=== PATIENT | male | born 1950 | race Caucasian/White ===

== ENCOUNTER 2022-08-11 08:12 | Outpatient (CLI) | payer BC, SELFPAY ==
--- NOTE | 2022-08-11 08:30 | CRLHL7_ITS ---
For Patients: As a result of the Century Cures Act, medical imaging exams and procedure reports are released immediately into your electronic medical record. You may view this report before your referring provider. If you have questions, please contact your health care provider. [facility] ??? [facility] MYOCARDIAL PERFUSION SCAN CLINICAL HISTORY: 71-year-old male. Chest pain. Former smoker. Hypertension. Family history of heart disease. 5 feet 11 inches, 221 pounds. TECHNIQUE: (Resting SPECT and Stress Gated SPECT with wall motion and ejection fraction) Stress: Pharmacologic ??? Lexiscan (0.4 mg) (IV) Dose (Stress/Rest): 30.9 mCi/8.70 mCi Tc-99m Sestamibi (IV) Comparison: None FINDINGS: There is good uptake of activity by the left ventricle. No left ventricular enlargement is noted. There is mild soft tissue attenuation. There is a medium sized area of mild to moderately decreased activity involving the base and mid inferior septum and the apical inferior wall. This is predominantly fixed on the resting images, suspicious for nontransmural infarction. There is mild peripheral reversibility surrounding this area consistent with mild kathi-infarction ischemia. No other significant fixed or reversible defects are identified. The gated images demonstrate a normal left ventricular ejection fraction of 62 percent. There is mild hypokinesis in the apical inferior wall. IMPRESSION: 1. 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 2. Normal left ventricular ejection fraction of 62 percent. This study was jointly reviewed by radiology and cardiology. JOSE LUIS COOPER M.D. [employer] [facility] [email or web address] Transcribed: 3:06 pm CAL HOLMAN M.D. [employer] [facility] DW/Dictated by: Jose Luis Cooper MD @ 08/11/2022 2:07:00 PM (Electronically Signed)
[2022-08-11] MEDS: REGADENOSON 0.4 MG/5 ML SYRINGE IVP (10:22)
[2022-08-11] MEDS: SODIUM CHLORIDE 0.9 % (FLUSH) 10 ML SYRINGE IVF (10:22)
[2022-08-11 10:40] VITALS: BP 180/84; PULSE 93
--- NOTE | 2022-08-11 17:13 | W.PM.STED ---
Stress Test Note Date Date of test: 08/11/22 Providers Primary care provider: Osvaldo Hall Stress test physician: Jett Tong Stress Test Note Stress test ordered: Lexiscan Indication for test: Chest pain Stress test medicine: Lexiscan Results discussion: This pleasant gentleman presents for the above test after review of the cardiac stress and test medical history, he would like to proceed pretest EKG shows normal sinus rhythm, with a ventricular rate 84 and a blood pressure 164 and 78, no ST wave changes suggestive of ischemia. Standard Lexiscan protocol nonwalking is done over the course of 5 minutes, maximum heart rate was 103, maximum blood pressure was 199/90. Patient had really no symptoms, he recovered normally, no chest pain or any anginal cold symptoms. There is no ST wave changes suggestive of ischemia, no dysrhythmias are noted. Impression: Negative electrographic portion of Lexiscan Follow up suggested: Follow-up with primary care suggested, review of the their portion will be done by both Cardiology and nuclear Medicine, clinical correlation with this will be needed. Patient left this is testing facility in excellent condition.
== END 2022-08-11 08:13 | disposition home or self-care (01) ==
LOC: STRESS 08:13
PROVIDERS: PCP Family Medicine; Visit Provider Family Medicine
DX: R07.9 Chest pain, unspecified (principal); I21.4 Non-ST elevation (NSTEMI) myocardial infarction; I10 Essential (primary) hypertension
CPT/HCPCS: 78452; 93016; 93017; A9500; J2785

== ENCOUNTER 2022-10-23 10:20 | Outpatient (CLI) | payer BC, SELFPAY | END 2022-10-23 10:21 | disposition home or self-care (01) | LOC: NFLDREF 10-24 03:48 | PROVIDERS: PCP Family Medicine; Referring Provider Family Medicine; Visit Provider Family Medicine | DX: E78.5 Hyperlipidemia, unspecified (principal); I10 Essential (primary) hypertension | CPT/HCPCS: 80048; 80061 ==

== ENCOUNTER 2023-02-18 15:19 | Outpatient (REF) | payer BC, SELFPAY ==
[2023-02-18 16:27] LABS: PSA Diagnostic* 0.34 ng/mL (0.10-4.00)
== END 2023-02-18 15:20 | disposition home or self-care (01) ==
LOC: NPINS 15:19
PROVIDERS: PCP Family Medicine; Visit Provider Physician Assistant
DX: R97.21 Rising PSA following treatment for malignant neoplasm of prostate (principal)
CPT/HCPCS: 84153

== ENCOUNTER 2023-03-29 09:30 | Outpatient (RCR) | payer BC, SELFPAY ==
--- NOTE | 2023-02-22 14:28 | PC.NURSE ---
Diagnosis: Prostate Cancer
--- NOTE | 2023-02-24 11:33 | URNOTE ---
REceived request for prior auth for Estevan ([id number]). Per Mitchell. clinical reveiw is not required for this medication. Order ID: [id number]
[2023-03-01] MEDS: LEUPROLIDE ACETATE 7.5 MG (SQ) SYRINGE SUBCUT (10:26)
[2023-03-29 09:40] VITALS: BP 161/93; PULSE 68; RESP 16; TEMP 35.8; O2SAT 95
[2023-03-29] MEDS: LEUPROLIDE ACETATE 22.5 MG (SQ) SYRINGE SUBCUT (10:01)
== END 2023-08-28 23:59 | disposition home or self-care (01) ==
LOC: CCIC 09:30
PROVIDERS: PCP Family Medicine; Referring Provider Family Medicine; Visit Provider Internal Medicine Hematology & Oncology
DX: C61 Malignant neoplasm of prostate (principal)
CPT/HCPCS: 96401; J9217

== ENCOUNTER 2023-10-11 11:00 | Outpatient (CLI) | payer BC, SELFPAY | END 2023-10-11 11:01 | disposition home or self-care (01) | LOC: NFLDREF 10-13 08:05 | PROVIDERS: PCP Family Medicine; Visit Provider Family Medicine | DX: C61 Malignant neoplasm of prostate (principal); R97.21 Rising PSA following treatment for malignant neoplasm of prostate | CPT/HCPCS: 99000 ==

== ENCOUNTER 2023-11-26 08:40 | Outpatient (CLI) | payer BC, SELFPAY ==
--- OUTSIDE RECORDS SUMMARY | 2023-12-16 05:48 | XMS_ITS | Encounter Summary ---
Author Organization [facility] Address [address] [place] [id number] Care Team Providers Care Flour Worker Name Role Phone Unavailable Primary Care Provider Unavailabl e Reason for Referral * Outpatient (Routine) - Authorized Specialty Diagnoses / Procedures Referred By Contac t Referred To Contact Radiation Oncology Dayana Arrieta APRN, C.N.PSahil, D.N.PSahil [address] [place] [phone] Pop Oliver M.D. [address] [place] [phone] Referral ID Status Reason Start Date Expiration Date V isits Requested Visits Authorized [id number] Authorized 10/19/2023 04/19/2025 1 1 Scheduling Instructions After PSA and testosterone completed via mail-in kit * Outpatient (Routine) - Closed Specialty Diagnoses / Procedures Referred By Contac t Referred To Contact Radiation Oncology Pop Oliver M.D. [address] [place] [phone] [facility] Referral ID Status Reason Start Date Expiration Date Visits Re quested Visits Authorized [id number] Closed 04/14/2023 04/13/2026 1 1 Scheduling Instructions Early 2023; Mail-in PSA and testosterone prior to visit. Reason for Visit * Outpatient (Routine) - Closed Specialty Diagnoses / Procedures Referred By Rocky reed Referred To Contact Radiation Oncology Pop Oliver M.D. [address] [place] [address] [facility] Region Referral ID Status Reason Start Date Expiration Date Visits Re quested Visits Authorized [id number] Closed 04/14/2023 04/13/2026 1 1 Encounter Details Date Type Department Care Team (Latest Contact Info) Description 10/19/2023 2:10 PM CDT - 10/19/2023 4:56 PM CDT Hospital Encounter Department of Radiation Oncology in [place], [place] [address] [place] [phone] Pop Oliver M.D. [address] [place] [phone] Primary Malignant Neoplasm Of Prostate (HCC) (Primary Dx); Rising Prostate Specific Antigen Following Treatment For Malignant Cancer Of Prostate Social History Tobacco Use Types Packs/Day Years Used Date Smoking Tobacco: Former Cigarettes 1 45 1 965 - 2009 Smokeless Tobacco: Never Alcohol Use Standard Drinks/Week Comments Yes 3 (1 standard drink = 0.6 oz pur e alcohol) [facility] Utilities Answer Date Recorded In the past 12 months has [employer], gas, oil, or water [employer] threatened to shut off services in your home? No 10/19/2023 Exercise Vital Sign Answer Date Recorde d On average, how many days pe r week do you engage in moderate to strenuous exercise (like a brisk walk)? 2 days Minutes of Exercise per Session Not on file 10/19/2023 Hunger Vital Sign Answer Date Recorded Within the past 12 months, y ou worried that your food would run out before you got the money to buy more. Never true 10/19/19 24 Within the past 12 months, t he food you bought just didn't last and you didn't have money to get more. Never true 10/19/2023 PRAPARE - Transportation Answer Date Re corded In the past 12 months, has l ack of transportation kept you from medical appointments or from getting medications? No 03/2024 In the past 12 months, has l ack of transportation kept you from meetings, work, or from getting things needed for daily living? No 10/19/2023 Nutrition Answer Date Recorded Nutrition: EVOO Fat Source Unknown 10/18 On average, how many serving s of fruits and vegetables do you eat per day (serving size is equal to 1 cup or approximately the size of a tennis ball)? 0-2 10/19/2023 Dental Answer Date Recorded Dental: Regular Dentist Yes 10/19/19 Employment Answer Date Recorded Employment status Retired 10/19/2023 Housing Stability Answer Date Recorded What is your living situation today? I have a [facility] place to live 10/19/2023 Sex and Gender Information Value Date Recorded Sex Assigned at Male 10/19/2023 2:16 PM CDT Gender Identity Male 10/19/2023 2:16 PM CDT Sexual Orientation Straight 10/19/2023 2: 16 PM CDT documented as of this encounter Last Filed Vital Signs Vital Sign Reading Time Taken Comments Blood Pressure 142/74 10/19/2023 2:28 PM CDT Pulse 86 10/19/2023 2:28 PM CDT Temperature 36.4 ??C (97.5 ??F) 10/19/2023 2:28 PM CD T Respiratory Rate - - Oxygen Saturation - - Inhaled Oxygen Concentration - - Weight 109 kg (239 lb 3.2 oz) 10/19/2023 2:28 PM CDT Height - - Body Mass Index - - documented in this encounter Medications at Time of Discharge Medication Sig Dispensed Refills Start Date End Date acetaminophen (TYLENOL) 325 mg tablet Take 325-650 mg by mouth as needed. 07/19/2020 ALPRAZolam (XANAX) 0.5 mg tablet Take 0.5 mg by mouth daily. 03/30/2020 amLODIPine (NORVASC) 2.5 mg tablet Take 1 tablet by mouth daily. amLODIPine (NORVASC) 5 mg tablet Take 5 mg by mouth every morning. aspirin [address] tablet Take 81 mg by mouth daily. 09/01/2022 atorvastatin (LIPITOR) 40 mg tablet Take 40 mg by mouth daily. 10/13/2022 budesonide (PULMICORT) 180 mcg/actuation inhaler Inhale 1 puff as needed. calcium carbonate-vitamin D3 1,500 mg (600 mg calcium)-5 mcg (200 Unit) per tablet Take 2 tablets by mouth daily with breakfast. carvediloL (COREG) 6.25 mg tablet TAKE 1 TABLET (6.25 MG) BY MOUTH TWO TIMES DAILY WITH MEALS. THIS MEDICATION REPLACES METOPROLOL. clopidogreL (PLAVIX) 75 mg tablet TAKE 75 MG ORALLY EVERY DAY ezetimibe (ZETIA) 10 mg tablet Take 10 mg by mouth daily. ipratropium-albuteroL (DUONEB) 0.5-2.5 mg/3 mL nebulizer solution 3 mL 3 (three) times a day. ipratropium/albuterol sulfate (IPRATROPIUM-ALBUTEROL INHL) 06/29/2022 isosorbide mononitrate (IMDUR) 60 mg 24 hr tablet Take 60 mg by mouth daily. 10/28/2022 lisinopril-hydroCHLOROth iazide (PRINZIDE,ZESTORETIC) 20-12.5 mg per tablet Take 2 tablets by mouth daily. 09/01/2022 nitroglycerin (NITROSTAT) 0.[address] 0.4 mg under the tongue every 5 (five) minutes as needed for chest pain. 10/14/2022 omeprazole (PriLOSEC) [address] capsule Take 20 mg by mouth daily. 09/01/2022 predniSONE (DELTASONE) 10 mg tablet Take 10 mg by mouth daily. 10/23/2022 sennosides-docusate sodium (SENOKOT-S) 8.6-50 mg per tablet Take 1 tablet by mouth 2 (two) times a day as needed. 07/19/2020 tiotropium-olodateroL (STIOLTO RESPIMAT) 2.5-2.5 mcg/actuation inhaler Inhale 2 puffs daily. 10/13/2022 Trelegy Ellipta 200-62.5-25 mcg inhaler Inhale 1 puff daily. daily 07/19/2023 documented as of this encounter Progress Notes * Dayana Arrieta APRN, C.N.P., D.N.P. - 10/19/2023 2:30 PM CDT SUBJECTIVE DIAGNOSIS 1. Primary Malignant Neoplasm Of Prostate (HCC) 2. Rising Prostate Specific Antigen Following Treatment For Malignant Cancer Of Prostate SUPERVISED BY: Pop Oliver MD HISTORY OF PRESENT ILLNESS Zia Mason is a 72 y.o. male with a rising PSA following prostatectomy. He completed salvage radiation therapy to the prostate bed on April 14, 2023, together with 4 months of ADT. He returns for routine follow up. His oncologic history is as follows: Oncology History Primary Malignant Neoplasm Of Prostate (HCC) 12/12/2019 Other PSA 12.7 04/30/2020 Biopsy/Pathology Final diagnosis: A. Left prostate biopsy -adenocarcinoma of the prostate -[place] score 3+4=7 -involving 10-15% of the length of the 4 cores -suspicious for perineural invasion B. Right prostate biopsy -benign prostatic tissue with focal chronic inflammation 4 of 12 cores positive 05/22/2020 Other Follow-up with Dr. Tinoco, Urology, following biopsy. KEYSHA demonstrated normal sphincter tone, approximately 35 g prostate, no nodules or induration. Discussed treatment options including prostatectomy, radiation, and cryoablation. He declined radiation oncology referral. Patient wished to proceed with surgery. 06/04/2020 Critical Imaging MRI pelvis Findings: The prostate midline length equals 4.8 cm, width the base equals 3.8 cm, mid equals 4.0 cm, apex equals 3.6 cm. Estimated volume equals 37 cc. Mild diffuse decreased T2 and ADC signal in the peripheral zone. 2.0 x 1.2 x 0 point 6 cm focal area decreased ADC and increased DWI signal in the anterior aspect of the left peripheral zone at the level of the base of the prostate extending from the 12 to 2 o'clock position. PI-RADS 5 No extracapsular extension or seminal vesicle invasion. No periprostatic or pelvic sidewall lymph nodes. No other bony or soft tissue metastases. 07/18/2020 Surgery and Procedures Radical prostatectomy with pelvic lymph node dissection performed by Dr. Otf Tinoco FINAL DIAGNOSIS: A: Periprostatic fat, excision - Benign adipose soft tissue stroma, no evidence of malignancy B: Lymph nodes, left pelvic, excision - Benign lymph nodes (2) C: Lymph node, right pelvic, excision - Benign lymph node (1) D: Prostate, radical prostatectomy - Adenocarcinoma, Vega Baja's grade 3/4 with extension to resection margin in left apex, left base and left posterior prostatic lobe (see description) Synoptic Report: SPECIMEN Procedure: - Radical prostatectomy TUMOR Histologic Type: - Acinar adenocarcinoma Histologic Grade Grade Group and Aki Score: - Grade group 2 (V[place] Score 3 + 4 = 7) Percentage of Pattern 4: 10% Extraprostatic Extension (EPE): - Not identified Urinary Bladder Neck Invasion: - Present Seminal Vesicle Invasion: - Not identified Treatment Effect: - No known presurgical therapy MARGINS Margins: - Involved by invasive carcinoma - Non-limited (>= 3 mm) Location of Positive Margin(s): - Left apical - Left bladder neck - Left posterior LYMPH NODES Number of Lymph Nodes Involved: - 0 Number of Lymph Nodes Examined: - 3 PATHOLOGIC STAGE CLASSIFICATION (PTNM, AJCC 8TH EDITION) Primary Tumor (pT): - pT3a Regional Lymph Nodes (pN): - pN0 09/11/2020 Other 09/11/2020: PSA <0.04 ng/mL 01/03/2021: PSA <0.04 ng/mL 06/18/2021: PSA 0.07 ng/mL 06/18/2021 - Follow up with Dr. Tinoco, recommended follow-up PSA and MRI in 3 months. 06/18/2021 Other Decipher score low, 0.40 09/30/2021 Critical Imaging MRI pelvis demonstrated prostatectomy with no evidence of local recurrence of disease. 10/08/2021 Other 10/08/2021: PSA 0.08 ng/mL 01/19/2022: PSA 0.21 ng/mL 04/22/2022: PSA 0.09 ng/mL 10/15/2022: PSA 0.24 ng/mL Patient continued to follow up with Dr. Tinoco every 3 months and wished to continue active surveillance. 10/21/2022 Other Follow up with Dr. Tinoco. Discussed continued surveillance versus salvage RT. Referral to Radiation Oncology. 12/23/2022 Other PSA 0.30 ng/mL Testosterone total 334 ng/dL 12/23/2022 Critical Imaging PSMA PET-MR demonstrated no convincing evidence of radiotracer avid disease. Patchy low-level radiotracer uptake inferior to the bladder near the prostatectomy bed without focal nodular uptake. Smallnodular area in the right middle lobe with low radiotracer uptake may represent a small nodule versus atelectasis. Chest CT would be helpful for further characterization. 02/18/2023 Other PSA 0.34 ng/mL 03/01/2023 - 04/14/2023 Radiation Therapy Total dose of 6880 cGy in 32 fractions Radiation Therapy Treatment Details (03/01/2023 - 04/14/2023) Site: Prostate bed Technique: IMRT Goal: Curative Planned Treatment Start Date: 03/01/2023 03/01/2023 - 06/2023 Biological/Targeted/Hormone Therapy 03/01/2023: Bicalutamide 50 mg daily for 21 days and leuprolide 7.5 mg at [facility]. 03/29/2023: Leuprolide 22.5 mg injection at [facility] with no further ADT planned. 10/11/2023 Other 10/11/2023: PSA <0.10 ng/mL. Testosterone total <7 ng/dL INTERVAL HISTORY The patient was seen and examined today with Dr. Oliver. The patient reports doing well overall. He reports mild fatigue. He has noticed his hot flashes areoccurring less frequently and less severely. He has noticed easy weight gain since radiation treatment. He reports stable urination overall. He has experienced occasional dysuria since the year. It does not happen every urination or every day. He feels this is improving overall. He re ports occasional urinary urgency and leakage. Leakage happens maybe twice a week when he exerts himself. He does wear pads on a daily basis. He otherwise denies urinary frequency or hematuria. He reports nocturia x0-1. He reports daily soft bowel movements without blood or pain. He denies any concerns with constipation or diarrhea. He denies new or persistent bone pain. His ECOG performance status is 0. PATIENT COMPLETED QUESTIONNAIRES: I-PSS I-PSS Urinary Symptoms Score: 4 I-PSS Quality of Life Score: 2 IIEF-15 Erectile Function:230 Orgasmic Function:0/10 Sexual Desire:2/10 [place] Satisfaction: 0/15 Overall satisfaction:410 Total Score:8/75 REVIEW OF SYSTEMS Review of systems was negative except as documented above. PATIENT REPORTED SYMPTOM SCREEN FATIGUE (Scale: 0 = no fatigue; 10 = worst fatigue you can imagine): 3 PAIN (Scale: 0 = no pain; 10 = worst pain you can imagine): 0 OVERALL QUALITY OF LIFE (Scale: 0 = as bad as can be; 10 = as good as can be): 7 OBJECTIVE BP 142/74 (BP Location: Right arm, Patient Position: Sitting, Cuff Size: Regular) Pulse 86 Temp36.4 ??C (Temporal) Wt 109 kg PHYSICAL EXAM General: Alert and oriented in no apparent distress. ASSESSMENT / PLAN #1 Stage IIIB (pT3a, pN0, cM0, R1, PSA 12.7, Grade Group 2) adenocarcinoma of the prostate s/p robotic prostatectomy with pelvic lymph node dissection with positive margins on July 18, 2020 with subsequent undetectable PSA #2 PSA became detectable on June 18, 2021 at 0.07 ng/mL; most recent 0.30 ng/mL on December 23, 2022 #3 Scant urinary incontinence following prostatectomy #4 Mild erectile dysfunction following prostatectomy #5 Coronary artery disease requiring cardiac stent placement on November 16, 2022 and December 15, 2022 #6 ADT 4 total months, final leuprolide 22.5 mg injection on March 29, 2023 #7 Salvage radiation therapy to the prostate bed initiated March 01, 2023; completed on April #8 Scant hematuria noted on March 22, 2023 It was a pleasure to meet with Zia today. He has recovered well overall following radiation treatment. He is experiencing occasional dysuria following radiation treatment which is overall improving. We will continue to monitor. He is otherwise not experiencing any new or persistent urinary symptoms. We reviewed his most recent PSA results of <0.10 ng/mL and testosterone total result of <7 ng/dL and discussed what this means in relation to his prostate cancer. I discussed that hot flashes will continue to improve as his testosterone recovers, along with his weight. We will have him complete a PSA in 3 months via mail in kit. He will be contacted with these results. We will schedule a return visit here in April 2024 with a PSA and testosterone level drawn a few days prior via mail in kit, on the 1 year anniversary of his radiation treatment. [facility] with Dr. Oliver, please review his attestation for additional information. I discussed the importance of contacting our team if blood persists over multiple days with urination and/or bowel movements or if he is noticing any clots with urination and/or bowel movements. I also discussed the importance of informing us if persistent bone pain is present over 1-2 months without relief.He will contact us with questions or concerns. He verbally expressed his understanding of the plan. EDUCATION Ready to learn, no apparent learning barriers were identified; learning preferences include listening. Explained diagnosis and treatment plan; patient expressed understanding of the content. I personally spent 15 minutes in care of the patient today. Time includes both non face to face andface to face patient care. Signed by: Dayana Arrieta APRN, C.N.P., MaribellNSahilP. 10/19/2023 2:46 [place] [address] Associated attestation - Pop Oliver M.D. - 10/19/2023 4:55 PM CDT I saw and evaluated the patient and participated in the wilde portions of the service. I reviewed thedocumentation of Dayana Arrieta C.N.P. and agree with the findings and plan. Zia Mason is a 72 y.o. male with a rising PSA following prostatectomy. He completed salvage radiation therapy to the prostate bed on April 14, 2023, together with 4 months of ADT. He returns in six-month follow-up The patient appears well on exam. The patient is doing well. His bowel and bladder function are good. His PSA is <0.10 ng/mL and testosterone total is <7 ng/dL. We will repeat a PSA in 3 months and contact him with the results. I will see him back in 6 months at the 1 year olga from his treatment completion with a pre-visit PSA. The patient verbalized satisfaction with this plan. I have spent 7 minutes caring for this patient including [id number] and ysq-[id number]-it-face time. Signed by: Pop Oliver M.D. 10/19/23 4:55 PM CDT [facility] documented in this encounter Miscellaneous Notes * Addendum Note - Teresa Montgomery C.N.A. - 10/19/2023 2:30 PM CDTEncounter addended by: Teresa Montgomery C.N.A. on: 10/20/2023 10:35 AM Actions taken: Letter saved documented in this encounter Plan of Treatment Scheduled Orders Name Type Priority Associated Diagnoses Orde r Schedule PSA (Prostate-Specific Antigen), Diagnostic Lab Routine Primary Malignant Neoplasm Of Prostate (HCC) Rising Prostate Specific Antigen Following Treatment For Malignant Cancer Of Prostate Expected: 01/18/2024, Expires: 01/17/2025 PSA (Prostate-Specific Antigen), Diagnostic Lab Routine Primary Malignant Neoplasm Of Prostate (HCC) Rising Prostate Specific Antigen Following Treatment For Malignant Cancer Of Prostate Expected: 04/12/2024, Expires: 01/17/2025 Testosterone, Total by Mass Spectrometry, Serum Lab Routine Primary Malignant Neoplasm Of Prostate (HCC) Rising Prostate Specific Antigen Following Treatment For Malignant Cancer Of Prostate Expected: 04/12/2024, Expires: 01/17/2025 Scheduled Referrals Name Type Priority Associated Diagnoses Order Schedule Radiation Oncology office visit (clinic) Outpatient Referral Routine Once for 1 Occurrences starting 10/19/2023 until 10/19/2023 Radiation Oncology office visit (clinic) Outpatient Referral Routine Expected: 04/19/2024, Expires: 01/17/2025 documented as of this encounter Visit Diagnoses Diagnosis Primary Malignant Neoplasm Of Prostate (HCC)- Primary Rising Prostate Specific Antigen Following Treatment For Malignant Cancer Of Prostate documented in this encounter
--- OUTSIDE RECORDS SUMMARY | 2023-12-16 05:48 | XMS_ITS | Referral Summary ---
Author Organization [facility] Address [address] [place] [address]. [place] [address] Care Team Providers Care Porcelain Mixer Name Role Phone Osvaldo Hall MD Primary Care Provider Allergies Active Allergy Reactions Criticality Noted Date Comments No Known Drug Allergy 11/16/2000 Medications Medication Sig Dispensed Refills Start Date End Date Status ALPRAZolam (XANAX) 0.5 MG tablet Take 0.5 mg by mouth At Bedtime Active budesonide (PULMICORT FLEXHALER) 180 MCG/ACT inhaler Inhale into the lungs 2 times daily as needed Active atorvastatin (LIPITOR) 20 MG tablet Take 20 mg by mouth every evening Active amLODIPine (NORVASC) 5 MG tablet Take 5 mg by mouth every morning Active lisinopril-hydroch lorothiazide (ZESTORETIC) 20-25 MG tablet Take 1 tablet by mouth every morning Active acetaminophen (TYLENOL) 325 MG tabletIndications: Prostate cancer (H) Take 1-2 tablets (325-650 mg) by mouth every 6 hours 0 07/19/2020 Active oxyCODONE (ROXICODONE) 5 MG tabletIndications: Prostate cancer (H) Take 1-2 tablets (5-10 mg) by mouth every 4 hours as needed for moderate to severe pain 12 tablet 07/19/2020 Active senna-docusate (SENOKOT-S/PERICOL YONIS) 8.6-50 MG tabletIndications: Prostate cancer (H) Take 1 tablet by mouth 2 times daily as needed for constipation 30 tablet 1 07/19/2020 Active Active Problems Problem Noted Date Diagnosed Date Prostate cancer 07/18/2020 Tobacco use disorder 11/16/2000 Essential hypertension, benign Social History Tobacco Use Types Packs/Day Years Used Date Smoking Tobacco: Every Day Cigarettes 1.5 48 Alcohol Use Standard Drinks/Week Comments Yes 0 (1 standard drink = 0.6 oz pur e alcohol) 5-10 drinks Whiskey Adolescent Education Answer Date Record ed Getting School Help Needed Not on file 04/12 Sex and Gender Information Value Date Recorded Sex Assigned at Not on file Gender Identity Not on file Sexual Orientation Not on file Last Filed Vital Signs Vital Sign Reading Time Taken Comments Blood Pressure 126/75 07/19/2020 3:10 PM MEDICAL SOCIAL WORKER Pulse 79 07/19/2020 3:10 PM MEDICAL SOCIAL WORKER Temperature 36.2 ??C (97.2 ??F) 07/19/2020 3:10 PM CS T Respiratory Rate 16 07/19/2020 4:50 PM MEDICAL SOCIAL WORKER Oxygen Saturation 93% 07/19/2020 3:10 PM MEDICAL SOCIAL WORKER Inhaled Oxygen Concentration - - Weight 92.1 kg (203 lb) 07/18/2020 10:31 AM MEDICAL SOCIAL WORKER Height 180.3 cm (5' 11) 07/18/2020 10:31 AM MEDICAL SOCIAL WORKER Body Mass Index 28.31 07/18/2020 10:31 AM MEDICAL SOCIAL WORKER Plan of Treatment Not on file Advance Directives For more information, please contact: [phone] * Full Code (Latest Code Status on File) Date Activated Date Inactivated Comments 07/18/2020 5:59 PM 07/19/2020 7:37 PM All basic and advanced life-sustaining interventions are performed as appropriate Question Answer Comments Code status determined by: Unable to dis cuss and no AD/POLST on file; continue PREVIOUSLY ORDERED code status Care Teams Porcelain Mixer Relationship Specialty Start Date End Date Osvaldo Hall MD PCP - General Family Medicine 07/12/20
--- OUTSIDE RECORDS SUMMARY | 2023-12-16 05:48 | XMS_ITS | Clinical Summary ---
Author Organization [facility] Address [place], [place] [address] Care Team Providers Care Engineering Technician Name Role Phone Osvaldo Hall MD Primary Care Provider + Allergies No known active allergies Medications Medication Sig Dispensed Refills Start Date End Date Status omeprazole (PRILOSEC) 20 mg Delayed-Release capsule Take 1 Capsule (20 mg) by mouth once daily before a meal. 0 09/01/2022 Active albuterol HFA (PRO-AIR; VENTOLIN; PROVENTIL) 90 mcg/actuation inhaler Inhale 2 Puffs by mouth 4 times daily if needed. 0 09/01/2022 Active tiotropium-olodateroL (Stiolto Respimat) 2.5-2.5 mcg/actuation inhaler Inhale 2 Puffs by mouth once daily. 4 g 10/13/2022 Active atorvastatin (LIPITOR) 40 mg tabletIndications:Hyp erlipidemia, unspecified hyperlipidemia type Take 1 Tablet (40 mg) by mouth at bedtime. 90 Tablet 3 10/13/2022 Active nitroglycerin (NITROSTAT) 0.4 mg sublingual tabletIndications:ASC VD (arteriosclerotic cardiovascular disease) Place 1 Tablet (0.4 mg) under the tongue every 5 minutes if needed for Chest Pain. 25 Tablet 1 10/14/2022 Active ALPRAZolam (XANAX) 1 mg tablet Take 1 mg by mouth at bedtime. 10/19/2022 Active albuterol-ipratropium (DUONEB) (2.5-0.5 mg) in 3 mL NEBULIZATION solution Inhale 3 mL via a nebulizer every 6 hours if needed. 11/03/2022 Active isosorbide mononitrate (IMDUR) 60 mg extended release tablet 24 hour Take 60 mg by mouth once daily. Active predniSONE (DELTASONE) 10 mg tablet Take 1 Tablet (10 mg) by mouth once daily with a meal. 0 12/01/2022 Active ezetimibe (Zetia) 10 mg tabletIndications:ASC VD (arteriosclerotic cardiovascular disease) Take 1 Tablet (10 mg) by mouth once daily. 90 Tablet 3 12/02/2022 Active clopidogreL (PLAVIX) 75 mg tabletIndications:ASC VD (arteriosclerotic cardiovascular disease) Take 1 Tablet (75 mg) by mouth once daily. 90 Tablet 4 12/16/2022 Active lisinopril-hydrochlor othiazide 20-12.5 mg tablet (PRINZIDE) Take 2 Tablets by mouth once daily. 0 05/18/2023 Active carvediloL (Coreg) 6.25 mg tabletIndications:ASC VD (arteriosclerotic cardiovascular disease) Take 1 Tablet (6.25 mg) by mouth two times daily with meals. This medication replaces Metoprolol. 180 Tablet 3 05/18/2023 Active aspirin (ECOTRIN) 81 mg enteric coated tabletIndications:Dys pnea on exertion TAKE 1 TABLET (81 MG) BY MOUTH ONCE DAILY WITH A MEAL. 90 Tablet 3 08/25/2023 Active Active Problems Problem Noted Date Diagnosed Date Coronary artery disease of n ative artery of [place] heart with stable angina pectoris 11/16/2022 Primary hypertension 11/16/2022 Mixed hyperlipidemia 11/16/2022 COPD (chronic obstructive pulmonary disease) 11/2022 ASCVD (arteriosclerotic cardiovascular disease) 10/14/2022 Overview: CT coronary angiogram 09/15/22 - diffuse MVD with severe OM2 disease and a mRCA SANIPRACTIC PHYSICIAN noted with left to right collaterals Social History Tobacco Use Types Packs/Day Years Used Date Smoking Tobacco: Former Cigarettes 1 45 1 965 - 2009 Smokeless Tobacco: Never Tobacco Cessation:Counseling Given: Not Answered Alcohol Use Standard Drinks/Week Comments Yes 3 (1 standard drink = 0.6 oz pur e alcohol) PHQ-2 Answer Date Recorded PHQ-2 TOTAL SCORE 0 03/29/2023 Social Connections Answer Date Recorded Frequency of Communication with Friends and Fami ly Not on file 09/01/2022 Sex and Gender Information Value Date Recorded Sex Assigned at Not on file Gender Identity Not on file Sexual Orientation Not on file Obstetrics History Last Filed Vital Signs Vital Sign Reading Time Taken Comments Blood Pressure 144/90 05/18/2023 9:04 AM EXPLORATION MANAGER Pulse 85 05/18/2023 9:04 AM EXPLORATION MANAGER Temperature 36.5 ??C (97.7 ??F) 12/16/2022 1 2:13 AM CDT Respiratory Rate 18 12/31/2022 1:00 PM CDT Oxygen Saturation 94% 05/18/2023 9:04 AM EXPLORATION MANAGER Inhaled Oxygen Concentration - - Weight 105.4 kg (232 lb 6.4 oz) 05/18/2023 9:04 AM EXPLORATION MANAGER Height 180.3 cm (5' 10.98) 05/18/2023 9:[address] Body Mass Index 32.43 05/18/2023 9:04 AM EXPLORATION MANAGER Plan of Treatment Health Maintenance Due Date Last Done Comments Pneumococcal series for age 65+ (1 of 2 - PCV) 1958 Tdap 11/10/1963 Hepatitis C screening for ag e 18-79 1970 Tetanus booster 1972 Colonoscopy through age 75 1997 Zoster (shingles) series for age 50+ (1 of 2) 2002 Influenza for age 65+ 03/12/2024 Depression screening for age 12+ 03/29/2024 03/29/2023, 03/26/2023, 12/31/2022, Additional history exists BMI (ht and wt on same day) for age 18+ 05/18/2024 05/18/2023, 12/01/2022, 10/28/2022, Additional history exists Lipids for age 45-75 05/25/2028 05/25/2023, 12/01/2022, 10/13/2022, Additional history exists AAA screening age 65-74 Completed 11/02/2022 COVID-19 vaccine series Completed 04/09/20, 05/08/2022, 11/14/2021, Additional history exists Procedures Procedure Name Priority Date/Time Associated Diagnosis Comments LIPID PANEL Routine 05/25/2023 9:34 AM EXPLORATION MANAGER ASCVD (arteriosclerotic cardiovascular disease) US ABD AORTA SCREENING Routine 11/02/2022 8:10 AM CDT Screening for cardiovascular condition from Last 3 Months or Most Recently Relevant to Health Maintenance Results * (ABNORMAL) LIPID PANEL (05/25/2023 9:34 AM EXPLORATION MANAGER) CHOLESTEROL,TOTAL 135 100 - 199 mg/dL 05/25/2023 4:48 PM EXPLORATION MANAGER [facility] Comment: Cholesterol, Total Reference Ranges Desirable <200 mg/dL Borderline 200-239 mg/dL High >=240 mg/dL TRIGLYCERIDES 236(H) <150 mg/dL 05/25/2023 4:48 PM EXPLORATION MANAGER [facility] HDL CHOLESTEROL 41 >40 mg/dL 4:48 PM EXPLORATION MANAGER [facility] NON-HDL CHOLESTEROL 94 <145 mg/dl 05/25/2023 4:48 PM EXPLORATION MANAGER [facility] CHOL/HDL RATIO 3.29 <4.50 05/25/2023 4:48 PM EXPLORATION MANAGER [facility] LDL CHOLESTEROL 47 <=130 mg/dL 05/25/2023 4:48 PM EXPLORATION MANAGER [facility] VLDL CHOLESTEROL 47(H) <=30 mg/dL 05/25/2023 4:48 PM EXPLORATION MANAGER [facility] PROVIDER ORDERED STATUS RANDOM 05/25/2023 4:48 PM EXPLORATION MANAGER [facility] Blood BLOOD SPECIMEN / Unknown Venipuncture / Unknown 05/25/2023 9:34 AM EXPLORATION MANAGER 05/25/2023 9:34 AM EXPLORATION MANAGER Blayne Iglesias MD CHEMISTRY [facility] [address] [place] [address], * US ABD AORTA SCREENING (11/02/2022 8:10 AM CDT) Anatomical Region Laterality Modality Abdomen, AORTA Ultrasound 11/02/2022 7:48 AM CDT Narrative 11/02/2022 10:34 AM CDT VASCULAR ULTRASOUND REPORT ZIA MASON Accession#: ?? [id number] : ?1950 ?? Study Date: ?? 11/02/2022 7:48:28 AM Age: ?71 years ?? Tech: ? BVB Gender: M ?Referring MD: CITLALI AUSTIN [facility] performed: ?Aorta Indication for study: Family history AAA and AAA screening. TECHNIQUE: The abdominal aorta and iliac arteries were examined with duplex ultrasound, color-flow and spectral Doppler. Bypass grafts and/or stents if present are evaluated per exam protocol. Vessel size, peak systolic velocity (PSV) and velocity ratios if applicable, were obtained and documented at sites per exam protocol. IMPRESSION: Highly limited and suboptimal exam due to obscuring bowel gas, suprarenal aorta was not visualized. 1. Within these limitations, no sonographic evidence of abdominal aortic aneurysm. 2. No common iliac artery stenosis or aneurysm bilaterally. COMPARISON: No prior study available for comparison. FINDINGS: There is no evidence of abdominal aortic aneurysm. No common iliac artery stenosis or aneurysm bilaterally. Highly limited and suboptimal exam due to obscuring bowel gas, suprarenal aorta was not visualized. MEASUREMENTS: + +--------+-------+ +---------+ ? TRV (cm) AP (cm) PSV (cm/s) Phasicity + +--------+-------+ +---------+ Juxtarenal aorta ?2.12 ?? 2.02 ?50 ? biphasic + +--------+-------+ +---------+ Infrarenal aorta ?2.24 ?? 2.05 ?37 ? biphasic + +--------+-------+ +---------+ Right common iliac ??1.34 ?? 1.33 ?53 ? biphasic + +--------+-------+ +---------+ Left common iliac ??1.08 ?? 1.15 ?95 ? biphasic + +--------+-------+ +---------+ Edwin Whitlock MD. [employer] Electronically signed on 11/02/2022 10:34:34 AM This study was performed and interpreted by a service accredited by the Intersocietal Accreditation Commission (IAC/Vascular), www.intersocietal.org/vascular Report generated by [employer]. ??Final ?? Procedure Note Edwin Whitlock MD - 11/02/2022 VASCULAR ULTRASOUND REPORT ZIA MASON : 1950 Study Date: 11/02/2022 7:48:28 AM Age: 71 years Tech: BVB Gender: M Referring MD: CITLALI AUSTIN Site: [facility] Study performed: Aorta Indication for study: Family history AAA and AAA screening. TECHNIQUE: The abdominal aorta and iliac arteries were examined with duplexultrasound, color-flow and spectral Doppler. Bypass grafts and/or stentsif present are evaluated per exam protocol. Vessel size, peak systolicvelocity (PSV) and velocity ratios if applicable, were obtained anddocumented at sites per exam protocol. IMPRESSION: Highly limited and suboptimal exam due to obscuring bowel gas, suprarenalaorta was not visualized. 1. Within these limitations, no sonographic evidence of abdominal aorticaneurysm. 2. No common iliac artery stenosis or aneurysm bilaterally. COMPARISON: No prior study available for comparison. FINDINGS: There is no evidence of abdominal aortic aneurysm. No common iliac arterystenosis or aneurysm bilaterally. Highly limited and suboptimal exam dueto obscuring bowel gas, suprarenal aorta was not visualized. MEASUREMENTS: + +--------+-------+ +---------+ TRV (cm) AP (cm) PSV (cm/s) Phasicity + +--------+-------+ +---------+ Juxtarenal aorta 2.12 2.02 50 biphasic + +--------+-------+ +---------+ Infrarenal aorta 2.24 2.05 37 biphasic + +--------+-------+ +---------+ Right common iliac 1.34 1.33 53 biphasic + +--------+-------+ +---------+ Left common iliac 1.08 1.15 95 biphasic + +--------+-------+ +---------+ Edwin Whitlock MD. [employer] Electronically signed on 11/02/2022 10:34:34 AM This study was performed and interpreted by a service accredited by theIntersocietal Accreditation Commission (IAC/Vascular),www.intersocietal.org/vascular Report generated by [employer]. Final Citlali Austin ELECTRONIC TECHNOLOGIST from Last 3 Months or Most Recently Relevant to Health Maintenance Advance Directives * Full Code (Latest Code Status on File) Date Activated Date Inactivated Comments 12/15/2022 3:35 PM 12/16/2022 1:34 PM Question Answer Comments Code Status Discussion: Reviewed Preferences * Full Code Date Activated Date Inactivated Comments 11/16/2022 10:13 AM 11/17/2022 3:55 PM Question Answer Comments Code Status Discussion: Reviewed Preferences * Full Code Date Activated Date Inactivated Comments 10/14/2022 7:48 AM 10/15/2022 2:13 AM Question Answer Comments Code Status Discussion: Reviewed Preferences Care Teams Engineering Technician Relationship Specialty Start Date End Date Osvaldo Hall MD [address] [place] [address] PCP - General Family Practice 04/03/20
--- OUTSIDE RECORDS SUMMARY | 2023-12-16 05:48 | XMS_ITS | Clinical Summary ---
Author Organization [facility] Address [address] [place] [id number] Care Team Providers Care Fruit Dryer Name Role Phone Unavailable Primary Care Provider Unavailabl e Source Comments Patient records contain information from all sites at [facility]. For routine questions regarding patient records, call [phone] during business hours, M-F 8:00 AM - 5:00 PM Central Time. Record requests for emergency care only can be directed to [phone] at any time.[facility] Allergies No known active allergies Medications Medication Sig Dispensed Refills Start Date End Date Status ALPRAZolam (XANAX) 0.5 mg tablet Take 0.5 mg by mouth daily. 03/30/[address] Active aspirin [address] tablet Take 81 mg by mouth daily. 09/01/2022 Active atorvastatin (LIPITOR) 40 mg tablet Take 40 mg by mouth daily. 10/13/2022 Active isosorbide mononitrate (IMDUR) 60 mg 24 hr tablet Take 60 mg by mouth daily. 10/28/2022 Active lisinopril-hydroCHLOR Othiazide (PRINZIDE,ZESTORETIC) 20-12.5 mg per tablet Take 2 tablets by mouth daily. 09/01/2022 Active nitroglycerin (NITROSTAT) 0.[address] 0.4 mg under the tongue every 5 (five) minutes as needed for chest pain. 10/14/2022 Active omeprazole (PriLOSEC) [address] capsule Take 20 mg by mouth daily. 09/01/2022 Active predniSONE (DELTASONE) 10 mg tablet Take 10 mg by mouth daily. 10/23/2022 Active tiotropium-olodateroL (STIOLTO RESPIMAT) 2.5-2.5 mcg/actuation inhaler Inhale 2 puffs daily. 10/13/2022 Active ezetimibe (ZETIA) 10 mg tablet Take 10 mg by mouth daily. Active calcium carbonate-vitamin D3 1,500 mg (600 mg calcium)-5 mcg (200 Unit) per tablet Take 2 tablets by mouth daily with breakfast. Active acetaminophen (TYLENOL) 325 mg tablet Take 325-650 mg by mouth as needed. 07/19/2020 Active amLODIPine (NORVASC) 2.5 mg tablet Take 1 tablet by mouth daily. Active amLODIPine (NORVASC) 5 mg tablet Take 5 mg by mouth every morning. Active budesonide (PULMICORT) 180 mcg/actuation inhaler Inhale 1 puff as needed. Active carvediloL (COREG) 6.25 mg tablet TAKE 1 TABLET (6.25 MG) BY MOUTH TWO TIMES DAILY WITH MEALS. THIS MEDICATION REPLACES METOPROLOL. Active clopidogreL (PLAVIX) 75 mg tablet TAKE 75 MG ORALLY EVERY DAY Active Trelegy Ellipta 200-62.5-25 mcg inhaler Inhale 1 puff daily. daily 07/19/2023 Active ipratropium-albuteroL (DUONEB) 0.5-2.5 mg/3 mL nebulizer solution 3 mL 3 (three) times a day. Active ipratropium/albuterol sulfate (IPRATROPIUM-ALBUTERO L INHL) 06/29/2022 Active sennosides-docusate sodium (SENOKOT-S) 8.6-50 mg per tablet Take 1 tablet by mouth 2 (two) times a day as needed. 07/19/2020 Active Active Problems Problem Noted Date Diagnosed Date Rising Prostate Specific Ant igen Following Treatment For Malignant Cancer Of Prostate 10/23/2022 Primary Malignant Neoplasm Of Prostate 0 Cancer Staging:Pathologic stage from 07/18/2020:Stage IIIB(pT3a, pN0, cM0, PSA: 12.7, Grade Group: 2) - Unsigned Encounters Date Type Department Care Team Description 10/19/2023 2:10 PM CDT - 10/19/2023 4:56 PM CDT Hospital Encounter Department of Radiation Oncology in [address] [phone] Pop Oliver M.D. Primary Malignant Neoplasm Of Prostate (HCC) (Primary Dx); Rising Prostate Specific Antigen Following Treatment For Malignant Cancer Of Prostate 10/15/2023 10:00 AM CDT Clinical Communication Virtual Review in [place], [place] [address] [place] [address] Pre-visit Intake from Last 3 Months Family History Medical History Relation Name Comments Prostate cancer Brother 1 Prostate cancer Brother 2 Breast cancer Sister Relation Name Status Comments Brother 1 Brother 2 Sister Social History Tobacco Use Types Packs/Day Years Used Date Smoking Tobacco: Former Cigarettes 1 45 1 965 - 2009 Smokeless Tobacco: Never Tobacco Cessation:Counseling Given: Not Answered Alcohol Use Standard Drinks/Week Comments Yes 3 (1 standard drink = 0.6 oz pur e alcohol) [facility] [employer] Answer Date Recorded In the past 12 months has e [employer], gas, oil, or water [employer] threatened to shut off services in your [...] your living situation today? I have a [facility] place to live 10/19/2023 Sex and Gender Information Value Date Recorded Sex Assigned at Male 10/19/2023 2:16 PM CDT Gender Identity Male 10/19/2023 2:16 PM CDT Sexual Orientation Straight 10/19/2023 2: 16 PM CDT Last Filed Vital Signs Vital Sign Reading [...] - - Body Mass Index - - Plan of Treatment Health Maintenance Due Date Last Done Comments Abdominal Aortic Aneurysm (AAA) Screen 1950 CT Colonography 1950 Cologuard 1950 FIT 1950 Hepatitis C Screening 1950 DTaP,Tdap,and Td Vaccines (2 - Td or Tdap) 08/09/2022 08/09/2012, 07/07/2006 COVID-19 Vaccine ( season) 2023 04/09/2023, 05/08/2022, 11/14/2021, Additional history exists Depression Screening (Annual PHQ-2) 07/12/2023 Fall Risk Screen (Annual) 07/12/2023 Lung Cancer Screening 10/01/2023 09/30/2022, 023 Creatinine Level (Kidney Function Test) 12/17/2023 12/16/2022, 12/15/2022, 12/01/2022, Additional history exists Potassium Level 12/17/2023 12/16/2022, 06/0 12/2022, 12/01/2022, Additional history exists Sodium Level 12/17/2023 12/16/2022, 06/0 12/2022, 12/01/2022, Additional history exists Fasting Glucose for Diabetes Screening 12/16/2025 12/16/2022, 12/15/2022, 12/01/2022, Additional history exists Colonoscopy 06/10/2031 06/10/2021 Colorectal Cancer Screening 06/10/2031 Zoster Vaccines Completed 11/27/2020, 08/2020, 02/04/2015 Pneumococcal vaccine (65+ years) Completed 03/24/2023, 06/12/2019, 12/27/2018 Influenza Vaccine Completed 04/09/2023, , 07/22/2021, Additional history exists HPV Vaccines Aged Out No longer eligi ble based on patient's age to complete this topic Procedures Procedure Name Priority Date/Time Associated Diagnosis Comments TESTOSTERONE, TOTAL BY MASS SPECROMETRY, S Routine 10/11/2023 11:00 AM CDT Rising Prostate Specific Antigen Following Treatment For Malignant Cancer Of Prostate PROSTATE-SPECIFIC AG (PSA) DIAGNOSTIC, S Routine 10/11/2023 11:00 AM CDT Rising Prostate Specific Antigen Following Treatment For Malignant Cancer Of Prostate EXTI BASIC METABOLIC PANEL, S/P Routine 12/16/2022 7:[address] CHEST WITHOUT IV CONTRAST RAD - Routine (most inpatients and all outpatients) 09/30/2022 7:46 AM CDT from Last 3 Months or Most Recently Relevant to Health Maintenance Results * (ABNORMAL) Testosterone, Total by Mass Spectrometry, Serum (10/11/2023 11:00 AM CDT) Testosterone, Total by Mass Spectrometry, Serum <7.0(L) 240 - 950 ng/dL 10/13/2023 7:42 AM CDT [facility] Comment: ----ADDITIONAL INFORMATION---- Testing performed by Liquid Chromatography-Tandem Mass Spectrometry (LC-MS/MS). This test was developed and its performance characteristics determined by [facility] in a manner consistent with CLIA requirements. This test has not been cleared or approved by the U.S. Food and Drug Administration. Blood (Blood, Venous) 10/11/2023 11:00 AM CDT 10/12/2023 9:37 AM CDT Pop Oliver M.D. LAB BLOOD NON ADD- ON [facility] [address] [place] [address] [facility] [address] [place] [address] [place] [address] * PSA (Prostate-Specific Antigen), Diagnostic (10/11/2023 11:00 AM CDT) Prostate-Specific Ag <0.10 <=6.5 ng/mL 10/12/2023 8:48 AM CDT [facility] Comment: ----ADDITIONAL INFORMATION---- The testing method is an electrochemiluminescence assay manufactured by [employer] and performed on the Modular [employer] Dang system. Values obtained with different assay methods or kits may be different and cannot be used interchangeably. Test results cannot be interpreted as absolute evidence for the presence or absence of malignant disease. Blood (Blood, Venous) 10/11/2023 11:00 AM CDT 10/12/2023 7:18 AM CDT Pop Oliver M.D. LAB BLOOD ADD-ON Performing Organization Address [facility] Co de Phone Number [facility] [address] [place] [address], [place] DTL [facility] [address] [place] [address] from Last 3 Months or Most Recently Relevant to Health Maintenance HERNANDEZ Baird [id number]
--- OUTSIDE RECORDS SUMMARY | 2023-12-16 05:48 | XMS_ITS | Encounter Summary ---
Author Organization [facility] Address [address] [place] [address] Care Team Providers Care Talcer Name Role Phone Unavailable Primary Care Provider Unavailabl e Encounter Details Date Type Department Care Team (Latest Contact Info) Description 09/13/2023 7:08 AM WORK FROM HOME - 09/13/2023 11:59 PM WORK FROM HOME Hospital Encounter Department of Laboratory Medicine and Pathology, [facility] in [place], [place] [address] [place] [address] Pop Oliver M.D. [address] [place] [phone] Rising Prostate Specific Antigen Following Treatment For Malignant Cancer Of Prostate Discharge Disposition: Home or Self Care Social History Tobacco Use Types Packs/Day Years Used Date Smoking Tobacco: Former Cigarettes 1 45 1 965 - 2010 Smokeless Tobacco: Never Alcohol Use Standard Drinks/Week Comments Yes 3 (1 standard drink = 0.6 oz pur e alcohol) Nutrition Answer Date Recorded Nutrition: EVOO Fat Source Unknown 10/21 Nutrition: Servings of Fruits/Vegetables per Day Not on file 10/21/2022 Dental Answer Date Recorded Dental: Regular Dentist Unknown 10/22/19 23 Sex and Gender Information Value Date Recorded Sex Assigned at Male 10/19/2023 2:16 PM CDT Gender Identity Male 10/19/2023 2:16 PM CDT Sexual Orientation Straight 10/19/2023 2: 16 PM CDT documented as of this encounter Medications at Time of Discharge Medication Sig Dispensed Refills Start Date End Date acetaminophen (TYLENOL) 325 mg tablet Take 325-650 mg by mouth as needed. 07/19/2020 ALPRAZolam (XANAX) 0.5 mg tablet Take 0.5 mg by mouth daily. 03/30/[address] tablet Take 81 mg by mouth daily. 09/01/2022 atorvastatin (LIPITOR) 40 mg tablet Take 40 mg by mouth daily. 10/13/2022 calcium carbonate-vitamin D3 1,500 mg (600 mg calcium)-5 mcg (200 Unit) per tablet Take 2 tablets by mouth daily with breakfast. ezetimibe (ZETIA) 10 mg tablet Take 10 mg by mouth daily. ipratropium/albuterol sulfate (IPRATROPIUM-ALBUTEROL INHL) 06/29/2022 isosorbide mononitrate (IMDUR) 60 mg 24 hr tablet Take 60 mg by mouth daily. 10/28/2022 lisinopril-hydroCHLORO thiazide (PRINZIDE,ZESTORETIC) 20-12.5 mg per tablet Take 2 [...] inhaler Inhale 1 puff daily. daily 07/19/2023 albuterol 90 mcg/actuation inhaler Inhale 2 puffs 4 (four) times a day as needed. 09/01/2022 10/15/2023 bicalutamide (CASODEX) 50 mg tablet Take 1 tablet (50 mg total) by mouth daily for 21 days. Take at the same time everyday. Take with or without food. 21 tablet 02/22/2023 10/19/2023 fluconazole (DIFLUCAN) 100 mg tablet Take 100 mg by mouth daily. 03/04/2023 10/15/2023 fluticasone propion-salmeteroL 500-50 mcg/dose diskus inhaler Inhale 1 puff 2 (two) times a day. Rinse mouth with water after use to reduce aftertaste and incidence of candidiasis. Do not swallow. 10/15/2023 metoprolol succinate (TOPROL-XL) 25 mg 24 hr tablet Take 50 mg by mouth daily. 10/14/2022 10/15/2023 documented as of this encounter Plan of Treatment Not on file documented as of this encounter Procedures Procedure Name Priority Date/Time Associated Diagnosis Comments TESTOSTERONE, TOTAL BY MASS SPECROMETRY, S Routine 10/11/2023 11:00 AM CDT Rising Prostate Specific Antigen Following Treatment For Malignant Cancer Of Prostate PROSTATE-SPECIFIC AG (PSA) DIAGNOSTIC, S Routine 10/11/2023 11:00 AM CDT Rising Prostate Specific Antigen Following Treatment For Malignant Cancer Of Prostate documented in this encounter Results * (ABNORMAL) Testosterone, Total by Mass Spectrometry, Serum (10/11/2023 11:00 AM CDT) Testosterone, Total by Mass Spectrometry, Serum <7.0(L) 240 - 950 ng/dL 10/13/2023 7:42 AM CDT [facility] Comment: ----ADDITIONAL INFORMATION---- Testing performed by Liquid Chromatography-Tandem Mass Spectrometry (LC-MS/MS). This test was developed and its performance characteristics determined by [facility] in a manner consistent with CLIA requirements. This test has not been cleared or approved by the U.S. Food and Drug Administration. Blood (Blood, Venous) 10/11/2023 11:00 AM CDT 10/12/2023 9:37 AM CDT Pop Oliver M.D. LAB BLOOD NON ADD- ON [facility] [address] [place] [address] [facility] [address] [place] [address] [place] [address] * PSA (Prostate-Specific Antigen), Diagnostic (10/11/2023 11:00 AM CDT) Prostate-Specific Ag <0.10 <=6.5 ng/mL 10/12/2023 8:48 AM CDT [facility] Comment: ----ADDITIONAL INFORMATION---- The testing method is an electrochemiluminescence assay manufactured by [employer] and performed on the Modular or Syntricity system. Values obtained with different assay methods or kits may be different and cannot be used interchangeably. Test results cannot be interpreted as absolute evidence for the presence or absence of malignant disease. Blood (Blood, Venous) 10/11/2023 11:00 AM CDT 10/12/2023 7:18 AM CDT Pop Oliver M.D. LAB BLOOD ADD-ON [facility] [address] [place] [address], [facility] DTL [facility] [address] [place] [address] documented in this encounter Visit Diagnoses Diagnosis Rising Prostate Specific Antigen Following Treatment For Malignant Cancer Of Prostate documented in this encounter
--- OUTSIDE RECORDS SUMMARY | 2023-12-16 05:48 | XMS_ITS | Encounter Summary ---
Author Organization [facility] Address [address] [place] [address] Care Team Providers Care Mains And Service Supervisor Name Role Phone Unavailable Primary Care Provider Unavailabl e Reason for Visit * Reason Onset Date Comments Pre-visit Intake 10/15/2023 Encounter Details Date Type Department Care Team (Latest Contact Info) Description 10/15/2023 10:00 AM CDT Clinical Communication Virtual Review in [place], [place] [address] [place] [address] Pre-visit Intake Social History Tobacco Use Types Packs/Day Years Used Date Smoking Tobacco: Former Cigarettes 1 45 1 965 - 2010 Smokeless Tobacco: Never Tobacco Cessation:Counseling Given: Not [...] PM CDT documented as of this encounter Plan of Treatment Not on file documented as of this encounter Visit Diagnoses Not on filedocumented in this encounter
--- OUTSIDE RECORDS SUMMARY | 2023-12-16 05:48 | XMS_ITS ---
Author Organization [facility] Address [address] [place] [address] Care Team Providers Care Manager Rfid Name Role Phone Unavailable Primary Care Provider Unavailabl e Active Problems Problem Noted Date Diagnosed Date Rising Prostate Specific Ant igen Following Treatment For Malignant Cancer Of Prostate 10/23/2022 Primary Malignant Neoplasm Of Prostate 0 Cancer Staging:Pathologic stage from 07/18/2020:Stage IIIB(pT3a, pN0, cM0, PSA: 12.7, Grade Group: 2) - Unsigned Current Oncology Plans Leuprolide Acetate Every 12 Weeks* Plan Start Date:03/22/2023 Plan Provider:Dayana Arrieta APRN, C.N.P., D.N.P. Linked Problems Primary Malignant Neoplasm O f Prostate (HCC) Treatment Medications No medications scheduled. Past Plans Hem/Onc Therapy Plan 1 Plan Name Start Date Discontinue Date Treatment Medications Discontinue Reason Plan Provider Leuprolide Acetate Every 4 Weeks 02/22/2023 03/03/2023 No medications scheduled. Therapy Complete Dayana Arrieta APRN, C.N.P., D.N.P. Radiation Treatments * Plan Last Treated On Elapsed Days Fractions Treated Prescribed Fraction Dose Prescribed Total Dose [id number] 04/14/2023 44 32 of 32 215 cGy 6,880 cGy Reference Point Last Treated On Elapsed Days Session Dose Total Dose [id number] 04/14/2023 44 215 cGy 6,880 cGy
--- OUTSIDE RECORDS SUMMARY | 2023-12-16 05:48 | XMS_ITS | Clinical Summary ---
Author Organization [facility] Address [address] [place] [address]. [place] [address] Care Team Providers Care Wood Cutter Name Role Phone Osvaldo Hall MD Primary Care Provider [phone] Allergies Active Allergy Reactions Criticality Noted Date [...] Tobacco use disorder 11/16/2000 Essential hypertension, benign Family History Medical History Relation Comments Heart Disease Father [place] age 60's Hypertension Father Heart Disease Mother [place] age 60's Hypertension Mother Cancer No family hx of Diabetes No family hx of Relation Status Comments Father Mother Social History Tobacco Use Types Packs/Day Years [...] Comments Blood Pressure 126/75 07/19/2020 3:10 PM BRAKE LINING DRILLER Pulse 79 07/19/2020 3:10 PM BRAKE LINING DRILLER Temperature 36.2 ??C (97.2 ??F) 07/19/2020 3:10 PM CS T Respiratory Rate 16 07/19/2020 4:50 PM BRAKE LINING DRILLER Oxygen Saturation 93% 07/19/2020 3:10 PM BRAKE LINING DRILLER Inhaled Oxygen Concentration - - Weight 92.1 kg (203 lb) 07/18/2020 10:31 AM BRAKE LINING DRILLER Height 180.3 cm (5' 11) 07/18/2020 10:31 AM BRAKE LINING DRILLER Body Mass Index 28.31 07/18/2020 10:31 AM BRAKE LINING DRILLER Plan of Treatment Not on file Advance Directives For more information, please contact: [phone] * Full Code (Latest Code Status on File) Date Activated Date Inactivated Comments 07/18/2020 5:59 PM 07/19/2020 7:37 PM All basic and advanced life-sustaining interventions are performed as appropriate Question Answer Comments Code status determined by: Unable to dis cuss and no AD/POLST on file; continue PREVIOUSLY ORDERED code status Care Teams Wood Cutter Relationship Specialty Start Date End Date Osvaldo Hall MD PCP - General Family Medicine 07/12/20
--- OUTSIDE RECORDS SUMMARY | 2023-12-16 05:48 | XMS_ITS ---
Author Organization [facility] Address [address] [place] [address] Care Team Providers Care Human Factors Ergonomist Name Role Phone Unavailable Unavailable Unavailable Surgery Details Not on file Complications Check Surgery Details section. Procedure Estimated Blood Loss Check Surgery Details section. Procedure Findings Check Surgery Details section. Procedure Specimens Taken Check Surgery Details section.
--- OUTSIDE RECORDS SUMMARY | 2023-12-16 05:48 | XMS_ITS | Referral Summary ---
Author Organization [facility] Address [address] [place] [address] Care Team Providers Care Machine Precision Engraver Name Role Phone Unavailable Primary Care Provider Unavailabl e Source Comments Patient records contain information from all sites at [facility]. For routine questions regarding patient records, call [phone] during business hours, M-F 8:00 AM - 5:00 PM Central Time. Record requests for emergency care only can be directed to [phone] at any time.[facility] Encounters Date Type Department Care Team Description 10/19/2023 2:10 PM CDT - 10/19/2023 4:56 PM CDT Hospital Encounter Department of Radiation Oncology in [address] [phone] Pop Oliver M.D. Primary Malignant Neoplasm Of Prostate (HCC) (Primary Dx); Rising Prostate Specific Antigen Following Treatment For Malignant Cancer Of Prostate 10/15/2023 10:00 AM CDT Clinical Communication Virtual Review in [place], [place] [address] [place] [address] Pre-visit Intake from Last 3 Months Allergies No known active allergies Medications Medication [...] PSA: 12.7, Grade Group: 2) - Unsigned Social History Tobacco Use Types Packs/Day Years Used Date Smoking Tobacco: Former Cigarettes 1 45 1 965 - 2010 Smokeless Tobacco: Never Tobacco Cessation:Counseling Given: Not Answered Alcohol Use Standard Drinks/Week Comments Yes 3 (1 standard drink = 0.6 oz pur e alcohol) [facility] Utilities Answer Date Recorded In the past 12 months has e [employer], gas, oil, or water [employer] threatened to shut off services in your [...] money to buy more. Never true 10/19/19 Within the past 12 months, t he [...] your living situation today? I have a [facility] [address] to live 10/19/2023 Sex and Gender [...] Mass Index - - Plan of Treatment Not on file Procedures Procedure Name Priority Date/Time Associated Diagnosis [...] - 950 ng/dL 10/13/2023 7:42 AM CDT [facility] Comment: ----ADDITIONAL INFORMATION---- Testing performed by Liquid Chromatography-Tandem Mass Spectrometry (LC-MS/MS). This test was developed and its performance characteristics determined by [facility] in a manner consistent with CLIA requirements. This test has not been cleared or approved by the U.S. Food and Drug Administration. Blood (Blood, Venous) 10/11/2023 11:00 AM CDT 10/12/2023 9:37 AM CDT Pop Oliver M.D. LAB BLOOD NON ADD- ON Performing Organization Address City/[facility] Co de Phone Number [facility] [address] [place] [address] [facility] [address] [place] [address] [place] [address] * PSA (Prostate-Specific Antigen), Diagnostic (10/11/2023 11:00 AM CDT) Prostate-Specific Ag <0.10 <=6.5 ng/mL 10/12/2023 8:48 AM CDT [facility] Comment: ----ADDITIONAL INFORMATION---- The testing method is an electrochemiluminescence assay manufactured by [email or web address] and performed on the Modular or Dang system. Values obtained with different assay methods or kits may be different and cannot be used interchangeably. Test results cannot be interpreted as absolute evidence for the presence or absence of malignant disease. Blood (Blood, Venous) 10/11/2023 11:00 AM CDT 10/12/2023 7:18 AM CDT Pop Oliver M.D. LAB BLOOD ADD-ON Performing Organization Address [facility] de Phone Number [facility] [address] [place] [address], [facility] DTL [facility] [address] [place] [address] from Last 3 Months or Most Recently Relevant to Health Maintenance [place]NANDEZ [place] [phone]
--- OUTSIDE RECORDS SUMMARY | 2023-12-16 05:48 | XMS_ITS | Data Portability ---
Author Organization [facility] Address [address] [place] [address] Care Team Providers Care Publications Editor Name Role Phone SHAWN ZAMORANO Primary Care Provider Assessment Encounter Date Assessment Date Assessment LastModified by Organization Details LastModified Time 04/29/2020 04/29/2020 69-year-old male with history of elevated PSA [email or web address] Not available 04/29/2020 17:27:32 05/22/2020 05/22/2020 69M with newly-diagnosed intermediate risk prostate cancer. I had a long discussion with the patient and his about the natural history of intermediate-risk prostate cancer and my recommendation for definitive local treatment. We talked about treatment options for localized prostate cancer including surgery, radiation, and cryoablation. I explained that surgery and radiation have similar oncologic outcomes but differences in side effects. We talked at length about radical prostatectomy and pelvic lymphadenectomy, both robotic and open approaches including expected post-operative course and the risk of urinary and sexual side effects. We discussed that some prostate cancers will recur after surgery and may require additional treatment beyond surgery. I do think that he is a good candidate for robotic prostatectomy. He was offered a radiation oncology consult and declined this as he would like to move forward with surgery. I have recommended prostate MRI for local staging prior to surgery, particularly assessment of neurovascular bundle involvement and extraprostatic extension. - prostate MRI for local staging - schedule RALP + PLND - he will call if he wants referral for radiation oncology 25 min face to face >50% counseling. keila Not available 05/22/2020 11:19:01 07/31/2020 07/31/2020 69M s/p RALP on 07/18/20 for pT3a? N0R1 (Aki 3+4=7, 0/3 LN, +SMS, +BNI) Reviewed surgical path, discussed risk of recurrence, need for ongoing PSA follow-up. - f/u 6 weeks with PSA - Kegels - V20/100 - finish Abx as rx'ed [email or web address] Not available 07/31/2020 14:46:53 09/11/2020 09/11/2020 69M s/p RALP on 07/18/20 for pT3a? N0R1 (Aki 3+4=7, 0/3 LN, +SMS, +BNI) Reviewed PSA, discussed risk of recurrence and need for ongoing PSA follow-up. 1. Prostate Cancer - f/u 4 months with PSA 2) Stress urinary incontinence, minimal - Kegels 2. ED - sildenafil PRN [email or web address] Not available 09/11/2020 12:22:53 01/03/2021 01/03/2021 70M s/p RALP on 07/18/20 for pT3a? N0R1 (Aki 3+4=7, 0/3 LN, +SMS, +BNI) Reviewed PSA, discussed risk of recurrence and need for ongoing PSA follow-up. 1. Prostate Cancer. EMANUEL. - f/u 6 months with PSA 2) Stress urinary incontinence, minimal - Kegels 3) ED - sildenafil PRN [email or web address] Not available 01/03/2021 10:59:41 06/18/2021 06/18/2021 70M s/p RALP on 07/18/20 for pT3a? N0R1 (Aki 3+4=7, 0/3 LN, +SMS, +BNI) PSA now detectable, given + surgical margin and pT3a disease, most likely this is early evidence of local recurrence. Recommend repeat PSA in 3 months, check Decipher, check pelvic MRI. 1) Prostate Cancer. - f/u in 3 months with repeat PSA, Decipher RP, pelvic MRI - if PSA still rising, consider early salvage RT at that time 2) Stress urinary incontinence, minimal - Kegels 3) ED - sildenafil PRN, refill [email or web address] Not available 06/18/2021 11:02:17 10/08/2021 10/08/2021 70M s/p RALP on 07/18/20 for pT3a? N0R1 (Aki 3+4=7, 0/3 LN, +SMS, +BNI) PSA now detectable, given + surgical margin and pT3a disease, most likely this is early evidence of local recurrence. PSA essentially stable x 3 months. Discussed early salvage RT vs continued observation. Zaida shows low risk genomics and MRI with no visible local recurrence. He would like to observe for now. 1) Prostate Cancer. - f/u in 3 months with repeat PSA - if PSA still rising, consider early salvage RT at that time - if opts for RT, would forgo ADT given Decipher - if RT, would refer to Dr Oliver in [place] 2) Stress urinary incontinence, minimal - Kegels 3) ED - sildenafil PRN, refill [email or web address] Not available 10/08/2021 11:20:19 04/22/2022 04/22/2022 71M s/p RALP on 07/18/20 for pT3a? N0R1 (Bethel 3+4=7, 0/3 LN, +SMS, +BNI) PSA now detectable, given + surgical margin and pT3a disease, most likely this is early evidence of local recurrence. PSA essentially stable x 10 months. Discussed early salvage RT vs continued observation. Zaida shows low risk genomics and MRI with no visible local recurrence. He would like to observe for now. 1) Prostate Cancer. - f/u in 6 months with repeat PSA - if PSA still rising, consider early salvage RT at that time - if opts for RT, would forgo ADT given Decipher - if RT, would refer to Dr Oliver in [place] 2) Stress urinary incontinence, minimal - Kegels 3) ED - sildenafil PRN, refill [email or web address] Not available 04/22/2022 16:19:03 10/21/2022 10/21/2022 71M s/p RALP on 07/18/20 for pT3a? N0R1 (Bethel 3+4=7, 0/3 LN, +SMS, +BNI) PSA now detectable, given + surgical margin and pT3a disease, most likely this is early evidence of local recurrence. Discussed early salvage RT vs continued observation. Zaida shows low risk genomics and MRI with no visible local recurrence. 1) Prostate Cancer. - biochemical recurrence - discussed salvage RT - if RT, would refer to Dr Oliver in [place] - if opts for RT, would forgo ADT given Decipher - may need to defer RT until after cardiac eval complete - f/u with me in 3-4 months with repeat PSA 2) Stress urinary incontinence, minimal - Kegels 3) ED - sildenafil PRN, refill keila Not available 10/21/2022 10:50:31 Plan of Treatment Reminders Order Date Submit Date Provider Last Modified By Organization Details Last Modified Time Details Appointments None record ed. Lab PSA, serum or plasma 2022 023 [email or web address] [facility], [address], [place], [address], 3 10:43:51 PSA, serum or plasma 2021 022 [email or web address] [facility], [address], [place], [address], 2 16:11:40 PSA, serum or plasma 2021 022 [email or web address] Not available 2 10:43:00 PSA, serum or plasma 2020 021 [email or web address] Not available 1 10:48:13 unlist ed lab - deciph er - rp prost [I] 2020 021 [email or web address] [facility], [address], [address], [place], [address], 1 12:56:05 PSA, serum or plasma 2020 021 [email or web address] Not available 10:31:30 PSA, serum or plasma 2020 021 [email or web address] Not available 12:01:53 Referral radiat ion oncolo gist referr al - salvag e RT, prosta te cancer 2022 023 carmen Oliver MD, [address] [place], [address], 3 08:02:25 Procedures None record ed. Surgeries None record ed. Imaging MRI, pelvis , w/wo contra st 2020 021 [email or web address] [facility], [address] [place], [address], 1 12:34:43 MRI, prosta te, w/wo contra st 2019 020 [email or web address] Not available 0 13:27:45 Medication Orders silden afil (pulmo nary hypert ension ) 20 mg tablet 2020 021 [email or web address] Not available 3 10:14:37 silden afil (pulmo nary hypert ension ) 20 mg tablet 2020 021 [email or web address] [facility] [employer], [address], [address], 3 10:14:37 Patient TargetsNo targets recorded. Patient InstructionsNo instructions recorded. Reason for Referral salvage RT, prostate cancer Referring Physician: Otf Taylor, Urology, Encounter Date: 10/21/2022 Results Created Date Observation Date Name Description Value Unit Range Abnormal Flag LastModifiedBy Organization Detail LastModifiedTime 01/03/2021 PSA, serum or plasm a PSA, Total <0.04 ng/mL Not Available [facility] [address], [place], [address], 01/03/2021 09:58:48 09/12/1909/11/2020 PSA, serum or plasm a PSA, Total <0.04 Not Available [facility] [address], [place], [address], 09/11/2020 12:01:01 06/18/20 21 06/18/2021 PSA, serum or plasm a PSA, Total 0.07 ng/ml Not Available [facility] [address], [place], [address], 06/18/2021 10:33:11 10/09/19 22 10/08/2021 PSA, serum or plasm a PSA, Total 0.08 ng/mL Not Available [facility] [address], [place], [address], 10/08/2021 10:33:51 04/22/20 22 04/22/2022 PSA, serum or plasm a PSA 0.09ng /ml 0-4.0 Not Available [facility] [address], [place], [address], 04/22/2022 15:56:47 10/22/19 23 10/21/2022 PSA, serum or plasm a PSA 0.24 ng/ml 0-4.0 Not Available [facility] [address], [place], [address], 10/13/2022 16:04:49 06/10/20 20 06/04/2020 MRI, prost ate, w/wo contr ast No observ ation record ed. [email or web address] Not Available 07/26/2020 17:37:35 07/04/20 20 06/04/2020 MRI, prost ate, w/wo contr ast No observ ation record ed. [email or web address] Not Available 07/08/2020 12:20:22 10/08/19 22 09/30/2021 MRI, pelvi s, w/wo contr ast No observ ation record ed. [email or web address] [facility] [address] [facility] [place], [address], 10/07/2021 09:39:52 Result Notes None recorded. Problems Name Status Onset Date Resolution Date Notes Provider Name and Address Organization Details Recorded Time Malignant tumor of prostate Active 05/22/20 Otf veliz MD, PHD [address] [facility], [address], [facility] 05/22/2020 11:16:35 Erectile dysfunction Active 07/31/19 21 Otf veliz MD, PHD [address] [place] [address], [phone], [facility] 07/31/2020 14:40:33 Problem Notes None recorded. Procedures Surgical History Date Name Laterality Status Provider Name and Address Organization Details Recorded Time 10/22/19 23 VISUAL MERCHANDISING SPECIALIST/blood draw completed Danita kim, [facility] 10/21/2022 10:15:38 04/22/20 22 Blood Draw/VISUAL MERCHANDISING SPECIALIST/PSA RESULTS completed Otf garcia MD, PHD [address] [place] [address], [facility] 04/22/2022 15:56:42 10/09/19 22 Blood Draw/VISUAL MERCHANDISING SPECIALIST/PSA RESULTS completed Danita kim, [facility] 10/08/2021 10:42:51 06/18/20 21 Blood Draw/VISUAL MERCHANDISING SPECIALIST/PSA RESULTS completed Otf garcia MD, PHD [address] [place] [address], [phone], [facility] 06/18/2021 10:33:05 06/11/20 21 colonoscopy completed Otf garcia MD, PHD [address] [place] [address], [address], [facility] 06/18/2021 10:32:20 01/04/20 21 Blood Draw/VISUAL MERCHANDISING SPECIALIST/PSA RESULTS completed Amarilis Lopez null, [facility] 01/03/2021 10:31:19 09/12/19 21 Blood Draw/VISUAL MERCHANDISING SPECIALIST/PSA RESULTS completed Kingston Nobles null, [facility] 09/18/2020 10:47:18 07/18/19 21 Prostatectomy completed Elmo kim, [facility] 07/31/2020 14:05:56 04/29/20 20 Prostate Biopsy Procedure completed Emmett Samuel MD [address] [place] [address], [facility] 04/29/2020 17:27:15 Imaging Results Imaging Date Name Status LastModified by Organiz ation Details LastModified Time 06/04/2020 MRI, prostate, w/wo contrast completed [email or web address] Information not available 07/26/2020 17:37:35 06/04/2020 MRI, prostate, w/wo contrast completed Information not available 07/08/2020 12:20:22 09/30/2021 MRI, pelvis, w/wo contrast completed [email or web address] [facility] [address] [facility] [place], [address], 10/07/2021 09:39:52 Procedure Notes None recorded. Medical Equipment None Reported. Allergies No known drug allergies Medications Name Sig Start Date Stop Date Status Note LastModified by Organization Details LastModified Time atorvastati n 40 mg tablet TAKE 1 TABLET BY MOUTH AT BEDTIME active Not Available Not Available No t Available atorvastati n 20 mg tablet TAKE 1 TABLET BY MOUTH EVERY DAY 10/21 completed Not Available Not Available Not Available ipratropium 0.5 mg-albutero l 3 mg (2.5 mg base)/3 mL nebulizatio n soln 3 ML INHALED EVERY 6 HOURS 10/21 completed Not Available Not Available Not Available lisinopril 20 mg-hydrochl orothiazide 12.5 mg tablet TAKE 2 TABLETS BY MOUTH EVERY DAY active Not Available Not Available No t Available azithromyci n 250 mg tablet TAKE 2 TABLETS BY MOUTH TODAY, THEN TAKE 1 TABLET DAILY FOR 4 DAYS 10/21 completed Not Available Not Available Not Available alprazolam 1 mg tablet TAKE 1 TABLET BY MOUTH AT BEDTIME active Not Available Not Available No t Available hydrocodone 5 mg-acetamin ophen 325 mg tablet Take 1-2 tabs every 6 hours as needed for pain. 09/11 completed Not Available Not Available Not Available prednisone 20 mg tablet TAKE 2 TABLETS BY MOUTH EVERY DAY FOR 5 DAYS 10/21 completed Not Available Not Available Not Available isosorbide mononitrate ER 30 mg tablet,exte nded release 24 hr TAKE 1 TABLET BY MOUTH ONCE DAILY. active Not Available Not Available No t Available amlodipine 2.5 mg tablet TAKE 1 TABLET BY MOUTH ONCE DAILY. active Not Available Not Available No t Available amlodipine 5 mg tablet TAKE 1 TABLET BY MOUTH EVERY DAY 10/21 completed Not Available Not Available Not Available ciprofloxac in 500 mg tablet 09/11 completed Not Available Not Available Not Available aspirin 81 mg tablet,tegan yed release TAKE 1 TABLET (81 MG) BY MOUTH ONCE DAILY WITH A MEAL. active Not Available Not Available No t Available alprazolam 0.5 mg tablet TAKE 1 TABLET BY MOUTH AT BEDTIME NEEDED FOR ANXIETY. active Not Available Not Available No t Available nitroglycer in 0.[address] 1 TABLET (0.4 MG) UNDER THE TONGUE EVERY 5 MINUTES NEEDED FOR CHEST PAIN active Not Available Not Available No t Available omeprazole 20 mg capsule,del ayed release TAKE 1 CAPSULE BY MOUTH EVERY DAY active Not Available Not Available No t Available lisinopril 20 mg-hydrochl orothiazide 25 mg tablet TAKE 1 TABLET BY MOUTH EVERY DAY 10/21 completed Not Available Not Available Not Available metoprolol succinate ER 25 mg tablet,exte nded release 24 hr TAKE 1 TABLET BY MOUTH EVERY DAY active Not Available Not Available No t Available albuterol sulfate HFA 90 mcg/actuati on aerosol inhaler INHALE 2 PUFFS BY MOUTH EVERY 4 TO 6 HOURS NEEDED FOR SHORTNESS OF BREATH OR WHEEZING active Not Available Not Available No t Available cefdinir 300 mg capsule TAKE 1 CAPSULE BY MOUTH TWICE A DAY FOR 10 DAYS 10/21 completed Not Available Not Available Not Available oxycodone 5 mg tablet 09/11 completed Not Available Not Available Not Available sildenafil (pulmonary hypertensio n) 20 mg tablet Take 1-5 tabs needed up to once daily. 10/21 completed Not Available Not Available Not Available Pulmicort Flexhaler 180 mcg/actuati on breath activated USE 2 INHALATIO NS EVERY DAY IN THE MORNING 10/21 completed Not Available Not Available Not Available Vios Aerosol Delivery System USE DIRECTED 10/21 completed Not Available Not Available Not Available Spiriva Respimat 2.5 mcg/actuati on solution for inhalation INHALE 2 INH INHALED EVERY DAY 10/21 completed Not Available Not Available Not Available Stiolto Respimat 2.5 mcg-2.5 mcg/actuati on solution for inhalation INHALE 2 PUFF BY INHALATIO N ROUTE EVERY DAY AT THE SAME TIME EACH DAY active Not Available Not Available No t Available Shingrix (PF) 50 mcg/0.5 mL intramuscul ar suspension, kit 10/21 completed Not Available Not Available Not Available Fluzone High-Dose Quad (PF) 240 mcg/0.7 mL IM syringe active Not Available Not Available N ot Available Vitals Date Recorded Body height Body mass index (BMI) Body weight Provider Name and Address Organization Details Last Updated DateTime 04/22/2022 180.34 cm 27.9 kg/m2 72132.47 g Otf garcia MD, PHD [address] [place] [address], [phone] 04/22/2022 15:56:13 Date Recorded Body height Body mass index (BMI) Body weight Provider Name and Address Organization Details Last Updated DateTime 10/21/2022 180.34 cm 27.9 kg/m2 06369.47 g Danita Rain [facility] 10/21/2022 10:12:46 Date Recorded Body height Body mass index (BMI) Body weight Provider Name and Address Organization Details Last Updated DateTime 05/22/2020 180.34 cm 29.3 kg/m2 84154.4 g Amarilis Lopez [facility] 05/22/2020 10:22:43 Date Recorded Body height Body mass index (BMI) Body weight Provider Name and Address Organization Details Last Updated DateTime 07/31/2020 180.34 cm 27.9 kg/m2 38799.47 g Elmo Alexander [facility] 07/31/2020 14:05:02 Date Recorded Body height Body mass index (BMI) Body weight Provider Name and Address Organization Details Last Updated DateTime 09/11/2020 180.34 cm 27.9 kg/m2 39923.47 g Kingston Nobles [facility] 09/11/2020 11:55:05 Date Recorded Body height Body mass index (BMI) Body weight Provider Name and Address Organization Details Last Updated DateTime 01/03/2021 180.34 cm 28.3 kg/m2 22592.25 g Otf garcia MD, PHD [address] [place] [address],[address], [address], [facility] 01/03/2021 10:13:09 Date Recorded Body height Body mass index (BMI) Body weight Provider Name and Address Organization Details Last Updated DateTime 06/18/2021 180.34 cm 28.3 kg/m2 97981.25 g Otf garcia MD, PHD [address] [place] [address], [facility] 06/18/2021 10:31:49 Date Recorded Body height Body mass index (BMI) Body weight Provider Name and Address Organization Details Last Updated DateTime 10/08/2021 180.34 cm 28.3 kg/m2 98052.25 g Otf garcia MD, PHD [address] [place] [phone] [place] [address] 10/08/2021 10:33:07 Social History Question Answer Notes LastModified by Organizat ion Details LastModified Time Tobacco Smoking Status [facility]2020 10:23:16 What Is Your Level Of Alcohol Consumption? Occasional [email or web address] Information not available 07/31/2020 What Is Your Level Of Caffeine Consumption? Moderate Information not available 05/22/2020 How Much Tobacco Do You Chew? None Information not available 09/11/2020 Do You Or Have You Ever Used E-cigarettes Or Vape? Never Used Electronic Cigarettes Information not available 09/11/2020 Recreational Drug Use No Information not available 05/22/2020 Marital Status Informatio n not available 05/22/2020 What Was The Date Of Your Most Recent Tobacco Screening? 10/21/2022 [email or web address] Information not available 10/21/2022 Are You Sexually Active? Yes Information not available 05/22/2020 How Much Tobacco Do You Smoke? 1.5 PPD Information not available 09/11/2020 How Many Years Have You Smoked Tobacco? 25 Information not available 09/11/2020 Do You Or Have You Ever Used Any Other Forms Of Tobacco Or Nicotine? No [email or web address] Information not available 10/08/2021 Sex: Male Functional Status None recorded. Mental Status None recorded. Family History Relationship Description Onset Age of this Age Resolved Age Notes Father No current problems or disability Mother No current problems or disability Medical History Condition Response Other N High Blood Pressure Y Kidney Stones N Lung Disease Y Depression N GERD/Acid Reflux N Sexually Transmitted Infection N Cancer Y High Cholesterol Y Diabetes N Bleeding Disorder N Heart Disease Y Immunizations Vaccine Type Date Status Provider Name and Address Organization Details Recorded Time Pneumococcal conjugate PCV 13 06/12/2019 completed HERNANDEZ [facility] 07/09/2020 11:08:40 Past Encounters Encounter ID Performer Location Encounter Start Date Encounter Closed Date Diagnosis/Indication Diagnosis SNOMED-CT Code [id number] MD EDUARDO [facility] [address] [place] [address] 04/29/2020 16:28:59 05/06/2020 16:27:15 Prostate specific antigen above reference range [id number] MD EDUARDO [facility] [address] [place] [id number] 04/29/2020 16:28:59 05/07/2020 03:52:51 [id number] Otf veliz MD, PHD [facility] [address] [place] [address] 05/22/2020 09:59:04 05/22/2020 13:27:44 Malignant tumor of prostate [id number] Otf veliz MD, PHD [facility] [address] [place] [id number] 07/31/2020 13:46:11 07/31/2020 16:30:36 Malignant tumor of prostate 968800889 Erectile dysfunction 860 978232 [id number] Amarilis Gneiting [facility] [address] [place] [address] 09/11/2020 11:16:07 09/12/2020 14:13:35 Carcinoma of prostate 600611196 Malignant tumor of prostate 238550658 Erectile dysfunction 860 688267 [id number] Otf veliz MD, PHD [facility] [address] [place] [id number] 01/03/2021 10:02:21 01/06/2021 13:20:32 Carcinoma of prostate 165452543 Malignant tumor of prostate 549285538 Erectile dysfunction 860 793487 [id number] Otf veliz MD, PHD [facility] [address] [place] [id number] 06/18/2021 10:18:21 06/25/2021 12:23:30 Malignant tumor of prostate 275190320 Carcinoma of prostate 25 0785388 Erectile dysfunction 860 772384 [id number] [facility] [address] [place] [id number] 10/08/2021 10:20:08 10/09/2021 14:51:00 Malignant tumor of prostate 453223222 Carcinoma of prostate 25 3282341 Erectile dysfunction 860 326699 [id number] Otf veliz MD, PHD [facility] [address] [place]EM[place] Christine [place] [id number] 04/22/2022 15:49:52 04/24/2022 11:35:04 Malignant tumor of prostate 933558464 Carcinoma of prostate 25 0154849 Erectile dysfunction 860 967621 [id number] Otf veliz MD, PHD [facility] [address] [place] [id number] 10/21/2022 09:51:15 10/24/2022 11:49:21 Malignant tumor of prostate 392361451 Carcinoma of prostate 25 3518793 Erectile dysfunction 860 612113 Health Concerns Section Related Observation LastModified by Organization Detai ls LastModified Time None Recorded Concern Status LastModified by Organization Details LastModified Time None Recorded Advance Directives Directive None Recorded Payers Encounter Date Sequence Insurance Name Policy Number Policy Agrawal Covered Member ID Agrawal Member ID Guarantor Name 10/21/2022 1 [facility] [id number] Debbie Mcgee [id number] Zia Mason 04/22/2022 1 [facility] [id number] Debbie Everardo [id number] Zia Mason 06/18/2021 1 [facility] [id number] Zia Mason [id number] Zia Mason 01/03/2021 1 [facility] [id number] Zia Mason [id number] Zia Mason 09/11/2020 1 [facility] [id number] Zia Mason [id number] Zia Mason 07/31/2020 1 [facility] [id number] Zia Mason [id number] Zia Mason 05/22/2020 1 [facility] [id number] Zia Mason [id number] Zia Mason 04/29/2020 1 [facility] [id number] Zia Mason [id number] Zia Mason 04/29/2020 1 [facility] [id number] Zia Mason [id number] iZa Mason Notes Date Note Type Note Provider Name and Address Organization Details Recorded Time 04/29/2020 text/html HPI Notes: Mr. Zia Mason is a pleasant 69 yo gentleman who is referred to me by his primary care physician, Shawn Rojas MD, regarding elevated PSA. Patient has undergone PSA screening as part of his annual well visit and has been noted to be elevated to 8.86 ng/dL. This represents the only PSA available for my review. Voiding symptoms denies any bothersome symptoms. Family history of prostate cancer: Reports that two of his brothers have been treated for prostate cancer, both were diagnosed in their 60's [facility] prostate cancer risk assessment tool: 60% chance of negative biopsy, 23% risk of low-grade prostate cancer, 17% risk of high-grade prostate cancer. PSA kinetics: unavailable 04/29/2020: Here for TRUS Bx of the Prostate. PSA recheck revealed 12.79. Emmett Samuel MD [address] [place] [address],[address], [place], [address], [facility] 05/03/2020 17:42:59 05/22/2020 text/html HPI Notes: Mr. Mason is a 69 year-old man with newly diagnosed prostate cancer. His PSA was found to be elevated to 12.70 on 12/12/2019 leading to prostate biopsy. A Prostate MRI has not been done. Biopsy done on 04/29/[address] Samuel was positive in 4/12 template cores (all on left) with up to Bethel 3+4=7 in 10-15 % of the core. 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 No issues with Elaine. Normal BMs. Denies abdominal pain, N/V, f/c. PSA 12/12/19 12.7 UF: Pre-op EF: 2/5 Otf Tinoco MD, PHD [address] [place] [address],[address] [place] [address], [phone], [facility] 07/31/2020 14:48:15 09/11/2020 text/html HPI Notes: 69M s /p RALP on 07/18/20 for [id number] (Bethel 3+4=7, 0/3 LN, +SMS) Doing well. Normal BMs. Denies abdominal pain, N/V, f/c. No problems with incisions. Using 1 safety pad/day. Dry more often than not. Good FOS. No hematuria. Getting erections adequate for penetration with 20 mg sildenafil. PSA 12/12/19 12.7 09/11/20 <0.04 UF: 2/5 Pre-op EF: 2/5 EF: 2/5 Amarilis kim, [facility] 01/02/2021 15:36:45 01/03/2021 text/html HPI Notes: 70M s /p RALP on 07/18/20 for [id number] (Aki 3+4=7, 0/3 LN, +SMS) Doing well. Normal BMs. Denies abdominal pain, N/V, f/c. No problems with incisions. Using 1 safety pad/day. Dry more often than not. Some leakage with cough. Good FOS. No hematuria. Getting erections adequate for penetration with 20 mg sildenafil. Sometimes without. PSA 12/12/19 12.7 09/11/20 <0.04 01/03/21 <0.04 UF: 2/5 Pre-op EF: 2/5 EF: 2/5 Otf Tinoco MD, PHD [address] [place] [address],[address], [phone], [facility] 01/03/2021 10:59:49 06/18/2021 text/html HPI Notes: 70M s /p RALP on 07/18/20 for [id number] (Bethel 3+4=7, 0/3 LN, +SMS) Doing well. Normal BMs. Denies abdominal pain, N/V, f/c. No problems with incisions. Using 1 safety pad/day. Dry more often than not. Some leakage with cough. Good FOS. No hematuria. Getting erections adequate for penetration with 20-40 mg sildenafil. Sometimes without. PSA 12/12/19 12.7 09/11/20 <0.04 01/03/21 <0.04 06/18/21 0.07 UF: 2/5 Pre-op EF: 2/5 EF: 2/5 Otf Tinoco MD, PHD [address] [place] [address],[address], [phone], [facility] 06/18/2021 11:09:53 10/08/2021 text/html HPI Notes: 70M s /p RALP on 07/18/20 for [id number] (Bethel 3+4=7, 0/3 LN, +SMS) PSA detectable last visit. Here to review MRI and Decipher RP. Decipher RP= 0.40-->Low risk MRI pelvis (09/30/21): small left sidewall seroma, no evidence local recurrence Using 1 safety pad/day. Dry more often than not. Some leakage with cough. Good FOS. No hematuria. Getting erections adequate for penetration with 20-40 mg sildenafil. Sometimes without. PSA 12/12/19 12.7 3/3/21 <0.04 01/03/21 <0.04 06/18/21 0.07 10/08/21 0.08 UF: 2/ Pre-op EF: 2/ EF: 2/ Otf Tinoco MD, PHD [address] [place] [address],[address], [phone], [facility] 10/08/2021 11:20:33 04/22/2022 text/html HPI Notes: 71M s /p RALP on 07/18/20 for [id number] (Bethel 3+4=7, 0/3 LN, +SMS) PSA detectable. Decipher RP= 0.40-->Low risk MRI pelvis (09/30/21): small left sidewall seroma, no evidence local recurrence Using 1 safety pad/day. Dry more often than not. Some leakage with cough. Good FOS. No hematuria. Getting erections adequate for penetration with 20-40 mg sildenafil. Sometimes without. PSA 12/12/19 12.7 09/11/20 <0.04 01/03/21 <0.04 06/18/21 0.07 10/08/21 0.08 01/19/2022 0.21 ([place]) 04/22/22 0.09 UF: 2/ Pre-op EF: 2/ EF: 2 Otf Tinoco MD, PHD [address] [place] [address],[address], [phone], [facility] 04/22/2022 16:19:41 10/21/2022 text/html HPI Notes: 71M s /p RALP on 07/18/20 for [id number] (Aki 3+4=7, 0/3 LN, +SMS) Having heart/lung issues. May need stent/cabg. PSA detectable. Decipher RP= 0.40-->Low risk MRI pelvis (09/30/21): small left sidewall seroma, no evidence local recurrence Using 1 safety pad/day. Dry more often than not. Some leakage with cough. Good FOS. No hematuria. Getting erections adequate for penetration with 20-40 mg sildenafil. Sometimes without. PSA 12/12/19 12.7 09/11/20 <0.04 01/03/21 <0.04 06/18/21 0.07 10/08/21 0.08 01/19/2022 0.21 ([place]) 04/22/22 0.09 10/15/22 0.24 UF: 08/16 Pre-op EF: 08/16 EF: 08/16 Otf Tinoco MD, PHD [address] [place] [address],[address], [place], [address], [facility] 10/21/2022 10:52:03
== END 2023-11-26 08:41 | disposition home or self-care (01) ==
LOC: NFLDREF 12-16 05:46
PROVIDERS: PCP Family Medicine; Referring Provider Family Medicine; Visit Provider Family Medicine
DX: Z00.00 Encounter for general adult medical examination without abnormal findings (principal); I10 Essential (primary) hypertension; C61 Malignant neoplasm of prostate; E78.2 Mixed hyperlipidemia
CPT/HCPCS: 80048; 80061; 84153; 84460

== ENCOUNTER 2024-01-29 07:13 | Emergency (ER) | payer BC, SELFPAY ==
[2024-01-29] VITALS (13 sets, daily range): BP systolic 97–139; BP diastolic 60–85; PULSE 66–78; RESP 14–24; TEMP 36.5; O2SAT 83–100; BMI 31.4
--- NOTE | 2024-01-29 07:30 | ED_ITS ---
HPI - General Adult General Chief complaint: Shortness of Breath/Dyspnea Stated complaint: difficulty breathing Time Seen by Provider: 01/29/24 07:51 History of Present Illness HPI narrative: had a coughing yesterday and up coughing all night. chest is hurting and it is bad. coughs up phlegm every 30 min. all colors la and know is red. sx of sob, cough, wears O2 at 3 liters hx of COPD, weakness. poor appetite. 73-year-old man presenting to the emergency depart with concern of shortness of breath. Underlying history of COPD oxygen dependent normally using 3 L of oxygen. It sounds as though historically is particularly exertionally hypoxic. Started coughing yesterday and has been up coughing all night. Hurts across the anterior chest and somewhat pleuritic. Cough is productive. Has been doing nebulizations of albuterol he says. Last dosed around 2 hours prior to arrival. No particular ill exposures. Started Breo Ellipta in July of this year. No new leg pain or swelling. No longer smokes as of 16 or 17 years ago. Related Data Home Medications ?Medication ?Instructions ?Recorded ?Confirmed nitroglycerin 0.4 mg sublingual 0.4 mg sublingual Q5M PRN 10/22/22 01/29/24 tablet aspirin 81 mg tablet,delayed 81 mg PO DAILY 03/02/23 01/29/24 release calcium & D3 See Rx Instructions PO .COMPLEX 08/30/23 01/29/24 Previous Rx's ?Medication ?Instructions ?Recorded nebulizer and compressor #1 ea 12/08/22 atorvastatin 40 mg tablet 40 mg PO DAILY #90 tabs 08/30/23 carvedilol 6.25 mg tablet 6.25 mg PO BID #180 tabs 08/30/23 clopidogrel 75 mg tablet 75 mg PO QDAY #90 tabs 08/30/23 ezetimibe 10 mg tablet 10 mg PO DAILY #90 tabs 08/30/23 fluticasone fur. 200 mcg-umeclid 1 inh inhalation QDAY #60 ea 08/30/23 62.5 mcg-vilant 25 mcg inhalat.powder (Trelegy Ellipta) isosorbide mononitrate 60 mg 60 mg PO QAM #90 tabs 08/30/23 tablet,extended release 24 hr lisinopril 20 2 tab PO QDAY #180 tabs 08/30/23 mg-hydrochlorothiazide 12.5 mg tablet omeprazole 20 mg capsule,delayed 20 mg PO QDAY #90 caps 08/30/23 release tiotropium 2.5 mcg-olodaterol 2.5 2 puff inhalation QDAY #4 grams 11/16/23 mcg/actuation mist for inhalation (Stiolto Respimat) clotrimazole-betamethasone 1 1 applic topical BID #45 grams 12/16/23 %-0.05 % topical cream ipratropium 0.5 mg-albuterol 3 mg 3 ml inhalation BID #180 mL 12/16/23 (2.5 mg base)/3 mL nebulization soln nystatin 100,000 unit/gram topical 1 applic topical BID #60 grams 12/16/23 powder alprazolam 1 mg tablet 1 mg PO QHS #90 tabs 01/11/24 Allergies Allergy/AdvReac Type Severity Reaction Status Date / Time No Known Drug Allergies Allergy Verified 01/29/24 07:24 Review of Systems Status of ROS: Reports: 6 or more systems reviewed and unremarkable except as noted in History and below [facility] Medical History Health care directive on file ?Z78.9 - Other specified health status (ICD-10) Primary hypertension ?I10 - Essential (primary) hypertension (ICD-10) Mixed hyperlipidemia ?E78.2 - Mixed hyperlipidemia (ICD-10) ASCVD (arteriosclerotic cardiovascular disease) ?I25.10 - Atherosclerotic heart disease of [place] coronary artery without angina pectoris (ICD-10) Malignant neoplasm of prostate ?C61 - Malignant neoplasm of prostate (ICD-10) Health care directive on file (04/24/21) ?Z78.9 - Other specified health status (ICD-10) Gastroesophageal reflux disease ?K21.9 - Gastro-esophageal reflux disease without esophagitis (ICD-10) Erectile dysfunction ?N52.9 - Male erectile dysfunction, unspecified (ICD-10) Chronic obstructive pulmonary disease ?J44.9 - Chronic obstructive pulmonary disease, unspecified (ICD-10) Anxiety ?F41.9 - Anxiety disorder, unspecified (ICD-10) Surgical History History of coronary artery stent placement ?Z95.5 - Presence of coronary angioplasty implant and graft (ICD-10) Status post laparoscopic cholecystectomy (2011) ?Z90.49 - Acquired absence of other specified parts of digestive tract (ICD- 10) History of robot-assisted laparoscopic radical prostatectomy (2019) ?Z90.79 - Acquired absence of other genital organ(s) (ICD-10) History of mandibular surgery (1994) ?Z98.890 - Other specified postprocedural states (ICD-10) History of inguinal hernia repair ?Z98.890 - Other specified postprocedural states (ICD-10) ?Z87.19 - Personal history of other diseases of the digestive system (ICD-10) History of excision of testicular mass ?Z98.890 - Other specified postprocedural states (ICD-10) ?Z87.438 - Personal history of other diseases of male genital organs (ICD-10) Family History Father Heart disease Mother Heart disease Brother Prostate cancer Social History Narrative: , 2 kids, retired, non-smoker, social EtOH Smoking Status: Former smoker Do you use any of these nicotine containing products: None How often do you have a drink containing alcohol: 2-3 times a week How many standard drinks containing alcohol do you have on a typical day: 3 or 4 AUDIT-C Alcohol total score: 4 Non-prescribed substance use: denies use Little interest or pleasure in doing things: not at all Feeling down, depressed, or hopeless: not at all Exam Narrative: Exam Narrative: Pleasant. Mildly anxious. Cranial nerves 2-12 intact. Pursed lip breathing. Converses with minimal difficulty. Oropharynx is sticky. Lungs with markedly diminished breath sounds throughout. Labored and mildly tachypneic in his breathing. Mildly reproducible chest discomfort to palpation across the anterior chest. Abdomen is overweight soft little tender along the rib margins. Lower extremities with mild equal dependent pretibial and ankle edema. Const: Vital Signs, click to edit/add: Vital Signs - 24 hr 01/29/24 07:16 01/29/24 07:42 Temperature 97.7 F Pulse Rate [Pulse Oximeter] 76 Respiratory Rate 20 Blood Pressure [Le ft Upper Arm] 112/73 Pulse Oximetry 93 93 Oxygen Delivery Me thod Room Air Documenting provider has reviewed patient's vital signs: yes Course Vital Signs Vital signs: Initial Vital Signs Temperature 97.7 F 01/29/24 07:16 Temperature Source Temporal Artery Scan 01/29/24 07:16 Pulse Rate 76 01/29/24 07:16 Respiratory Rate 20 01/29/24 07:16 Blood Pressure 112/73 01/29/24 07:16 Blood Pressure Mean 86 01/29/24 07:16 Blood Pressure Position Sitting 01/29/24 07:16 Pulse Oximetry 93 01/29/24 07:16 Oxygen Delivery Method Room Air 01/29/24 07:16 Vital Signs Temperature 97.7 F 01/29/24 07:16 Pulse Rate 76 01/29/24 07:16 Respiratory Rate 20 01/29/24 07:16 Blood Pressure 112/73 01/29/24 07:16 Pulse Oximetry 93 01/29/24 07:16 Oxygen Delivery Method Room Air 01/29/24 07:16 Temperature 97.7 F 01/29/24 07:16 Pulse Rate 76 01/29/24 07:16 Respiratory Rate 20 01/29/24 07:16 Blood Pressure 112/73 01/29/24 07:16 Pulse Oximetry 93 01/29/24 07:42 Oxygen Delivery Method Room Air 01/29/24 07:16 Medications Administered Medications: Discontinued Medications Generic Name Dose Route Start Last Admin Trade Name Freq PRN Reason Stop Dose Admin Albuterol/Ipratropium 1 neb 01/29/24 07:42 01/29/24 08:07 Iprat-Albut 0.5-2.5 Mg/3 Ml Neb 01/29/24 07:43 1 neb ONCE ONE Administration Medical Decision Making MDM Narrative Medical decision making narrative: I suppose would benefit from another nebulization. He notes albuterol nebs although record would suggest DuoNebs are available. Will need to clarify. Differential includes pneumonia, viral URI/bronchitis exacerbating COPD, pulmonary embolus, pneumothorax or pneumomediastinum, mucous plugging, cardiovascular event -- does have history of cardiac stents. Nursing notes that with transfer is oxygenating 82-83%. Place IV. DuoNeb. Chest x-ray. Labs pending. Anticipate course of prednisone. Chest x-ray reviewed by me looks similar to prior with changes of atelectasis or fibrotic changes. Pending Radiology over-read. Will be signing off at change of shift Medical Records Medical records reviewed: Yes I reviewed the patient's medical records Lab Data Lab results reviewed: Yes I reviewed the patient's lab results Labs: Lab Results 01/29/24 Range/Units 07:58 WBC 14.78 H (4.50-11.00) K/uL RBC 4.54 (4.30-5.90) m/uL Hgb 13.9 (13.5-17.5) gm/dL Hct 41.1 (37.0-53.0) % MCV 91 (80-100) fL MCH 31 (26-34) pg MCHC 34 (32-36) gm/dL RDW Coeff of Balta 14.4 (11.5-15.5) % Plt Count 213 (140-440) K/uL Neut % (Auto) 86.3 H (42.0-72.0) % Lymph % (Auto) 8.3 L (20-44) % [place] % (Auto) 4.6 (0.0-11.0) % Eos % (Auto) 0.4 (0.0-7.0) % Baso % (Auto) 0.1 (0.0-3.0) % Neut # (Auto) 12.80 H (1.7-7.0) K/uL Lymph # (Auto) 1.20 (0.90-2.90) K/uL [place] # (Auto) 0.70 (0.00-0.90) K/UL Eos # (Auto) 0.10 (0.00-0.50) K/uL Baso # (Auto) 0.00 (0.00-0.30) K/uL Abs Immat Gran (auto) 0.00 (0.00-0.30) K/uL Imm/Tot Granulo (auto) 0.3 % Sodium 133 L (135-149) mmol/L Potassium 3.8 (3.6-5.1) mmol/L Chloride 94 L (96-114) mmol/L Carbon Dioxide 33 H (20-32) mmol/L Anion Gap 6 L (7-15) mEq/L BUN 14 (7-30) mg/dL Creatinine 0.9 (0.5-1.5) mg/dL Estimated Creat Clear 72.16 Estimated GFR 91 ml/min Glucose 122 H (60-115) mg/dL Calcium 9.3 (8.4-10.6) mg/dL Troponin I Cancelled C-Reactive Protein 6.8 H (0.5-1.0) mg/dL NT-Pro-B Natriuret Pep Cancelled ECG Data Attestation: I personally reviewed and interpreted this ECG as follows: (Normal sinus rhythm. Rate of 77. Baseline irritability) Discharge Plan Discharge Clinical Impression: COPD exacerbation Patient Disposition: Home w/ Parent or Adult Condition: Improved Additional Instructions: I would use your DuoNebs schedule 4 times daily over the next 3 days. Can use albuterol for breakthrough shortness of breath or wheeze. Be seen for persistent increasing shortness of breath, associated fever, increasing chest pain Prednisone from [facility] Prescriptions: No Action calcium & D3 See Rx Instructions PO .COMPLEX Rx Instructions: orally; atorvastatin 40 mg tablet 40 mg PO DAILY Qty: 90 3RF carvedilol 6.25 mg tablet 6.25 mg PO BID Qty: 180 3RF clopidogrel 75 mg tablet 75 mg PO QDAY Qty: 90 3RF ezetimibe 10 mg tablet 10 mg PO DAILY Qty: 90 3RF isosorbide mononitrate 60 mg tablet extended release 24 hr 60 mg PO QAM Qty: 90 3RF lisinopril-hydrochlorothiazide 20-12.5 mg tablet 2 tab PO QDAY Qty: 180 3RF omeprazole 20 mg capsule,delayed release(DR/EC) 20 mg PO QDAY Qty: 90 3RF Trelegy Ellipta 200-62.5-25 mcg blister with device 1 inh inhalation QDAY Qty: 60 5RF nitroglycerin 0.4 mg tablet, sublingual 0.4 mg sublingual Q5M PRN aspirin 81 mg tablet,delayed release (DR/EC) 81 mg PO DAILY nystatin 100,000 unit/gram powder 1 applic topical BID Qty: 60 12RF clotrimazole-betamethasone 1-0.05 % cream 1 applic topical BID Qty: 45 1RF (DME) nebulizer and compressor Device See Rx Instructions .Route Qty: 1 0RF Rx Instructions: As directed Stiolto Respimat 2.5-2.5 mcg/actuation mist 2 puff inhalation QDAY Qty: 4 5RF ipratropium-albuterol 0.5 mg-3 mg(2.5 mg base)/3 mL solution for nebulization 3 ml inhalation BID Qty: 180 5RF alprazolam 1 mg tablet 1 mg PO QHS Qty: 90 1RF Follow Up/Referrals: Osvaldo Hall MD [Primary Care Provider] - Stand Alone Forms: [employer] Info Instructions
--- NOTE | 2024-01-29 07:42 | CRLHL7_ITS ---
For Patients: As a result of the Cures Act, medical imaging exams and procedure reports are released immediately into your electronic medical record. You may view this report before your referring provider. If you have questions, please contact your health care provider. INDICATION: Cough and hypoxia. TECHNIQUE: Chest 1 views. COMPARISON: 06/29/2022. FINDINGS: Cardiovasculature and mediastinum: Heart size is normal. Unremarkable mediastinum. Lungs and pleural spaces: Lungs are clear. No sign of infiltrate or mass. No sign of pleural effusion. No pneumothorax. Bones and soft tissues: No significant findings. IMPRESSION: No acute findings and no significant changes from the prior exam. No sign of pneumonia or other explanation for hypoxia. Dictated by Demetris Flores MD @ 01/29/2024 8:49:05 AM (Electronically Signed)
--- OUTSIDE RECORDS SUMMARY | 2024-01-29 08:01 | XMS_ITS | Referral Summary ---
Author Organization [facility] Address [address] [place] [address] Care Team Providers Care Cane Cutter Name Role Phone Unavailable Primary Care Provider Unavailabl e Source Comments Patient records contain information from all sites at [facility]. For routine questions regarding patient records, call [phone] during business hours, M-F 8:00 AM - 5:00 PM Central Time. Record requests for emergency care only can be directed to [phone] at any time.[facility] Encounters Date Type Department Care Team Description 12/20/2023 7:04 AM CDT - 12/20/2023 11:59 PM CDT Hospital Encounter Department of Laboratory Medicine and Pathology, [facility], in [place], [place] [address] [place] [phone] Dayana Arrieta, NIR, C.N.P., D.N.P. Primary Malignant Neoplasm Of Prostate (HCC); Rising Prostate Specific Antigen Following Treatment For Malignant Cancer Of Prostate Discharge Disposition: Home or Self Care from Last 3 Months Allergies No known [...] drink = 0.6 oz pur e alcohol) [facility] Utilities Answer Date Recorded In the past 12 months has e electric, gas, oil, or water company threatened to shut off services in your [...] your living situation today? I [facility] 10/19/2023 Sex and Gender [...] Procedure Name Priority Date/Time Associated Diagnosis Comments PROSTATE-SPECIFIC AG (PSA) DIAGNOSTIC, S Routine 01/17/2024 9:03 AM CDT Primary Malignant Neoplasm Of Prostate (HCC) Rising Prostate Specific Antigen Following Treatment For Malignant Cancer Of Prostate from Last 3 Months Results * PSA (Prostate-Specific Antigen), Diagnostic (01/17/2024 9:03 AM CDT) Prostate-Specific Ag <0.10 <=6.5 ng/mL 01/17/2024 8:17 PM CDT DTL Comment: ----ADDITIONAL INFORMATION---- The testing method is an electrochemiluminescence assay manufactured by [employer] and performed on the Modular or Dang system. Values obtained with different assay methods or kits may be different and cannot be used interchangeably. Test results cannot be interpreted as absolute evidence for the presence or absence of malignant disease. Blood (Blood, Venous) 01/17/2024 9:03 AM CDT 01/17/2024 7:25 PM CDT Dayana Arrieta APRN, C.N.P., D.N.P. LAB BLOOD ADD-ON [facility] [address] [place] [address], [facility] DTL [facility] [address] [place] [address] from Last 3 Months
--- OUTSIDE RECORDS SUMMARY | 2024-01-29 08:01 | XMS_ITS ---
Author Organization [facility] Address [address] [place] [address] Care Team Providers Care Resin Painter Name Role Phone Unavailable Primary Care Provider [...] Treated Prescribed Fraction Dose Prescribed Total Dose [id number] 04/14/2023 44 32 of 32 215 cGy 6,880 cGy Reference Point Last Treated On Elapsed Days Session Dose Total Dose [id number] 04/14/2023 44 215 cGy 6,880 cGy
--- OUTSIDE RECORDS SUMMARY | 2024-01-29 08:01 | XMS_ITS | Clinical Summary ---
Author Organization [facility] Address [address] [place] [address]. [place] [address] Care Team Providers Care Stock Replenisher Name Role Phone Osvaldo Hall MD Primary Care Provider [phone] Allergies Active Allergy Reactions Criticality Noted Date [...] Medical History Relation Comments Heart Disease Father [place] age 60's Hypertension Father Heart Disease Mother [place] age 60's Hypertension Mother Cancer No family [...] Comments Blood Pressure 126/75 07/19/2020 3:10 PM AUTO INSPECTOR Pulse 79 07/19/2020 3:10 PM AUTO INSPECTOR Temperature 36.2 ??C (97.2 ??F) 07/19/2020 3:10 PM CS T Respiratory Rate 16 07/19/2020 4:50 PM AUTO INSPECTOR Oxygen Saturation 93% 07/19/2020 3:10 PM AUTO INSPECTOR Inhaled Oxygen Concentration - - Weight 92.1 kg (203 lb) 07/18/2020 10:31 AM AUTO INSPECTOR Height 180.3 cm (5' 11) 07/18/2020 10:31 AM AUTO INSPECTOR Body Mass Index 28.31 07/18/2020 10:31 AM AUTO INSPECTOR Plan of Treatment Not on file Advance Directives For more information, please contact: [phone] * Full Code (Latest Code Status on File) Date Activated Date Inactivated Comments 07/18/2020 5:59 PM 07/19/2020 7:37 PM All basic and advanced life-sustaining interventions are performed as appropriate Question Answer Comments Code status determined by: Unable to dis cuss and no AD/POLST on file; continue PREVIOUSLY ORDERED code status Care Teams Stock Replenisher Relationship Specialty Start Date End Date Osvaldo Hall MD PCP - General Family Medicine 07/12/20
--- OUTSIDE RECORDS SUMMARY | 2024-01-29 08:01 | XMS_ITS | Clinical Summary ---
Author Organization [facility] Address [address] [place] [address] Care Team Providers Care Manuscript Editor Name Role Phone Unavailable Primary Care Provider Unavailabl e Source Comments Patient records contain information from all sites at [facility]. For routine questions regarding patient records, call [phone] during business hours, M-F 8:00 AM - 5:00 PM Central Time. Record requests for emergency care only can be directed to [phone] at any time.[facility] Allergies No known active allergies Medications Medication [...] Encounter Department of Laboratory Medicine and Pathology, [facility], in [place], [place] [address] [place] [address] Dayana Arrieta APRN, C.N.P., D.N.P. Primary Malignant Neoplasm Of Prostate (HCC); Rising Prostate Specific Antigen Following Treatment For Malignant Cancer Of Prostate Discharge Disposition: Home or Self Care from Last 3 Months Family History Medical [...] drink = 0.6 oz pur e alcohol) [facility] Utilities Answer Date Recorded In the past 12 months has th e electric, gas, oil, or water company [...] 12/16/2022, 06/0 12/2022, 12/01/2022, Additional history exists Influenza Vaccine (#1) 2024 3, 04/20/2022, 07/22/2021, Additional history exists Fasting Glucose for Diabetes Screening 12/16/2025 12/16/2022, 12/15/2022, 12/01/2022, Additional history exists Colonoscopy 06/10/2031 06/10/2021 Colorectal Cancer Screening 06/10/2031 Zoster Vaccines Completed 11/27/2020, 05/0 11/2020, 08/13/2020, Additional history exists Pneumococcal vaccine (65+ years) Completed 03/24/2023, 06/12/2019, 12/27/2018 HPV Vaccines Aged Out No longer eligi [...] CDT 01/17/2024 7:25 PM CDT Dayana Arrieta APRN C.N.P., D.N.P. LAB BLOOD ADD-ON [facility] [address] [place] [address], [place] DTL [facility] [address] [place] [address] from Last [address] [place] [address]
--- OUTSIDE RECORDS SUMMARY | 2024-01-29 08:01 | XMS_ITS ---
Author Organization [facility] Address [address] [place] [address] Care Team Providers Care Macaroni Press Operator Name Role Phone Unavailable Unavailable Unavailable Surgery Details Not on file Complications Check Surgery Details section. Procedure Estimated Blood Loss Check Surgery Details section. Procedure Findings Check Surgery Details section. Procedure Specimens Taken Check Surgery Details section.
--- OUTSIDE RECORDS SUMMARY | 2024-01-29 08:01 | XMS_ITS | Clinical Summary ---
Author Organization [email or web address] [facility] [facility] Address [place], [place] [address] Care Team Providers Care Shipmaster Name Role Phone Osvaldo Hall MD Primary [...] artery disease of n ative artery of [place] heart with stable angina pectoris 11/16/2022 Primary hypertension 11/16/2022 Mixed hyperlipidemia 11/16/2022 COPD (chronic obstructive pulmonary disease) 11/2022 ASCVD (arteriosclerotic cardiovascular disease) 10/14/2022 Overview: CT coronary angiogram 09/15/22 - diffuse MVD with severe OM2 disease and a mRCA SQUEEGEER AND FORMER noted with left to right collaterals Social [...] Comments Blood Pressure 144/90 05/18/2023 9:04 AM RDA Pulse 85 05/18/2023 9:04 AM RDA Temperature 36.5 ??C (97.7 ??F) 12/16/2022 1 2:13 AM CDT Respiratory Rate 18 12/31/2022 1:00 PM CDT Oxygen Saturation 94% 05/18/2023 9:04 AM RDA Inhaled Oxygen Concentration - - Weight 105.4 kg (232 lb 6.4 oz) 05/18/2023 9:04 AM RDA Height 180.3 cm (5' 10.98) 05/18/2023 9:[address] Body Mass Index 32.43 05/18/2023 9:04 AM RDA Plan of Treatment Health Maintenance Due Date Last Done Comments Pneumococcal series for age 65+ (1 of 2 - PCV) 1958 Tdap 11/10/1963 Hepatitis C screening for ag e 18-79 1970 Tetanus booster 1972 Colonoscopy through age 75 1997 Zoster (shingles) series for age 50+ (1 of 2) 2002 COVID-19 vaccine series ( season) 2023 04/09/2023, 05/08/2022, 11/14/2021, Additional history exists Influenza for age 65+ 03/12/2024 Depression screening for age 12+ 03/29/2024 03/29/2023, 03/26/2023, 12/31/2022, Additional history exists BMI (ht and wt on same day) for age 18+ 05/18/2024 05/18/2023, 12/01/2022, 10/28/2022, Additional history exists Lipids for age 45-75 05/25/2028 05/25/2023, 12/01/2022, 10/13/2022, Additional history exists AAA screening age 65-74 Completed 11/02/2022 Procedures Procedure Name Priority Date/Time Associated Diagnosis Comments LIPID PANEL Routine 05/25/2023 9:34 AM RDA ASCVD (arteriosclerotic cardiovascular disease) US ABD AORTA SCREENING Routine 11/02/2022 8:10 AM CDT Screening for cardiovascular condition from Last 3 Months or Most Recently Relevant to Health Maintenance Results * (ABNORMAL) LIPID PANEL (05/25/2023 9:34 AM RDA) CHOLESTEROL,TOTAL 135 100 - 199 mg/dL 05/25/2023 4:48 PM RDA [facility] [employer] [facility] Comment: Cholesterol, Total Reference Ranges Desirable <200 mg/dL Borderline 200-239 mg/dL High >=240 mg/dL TRIGLYCERIDES 236(H) <150 mg/dL 05/25/2023 4:48 PM RDA [facility] HDL CHOLESTEROL 41 >40 mg/dL 4:48 PM RDA [facility] NON-HDL CHOLESTEROL 94 <145 mg/dl 05/25/2023 4:48 PM RDA [facility] CHOL/HDL RATIO 3.29 <4.50 05/25/2023 4:48 PM RDA [facility] LDL CHOLESTEROL 47 <=130 mg/dL 05/25/2023 4:48 PM RDA [facility] VLDL CHOLESTEROL 47(H) <=30 mg/dL 05/25/2023 4:48 PM RDA [facility] PROVIDER ORDERED STATUS RANDOM 05/25/2023 4:48 PM RDA [facility] Blood BLOOD SPECIMEN / Unknown Venipuncture / Unknown 05/25/2023 9:34 AM RDA 05/25/2023 9:34 AM RDA Blayne Iglesias MD [facility] [address] [place] [address], * US ABD AORTA SCREENING (11/02/2022 8:10 AM CDT) Anatomical Region Laterality Modality Abdomen, AORTA Ultrasound 11/02/2022 7:48 AM CDT Narrative 11/02/2022 10:34 AM CDT VASCULAR ULTRASOUND REPORT ZIA MASON Accession#: ?? [id number] : ?1950 ?? Study Date: ?? 11/02/2022 7:48:28 AM Age: ?71 years ?? Tech: ? BVB Gender: M ?Referring MD: CITLALI AUSTIN [facility] Study performed: ?Aorta Indication for study: Family [...] biphasic + +--------+-------+ +---------+ Edwin Whitlock MD. [employer] Electronically signed on 11/02/2022 10:34:34 AM This study was performed and interpreted by a service accredited by the Intersocietal Accreditation Commission (IAC/Vascular), www.intersocietal.org/vascular Report generated by [employer]. ??Final ?? Procedure Note Edwin Whitlock MD - 11/02/2022 VASCULAR ULTRASOUND REPORT ZIA MASON : 1950 Study Date: 11/02/2022 7:48:28 AM Age: 71 years Tech: BVB Gender: M Referring MD: CITLALI AUSTIN Site: [facility] Study performed: Aorta Indication for study: [...] biphasic + +--------+-------+ +---------+ Edwin Whitlock MD. [employer] Electronically signed on 11/02/2022 10:34:34 AM This study was performed and interpreted by a service accredited by theIntersocietal Accreditation Commission (IAC/Vascular),www.intersocietal.org/vascular Report generated by varinode. Final Citlali Austin NP from Last 3 Months or Most Recently [...] Code Status Discussion: Reviewed Preferences Care Teams Shipmaster Relationship Specialty Start Date End Date Osvaldo Hall MD [address] [place] [address] PCP - General Family Practice 04/03/20
--- OUTSIDE RECORDS SUMMARY | 2024-01-29 08:01 | XMS_ITS | Encounter Summary ---
Author Organization [facility] Address [address] [place] [address] Care Team Providers Care Lapidarist Name Role Phone Unavailable Primary Care Provider Unavailabl e Encounter Details Date Type Department Care Team (Late st Contact Info) Description 12/20/2023 7:04 AM CDT - 12/20/2023 11:59 PM CDT Hospital Encounter Department of Laboratory Medicine and Pathology, [facility] in [place], [place] [address] [place] [phone] Dayana Arrieta APRN, C.N.P., D.N.P. [address] [place] [phone] Primary Malignant Neoplasm Of Prostate (HCC); Rising Prostate Specific Antigen Following Treatment For Malignant Cancer Of Prostate Discharge Disposition: Home or Self Care Social History Tobacco Use Types Packs/Day Years Used Date Smoking Tobacco: Former Cigarettes 1 45 1 965 - 2010 Smokeless Tobacco: Never Alcohol Use Standard Drinks/Week Comments Yes 3 (1 standard drink = 0.6 oz pur e alcohol) [facility] Utilities Answer Date Recorded In the [...] your living situation today? I have a [facility] place to live 10/19/2023 Sex and Gender [...] daily 07/19/2023 documented as of this encounter Plan of Treatment Not on file documented as of this encounter Procedures Procedure Name Priority Date/Time Associated Diagnosis Comments PROSTATE-SPECIFIC AG (PSA) DIAGNOSTIC, S Routine 01/17/2024 9:03 AM CDT Primary Malignant Neoplasm Of Prostate (HCC) Rising Prostate Specific Antigen Following Treatment For Malignant Cancer Of Prostate documented in this encounter Results * PSA (Prostate-Specific Antigen), Diagnostic (01/17/2024 [...] Arrieta APRN, C.N.P., D.N.P. LAB BLOOD ADD-ON [facility] [address] [place] [address], [facility] [address] [place] [address] documented in this encounter Visit Diagnoses Diagnosis Primary Malignant Neoplasm Of Prostate (HCC) Rising Prostate Specific Antigen Following Treatment For Malignant Cancer Of Prostate documented in this encounter
--- OUTSIDE RECORDS SUMMARY | 2024-01-29 08:01 | XMS_ITS | Data Portability ---
Author Organization [place] [facility] Address [address] [place] [address] Care Team Providers Care Ground Products Director Name Role Phone SHAWN ZAMORANO Primary Care Provider Assessment Encounter Date Assessment Date Assessment LastModified by Organization Details LastModified Time 01/03/2021 01/03/2021 70M s/p RALP on 07/18/20 [...] s/p RALP on 07/18/20 for pT3a? N0R1 ([place] 3+4=7, 0/3 LN, +SMS, +BNI) PSA now [...] s/p RALP on 07/18/20 for pT3a? N0R1 ([place] 3+4=7, 0/3 LN, +SMS, +BNI) PSA now [...] RT, would refer to Dr Oliver in [place] 2) Stress urinary incontinence, minimal - Kegels [...] Discussed early salvage RT vs continued observation. Decipher shows low risk genomics and MRI with no visible local recurrence. He would like to observe for now. 1) Prostate Cancer. - f/u in 6 months with repeat PSA - if PSA still rising, consider early salvage RT at that time - if opts for RT, would forgo ADT given Decipher - if RT, would refer to Dr Oliver in [place] 2) Stress urinary incontinence, minimal - Kegels 3) ED - sildenafil PRN, refill [email or web address] Not available 04/22/2022 16:19:03 10/21/2022 10/21/2022 71M s/p RALP on 07/18/20 for pT3a? N0R1 ([place] 3+4=7, 0/3 LN, +SMS, +BNI) PSA now detectable, given + surgical margin and pT3a disease, most likely this is early evidence of local recurrence. Discussed early salvage RT vs continued observation. Decipher shows low risk genomics and MRI with no visible local recurrence. 1) Prostate Cancer. - biochemical recurrence - discussed salvage RT - if RT, would refer to Dr Oliver in [place] - if opts for RT, would forgo [...] record ed. Lab PSA, serum or plasma 2020 021 [email or web address] Not available 10:31:30 PSA, serum or plasma 2020 021 [email or web address] Not available 10:48:13 unlist ed lab - deciph er - rp prost [I] 2020 021 [email or web address] [facility], [address], [address], [place], [address], 1 12:56:05 PSA, serum or plasma 2021 022 [email or web address] Not available 10:43:00 PSA, serum or plasma 2021 022 [email or web address] [facility], [address], [place], [address], 2 16:11:40 PSA, serum or plasma 2022 023 [email or web address] [facility], [address], [place], [address], 10:43:51 Referral radiat ion oncolo gist referr misael boggs e RT, prosta te cancer 2022 023 carmen Oliver MD, [address] [place], [address], 08:02:25 Procedures None record ed. Surgeries None record ed. Imaging MRI, pelvis , w/wo contra st 2020 021 [email or web address] [facility], [address] [place], [place], [address], 1 12:34:43 Medication Orders silden afil (pulmo nary hypert ension ) 20 mg tablet 2020 021 [email or web address] Not available 3 10:14:37 Patient TargetsNo targets recorded. Patient InstructionsNo instructions recorded. Reason for Referral salvage RT, prostate cancer Referring Physician: Otf Taylor, Urology, Encounter Date: 10/21/2022 Results Created Date Observation Date Name Description Value Unit Range Abnormal Flag LastModifiedBy Organization Detail LastModifiedTime 01/03/2021 PSA, serum or plasm a PSA, Total <0.04 ng/mL Not Available [facility] [address], [place], [address], 01/03/2021 09:58:48 06/18/20 21 06/18/2021 PSA, serum or plasm a PSA, Total 0.07 ng/ml Not Available [facility] [address], [place], [address], 06/18/2021 10:33:11 10/09/19 22 10/08/2021 PSA, serum or plasm a PSA, Total 0.08 ng/mL Not Available [facility] [address], [place], [address], 10/08/2021 10:33:51 04/22/20 22 04/22/2022 PSA, serum or plasm a PSA 0.09ng /ml 0-4.0 Not Available [facility] [address], [place], [address], 04/22/2022 15:56:47 10/22/19 23 10/21/2022 PSA, serum or plasm a PSA 0.24 ng/ml 0-4.0 Not Available [facility] [address], [place], [address], 10/13/2022 16:04:49 10/08/19 22 09/30/2021 MRI, pelvi s, w/wo contr ast No observ ation record ed. [email or web address] [facility] [address] [place] [address], [place], [address], 10/07/2021 09:39:52 Result Notes None recorded. Problems Name Status Onset Date Resolution Date Notes Provider Name and Address Organization Details Recorded Time Malignant tumor of prostate Active 05/22/20 Otf veliz MD, PHD [address] [place] [address], [phone], [facility] 05/22/2020 11:16:35 Erectile dysfunction Active 07/31/19 Otf veliz MD, PHD [address] [place] [address], [phone], [facility] 07/31/2020 14:40:33 Problem Notes None recorded. Procedures Surgical History Date Name Laterality Status Provider Name and Address Organization Details Recorded Time 10/22/19 23 ELECTROPLATER AUTOMATIC/blood draw completed Danita kim [facility] 10/21/2022 10:15:38 04/22/20 22 Blood Draw/ELECTROPLATER AUTOMATIC/PSA RESULTS completed Otf garcia MD, PHD [address] [place] [address], [phone], [facility] 04/22/2022 15:56:42 10/09/19 22 Blood Draw/ELECTROPLATER AUTOMATIC/PSA RESULTS completed Danita kim [facility] 10/08/2021 10:42:51 06/18/20 21 Blood Draw/ELECTROPLATER AUTOMATIC/PSA RESULTS completed Otf garcia MD, PHD [address] [place] [address], [phone], [facility] 06/18/2021 10:33:05 06/11/20 21 colonoscopy completed Otf garcia MD, PHD [address] [facility] [address], [place], [address], [facility] 06/18/2021 10:32:20 01/04/20 21 Blood Draw/ELECTROPLATER AUTOMATIC/PSA RESULTS completed Amarilis John null, [facility] 01/03/2021 10:31:19 09/12/19 21 Blood Draw/ELECTROPLATER AUTOMATIC/PSA RESULTS completed Kingston Nobles null, [facility] 09/18/2020 10:47:18 07/18/19 21 Prostatectomy completed Elmo Alexander null, [facility] 07/31/2020 14:05:56 04/29/20 20 Prostate Biopsy Procedure completed Emmett Samuel MD [address] [facility] [address], [address], [facility] 04/29/2020 17:27:15 Imaging Results Imaging Date Name Status LastModified by Organiz ation Details LastModified Time 09/30/2021 MRI, pelvis, w/wo contrast completed [email or web address] [facility] [place] [address] [place], [address], 10/07/2021 09:39:52 Procedure Notes None recorded. Medical [...] Not Available Not Available Fluzone High-Dose Quad 2020-21 (PF) 240 mcg/0.7 mL IM syringe active Not Available Not Available N ot Available Vitals Date Recorded Body height Body mass index (BMI) Body weight Provider Name and Address Organization Details Last Updated DateTime 04/22/2022 180.34 cm 27.9 kg/m2 21026.47 g Otf garcia MD, PHD [address] [place] [address], [phone] [place] [address] 04/22/2022 15:56:13 Date Recorded Body height Body mass index (BMI) Body weight Provider Name and Address Organization Details Last Updated DateTime 10/21/2022 180.34 cm 27.9 kg/m2 59491.47 g Danita Rain [facility] 10/21/2022 10:12:46 Date Recorded Body height Body mass index (BMI) Body weight Provider Name and Address Organization Details Last Updated DateTime 01/03/2021 180.34 cm 28.3 kg/m2 91880.25 g Otf garcia MD, PHD [address] [place] [address], [phone] [place] [address] Urolog 01/03/2021 10:13:09 Date Recorded Body height Body mass index (BMI) Body weight Provider Name and Address Organization Details Last Updated DateTime 06/18/2021 180.34 cm 28.3 kg/m2 06102.25 g Otf garcia MD, PHD [address] [place] [address],[address], [address] 06/18/2021 10:31:49 Date Recorded Body height Body mass index (BMI) Body weight Provider Name and Address Organization Details Last Updated DateTime 10/08/2021 180.34 cm 28.3 kg/m2 16632.25 g Otf garcia MD, PHD [address] [place] [address], [phone] 10/08/2021 10:33:07 Social History Question Answer Notes LastModified by Organizat ion Details LastModified Time Tobacco Smoking Status Former Smoker Amarilis kim [facility] 05/22/2020 10:23:16 What Is Your Level Of Alcohol Consumption? Occasional [email or web address] Information not available 07/31/2020 What Is Your [...] No [email or web address] Information not available 10/08/2021 Sex: Unknown Functional Status None recorded. Mental Status None recorded. Family History Relationship Description Onset Age of this Age Resolved Age Notes Father No current problems or disability Mother No current problems or disability Medical History Condition Response Diabetes N Sexually Transmitted Infection N Bleeding Disorder N Other N High Blood Pressure Y Kidney Stones N Cancer Y Depression N Lung Disease Y High Cholesterol Y GERD/Acid Reflux N Heart Disease Y Immunizations Vaccine Type Date Status Provider Name and Address Organization Details Recorded Time Pneumococcal conjugate PCV 13 06/12/2019 completed [facility]NA[facility] 07/09/2020 11:08:40 Past Encounters Encounter ID Performer Location Encounter Start Date Encounter Closed Date Diagnosis/Indication Diagnosis SNOMED-CT Code [id number] MD EDUARDO [facility] [address] [place] [id number] 04/29/2020 16:28:59 05/06/2020 16:27:15 Prostate specific antigen above reference range [id number] MD EDUARDO [facility] [address] [place] [id number] 04/29/2020 16:28:59 05/07/2020 03:52:51 [id number] Otf veliz MD, PHD [facility] [address] [place] [id number] 05/22/2020 09:59:04 05/22/2020 13:27:44 Malignant tumor of prostate [id number] Otf veliz MD, PHD [facility] [address] [place] [id number] 07/31/2020 13:46:11 07/31/2020 16:30:36 Malignant tumor of prostate 687913533 Erectile dysfunction 860 151714 [id number] Amarilis [facility] [address] [place] [id number] 09/11/2020 11:16:07 09/12/2020 14:13:35 Carcinoma of prostate 968154482 Malignant tumor of prostate 295327808 Erectile dysfunction 860 537379 [id number] Otf veliz MD, PHD [facility] [address] [place] [id number] 01/03/2021 10:02:21 01/06/2021 13:20:32 Carcinoma of prostate 829810428 Malignant tumor of prostate 087644945 Erectile dysfunction 860 508471 [id number] Otf veliz MD, PHD [facility] [address] [place] [id number] 06/18/2021 10:18:21 06/25/2021 12:23:30 Malignant tumor of prostate 399178872 Carcinoma of prostate 25 4426277 Erectile dysfunction 860 106913 [id number] Otf veliz MD, PHD [facility] [address] [place] [id number] 10/08/2021 10:20:08 10/09/2021 14:51:00 Malignant tumor of prostate 902892064 Carcinoma of prostate 25 3228652 Erectile dysfunction 860 196295 [id number] Otf veliz MD, PHD [facility] [address] [place] [id number] 04/22/2022 15:49:52 04/24/2022 11:35:04 Malignant tumor of prostate 650849654 Carcinoma of prostate 25 7348822 Erectile dysfunction 860 750893 [id number] Otf veliz MD, PHD [facility] [address] [place] [id number] 10/21/2022 09:51:15 10/24/2022 11:49:21 Malignant tumor of prostate 940493830 Carcinoma of prostate 25 7261256 Erectile dysfunction 860 046808 Health Concerns Section Related Observation LastModified by Organization Detai ls LastModified Time None Recorded Concern Status LastModified by Organization Details LastModified Time None Recorded Advance Directives Directive None Recorded Payers Encounter Date Sequence Insurance Name Policy Number Policy Agrawal Covered Member ID Agrawal Member ID Guarantor Name 01/03/2021 1 [facility] [id number] Zia Mason [id number] Zia Mason 06/18/2021 1 [facility] [id number] Zia Mason [id number] Zia Mason 04/22/2022 1 [facility] [id number] Debbie Mcgee [id number] Zia Mason 10/21/2022 1 [facility] [id number] Debbie Maledeb [id number] Zia Kori Mason Notes Date Note Type Note Provider Name and Address Organization Details Recorded Time 01/03/2021 text/html HPI Notes: 70M s /p RALP on 07/18/20 for [id number] ([place] 3+4=7, 0/3 LN, +SMS) Doing well. Normal BMs. Denies abdominal pain, N/V, f/c. No problems with incisions. Using 1 safety pad/day. Dry more often than not. Some leakage with cough. Good FOS. No hematuria. Getting erections adequate for penetration with 20 mg sildenafil. Sometimes without. PSA 12/12/19 12.7 09/11/20 <0.04 01/03/21 <0.04 UF: 2/5 Pre-op EF: 2/ EF: 2/ Otf Tinoco MD, PHD [address] [place] [address],[address], [phone], [facility] 01/03/2021 10:59:49 06/18/2021 text/html HPI Notes: 70M s /p RALP on 07/18/20 for [id number] ([place] 3+4=7, 0/3 LN, +SMS) Doing well. Normal BMs. Denies abdominal pain, N/V, f/c. No problems with incisions. Using 1 safety pad/day. Dry more often than not. Some leakage with cough. Good FOS. No hematuria. Getting erections adequate for penetration with 20-40 mg sildenafil. Sometimes without. PSA 12/12/19 12.7 09/11/20 <0.04 01/03/21 <0.04 06/18/21 0.07 UF: 2/5 Pre-op EF: 2/ EF: 2 Otf Tinoco MD, PHD [address] [place] [address],[address] [place] [address], [phone], [facility] 06/18/2021 11:09:53 10/08/2021 text/html HPI Notes: 70M s /p RALP on 07/18/20 for [id number] ([place] 3+4=7, 0/3 LN, +SMS) PSA detectable last [...] 01/03/21 <0.04 06/18/21 0.07 10/08/21 0.08 UF: 2/5 Pre-op EF: 2/5 EF: 2/5 Otf Tinoco MD, PHD [address] [place] [address],[address], [address], [facility] 10/08/2021 11:20:33 04/22/2022 text/html HPI Notes: 71M s /p RALP on 07/18/20 for [id number] ([place] 3+4=7, 0/3 LN, +SMS) PSA detectable. Decipher RP= 0.40-->Low risk MRI pelvis (09/30/21): small left sidewall seroma, no evidence local recurrence Using 1 safety pad/day. Dry more often than not. Some leakage with cough. Good FOS. No hematuria. Getting erections adequate for penetration with 20-40 mg sildenafil. Sometimes without. PSA 12/12/19 12.7 09/11/20 <0.04 01/03/21 <0.04 06/18/21 0.07 10/08/21 0.08 01/19/2022 0.21 ([place]) 04/22/22 0.09 UF: 2/5 Pre-op EF: 2/5 EF: 2/5 Otf Tinoco MD, PHD [address] [place] [address],[place] [address], [place], [address], [facility] 04/22/2022 16:19:41 10/21/2022 text/html HPI Notes: 71M s /p RALP on 07/18/20 for [id number] ([place] 3+4=7, 0/3 LN, +SMS) Having heart/lung [...] <0.04 06/18/21 0.07 10/08/21 0.08 01/19/2022 0.21 ([place]) 04/22/22 0.09 10/15/22 0.24 UF: 2/5 Pre-op EF: 2/ EF: 2/ Oft Tinoco MD, PHD [address] [facility],[address], [address], [place] [facility] 10/21/2022 10:52:03
--- OUTSIDE RECORDS SUMMARY | 2024-01-29 08:02 | XMS_ITS | Referral Summary ---
Author Organization [facility] Address [address] [place] [address]. [place] [address] Care Team Providers Care Head Automatic Sawyer Name Role Phone Osvaldo Hall MD Primary Care Provider [phone] Allergies Active Allergy Reactions Criticality Noted Date [...] Comments Blood Pressure 126/75 07/19/2020 3:10 PM MUSIC ASSISTANT Pulse 79 07/19/2020 3:10 PM MUSIC ASSISTANT Temperature 36.2 ??C (97.2 ??F) 07/19/2020 3:10 PM CS T Respiratory Rate 16 07/19/2020 4:50 PM MUSIC ASSISTANT Oxygen Saturation 93% 07/19/2020 3:10 PM MUSIC ASSISTANT Inhaled Oxygen Concentration - - Weight 92.1 kg (203 lb) 07/18/2020 10:31 AM MUSIC ASSISTANT Height 180.3 cm (5' 11) 07/18/2020 10:31 AM MUSIC ASSISTANT Body Mass Index 28.31 07/18/2020 10:31 AM MUSIC ASSISTANT Plan of Treatment Not on file Advance Directives For more information, please contact: [phone] * Full Code (Latest Code Status on File) Date Activated Date Inactivated Comments 07/18/2020 5:59 PM 07/19/2020 7:37 PM All basic and advanced life-sustaining interventions are performed as appropriate Question Answer Comments Code status determined by: Unable to dis cuss and no AD/POLST on file; continue PREVIOUSLY ORDERED code status Care Teams Head Automatic Sawyer Relationship Specialty Start Date End Date Osvaldo Hall MD PCP - General Family Medicine 07/12/20
[2024-01-29 08:07] LABS: HCO3 VBG 33 mmol/L (21-28); PCO2 VBG 48 mmHG (40-50); PO2 VBG < 30.1 mmHG (25-47); pH VBG 7.444 (7.32-7.43)
[2024-01-29] MEDS: IPRAT-ALBUT 0.5-2.5 MG/3 ML NEB 1 NEB IH (08:07)
[2024-01-29 08:09] LABS: Basophils Percent Auto 0.1 % (0.0-3.0); Eosinophils Percent Auto 0.4 % (0.0-7.0); Hematocrit 41.1 % (37.0-53.0); Hemoglobin* 13.9 gm/dL (13.5-17.5); Immature Granulocytes Pct Auto 0.3 %; Lymphocytes Percent Auto 8.3 % (20-44); Mean Corpuscular HGB Conc 34 gm/dL (32-36); Mean Corpuscular Hemoglobin 31 pg (26-34); Mean Corpuscular Volume 91 fL (80-100); Monocytes Percent Auto 4.6 % (0.0-11.0); Neutrophils Percent Auto 86.3 % (42.0-72.0); Platelet Count* 213 K/uL (140-440); RDW Coefficient of Variation % 14.4 % (11.5-15.5); Red Blood Count 4.54 m/uL (4.30-5.90); White Blood Count* 14.78 K/uL (4.50-11.00)
[2024-01-29 08:13] LABS: Slide Review Reflex No
[2024-01-29 08:22] LABS: Chloride* 94 mmol/L (96-114); Potassium* 3.8 mmol/L (3.6-5.1); Sodium* 133 mmol/L (135-149)
[2024-01-29 08:25] LABS: Creatinine* 0.9 mg/dL (0.5-1.5); Est. Creatinine Clearance* 72.16; Estimated Glomerular Filt Rate 91 ml/min
[2024-01-29 08:26] LABS: Anion Gap 6 mEq/L (7-15); Blood Urea Nitrogen* 14 mg/dL (7-30); Calcium* 9.3 mg/dL (8.4-10.6); Carbon Dioxide* 33 mmol/L (20-32); Glucose* 122 mg/dL (60-115)
[2024-01-29 08:29] LABS: C Reactive Protein* 6.8 mg/dL (0.5-1.0)
[2024-01-29 08:38] LABS: NT Pro B Type NatriureticPept* 512 pg/mL; Troponin I* < 0.01 ng/mL (0.01-0.04)
[2024-01-29 09:43] LABS: PCR FLU A Negative PCR FLU A (Negative); PCR FLU B Negative PCR FLU B (Negative); PCR RSV Negative PCR RSV (Negative); SARS PCR* Negative SARS-CoV-2 (Negative)
== END 2024-01-29 09:44 | disposition home or self-care (01) ==
PROVIDERS: Family Medicine; Emergency Provider Emergency Medicine; PCP Family Medicine
DX: J44.1 Chronic obstructive pulmonary disease with (acute) exacerbation (principal)
CPT/HCPCS: 36415; 71045; 80048; 82803; 83880; 84484; 85025; 86140; 87631; 93005; 94640; 94761; 99284; 99285

== ENCOUNTER 2024-03-02 15:21 | Outpatient (RCR) | payer BC, SELFPAY | END 2024-06-30 23:59 | disposition home or self-care (01) | PROVIDERS: PCP Family Medicine; Visit Provider Family Medicine | DX: R29.898 Other symptoms and signs involving the musculoskeletal system (principal); M25.512 Pain in left shoulder; M25.612 Stiffness of left shoulder, not elsewhere classified; Z51.89 Encounter for other specified aftercare | CPT/HCPCS: 97110; 97161 ==

== ENCOUNTER 2024-03-21 12:35 | Outpatient (CLI) | payer BC, SELFPAY ==
--- OUTSIDE RECORDS SUMMARY | 2024-03-21 12:40 | XMS_ITS | Referral Summary ---
Author Organization [facility] Address [address] [place] [address] Care Team Providers Care Spanish Speaking Babysitter Name Role Phone Unavailable Primary Care Provider Unavailabl e Source Comments Patient records contain information from all sites at [facility]. For routine questions regarding patient records, call [phone] during business hours, M-F 8:00 AM - 5:00 PM Central Time. Record requests for emergency care only can be directed to [phone] at any time.[facility] Encounters Date Type Department Care Team Description 03/06/2024 7:05 AM CDT - 03/06/2024 11:59 PM CDT Hospital Encounter Department of Laboratory Medicine and Pathology, [place], [place] [address] [place] [phone] Dayana Arrieta APRN, C.N.P., D.N.P. Primary Malignant Neoplasm Of Prostate (HCC); Rising Prostate Specific Antigen Following Treatment For Malignant Cancer Of Prostate Discharge Disposition: Home or Self Care 02/16/2024 Orders Only Department of Radiation Oncology in [place], [place] [address] [place] [address] Francoise Fallon PNayely.-Ria., M.S. 12/20/2023 7:04 AM CDT - 12/20/2023 11:59 PM CDT Hospital Encounter Department of Laboratory Medicine and Pathology, [place], [place] [address] [place] [phone] Dayana Arrieta APRN, C.N.P., D.N.P. Primary Malignant [...] drink = 0.6 oz pur e alcohol) [facility] Utilities Answer Date Recorded In the past 12 months has th e [employer], gas, oil, or water [employer] threatened to shut off services in [...] medical appointments or from getting medications? No 040 03/2024 In the past 12 months, has [...] your living situation today? [facility] a [facility] 10/19/2023 Sex and [...] Mass Index - - Plan of Treatment Upcoming Encounters Date Type Department Care Team (Latest Contact Info) Description 04/17/2024 11:30 AM CDT Clinical Communication Virtual Review in [place], [place] 200 [place] [address] 04/19/2024 2:30 PM CDT Appointment Department of Radiation Oncology in [place] [address] [place] [address] Pop Oliver M.D. [address] [place] [address] Procedures Procedure Name Priority Date/Time Associated Diagnosis [...] Arrieta APRN C.N.P., D.N.P. LAB BLOOD ADD-ON [facility] [address] [place] [address], [facility] [address] [place] [address] from Last 3 Months
--- OUTSIDE RECORDS SUMMARY | 2024-03-21 12:40 | XMS_ITS ---
Author Organization [facility] Address [address] [place] [address] Care Team Providers Care Groundskeeping Maintenance Name Role Phone Unavailable Unavailable Unavailable Surgery Details Not on file Complications Check Surgery Details section. Procedure Estimated Blood Loss Check Surgery Details section. Procedure Findings Check Surgery Details section. Procedure Specimens Taken Check Surgery Details section.
--- OUTSIDE RECORDS SUMMARY | 2024-03-21 12:40 | XMS_ITS | Clinical Summary ---
Author Organization [facility] Address [address] [place] [address] Care Team Providers Care Lye Machine Operator Name Role Phone Unavailable Primary Care Provider Unavailabl e Source Comments Patient records contain information from all sites at [facility]. For routine questions regarding patient records, call [phone] during business hours, M-F 8:00 AM - 5:00 PM Central Time. Record requests for emergency care only can be directed to [phone] at any time.[facility] Allergies No known active allergies Medications Medication [...] Encounter Department of Laboratory Medicine and Pathology, [facility], in [place], [place] [address] [place] [address] Dayana Arrieta APRN, C.N.P., D.N.P. Primary Malignant Neoplasm Of Prostate (HCC); Rising Prostate Specific Antigen Following Treatment For Malignant Cancer Of Prostate Discharge Disposition: Home or Self Care 02/16/2024 Orders Only Department of Radiation Oncology in [place], [place] [address] [place] [address] Francoise Fallon P.A.-C., M.S. 12/20/2023 7:04 AM CDT - 12/20/2023 11:59 PM CDT Hospital Encounter Department of Laboratory Medicine and Pathology, [facility] in [place], [place] [address] [place] [address] Dayana Arrieta APRN, C.N.P., D.N.P. Primary Malignant [...] drink = 0.6 oz pur e alcohol) [facility] Utilities Answer Date Recorded In the past 12 months has [facility] [employer], oil, or water [employer] threatened to shut off services in your [...] your living situation today? I have a [facility] place to live 10/19/2023 Sex and [...] AM CDT Clinical Communication Virtual Review in [place], [place] [address] [place] [address] 04/19/2024 2:30 PM CDT Appointment Department of Radiation Oncology in [place], [place] [address] [place] [phone] Pop Oliver M.D. [address] [place] [address] Health Maintenance Due Date Last Done Comments Abdominal Aortic Aneurysm (AAA) Screen 1952 CT Colonography 1952 Cologuard 1952 FIT 1950 Hepatitis C Screening 1950 DTaP,Tdap,and Td Vaccines (2 - Td or Tdap) 08/09/2022 08/09/2012, 07/07/2006 Depression Screening (Annual PHQ-2) 07/12/2023 Fall Risk Screen (Annual) 07/12/2023 Lung Cancer Screening 10/01/2023 09/30/2022, 023 Creatinine Level (Kidney Function Test) 12/17/2023 12/16/2022, 12/15/2022, 12/01/2022, Additional history exists Potassium Level 12/17/2023 12/16/2022, 06/0 12/2022, 12/01/2022, Additional history exists Sodium Level 12/17/2023 12/16/2022, 06/0 12/2022, 12/01/2022, Additional history exists Influenza Vaccine (#1) 2024 , 04/20/2022, 07/22/2021, Additional history exists Fasting Glucose for Diabetes Screening 12/16/2025 12/16/2022, 12/15/2022, 12/01/2022, Additional history exists Colonoscopy 06/10/2031 06/10/2021 Colorectal Cancer Screening 06/10/2031 Zoster Vaccines Completed 11/27/2020, 05/0 11/2020, 08/13/2020, Additional history exists Pneumococcal vaccine (65+ years) Completed 03/24/2023, 06/12/2019, 12/27/2018 COVID-19 Vaccine Completed 09/22/2023, , 04/09/2023, Additional history exists HPV Vaccines Aged Out [...] Arrieta APRN, C.N.P., D.N.P. LAB BLOOD ADD-ON [facility] [address] [place] [address], [facility] [address] [place] [address] from Last 3 Months
--- OUTSIDE RECORDS SUMMARY | 2024-03-21 12:40 | XMS_ITS | Data Portability ---
Author Organization [place] [facility] Address [address] [place] [address] Care Team Providers Care Assistant Professor Nurse Education Name Role Phone SHAWN ZAMORANO Primary Care Provider Assessment Encounter Date Assessment Date Assessment LastModified by Organization Details LastModified Time 01/03/2021 01/03/2021 70M s/p RALP on 07/18/20 for pT3a? N0R1 ([place] 3+4=7, 0/3 LN, +SMS, +BNI) Reviewed PSA, [...] s/p RALP on 07/18/20 for pT3a? N0R1 ([place] 3+4=7, 0/3 LN, +SMS, +BNI) PSA now [...] RT, would refer to Dr Oliver in [place] 2) Stress urinary incontinence, minimal - Kegels [...] RT, would refer to Dr Oliver in [place] 2) Stress urinary incontinence, minimal - Kegels [...] RT, would refer to Dr Oliver in [place] - if opts for RT, would forgo [...] - rp prost [I] 2020 021 [email or web address] [facility], [address], [address], [place], [address], 1 12:56:05 PSA, serum or plasma 2021 022 [email or web address] Not available 10:43:00 PSA, serum or plasma 2021 022 [email or web address] [facility], [address], [place], [address], 2 16:11:40 PSA, serum or plasma 2022 023 [email or web address] [facility], [address], [place], [address], 10:43:51 Referral radiat ion oncolo gist referr misael boggs e RT, prosta te cancer 2022 023 carmen Oliver MD, [address] [place], [address], 08:02:25 Procedures None record ed. Surgeries None record ed. Imaging MRI, pelvis , w/wo contra st 2020 021 [email or web address] [facility], [address], [place], [address], 1 12:34:43 Medication Orders silden afil (pulmo nary hypert ension ) 20 mg tablet 2020 021 [email or web address] Not available 3 10:14:37 Patient TargetsNo targets recorded. Patient InstructionsNo instructions recorded. Reason for Referral salvage RT, prostate cancer Referring Physician: Otf Taylor, Urology, Encounter Date: 10/21/2022 Results Created Date Observation Date Name Description Value Unit Range Abnormal Flag Note LastModifiedBy Organization Detail LastModifiedTime 01/03/2021 PSA, serum or plasm a PSA, Total <0.04 ng/mL Not Available [facility], [place], [address], 01/03/2021 09:58:48 06/18/20 21 06/18/2021 PSA, serum or plasm a PSA, Total 0.07 ng/ml Not Available [facility], [place], [address], 06/18/2021 10:33:11 10/09/19 22 10/08/2021 PSA, serum or plasm a PSA, Total 0.08 ng/mL Not Available [facility] [address], [place], [address], 10/08/2021 10:33:51 04/22/20 22 04/22/2022 PSA, serum or plasm a PSA 0.09ng /ml 0-4.0 Not Available [facility] [address], [place], [address], 04/22/2022 15:56:47 10/22/19 23 10/21/2022 PSA, serum or plasm a PSA 0.24 ng/ml 0-4.0 Not Available [facility] [address], [place], [address], 10/13/2022 16:04:49 10/08/19 22 09/30/2021 MRI, pelvi s, w/wo contr ast No observ ation record ed. [email or web address] [facility] [address], [place], [address], 10/07/2021 09:39:52 Result Notes None recorded. Problems Name Problem SNOMED Code Status Onset Date Resolution Date Notes Provider Name and Address Organization Details Recorded Time Malignant tumor of prostate 597241009 Active 2019 Otf mccoy MD, PHD [address] [place] [address], [phone], [facility] 0 11:16:35 Erectile dysfunction 204840810 Active 2020 Otf mccoy MD, PHD [address] [place] [address] [place] [address], [phone], [facility] 14:40:33 Problem Notes None recorded. Procedures Surgical History Date Name Laterality Status Provider Name and Address Organization Details Recorded Time 10/22/19 23 FLY TIER/blood draw completed Danita kim [facility] 10/21/2022 10:15:38 04/22/20 22 Blood Draw/FLY TIER/PSA RESULTS completed Otf garcia MD, PHD [address] [place] [address],[address], [address], [facility] 04/22/2022 15:56:42 10/09/19 22 Blood Draw/FLY TIER/PSA RESULTS completed Danita kim [facility] 10/08/2021 10:42:51 06/18/20 21 Blood Draw/FLY TIER/PSA RESULTS completed Otf garcia MD, PHD [address] [place] [address],[address], [address], [facility] 06/18/2021 10:33:05 12/01/20 21 colonoscopy completed Otf garcia MD, PHD [address] [facility],[address], [place], [address], [facility] 06/18/2021 10:32:20 01/04/20 21 Blood Draw/FLY TIER/PSA RESULTS completed Amarilis Lopez null, [facility] 01/03/2021 10:31:19 09/12/19 21 Blood Draw/FLY TIER/PSA RESULTS completed Kingston Nobles null, [facility] 09/18/2020 10:47:18 07/18/19 21 Prostatectomy completed Elmo Alexander null, [facility] 07/31/2020 14:05:56 04/29/20 20 Prostate Biopsy Procedure completed Emmett Samuel MD [address] [facility] [address] [facility],[address], [place], [address], [facility] 04/29/2020 17:27:15 Imaging Results Imaging Date Name Status LastModified by Organiz ation Details LastModified Time 09/30/2021 MRI, pelvis, w/wo contrast completed [email or web address] [facility] [address] [place], [address], 10/07/2021 09:39:52 Procedure Notes None recorded. Medical [...] Updated DateTime 04/22/2022 180.34 cm 27.9 kg/m2 01365.47 g tOf garcia MD, PHD [address] [place] [address], [phone] [place] [address] 04/22/2022 15:56:13 Date Recorded Body height Body mass index (BMI) Body weight Provider Name and Address Organization Details Last Updated DateTime 10/21/2022 180.34 cm 27.9 kg/m2 82057.47 g Danita Rain [facility] 10/21/2022 10:12:46 Date Recorded Body height Body mass index (BMI) Body weight Provider Name and Address Organization Details Last Updated DateTime 01/03/2021 180.34 cm 28.3 kg/m2 13880.25 g Otf garcia MD, PHD [address] [place] [address], [address], [facility] 01/03/2021 10:13:09 Date Recorded Body height Body mass index (BMI) Body weight Provider Name and Address Organization Details Last Updated DateTime 06/18/2021 180.34 cm 28.3 kg/m2 02522.25 g Otf garcia MD, PHD [address] [place] [address], [phone] 06/18/2021 10:31:49 Date Recorded Body height Body mass index (BMI) Body weight Provider Name and Address Organization Details Last Updated DateTime 10/08/2021 180.34 cm 28.3 kg/m2 23514.25 g Otf garcia MD, PHD [address] [place] [phone] 10/08/2021 10:33:07 Social History Question Answer Notes LastModified by Organizat ion Details LastModified Time Tobacco Smoking Status Former Smoker [facility] 05/22/2020 10:23:16 What Is Your Level Of Alcohol Consumption? Occasional [email or web address] Information not available 07/31/2020 What Is Your [...] High Blood Pressure Y Kidney Stones N Depression N Lung Disease Y GERD/Acid Reflux N Sexually Transmitted Infection N Cancer Y High Cholesterol Y Diabetes N Bleeding Disorder N Heart Disease Y Immunizations Vaccine Type Date Status Provider Name and Address Organization Details Recorded Time Pneumococcal conjugate PCV 13 06/12/2019 completed Adriana kim [facility] 07/09/2020 11:08:40 Past Encounters Encounter ID Performer Location Encounter Start Date Encounter Closed Date Diagnosis/Indication Diagnosis SNOMED-CT Code Diagnosis ICD10 Code [id number] Emmett [facility] [address] [place] [id number] 04/29/2020 16:28:59 05/06/2020 16:27:15 Prostate specific antigen above reference range [id number] R97.20 [id number] Emmett Samuel [facility] [address] [place] [id number] 04/29/2020 16:28:59 05/07/2020 03:52:51 [id number] Otf zabala MD, PHD [facility] [address] [place] [id number] 05/22/2020 09:59:04 05/22/2020 13:27:44 Malignant tumor of prostate 280245094 C61 [id number] Otf zabala MD, PHD [facility] [address] [place] [id number] 07/31/2020 13:46:11 07/31/2020 16:30:36 Malignant tumor of prostate 364259470 C61 Erectile dysfunction 860 011980 F52.21 [id number] Amarilis Gne[facility] [address] [place] [id number] 09/11/2020 11:16:07 09/12/2020 14:13:35 Carcinoma of prostate 869120166 C61 Malignant tumor of prostate 329067263 C61 Erectile dysfunction 860 458738 F52.21 [id number] Otf zabala MD, PHD [facility] [address] [place] [id number] 01/03/2021 10:02:21 01/06/2021 13:20:32 Carcinoma of prostate 937583804 C61 Malignant tumor of prostate 380146096 C61 Erectile dysfunction 860 043487 F52.21 [id number] Otf zabala MD, PHD [address] [place] [id number] 06/18/2021 10:18:21 06/25/2021 12:23:30 Malignant tumor of prostate 111883195 C61 Carcinoma of prostate 25 9666986 C61 Erectile dysfunction 860 137630 F52.21 [id number] Otf zabala MD, PHD [address] [place] [id number] 10/08/2021 10:20:08 10/09/2021 14:51:00 Malignant tumor of prostate 005488199 C61 Carcinoma of prostate 25 5230193 C61 Erectile dysfunction 860 786593 F52.21 [id number] Otf zabala MD, PHD [address] [place] [id number] 04/22/2022 15:49:52 04/24/2022 11:35:04 Malignant tumor of prostate 270814232 C61 Carcinoma of prostate 25 3262850 C61 Erectile dysfunction 860 409663 F52.21 [id number] Otf zabala MD, PHD [address] [place] [id number] 10/21/2022 09:51:15 10/24/2022 11:49:21 Malignant tumor of prostate 937545638 C61 Carcinoma of prostate 25 4951154 C61 Erectile dysfunction 860 748434 F52.21 Health Concerns Section Related Observation LastModified by Organization Detai ls LastModified Time None Recorded Concern Status LastModified by Organization Details LastModified Time None Recorded Advance Directives Directive None Recorded Payers Encounter Date Sequence Insurance Name Policy Number Policy Agrawal Covered Member ID Agrawal Member ID Guarantor Name 01/03/2021 1 [facility] [id number] Zia Mason [id number] Zia Korimonica Mason 06/18/2021 1 [facility] [id number] Zia Mason [id number] Zia Sheikh Iamelida 04/22/2022 1 [facility] [id number] Debbie Mcgee [id number] Zia Mason 10/21/2022 1 [facility] [id number] Debbie Mcgee [id number] Zia Mason Notes Date Note Type Note Provider Name and Address Organization Details Recorded Time 01/03/2021 text/html HPI Notes: 70M s /p RALP on 07/18/20 for [id number] ([place] 3+4=7, 0/3 LN, +SMS) Doing well. Normal BMs. Denies abdominal pain, N/V, f/c. No problems with incisions. Using 1 safety pad/day. Dry more often than not. Some leakage with cough. Good FOS. No hematuria. Getting erections adequate for penetration with 20 mg sildenafil. Sometimes without. PSA 12/12/19 12.7 09/11/20 <0.04 01/03/21 <0.04 UF: 2/5 Pre-op EF: 2/5 EF: 2 Otf Tinoco MD, PHD [address] [place] [address],[address], [address], [facility] 01/03/2021 10:59:49 06/18/2021 text/html HPI Notes: 70M s /p RALP on 07/18/20 for [id number] ([place] 3+4=7, 0/3 LN, +SMS) Doing well. Normal BMs. Denies abdominal pain, N/V, f/c. No problems with incisions. Using 1 safety pad/day. Dry more often than not. Some leakage with cough. Good FOS. No hematuria. Getting erections adequate for penetration with 20-40 mg sildenafil. Sometimes without. PSA 12/12/19 12.7 09/11/20 <0.04 01/03/21 <0.04 06/18/21 0.07 UF: 2/5 Pre-op EF: 2/5 EF: 2/ Otf Tinoco MD, PHD [address] [place] [address],[address], [address], [facility] 06/18/2021 11:09:53 10/08/2021 text/html HPI Notes: 70M s /p RALP on 07/18/20 for [id number] ([place] 3+4=7, 0/3 LN, +SMS) PSA detectable last [...] 0.08 UF: 2/ Pre-op EF: 2/ EF: 2 Otf Tinoco MD, PHD [address] [place] [address], [phone], [facility] 10/08/2021 11:20:33 04/22/2022 text/html HPI Notes: 71M s /p RALP on 07/18/20 for [id number] ([place] 3+4=7, 0/3 LN, +SMS) PSA detectable. Decipher RP= 0.40-->Low risk MRI pelvis (09/30/21): small left sidewall seroma, no evidence local recurrence Using 1 safety pad/day. Dry more often than not. Some leakage with cough. Good FOS. No hematuria. Getting erections adequate for penetration with 20-40 mg sildenafil. Sometimes without. PSA 12/12/19 12.7 09/11/20 <0.04 01/03/21 <0.04 06/18/21 0.07 10/08/21 0.08 01/19/2022 0.21 ([place]) 04/22/22 0.09 UF: 2/ Pre-op EF: 2/ EF: 2 Otf Tinoco MD, PHD [address] [place] [address],[address], [address], [facility] 04/22/2022 16:19:41 10/21/2022 text/html HPI Notes: 71M s /p RALP on 07/18/20 for [id number] ([place] 3+4=7, 0/3 LN, +SMS) Having heart/lung [...] <0.04 06/18/21 0.07 10/08/21 0.08 01/19/2022 0.21 ([place]) 04/22/22 0.09 10/15/22 0.24 UF: 2/5 Pre-op EF: 2/5 EF: 2/5 Otf Tinoco MD, PHD [address] [facility],[address], [place], [address], [facility] 10/21/2022 10:52:03
--- OUTSIDE RECORDS SUMMARY | 2024-03-21 12:40 | XMS_ITS ---
Author Organization [facility] Address [address] [place] [address] Care Team Providers Care Wooden Barrel Mechanic Name Role Phone Unavailable Primary Care Provider Unavailabl e Active Problems Problem Noted Date Diagnosed Date Rising Prostate Specific Ant igen Following Treatment For Malignant Cancer Of Prostate 10/23/2022 Primary Malignant Neoplasm Of Prostate 0 Cancer Staging:Pathologic stage from 07/18/2020:Stage IIIB(pT3a, pN0, cM0, PSA: 12.7, Grade Group: 2) - Unsigned Current Oncology Plans No current plan information found. Past Plans Hem/Onc Therapy Plan 1 Plan Name Start Date Discontinue Date Treatment Medications Discontinue Reason Plan Provider Leuprolide Acetate Every 4 Weeks 02/22/2023 03/03/2023 No medications scheduled. Therapy Complete Dayana Arrieta APRN, C.N.P., D.N.P. Hem/Onc Therapy Plan 2 Plan Name Start Date Discontinue Date Treatment Medications Discontinue Reason Plan Provider Leuprolide Acetate Every 12 Weeks 02/22/2023 02/16/2024 No medications scheduled. Therapy Complete Dayana Arrieta APRN, C.N.P., D.N.P. Radiation Treatments * Plan Last Treated On Elapsed Days Fractions Treated Prescribed Fraction Dose Prescribed Total Dose [id number] 04/14/2023 44 32 of 32 215 cGy 6,880 cGy Reference Point Last Treated On Elapsed Days Session Dose Total Dose [id number] 04/14/2023 44 215 cGy 6,880 cGy
--- OUTSIDE RECORDS SUMMARY | 2024-03-21 12:41 | XMS_ITS | Referral Summary ---
Author Organization [facility] Address [address] [place] [address]. [place] [address] Care Team Providers Care Saddle Stitcher Name Role Phone Osvaldo Hall MD Primary [...] Comments Blood Pressure 126/75 07/19/2020 3:10 PM RISK DEVELOPER Pulse 79 07/19/2020 3:10 PM RISK DEVELOPER Temperature 36.2 ??C (97.2 ??F) 07/19/2020 3:10 PM CS T Respiratory Rate 16 07/19/2020 4:50 PM RISK DEVELOPER Oxygen Saturation 93% 07/19/2020 3:10 PM RISK DEVELOPER Inhaled Oxygen Concentration - - Weight 92.1 kg (203 lb) 07/18/2020 10:31 AM RISK DEVELOPER Height 180.3 cm (5' 11) 07/18/2020 10:31 AM RISK DEVELOPER Body Mass Index 28.31 07/18/2020 10:31 AM RISK DEVELOPER Plan of Treatment Not on file Advance Directives For more information, please contact: [phone] * Full Code (Latest Code Status on File) Date Activated Date Inactivated Comments 07/18/2020 5:59 PM 07/19/2020 7:37 PM All basic and advanced life-sustaining interventions are performed as appropriate Question Answer Comments Code status determined by: Unable to dis cuss and no AD/POLST on file; continue PREVIOUSLY ORDERED code status Care Teams Saddle Stitcher Relationship Specialty Start Date End Date Osvaldo Hall MD PCP - General Family Medicine 07/12/20
--- OUTSIDE RECORDS SUMMARY | 2024-03-21 12:41 | XMS_ITS | Encounter Summary ---
Author Organization [facility] Address [address] [place] [address] Care Team Providers Care Special Forces Medical Sergeant Name Role Phone Unavailable Primary Care Provider Unavailabl e Encounter Details Date Type Department Care Team (Late st Contact Info) Description 12/20/2023 7:04 AM CDT - 12/20/2023 11:59 PM CDT Hospital Encounter Department of Laboratory Medicine and Pathology, [facility] in [place], [place] [address] [place] [phone] Dayana Arrieta APRN, C.N.P., D.N.P. [address] [place] [phone] Primary Malignant Neoplasm Of Prostate (HCC); Rising Prostate Specific Antigen Following Treatment For Malignant Cancer Of Prostate Discharge Disposition: Home or Self Care Social History Tobacco Use Types Packs/Day Years Used Date Smoking Tobacco: Former Cigarettes 1 45 1 965 - 2010 Smokeless Tobacco: Never Alcohol Use Standard Drinks/Week Comments Yes 3 (1 standard drink = 0.6 oz pur e alcohol) [facility] Utilities Answer Date Recorded In the past [...] your living situation today? [facility] 10/19/2023 Sex and Gender [...] as of this encounter Plan of Treatment Upcoming Encounters Date Type Department Care Team (Latest Contact Info) Description 04/17/2024 11:30 AM CDT Clinical Communication Virtual Review in [place], [place] 200 [place] [address] 04/19/2024 2:30 PM CDT Appointment Department of Radiation Oncology in [address] [place] [phone] Pop Oliver M.D. [address] [place] [phone] documented as of this encounter Procedures Procedure [...] method is an electrochemiluminescence assay manufactured by [employer] and performed on the Modular or Dang system. Values obtained with different assay methods or kits may be different and cannot be used interchangeably. Test results cannot be interpreted as absolute evidence for the presence or absence of malignant disease. Blood (Blood, Venous) 01/17/2024 9:03 AM CDT 01/17/2024 7:25 PM CDT Dayana Arrieta APRN, C.N.P., D.N.P. LAB BLOOD ADD-ON [facility] [address] [place] [address], [facility] DTL [facility] [address] [place] [address] documented in this encounter Visit Diagnoses Diagnosis Primary Malignant Neoplasm Of Prostate (HCC) Rising Prostate Specific Antigen Following Treatment For Malignant Cancer Of Prostate documented in this encounter
--- OUTSIDE RECORDS SUMMARY | 2024-03-21 12:41 | XMS_ITS | Clinical Summary ---
Author Organization [employer] Address [place], [place] [address] Care Team Providers Care Wet Process Miller Name Role Phone Osvaldo Hall MD Primary [...] artery disease of n ative artery of [place] heart with stable angina pectoris 11/16/2022 Primary hypertension 11/16/2022 Mixed hyperlipidemia 11/16/2022 COPD (chronic obstructive pulmonary disease) 11/2022 ASCVD (arteriosclerotic cardiovascular disease) 10/14/2022 Overview (10/14/2022): CT coronary angiogram 09/15/22 - diffuse MVD with severe OM2 disease and a mRCA WELLNESS NURSE noted with left to right collaterals Encounters Date Type Department Care Team Description 02/21/2024 Refill [facility] [address] [place] [address] Blayne Iglesias MD Refill Request (Amlodipine) from Last 3 Months Social History Tobacco Use Types Packs/Day Years [...] Comments Blood Pressure 144/90 05/18/2023 9:04 AM REACH TRUCK OPERATOR Pulse 85 05/18/2023 9:04 AM REACH TRUCK OPERATOR Temperature 36.5 ??C (97.7 ??F) 12/16/2022 1 2:13 AM CDT Respiratory Rate 18 12/31/2022 1:00 PM CDT Oxygen Saturation 94% 05/18/2023 9:04 AM REACH TRUCK OPERATOR Inhaled Oxygen Concentration - - Weight 105.4 kg (232 lb 6.4 oz) 05/18/2023 9:04 AM REACH TRUCK OPERATOR Height 180.3 cm (5' 10.98) 05/18/2023 9:[address] Body Mass Index 32.43 05/18/2023 9:04 AM REACH TRUCK OPERATOR Plan of Treatment Health Maintenance Due Date Last Done Comments Pneumococcal series for age 65+ (1 of 2 - PCV) 1958 Tdap 11/10/1963 Hepatitis C screening for ag e 18-79 1970 Tetanus booster 1972 Colonoscopy through age 75 1997 Zoster (shingles) series for age 50+ (1 of 2) 2002 COVID-19 vaccine series (2022- season) 2024 04/09/2023, 05/08/2022, 11/14/2021, Additional history exists Influenza [...] Comments LIPID PANEL Routine 05/25/2023 9:34 AM REACH TRUCK OPERATOR ASCVD (arteriosclerotic cardiovascular disease) US ABD AORTA SCREENING Routine 11/02/2022 8:10 AM CDT Screening for cardiovascular condition from Last 3 Months or Most Recently Relevant to Health Maintenance Results * (ABNORMAL) LIPID PANEL (05/25/2023 9:34 AM REACH TRUCK OPERATOR) CHOLESTEROL,TOTAL 135 100 - 199 mg/dL 05/25/2023 4:48 PM REACH TRUCK OPERATOR [facility] [employer] [facility] Comment: Cholesterol, Total Reference Ranges Desirable <200 mg/dL Borderline 200-239 mg/dL High >=240 mg/dL TRIGLYCERIDES 236(H) <150 mg/dL 05/25/2023 4:48 PM REACH TRUCK OPERATOR [facility] [employer] [facility]AL [facility]OR[facility] HDL CHOLESTEROL 41 >40 mg/dL 4:48 PM REACH TRUCK OPERATOR [facility] NON-HDL CHOLESTEROL 94 <145 mg/dl 05/25/2023 4:48 PM REACH TRUCK OPERATOR [facility] CHOL/HDL RATIO 3.29 <4.50 05/25/2023 4:48 PM REACH TRUCK OPERATOR [facility] [employer] [facility] LDL CHOLESTEROL 47 <=130 mg/dL 05/25/2023 4:48 PM REACH TRUCK OPERATOR [facility] VLDL CHOLESTEROL 47(H) <=30 mg/dL 05/25/2023 4:48 PM REACH TRUCK OPERATOR [facility] [employer] [facility] PROVIDER ORDERED STATUS RANDOM 05/25/2023 4:48 PM REACH TRUCK OPERATOR [facility] [employer] Blood BLOOD SPECIMEN / Unknown Venipuncture / Unknown 05/25/2023 9:34 AM REACH TRUCK OPERATOR 05/25/2023 9:34 AM REACH TRUCK OPERATOR Blayne Iglesias MD CHEMISTRY [facility] [address] [place] [address], [place] * US ABD AORTA SCREENING (11/02/2022 8:10 AM CDT) Anatomical Region Laterality Modality Abdomen, AORTA Ultrasound 11/02/2022 7:48 AM CDT Narrative 11/02/2022 10:34 AM CDT VASCULAR ULTRASOUND REPORT ZIA MASON Accession#: ?? [id number] : ?1950 ?? Study Date: ?? 11/02/2022 7:48:28 AM Age: ?71 years ?? Tech: ? BVB Gender: M ?Referring MD: CITLALI AUSTIN Site: [facility] Study performed: ?Aorta Indication for study: Family [...] biphasic + +--------+-------+ +---------+ Edwin Whitlock MD. [employer] Electronically signed on 11/02/2022 10:34:34 AM This study was performed and interpreted by a service accredited by the Intersocietal Accreditation Commission (IAC/Vascular), www.intersocietal.org/vascular Report generated by [employer]. ??Final ?? Procedure Note Edwin Whitlock MD - 11/02/2022 VASCULAR ULTRASOUND REPORT ZIA MASON : 1950 Study Date: 11/02/2022 7:48:28 AM Age: 71 years Tech: MARLENE Gender: M Referring MD: CITLALI AUSTIN Site: [facility] Study performed: Aorta Indication for study: Family [...] biphasic + +--------+-------+ +---------+ Edwin Whitlock MD. [employer] Electronically signed on 11/02/2022 10:34:34 AM This study was performed and interpreted by a service accredited by theIntersocietal Accreditation Commission (IAC/Vascular),www.intersocietal.org/vascular Report generated by [employer]. Final Citlali Austin NP from Last 3 [...] Code Status Discussion: Reviewed Preferences Care Teams Wet Process Miller Relationship Specialty Start Date End Date Osvaldo Hall MD [address] [place] [address] PCP - General Family Practice 04/03/20
--- OUTSIDE RECORDS SUMMARY | 2024-03-21 12:41 | XMS_ITS | Clinical Summary ---
Author Organization [facility] Address [address] [place] [address]. [place] [address] Care Team Providers Care Circular Sawyer Helper Name Role Phone Osvaldo Hall MD Primary Care Provider [phone] Allergies Active Allergy Reactions Criticality Noted Date [...] Medical History Relation Comments Heart Disease Father [place] age 60's Hypertension Father Heart Disease Mother [place] age 60's Hypertension Mother Cancer No family [...] Comments Blood Pressure 126/75 07/19/2020 3:10 PM HOSPITAL UNIT COORDINATOR Pulse 79 07/19/2020 3:10 PM HOSPITAL UNIT COORDINATOR Temperature 36.2 ??C (97.2 ??F) 07/19/2020 3:10 PM CS T Respiratory Rate 16 07/19/2020 4:50 PM HOSPITAL UNIT COORDINATOR Oxygen Saturation 93% 07/19/2020 3:10 PM HOSPITAL UNIT COORDINATOR Inhaled Oxygen Concentration - - Weight 92.1 kg (203 lb) 07/18/2020 10:31 AM HOSPITAL UNIT COORDINATOR Height 180.3 cm (5' 11) 07/18/2020 10:31 AM HOSPITAL UNIT COORDINATOR Body Mass Index 28.31 07/18/2020 10:31 AM HOSPITAL UNIT COORDINATOR Plan of Treatment Not on file Advance Directives For more information, please contact: [phone] * Full Code (Latest Code Status on File) Date Activated Date Inactivated Comments 07/18/2020 5:59 PM 07/19/2020 7:37 PM All basic and advanced life-sustaining interventions are performed as appropriate Question Answer Comments Code status determined by: Unable to dis cuss and no AD/POLST on file; continue PREVIOUSLY ORDERED code status Care Teams Circular Sawyer Helper Relationship Specialty Start Date End Date Osvaldo Hall MD PCP - General Family Medicine 07/12/20
--- OUTSIDE RECORDS SUMMARY | 2024-03-21 12:41 | XMS_ITS | Encounter Summary ---
Author Organization [facility] Address [address] [place] [address] Care Team Providers Care Sedimentationist Name Role Phone Unavailable Primary Care Provider Unavailabl e Encounter Details Date Type Department Care Team (Late st Contact Info) Description 03/06/2024 7:05 AM CDT - 03/06/2024 11:59 PM CDT Hospital Encounter Department of Laboratory Medicine and Pathology, [facility] in [place], [place] [address] [place] [phone] Dayana Arrieta APRN, C.N.P., D.N.P. [address] [place] [phone] Primary Malignant Neoplasm Of Prostate (HCC); Rising Prostate Specific Antigen Following Treatment For Malignant Cancer Of Prostate Discharge Disposition: Home or Self Care Social History Tobacco Use Types Packs/Day Years Used Date Smoking Tobacco: Former Cigarettes 1 45 1 965 - 2010 Smokeless Tobacco: Never Alcohol Use Standard Drinks/Week Comments Yes 3 (1 standard drink = 0.6 oz pur e alcohol) [facility] Utilities Answer Date Recorded In [...] your living situation today? I have a [facility] place to live 10/19/2023 Sex and [...] AM CDT Clinical Communication Virtual Review in [place], [place] 200 [place] [address] 04/19/2024 2:30 PM CDT Appointment Department of Radiation Oncology in [address] [place] [address] Pop Oliver M.D. [address] [place] [address] Scheduled Orders Name Type Priority Associated Diagnoses Orde r Schedule PSA (Prostate-Specific Antigen), Diagnostic Lab Routine Primary Malignant Neoplasm Of Prostate (HCC) Rising Prostate Specific Antigen Following Treatment For Malignant Cancer Of Prostate Once for 1 Occurrences starting 03/06/2024 until 03/06/2024 Testosterone, Total by Mass Spectrometry, Serum Lab Routine Primary Malignant Neoplasm Of Prostate (HCC) Rising Prostate Specific Antigen Following Treatment For Malignant Cancer Of Prostate Once for 1 Occurrences starting 03/06/2024 until 03/06/2024 documented as of this encounter Visit Diagnoses Diagnosis Primary Malignant Neoplasm Of Prostate (HCC) Rising Prostate Specific Antigen Following Treatment For Malignant Cancer Of Prostate documented in this encounter
--- OUTSIDE RECORDS SUMMARY | 2024-03-21 12:41 | XMS_ITS | Encounter Summary ---
Author Organization [facility] Address [address] [place] [address] Care Team Providers Care Scallop Raker Name Role Phone Unavailable Primary Care Provider Unavailabl e Encounter Details Date Type Department Care Team (Late st Contact Info) Description 02/16/2024 Orders Only Department of Radiation Oncology in [place], [place] [address] [place] [phone] Francoise Fallon P.A.-C., M.S. [address] [place] [phone] Social History Tobacco Use Types Packs/Day Years Used Date Smoking Tobacco: Former Cigarettes 1 45 1 965 - 2009 Smokeless Tobacco: Never Alcohol Use Standard Drinks/Week Comments Yes 3 (1 standard drink = 0.6 oz pur e alcohol) [facility] Utilities Answer Date Recorded In the past 12 months has [facility] [employer], gas, oil, or water [employer] threatened to shut off services in your [...] your living situation today? I have a [facility] place to live 10/19/2023 Sex and Gender Information Value Date Recorded Sex Assigned at Male 10/19/2023 2:16 PM CDT Gender Identity Male 10/19/2023 2:16 PM CDT Sexual Orientation Straight 10/19/2023 2: 16 PM CDT documented as of this encounter Plan of Treatment Upcoming Encounters Date Type Department Care Team (Latest Contact Info) Description 04/17/2024 11:30 AM CDT Clinical Communication Virtual Review in [place], [place] 200 [place] [address] 04/19/2024 2:30 PM CDT Appointment Department of Radiation Oncology in [place] [address] [place] [address] Pop Oliver M.D. [address] [place] [address] documented as of this encounter Visit Diagnoses Not on filedocumented in this encounter
--- NOTE | 2024-03-21 13:00 | MR_ITS ---
[address] [address] Phone:?[phone] Fax:?[phone] Referring Physician Information: Kareem Chadwick M.D. [address] [facility] [address] Phone:?[phone] Fax:?[phone] Patient:Alex Mason D.O.B:?1950 Sex:?Male Phone:?[phone] [facility] MRN:?[id number] Exam Date:?03/21/2024 EXAM: MRI of the LEFT SHOULDER, without contrast CLINICAL INFORMATION: Male, 73 years old, with left shoulder pain. INDICATION: Evaluate for rotator cuff tear. PRIOR SURGERY: None reported. PLAIN FILMS: Shoulder radiographs 03/01/2024 COMPARISONS: No prior MRIs available. TECHNICAL INFORMATION: Using a 1.5T MR scanner and a localizing surface coil: Coronals: PD, T2FS Sagittals: PDFS, T2 Axials: PD, PDFS SEDATION: None CONTRAST: None FINDINGS: Bones: Proximal humerus: Cortical irregularity is noted at the greater tuberosity in the region of rotator cuff tearing. No fracture. Humeral head is anteriorly positioned in relation to the glenoid. Glenoid: No fracture or marrow edema/pathology. No osseous Bankart lesion. Rotator cuff and muscles/tendons: Supraspinatus: Full-thickness, full width tearing of the supraspinatus distal tendon with retraction to the level of the glenohumeral joint line. Advanced muscle belly atrophy. Infraspinatus: Poorly defined high-grade and full-thickness tearing of the infraspinatus tendon with retraction to the level of the lateral humeral head. Moderate for advanced muscle belly atrophy. Teres minor: No tendinopathy, tear or atrophy. Subscapularis: Full-thickness tearing of the lesser tuberosity attachment of the subscapularis distal tendon with retraction to the level of the joint line. Inferior capsular fibers appear irregular with interstitial splitting, without full-thickness tearing. Moderate to advanced atrophy of the superior muscle belly. Deltoid: No strain or atrophy. Coracoacromial arch: Acromion morphology: The acromion has type II morphology. No discrete subacromial osseous spur or os acromiale. Acromiohumeral space: The acromiohumeral space measures 3 mm. Coracohumeral space: The coracohumeral space is within normal limits. Acromioclavicular joint: Joint: Mild AC joint arthrosis without impinging inferior osteophytosis. Ligaments: Coracoclavicular ligaments are intact. Bursae: Subacromial-subdeltoid and subcoracoid: Fluid extends into the subacromial/subdeltoid, and subcoracoid bursae, in keeping with full-thickness rotator cuff tearing. Biceps tendon: The intra-articular long head biceps tendon is not convincingly identified. Highly attenuated tendon fibers are seen within the proximal bicipital groove. Glenohumeral joint: Effusion/cyst: Moderate sized sized glenohumeral joint effusion with synovitis. Articular cartilage: Humeral head: Diffuse grade III/IV chondromalacia involving the humeral head articular cartilage. Glenoid: Grade III chondromalacia along the superior and anterior aspect of the glenoid articular cartilage. Loose bodies: No discrete intra-articular body within the joint. Labrum:?Circumferential degeneration and fraying/tearing of the glenoid labrum. No paralabral ganglion cyst is identified. Inferior glenohumeral ligament/axillary pouch:?Intact. The axillary pouch is normal in thickness and signal. No evidence of adhesive capsulitis or capsular injury. IMPRESSION: 1. Massive rotator cuff tear involving the supraspinatus, infraspinatus, and subscapularis distal tendons, please see description above. Moderate to advanced muscle belly atrophy. 2. 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 Grade 3 chondral thinning of the superior and anterior glenoid. Moderate-sized joint effusion with synovitis. 3. Findings suggestive for high-grade tearing versus proximal rupture and retraction of the long head biceps tendon. 4. Mild AC joint arthrosis without impinging inferior osteophytosis. 5. Circumferential degeneration and fraying/tearing of the glenoid labrum. [facility] Electronically signed on 03/22/2024 8:12:00 PM by Delia Clayton M.D.
== END 2024-03-21 12:36 | disposition home or self-care (01) ==
LOC: MRI 12:38
PROVIDERS: PCP Family Medicine; Visit Provider Orthopaedic Surgery Sports Medicine
DX: M25.512 Pain in left shoulder (principal); M75.102 Unspecified rotator cuff tear or rupture of left shoulder, not specified as traumatic; M19.012 Primary osteoarthritis, left shoulder; M94.212 Chondromalacia, left shoulder; S43.432A Superior glenoid labrum lesion of left shoulder, initial encounter
CPT/HCPCS: 73221

== ENCOUNTER 2024-03-31 09:40 | Outpatient (CLI) | payer BC, SELFPAY ==
--- OUTSIDE RECORDS SUMMARY | 2024-03-31 09:42 | XMS_ITS | Encounter Summary ---
Author Organization [facility] Address [address] [place] [address] Care Team Providers Care Sales Manager Name Role Phone Unavailable Primary Care Provider Unavailabl e Encounter Details Date Type Department Care Team (Late st Contact Info) Description 02/16/2024 Orders Only Department of Radiation Oncology in [place], [place] [address] [place] [phone] Francoise Fallon P.A.-C., M.S. [address] [place] [phone] Social History Tobacco Use Types Packs/Day Years Used Date Smoking Tobacco: Former Cigarettes 1 45 1 965 - 2009 Smokeless Tobacco: Never Alcohol Use Standard Drinks/Week Comments Yes 3 (1 standard drink = 0.6 oz pur e alcohol) [facility] Utilities Answer Date Recorded In the past 12 months has [facility] [employer], gas, oil, or water [employer] threatened to shut off services in your [...] your living situation today? I have a [facility] place to live 10/19/2023 Sex and Gender Information Value Date Recorded Sex Assigned at Male 10/19/2023 2:16 PM CDT Gender Identity Male 10/19/2023 2:16 PM CDT Sexual Orientation Straight 10/19/2023 2: 16 PM CDT documented as of this encounter Plan of Treatment Upcoming Encounters Date Type Department Care Team (Latest Contact Info) Description 04/17/2024 11:30 AM CDT Clinical Communication Virtual Review in [place], [place] 200 [place] [address] 04/19/2024 2:30 PM CDT Appointment Department of Radiation Oncology in [place] [address] [place] [phone] Pop Oliver M.D. [address] [place] [address] documented as of this encounter Visit Diagnoses Not on filedocumented in this encounter
--- OUTSIDE RECORDS SUMMARY | 2024-03-31 09:42 | XMS_ITS | Encounter Summary ---
Author Organization [facility] Address [address] [place] [address] Care Team Providers Care Pediatric Surgeon Name Role Phone Unavailable Primary Care Provider Unavailabl e Encounter Details Date Type Department Care Team (Late st Contact Info) Description 03/06/2024 7:05 AM CDT - 03/06/2024 11:59 PM CDT Hospital Encounter Department of Laboratory Medicine and Pathology, [facility] in [place], [place] [address] [place] [phone] Dayana Arrieta APRN, C.N.P., D.N.P. [address] [place] [phone] Primary Malignant Neoplasm Of Prostate (HCC); Rising Prostate Specific Antigen Following Treatment For Malignant Cancer Of Prostate Discharge Disposition: Home or Self Care Social History Tobacco Use Types Packs/Day Years Used Date Smoking Tobacco: Former Cigarettes 1 45 1 965 - 2010 Smokeless Tobacco: Never Alcohol Use Standard Drinks/Week Comments Yes 3 (1 standard drink = 0.6 oz pur e alcohol) [facility] Utilities Answer Date Recorded In the [...] your living situation today? I have a [facility] place to live 10/19/2023 Sex and [...] AM CDT Clinical Communication Virtual Review in [place], [place] 200 [place] [address] 04/19/2024 2:30 PM CDT Appointment Department of Radiation Oncology in [address] [place] [address] Pop Oliver M.D. [address] [place] [address] Scheduled Orders Name Type Priority Associated Diagnoses [...]
--- OUTSIDE RECORDS SUMMARY | 2024-03-31 09:42 | XMS_ITS | Clinical Summary ---
Author Organization [facility] Address [address] [place] [address]. [place] [address] Care Team Providers Care Beam Builder Helper Name Role Phone Osvaldo Hall MD Primary Care Provider [phone] Allergies Active Allergy Reactions Criticality Noted Date [...] acetaminophen (TYLENOL) 325 MG tabletIndications: Prostate cancer Take 1-2 tablets (325-650 mg) by mouth every 6 hours 0 07/19/2020 Active oxyCODONE (ROXICODONE) 5 MG tabletIndications: Prostate cancer Take 1-2 tablets (5-10 mg) by mouth every 4 hours as needed for moderate to severe pain 12 tablet 07/19/2020 Active senna-docusate (SENOKOT-S/PERICOL YONIS) 8.6-50 MG tabletIndications: Prostate cancer Take 1 tablet by mouth 2 times daily as needed for constipation 30 tablet 1 07/19/2020 Active Active Problems Problem Noted Date Diagnosed Date Prostate cancer 07/18/2020 Tobacco use disorder 11/16/2000 Essential hypertension, benign Family History Medical History Relation Comments Heart Disease Father [place] age 60's Hypertension Father Heart Disease Mother [place] age 60's Hypertension Mother Cancer No family [...] Comments Blood Pressure 126/75 07/19/2020 3:10 PM BOX PRINTER Pulse 79 07/19/2020 3:10 PM BOX PRINTER Temperature 36.2 ??C (97.2 ??F) 07/19/2020 3:10 PM CS T Respiratory Rate 16 07/19/2020 4:50 PM BOX PRINTER Oxygen Saturation 93% 07/19/2020 3:10 PM BOX PRINTER Inhaled Oxygen Concentration - - Weight 92.1 kg (203 lb) 07/18/2020 10:31 AM BOX PRINTER Height 180.3 cm (5' 11) 07/18/2020 10:31 AM BOX PRINTER Body Mass Index 28.31 07/18/2020 10:31 AM BOX PRINTER Plan of Treatment Not on file Advance Directives For more information, please contact: [phone] * Full Code (Latest Code Status on File) Date Activated Date Inactivated Comments 07/18/2020 5:59 PM 07/19/2020 7:37 PM All basic and advanced life-sustaining interventions are performed as appropriate Question Answer Comments Code status determined by: Unable to dis cuss and no AD/POLST on file; continue PREVIOUSLY ORDERED code status Care Teams Beam Builder Helper Relationship Specialty Start Date End Date Osvaldo Hall MD PCP - General Family Medicine 07/12/20
--- OUTSIDE RECORDS SUMMARY | 2024-03-31 09:42 | XMS_ITS | Referral Summary ---
Author Organization [facility] Address [address] [place] [address]. [place] [address] Care Team Providers Care Statistical Reporting Analyst Name Role Phone Osvaldo Hall MD Primary Care Provider [phone] Allergies Active Allergy Reactions Criticality Noted Date [...] 0.6 oz pur e alcohol) 5-10 drinks Jennifer Adolescent Education Answer Date Record ed Getting School Help Needed Not on file 04/12 Sex and Gender Information Value Date Recorded Sex Assigned at Not on file Gender Identity Not on file Sexual Orientation Not on file Last Filed Vital Signs Vital Sign Reading Time Taken Comments Blood Pressure 126/75 07/19/2020 3:10 PM RETAIL SERVICE SPECIALIST Pulse 79 07/19/2020 3:10 PM RETAIL SERVICE SPECIALIST Temperature 36.2 ??C (97.2 ??F) 07/19/2020 3:10 PM CS T Respiratory Rate 16 07/19/2020 4:50 PM RETAIL SERVICE SPECIALIST Oxygen Saturation 93% 07/19/2020 3:10 PM RETAIL SERVICE SPECIALIST Inhaled Oxygen Concentration - - Weight 92.1 kg (203 lb) 07/18/2020 10:31 AM RETAIL SERVICE SPECIALIST Height 180.3 cm (5' 11) 07/18/2020 10:31 AM RETAIL SERVICE SPECIALIST Body Mass Index 28.31 07/18/2020 10:31 AM RETAIL SERVICE SPECIALIST Plan of Treatment Not on file Advance Directives For more information, please contact: [phone] * Full Code (Latest Code Status on File) Date Activated Date Inactivated Comments 07/18/2020 5:59 PM 07/19/2020 7:37 PM All basic and advanced life-sustaining interventions are performed as appropriate Question Answer Comments Code status determined by: Unable to dis cuss and no AD/POLST on file; continue PREVIOUSLY ORDERED code status Care Teams Statistical Reporting Analyst Relationship Specialty Start Date End Date Osvaldo Hall MD PCP - General Family Medicine 07/12/20
--- OUTSIDE RECORDS SUMMARY | 2024-03-31 09:42 | XMS_ITS | Clinical Summary ---
Author Organization [employer] Address [place], [place] [address] Care Team Providers Care Bear Keeper Name Role Phone Osvaldo Hall MD Primary [...] artery disease of n ative artery of [place] heart with stable angina pectoris 11/16/2022 Primary hypertension 11/16/2022 Mixed hyperlipidemia 11/16/2022 COPD (chronic obstructive pulmonary disease) 11/2022 ASCVD (arteriosclerotic cardiovascular disease) 10/14/2022 Overview (10/14/2022): CT coronary angiogram 09/15/22 - diffuse MVD with severe OM2 disease and a mRCA TOOLING MECHANIC noted with left to right collaterals Encounters Date Type Department Care Team Description 02/21/2024 Refill [facility] [address] [place] [address] Blayne Iglesias MD Refill Request [...] Comments Blood Pressure 144/90 05/18/2023 9:04 AM DIGITAL MARKETING LEAD Pulse 85 05/18/2023 9:04 AM DIGITAL MARKETING LEAD Temperature 36.5 ??C (97.7 ??F) 12/16/2022 1 2:13 AM CDT Respiratory Rate 18 12/31/2022 1:00 PM CDT Oxygen Saturation 94% 05/18/2023 9:04 AM DIGITAL MARKETING LEAD Inhaled Oxygen Concentration - - Weight 105.4 kg (232 lb 6.4 oz) 05/18/2023 9:04 AM DIGITAL MARKETING LEAD Height 180.3 cm (5' 10.98) 05/18/2023 9:[address] Body Mass Index 32.43 05/18/2023 9:04 AM DIGITAL MARKETING LEAD Plan of Treatment Health Maintenance Due Date [...] Comments LIPID PANEL Routine 05/25/2023 9:34 AM DIGITAL MARKETING LEAD ASCVD (arteriosclerotic cardiovascular disease) US ABD AORTA SCREENING Routine 11/02/2022 8:10 AM CDT Screening for cardiovascular condition from Last 3 Months or Most Recently Relevant to Health Maintenance Results * (ABNORMAL) LIPID PANEL (05/25/2023 9:34 AM DIGITAL MARKETING LEAD) CHOLESTEROL,TOTAL 135 100 - 199 mg/dL 05/25/2023 4:48 PM DIGITAL MARKETING LEAD [facility] Comment: Cholesterol, Total Reference Ranges Desirable <200 mg/dL Borderline 200-239 mg/dL High >=240 mg/dL TRIGLYCERIDES 236(H) <150 mg/dL 05/25/2023 4:48 PM DIGITAL MARKETING LEAD [facility] TRAL LABORAT[facility] HDL CHOLESTEROL 41 >40 mg/dL 4:48 PM DIGITAL MARKETING LEAD [facility] NON-HDL CHOLESTEROL 94 <145 mg/dl 05/25/2023 4:48 PM DIGITAL MARKETING LEAD [facility] CHOL/HDL RATIO 3.29 <4.50 05/25/2023 4:48 PM DIGITAL MARKETING LEAD [facility] LDL CHOLESTEROL 47 <=130 mg/dL 05/25/2023 4:48 PM DIGITAL MARKETING LEAD [facility] VLDL CHOLESTEROL 47(H) <=30 mg/dL 05/25/2023 4:48 PM DIGITAL MARKETING LEAD [facility] TR[facility] LABORATORY PROVIDER ORDERED STATUS RANDOM 05/25/2023 4:48 PM DIGITAL MARKETING LEAD [facility] [employer] TRAL [facility]ORATORY Blood BLOOD SPECIMEN / Unknown Venipuncture / Unknown 05/25/2023 9:34 AM DIGITAL MARKETING LEAD 05/25/2023 9:34 AM DIGITAL MARKETING LEAD Blayne Iglesias MD CHEMISTRY [facility] [address] [place] [address], [place] * US ABD AORTA SCREENING (11/02/2022 8:10 AM CDT) Anatomical Region Laterality Modality Abdomen, AORTA Ultrasound 11/02/2022 7:48 AM CDT Narrative 11/02/2022 10:34 AM CDT VASCULAR ULTRASOUND REPORT ZIA MASON Accession#: ?? [id number] : ?1950 ?? Study Date: ?? 11/02/2022 7:48:28 AM Age: ?71 years ?? Tech: ? BVB Gender: M ?Referring MD: CITLALI AUSTIN Site: [facility] Study performed: ?Aorta Indication for study: Family [...] + +--------+-------+ +---------+ Edwin Whitlock MD. [employer] Electronically signed on 11/02/2022 10:34:34 AM This study was performed and interpreted by a service accredited by the Intersocietal Accreditation Commission (IAC/Vascular), www.intersocietal.org/vascular Report generated by [employer]. ??Final ?? Procedure Note Edwin Whitlock MD - 11/02/2022 VASCULAR ULTRASOUND REPORT ZIA MASON : 1950 Study Date: 11/02/2022 7:48:28 AM Age: 71 years Tech: MARLEEN Gender: M Referring MD: CITLALI AUSTIN Site: [facility] Study performed: Aorta Indication for study: [...] + +--------+-------+ +---------+ Edwin Whitlock MD. [employer] Electronically signed on 11/02/2022 10:34:34 AM This study was performed and interpreted by a service accredited by theIntersocietal Accreditation Commission (IAC/Vascular),www.intersocietal.org/vascular Report generated by [employer]. Final Citlali Austin NP from Last 3 [...] Code Status Discussion: Reviewed Preferences Care Teams Bear Keeper Relationship Specialty Start Date End Date Osvaldo Hall MD [address] [place] [address] PCP - General Family Practice 04/03/20
--- OUTSIDE RECORDS SUMMARY | 2024-03-31 09:42 | XMS_ITS | Clinical Summary ---
Author Organization [facility] Address [address] [place] [address] Care Team Providers Care Surveillance Director Name Role Phone Unavailable Primary Care Provider Unavailabl e Source Comments Patient records contain information from all sites at [facility]. For routine questions regarding patient records, call [phone] during business hours, M-F 8:00 AM - 5:00 PM Central Time. Record requests for emergency care only can be directed to [phone] at any time.[facility] Allergies No known active allergies Medications [...] Encounter Department of Laboratory Medicine and Pathology, [facility], in [place], [place] [address] [place] [address] Dayana Arrieta APRN, C.N.P., D.N.P. Primary Malignant Neoplasm Of Prostate (HCC); Rising Prostate Specific Antigen Following Treatment For Malignant Cancer Of Prostate Discharge Disposition: Home or Self Care 02/16/2024 Orders Only Department of Radiation Oncology in [place], [place] [address] [place] [phone] Francoise Fallon P.A.-C., M.S. from Last 3 Months Family History Medical History Relation Name Comments Prostate cancer Brother 1 Prostate cancer Brother 2 Breast cancer Sister Relation Name Status Comments Brother 1 Brother 2 Sister Social History Tobacco Use Types Packs/Day Years Used Date Smoking Tobacco: Former Cigarettes 1 45 1 965 2009 Smokeless Tobacco: Never Tobacco Cessation:Counseling Given: Not Answered Alcohol Use Standard Drinks/Week Comments Yes 3 (1 standard drink = 0.6 oz pur e alcohol) [facility] [employer] Answer Date Recorded In the past 12 months has [employer], oil, or water [employer] threatened to shut off services in your [...] your living situation today? I have a [facility] place to live 10/19/2023 Sex and [...] AM CDT Clinical Communication Virtual Review in [place], [place] [address] [place] [address] 04/19/2024 2:30 PM CDT Appointment Department of Radiation Oncology in [place] [address] [place] [phone] Pop Oliver M.D. [address] [place] [phone] Health Maintenance Due Date Last Done Comments [...] Arrieta APRN, C.N.P., D.N.P. LAB BLOOD ADD-ON [facility] [address] [place] [address], [facility] [address] [place] [address] from Last 3 Months
--- OUTSIDE RECORDS SUMMARY | 2024-03-31 09:42 | XMS_ITS ---
Author Organization [facility] Address [address] [place] [address] Care Team Providers Care Cutter Banana Room Name Role Phone Unavailable Unavailable Unavailable Surgery Details Not on file Complications Check Surgery Details section. Procedure Estimated Blood Loss Check Surgery Details section. Procedure Findings Check Surgery Details section. Procedure Specimens Taken Check Surgery Details section.
--- OUTSIDE RECORDS SUMMARY | 2024-03-31 09:42 | XMS_ITS ---
Author Organization [facility] Address [address] [place] [address] Care Team Providers Care Impregnator Name Role Phone Unavailable Primary Care Provider [...] Treated Prescribed Fraction Dose Prescribed Total Dose [id number] 04/14/2023 44 32 of 32 215 cGy 6,880 cGy Reference Point Last Treated On Elapsed Days Session Dose Total Dose [id number] 04/14/2023 44 215 cGy 6,880 cGy
--- OUTSIDE RECORDS SUMMARY | 2024-03-31 09:42 | XMS_ITS | Referral Summary ---
Author Organization [facility] Address [address] [place] [address] Care Team Providers Care Kitchen Porter Name Role Phone Unavailable Primary Care Provider Unavailabl e Source Comments Patient records contain information from all sites at [facility]. For routine questions regarding patient records, call [phone] during business hours, M-F 8:00 AM - 5:00 PM Central Time. Record requests for emergency care only can be directed to [phone] at any time.[facility] Encounters Date Type Department Care Team Description 03/06/2024 7:05 AM CDT - 03/06/2024 11:59 PM CDT Hospital Encounter Department of Laboratory Medicine and Pathology, [facility], in [place], [place] [address] [place] [phone] Dayana Arrieta APRN, C.N.P., D.N.P. Primary Malignant Neoplasm Of Prostate (HCC); Rising Prostate Specific Antigen Following Treatment For Malignant Cancer Of Prostate Discharge Disposition: Home or Self Care 02/16/2024 Orders Only Department of Radiation Oncology in [place], [place] [address] [place] [phone] Francoise Fallon P.A.-C., M.S. from Last 3 Months Allergies No known [...] drink = 0.6 oz pur e alcohol) [facility] [employer] Answer Date Recorded In the past 12 months has e [employer], gas, oil, or water [employer] threatened to shut off services in your [...] your living situation today? I have a [facility] place to live 10/19/2023 Sex and Gender [...] AM CDT Clinical Communication Virtual Review in [place], [place] [address] [place] [address] 04/19/2024 2:30 PM CDT Appointment Department of Radiation Oncology in [place], [place] [address] [place] [phone] Pop Oliver M.D. [address] [place] [address] Procedures Procedure Name Priority Date/Time Associated Diagnosis [...] Arrieta APRN, C.N.P., D.N.P. LAB BLOOD ADD-ON [facility] [address] [place] [address], [facility] [address] [place] [address] from Last 3 Months
== END 2024-03-31 09:41 | disposition home or self-care (01) ==
LOC: CT 09:40
PROVIDERS: PCP Family Medicine; Visit Provider Orthopaedic Surgery Sports Medicine
DX: M19.012 Primary osteoarthritis, left shoulder (principal); Z01.818 Encounter for other preprocedural examination
CPT/HCPCS: 73200

== ENCOUNTER 2024-04-13 10:58 | Outpatient (CLI) | payer BC, SELFPAY ==
--- OUTSIDE RECORDS SUMMARY | 2024-04-13 11:02 | XMS_ITS | Referral Summary ---
Author Organization [facility] Address [address] [place] [address]. [place] [address] Care Team Providers Care Manufacturing Chief Engineer Name Role Phone Osvaldo Hall MD Primary [...] Comments Blood Pressure 126/75 07/19/2020 3:10 PM LENS FINISHER Pulse 79 07/19/2020 3:10 PM LENS FINISHER Temperature 36.2 ??C (97.2 ??F) 07/19/2020 3:10 PM CS T Respiratory Rate 16 07/19/2020 4:50 PM LENS FINISHER Oxygen Saturation 93% 07/19/2020 3:10 PM LENS FINISHER Inhaled Oxygen Concentration - - Weight 92.1 kg (203 lb) 07/18/2020 10:31 AM LENS FINISHER Height 180.3 cm (5' 11) 07/18/2020 10:31 AM LENS FINISHER Body Mass Index 28.31 07/18/2020 10:31 AM LENS FINISHER Plan of Treatment Not on file Advance Directives For more information, please contact: [phone] * Full Code (Latest Code Status on File) Date Activated Date Inactivated Comments 07/18/2020 5:59 PM 07/19/2020 7:37 PM All basic and advanced life-sustaining interventions are performed as appropriate Question Answer Comments Code status determined by: Unable to dis cuss and no AD/POLST on file; continue PREVIOUSLY ORDERED code status Care Teams Manufacturing Chief Engineer Relationship Specialty Start Date End Date Osvaldo Hall MD PCP - General Family Medicine 07/12/20
--- OUTSIDE RECORDS SUMMARY | 2024-04-13 11:02 | XMS_ITS | Encounter Summary ---
Author Organization [facility] Address [address] [place] [address] Care Team Providers Care Garage Manager Name Role Phone Unavailable Primary Care Provider Unavailabl e Encounter Details Date Type Department Care Team (Late st Contact Info) Description 03/06/2024 7:05 AM CDT - 03/06/2024 11:59 PM CDT Hospital Encounter Department of Laboratory Medicine and Pathology, [facility] in [place], [place] [address] [place] [phone] Dayana Arrieta APRN, C.N.P., D.N.P. [address] [place] [phone] Primary Malignant Neoplasm Of Prostate (HCC); Rising Prostate Specific Antigen Following Treatment For Malignant Cancer Of Prostate Discharge Disposition: Home or Self Care Social History Tobacco Use Types Packs/Day Years Used Date Smoking Tobacco: Former Cigarettes 1 45 1 965 - 2010 Smokeless Tobacco: Never Alcohol Use Standard Drinks/Week Comments Yes 3 (1 standard drink = 0.6 oz pur e alcohol) [facility] Utilities Answer Date Recorded In the [...] your living situation today? I have a [facility] place to live 10/19/2023 Sex and [...] AM CDT Clinical Communication Virtual Review in [address] [phone] 04/19/2024 2:30 PM CDT Appointment Department of Radiation Oncology in [place], [place] [address] [place] [phone] Pop Oilver M.D. [address] [place] [address] Scheduled Orders Name Type Priority Associated Diagnoses [...]
--- OUTSIDE RECORDS SUMMARY | 2024-04-13 11:02 | XMS_ITS | Clinical Summary ---
Author Organization [facility] Address [address] [place] [address] Care Team Providers Care Windows And Doors Installer Name Role Phone Unavailable Primary Care Provider Unavailabl e Source Comments Patient records contain information from all sites at [facility]. For routine questions regarding patient records, call [phone] during business hours, M-F 8:00 AM - 5:00 PM Central Time. Record requests for emergency care only can be directed to [phone] at any time.[facility] Allergies No known active allergies [...] Encounter Department of Laboratory Medicine and Pathology, [facility], in [place], [place] [address] [place] [address] Dayana Arrieta APRN, C.N.P., D.N.P. Primary Malignant Neoplasm Of Prostate (HCC); Rising Prostate Specific Antigen Following Treatment For Malignant Cancer Of Prostate Discharge Disposition: Home or Self Care 02/16/2024 Orders Only Department of Radiation Oncology in [place], [place] [address] [place] [address] Francoise Fallon P.A.-C., M.S. from Last 3 [...] drink = 0.6 oz pur e alcohol) [facility] [employer] Answer Date Recorded In the past 12 months has [employer], gas, oil, or water [employer] threatened to shut off services in [...] your living situation today? I have a [facility] place to live 10/19/2023 Sex and [...] AM CDT Clinical Communication Virtual Review in [place], [place] [address] [place] [address] 04/19/2024 2:30 PM CDT Appointment Department of Radiation Oncology in [place] [address] [place] [phone] Pop Oliver M.D. [address] [place] [address] Health Maintenance Due Date Last Done Comments [...] 12/16/2022, 06/0 12/2022, 12/01/2022, Additional history exists COVID-19 Vaccine ( season) 2024 04/09/2023, 05/08/2022, 11/14/2021, Additional history exists Influenza Vaccine (#1) 2024 [...] [facility] [address] [place] [address], [facility] [address] [place] [address] from Last 3 Months
--- OUTSIDE RECORDS SUMMARY | 2024-04-13 11:02 | XMS_ITS ---
Author Organization [facility] Address [address] [place] [address] Care Team Providers Care Statue Maker Name Role Phone Unavailable Primary Care Provider [...] Treated Prescribed Fraction Dose Prescribed Total Dose [id number] 04/14/2023 44 32 of 32 215 cGy 6,880 cGy Reference Point Last Treated On Elapsed Days Session Dose Total Dose [id number] 04/14/2023 44 215 cGy 6,880 cGy
--- OUTSIDE RECORDS SUMMARY | 2024-04-13 11:02 | XMS_ITS | Clinical Summary ---
Author Organization [facility] Address [address] [place] [address]. [place] [address] Care Team Providers Care Lead Informatica Developer Name Role Phone Osvaldo Hall MD Primary [...] Comments Blood Pressure 126/75 07/19/2020 3:10 PM COOK HELPER VEGETABLE Pulse 79 07/19/2020 3:10 PM COOK HELPER VEGETABLE Temperature 36.2 ??C (97.2 ??F) 07/19/2020 3:10 PM CS T Respiratory Rate 16 07/19/2020 4:50 PM COOK HELPER VEGETABLE Oxygen Saturation 93% 07/19/2020 3:10 PM COOK HELPER VEGETABLE Inhaled Oxygen Concentration - - Weight 92.1 kg (203 lb) 07/18/2020 10:31 AM COOK HELPER VEGETABLE Height 180.3 cm (5' 11) 07/18/2020 10:31 AM COOK HELPER VEGETABLE Body Mass Index 28.31 07/18/2020 10:31 AM COOK HELPER VEGETABLE Plan of Treatment Not on file Advance Directives For more information, please contact: [phone] * Full Code (Latest Code Status on File) Date Activated Date Inactivated Comments 07/18/2020 5:59 PM 07/19/2020 7:37 PM All basic and advanced life-sustaining interventions are performed as appropriate Question Answer Comments Code status determined by: Unable to dis cuss and no AD/POLST on file; continue PREVIOUSLY ORDERED code status Care Teams Lead Informatica Developer Relationship Specialty Start Date End Date Osvaldo Hall MD PCP - General Family Medicine 07/12/20
--- OUTSIDE RECORDS SUMMARY | 2024-04-13 11:02 | XMS_ITS | Clinical Summary ---
Author Organization [facility] Address [place], [place] [address] Care Team Providers Care Punch Machine Operator Name Role Phone Osvaldo Hall MD Primary [...] artery disease of n ative artery of [place] heart with stable angina pectoris 11/16/2022 Primary hypertension 11/16/2022 Mixed hyperlipidemia 11/16/2022 COPD (chronic obstructive pulmonary disease) 11/2022 ASCVD (arteriosclerotic cardiovascular disease) 10/14/2022 Overview (10/14/2022): CT coronary angiogram 09/15/22 - diffuse MVD with severe OM2 disease and a mRCA RESOURCE FORESTER noted with left to right collaterals Encounters Date Type Department Care Team Description 02/21/2024 Refill [facility] [address] [place] [address] Blayne Iglesias MD Refill Request [...] Comments Blood Pressure 144/90 05/18/2023 9:04 AM ELECTRIC POWERLINE EXAMINER Pulse 85 05/18/2023 9:04 AM ELECTRIC POWERLINE EXAMINER Temperature 36.5 ??C (97.7 ??F) 12/16/2022 1 2:13 AM CDT Respiratory Rate 18 12/31/2022 1:00 PM CDT Oxygen Saturation 94% 05/18/2023 9:04 AM ELECTRIC POWERLINE EXAMINER Inhaled Oxygen Concentration - - Weight 105.4 kg (232 lb 6.4 oz) 05/18/2023 9:04 AM ELECTRIC POWERLINE EXAMINER Height 180.3 cm (5' 10.98) 05/18/2023 9:[address] Body Mass Index 32.43 05/18/2023 9:04 AM ELECTRIC POWERLINE EXAMINER Plan of Treatment Health Maintenance Due Date Last Done Comments Pneumococcal series for age 65+ (1 of 2 - PCV) 1958 Tdap 11/10/1963 Hepatitis C screening for ag e 18-79 1970 Tetanus booster 1972 Colonoscopy through age 75 1997 Zoster (shingles) series for age 50+ (1 of 2) 2002 COVID-19 vaccine series (2023- season) 2024 04/09/2023, 05/08/2022, 11/14/2021, Additional history exists Influenza for age 65+ 03/12/2024 Depression screening for age 12+ 03/26/2024 03/26/2023, 12/31/2022, 11/16/2022 BMI (ht and wt on same day) for age 18+ 05/18/2024 05/18/2023, 12/01/2022, 10/28/2022, Additional history exists Lipids for age 45-75 05/25/2028 05/25/2023, 12/01/2022, 10/13/2022, Additional history exists AAA screening age 65-74 Completed 11/02/2022 Procedures Procedure Name Priority Date/Time Associated Diagnosis Comments LIPID PANEL Routine 05/25/2023 9:34 AM ELECTRIC POWERLINE EXAMINER ASCVD (arteriosclerotic cardiovascular disease) US ABD AORTA SCREENING Routine 11/02/2022 8:10 AM CDT Screening for cardiovascular condition from Last 3 Months or Most Recently Relevant to Health Maintenance Results * (ABNORMAL) LIPID PANEL (05/25/2023 9:34 AM ELECTRIC POWERLINE EXAMINER) CHOLESTEROL,TOTAL 135 100 - 199 mg/dL 05/25/2023 4:48 PM ELECTRIC POWERLINE EXAMINER [facility] Comment: Cholesterol, Total Reference Ranges Desirable <200 mg/dL Borderline 200-239 mg/dL High >=240 mg/dL TRIGLYCERIDES 236(H) <150 mg/dL 05/25/2023 4:48 PM ELECTRIC POWERLINE EXAMINER [facility] HDL CHOLESTEROL 41 >40 mg/dL 4:48 PM ELECTRIC POWERLINE EXAMINER [facility] NON-HDL CHOLESTEROL 94 <145 mg/dl 05/25/2023 4:48 PM ELECTRIC POWERLINE EXAMINER [facility] CHOL/HDL RATIO 3.29 <4.50 05/25/2023 4:48 PM ELECTRIC POWERLINE EXAMINER [facility] LDL CHOLESTEROL 47 <=130 mg/dL 05/25/2023 4:48 PM ELECTRIC POWERLINE EXAMINER [facility] VLDL CHOLESTEROL 47(H) <=30 mg/dL 05/25/2023 4:48 PM ELECTRIC POWERLINE EXAMINER [facility] PROVIDER ORDERED STATUS RANDOM 05/25/2023 4:48 PM ELECTRIC POWERLINE EXAMINER [facility] Blood BLOOD SPECIMEN / Unknown Venipuncture / Unknown 05/25/2023 9:34 AM ELECTRIC POWERLINE EXAMINER 05/25/2023 9:34 AM ELECTRIC POWERLINE EXAMINER Blayne Iglesias MD CHEMISTRY [facility] [address] [place] [address], [place] * US ABD AORTA SCREENING (11/02/2022 8:10 AM CDT) Anatomical Region Laterality Modality Abdomen, AORTA Ultrasound 11/02/2022 7:48 AM CDT Narrative 11/02/2022 10:34 AM CDT VASCULAR ULTRASOUND REPORT ZIA MASON Accession#: ?? [id number] : ?1950 ?? Study Date: ?? 11/02/2022 7:48:28 AM Age: ?71 years ?? Tech: ? BVB Gender: M ?Referring MD: CITLALI AUSTIN Site: [facility] Study performed: ?Aorta Indication for study: Family [...] + +--------+-------+ +---------+ Edwin Whitlock MD. [employer] Electronically signed on 11/02/2022 10:34:34 AM This study was performed and interpreted by a service accredited by the Intersocietal Accreditation Commission (IAC/Vascular), www.intersocietal.org/vascular Report generated by [employer]. ??Final ?? Procedure Note Edwin Whitlock MD - 11/02/2022 VASCULAR ULTRASOUND REPORT ZIA MASON : 1950 Study Date: 11/02/2022 7:48:28 AM Age: 71 years Tech: MARLENE Gender: M Referring MD: CITLALI AUSTIN Site: [facility] Study performed: Aorta Indication for study: Family [...] + +--------+-------+ +---------+ Edwin Whitlock MD. [employer] Electronically signed on 11/02/2022 10:34:34 AM This study was performed and interpreted by a service accredited by theIntersocietal Accreditation Commission (IAC/Vascular),www.intersocietal.org/vascular Report generated by [employer]. Final Citlali Austin NP from Last 3 [...] Code Status Discussion: Reviewed Preferences Care Teams Punch Machine Operator Relationship Specialty Start Date End Date Osvaldo Hall MD [address] [place] [id number] PCP - General Family Practice 04/03/20
--- OUTSIDE RECORDS SUMMARY | 2024-04-13 11:02 | XMS_ITS | Encounter Summary ---
Author Organization [facility] Address [address] [place] [address] Care Team Providers Care Coconut Candy Maker Name Role Phone Unavailable Primary Care Provider Unavailabl e Encounter Details Date Type Department Care Team (Late st Contact Info) Description 02/16/2024 Orders Only Department of Radiation Oncology in [place], [place] [address] [place] [phone] Francoise Fallon P.A.-C., M.S. [address] [place] [phone] Social History Tobacco Use Types Packs/Day Years Used Date Smoking Tobacco: Former Cigarettes 1 45 1 965 - 2009 Smokeless Tobacco: Never Alcohol Use Standard Drinks/Week Comments Yes 3 (1 standard drink = 0.6 oz pur e alcohol) [facility] Utilities Answer Date Recorded In the past 12 months has [employer], gas, oil, or water [employer] threatened to shut off services in your [...] your living situation today? I have a [facility] place to live 10/19/2023 Sex and Gender Information Value Date Recorded Sex Assigned at Male 10/19/2023 2:16 PM CDT Gender Identity Male 10/19/2023 2:16 PM CDT Sexual Orientation Straight 10/19/2023 2: 16 PM CDT documented as of this encounter Plan of Treatment Upcoming Encounters Date Type Department Care Team (Latest Contact Info) Description 04/17/2024 11:30 AM CDT Clinical Communication Virtual Review in [place], [place] [address] [place] [address] 04/19/2024 2:30 PM CDT Appointment Department of Radiation Oncology in [place] [address] [place] [phone] Pop Oliver M.D. [address] [place] [address] documented as of this encounter Visit Diagnoses Not on filedocumented in this encounter
--- OUTSIDE RECORDS SUMMARY | 2024-04-13 11:02 | XMS_ITS ---
Author Organization [facility] Address [address] [place] [address] Care Team Providers Care Stock Saw Operator Name Role Phone Unavailable Unavailable Unavailable Surgery Details Not on file Complications Check Surgery Details section. Procedure Estimated Blood Loss Check Surgery Details section. Procedure Findings Check Surgery Details section. Procedure Specimens Taken Check Surgery Details section.
--- OUTSIDE RECORDS SUMMARY | 2024-04-13 11:02 | XMS_ITS | Referral Summary ---
Author Organization [facility] Address [address] [place] [address] Care Team Providers Care Lacquer Maker Name Role Phone Unavailable Primary Care Provider Unavailabl e Source Comments Patient records contain information from all sites at [facility]. For routine questions regarding patient records, call [phone] during business hours, M-F 8:00 AM - 5:00 PM Central Time. Record requests for emergency care only can be directed to [phone] at any time.[facility] Encounters Date Type Department Care Team Description 03/06/2024 7:05 AM CDT - 03/06/2024 11:59 PM CDT Hospital Encounter Department of Laboratory Medicine and Pathology, [facility], in [place], [place] [address] [place] [address] Dayana Arrieta APRN, C.N.P., D.N.P. Primary Malignant Neoplasm Of Prostate (HCC); Rising Prostate Specific Antigen Following Treatment For Malignant Cancer Of Prostate Discharge Disposition: Home or Self Care 02/16/2024 Orders Only Department of Radiation Oncology in [place], [place] [address] [place] [phone] Francoise Fallon P.A.-C., M.S. from Last 3 [...] = 0.6 oz pur e alcohol) [facility] [employer] Answer Date Recorded In the past 12 months has [employer], oil, or water [employer] threatened to shut off services in your [...] your living situation today? [facility] 10/19/2023 Sex and [...] AM CDT Clinical Communication Virtual Review in [place], [place] 200 [place] [address] 04/19/2024 2:30 PM CDT Appointment Department of Radiation Oncology in [address] [phone] Pop Oliver M.D. [address] [place] [phone] Procedures Procedure Name Priority Date/Time Associated Diagnosis [...] Arrieta APRN C.N.P., D.N.P. LAB BLOOD ADD-ON [facility] [address] [place] [address], [facility] [address] [place] [address] from Last 3 Months
== END 2024-04-13 10:59 | disposition home or self-care (01) ==
PROVIDERS: PCP Family Medicine; Visit Provider Family Medicine
DX: Z01.818 Encounter for other preprocedural examination (principal); C61 Malignant neoplasm of prostate
CPT/HCPCS: 80048; 84153; 85025

== ENCOUNTER 2024-04-26 08:45 | Day surgery (SDC) | payer BC, SELFPAY ==
[2024-04-26] VITALS (22 sets, daily range): BP systolic 90–165; BP diastolic 52–108; PULSE 58–96; RESP 12–20; TEMP 35.5–36.6; O2SAT 87–99; BMI 29.7
--- OUTSIDE RECORDS SUMMARY | 2024-04-26 08:48 | XMS_ITS | Clinical Summary ---
Author Organization [facility] Address [address] [place] [address] Care Team Providers Care Physician Obstetrician Name Role Phone Unavailable Primary Care Provider Unavailabl e Source Comments Patient records contain information from all sites at [facility]. For routine questions regarding patient records, call [phone] during business hours, M-F 8:00 AM - 5:00 PM Central Time. Record requests for emergency care only can be directed to [phone] at any time.[facility] Allergies No known active allergies Medications aspirin [address] tablet Take 81 mg by mouth daily. 09/01/19 23 Active atorvastatin (LIPITOR) 40 mg tablet Take 40 mg by mouth daily. 10/14/19 23 Active isosorbide mononitrate (IMDUR) 60 mg 24 hr tablet Take 60 mg by mouth daily. 10/29/19 23 Active lisinopril-hydr oCHLOROthiazide (PRINZIDE,ZESTO RETIC) 20-12.5 mg per tablet Take 2 tablets by mouth daily. 09/01/19 23 Active nitroglycerin (NITROSTAT) 0.[address] 0.4 mg under the tongue every 5 (five) minutes as needed for chest pain. 10/15/19 23 Active omeprazole (PriLOSEC) [address] capsule Take 20 mg by mouth daily. 09/01/19 23 Active predniSONE (DELTASONE) 10 mg tablet Take 10 mg by mouth daily. 10/24/19 23 Active tiotropium-olod ateroL (STIOLTO RESPIMAT) 2.5-2.5 mcg/actuation inhaler Inhale 2 puffs daily. 10/14/19 23 Active ezetimibe (ZETIA) 10 mg tablet Take 10 mg by mouth daily. Active calcium carbonate-vitam in D3 1,500 mg (600 mg calcium)-5 mcg (200 Unit) per tablet Take 2 tablets by mouth daily with breakfast. Active acetaminophen (TYLENOL) 325 mg tablet Take 325-650 mg by mouth as needed. 07/19/19 21 Active carvediloL (COREG) 6.25 mg tablet TAKE 1 TABLET (6.25 MG) BY MOUTH TWO TIMES DAILY WITH MEALS. THIS MEDICATION REPLACES METOPROLOL. Active clopidogreL (PLAVIX) 75 mg tablet TAKE 75 MG ORALLY EVERY DAY Active Trelegy Ellipta 200-62.5-25 mcg inhaler Inhale 1 puff daily. daily 07/19/19 24 Active ipratropium-alb uteroL (DUONEB) 0.5-2.5 mg/3 mL nebulizer solution 3 mL 3 (three) times a day. Active Comp-Air Nebulizer Compressor device USE DIRECTED FOR COPD 03/28/20 24 Active ALPRAZolam (Xanax) 1 mg tablet Take 1 mg by mouth at bedtime. 04/10/20 24 Active Airs Disposable Nebulizer misc USE DIRECTED FOR COPD 03/28/20 24 Active ALPRAZolam (XANAX) 0.5 mg tablet Take 0.5 mg by mouth daily. 03/30/20 20 Discontinued amLODIPine (NORVASC) 2.5 mg tablet Take 1 tablet by mouth daily. Discontinued amLODIPine (NORVASC) 5 mg tablet Take 5 mg by mouth every morning. Discontinued budesonide (PULMICORT) 180 mcg/actuation inhaler Inhale 1 puff as needed. Discontinued ipratropium/alb uterol sulfate (IPRATROPIUM-AL BUTEROL INHL) 06/29/20 22 Discontinued sennosides-docu sate sodium (SENOKOT-S) 8.6-50 mg per tablet Take 1 tablet by mouth 2 (two) times a day as needed. 07/19/19 21 024 Discontinued Active Problems Problem Noted Date Diagnosed Date Rising Prostate Specific Ant igen Following Treatment For Malignant Cancer Of Prostate 10/23/2022 Primary Malignant Neoplasm Of Prostate 0 Cancer Staging:Pathologic stage from 07/18/2020:Stage IIIB(pT3a, pN0, cM0, PSA: 12.7, Grade Group: 2) - Unsigned Encounters Date Type Department Care Team Description 04/19/2024 2:01 PM CDT - 04/23/2024 12:59 PM CDT Hospital Encounter Department of Radiation Oncology in [address] [phone] Pop Oliver M.D. Rising Prostate Specific Antigen Following Treatment For Malignant Cancer Of Prostate (Primary Dx) 04/17/2024 11:30 AM CDT Clinical Communication Virtual Review in [place], [place] [address] [place] [address] Blood Pressure 03/06/2024 7:05 AM CDT - 03/06/2024 11:59 PM CDT Hospital Encounter Department of Laboratory Medicine and Pathology, [facility], in [place], [place] [address] [place] [phone] Dayana Arrieta APRN, C.N.P., D.N.P. Primary Malignant Neoplasm Of Prostate (HCC); Rising Prostate Specific Antigen Following Treatment For Malignant Cancer Of Prostate Discharge Disposition: Home or Self Care 02/16/2024 Orders Only Department of Radiation Oncology in [address] [phone] Francoise Fallon P.A.-Ria., M.S. from Last 3 Months Family History [...] drink = 0.6 oz pur e alcohol) [facility] Utilities Answer Date Recorded In the past 12 months has th e [employer], gas, oil, or water [employer] threatened to shut off services in your [...] living? No 10/19/2023 Nutrition Answer Date Recorded On average, how many serving s of [...] living situation today? 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 Gender Identity Male 10/19/2023 2:16 PM CDT Sexual Orientation Straight 10/19/2023 2: 16 PM CDT Last Filed Vital Signs Vital Sign Reading Time Taken Comments Blood Pressure 127/90 04/19/2024 2:23 PM CDT Pulse 73 04/19/2024 2:23 PM CDT Temperature 36.3 ??C (97.3 ??F) 04/19/2024 2:23 PM CD T Respiratory Rate - - Oxygen Saturation - - Inhaled Oxygen Concentration - - Weight 96.6 kg (212 lb 15.4 oz) 04/19/2024 2:23 PM CDT Height - - Body Mass [...] vaccine (65+ years) Completed 03/24/2023, 06/12/2019, 12/27/2018 RSV vaccine - (32-36 weeks) or 60+ years Completed 05/25/2023 HPV Vaccines Aged Out No longer eligi ble based on patient's age to complete this topic Procedures Procedure Name Priority Date/Time Associated Diagnosis Comments TESTOSTERONE, TOTAL BY MASS SPECROMETRY, S Routine 04/13/2024 11:05 AM CDT Primary Malignant Neoplasm Of Prostate (HCC) Rising Prostate Specific Antigen Following Treatment For Malignant Cancer Of Prostate PROSTATE-SPECIFIC AG (PSA) DIAGNOSTIC, S Routine 04/13/2024 11:05 AM CDT Primary Malignant Neoplasm Of Prostate (HCC) Rising Prostate Specific Antigen Following Treatment For Malignant Cancer Of Prostate from Last 3 Months Results * (ABNORMAL) Testosterone, Total by Mass Spectrometry, Serum (04/13/2024 11:05 AM CDT) Testosterone, Total by Mass Spectrometry, Serum 145(L) 240 - 950 ng/dL 04/16/2024 12:37 PM CDT [facility] Comment: ----ADDITIONAL INFORMATION---- Testing performed by Liquid Chromatography-Tandem Mass Spectrometry (LC-MS/MS). This test was developed and its performance characteristics determined by [facility] in a manner consistent with CLIA requirements. This test has not been cleared or approved by the U.S. Food and Drug Administration. Blood (Blood, Venous) 04/13/2024 11:05 AM CDT 04/15/2024 8:59 AM CDT Narrative Resulting Agency Comment Mailed In Specimen Dayana Arrieta APRN C.N.P., D.N.P. LAB BLOO D NON ADD-ON Final Result [facility] [address] [place] [address] [facility] [address] [place] [address] [place] [address] * PSA (Prostate-Specific Antigen), Diagnostic (04/13/2024 11:05 AM CDT) Prostate-Specific Ag <0.10 <=6.5 ng/mL 04/15/2024 7:50 AM CDT [facility] Comment: ----ADDITIONAL INFORMATION---- The testing method is an electrochemiluminescence assay manufactured by [employer] and performed on the Modular or Dang system. Values obtained with different assay methods or kits may be different and cannot be used interchangeably. Test results cannot be interpreted as absolute evidence for the presence or absence of malignant disease. Blood (Blood, Venous) 04/13/2024 11:05 AM CDT 04/15/2024 6:51 AM CDT Narrative Resulting Agency Comment Mailed In Specimen Dayana Arrieta APRN C.N.P., D.N.P. LAB BLOO D ADD-ON Final Result [facility] [place] [address] [place] [address], [facility] [address] [place] [address] from Last [address] [facility]
--- OUTSIDE RECORDS SUMMARY | 2024-04-26 08:48 | XMS_ITS | Data Portability ---
Author Organization [place] [facility] Address [address] [place] [address] Care Team Providers Care Plaster Whittler Name Role Phone SHAWN ZAMORANO Primary Care [...] s/p RALP on 07/18/20 for pT3a? N0R1 ([place] 3+4=7, 0/3 LN, +SMS, +BNI) PSA now [...] RT, would refer to Dr Oliver in [place] 2) Stress urinary incontinence, minimal - Kegels [...] RT, would refer to Dr Oliver in [place] 2) Stress urinary incontinence, minimal - [place]eg[place] 3) ED - sildenafil PRN, refill [email or web address] Not available 04/22/2022 16:19:03 10/21/2022 10/21/2022 71M s/p RALP on 07/18/20 for pT3a? N0R1 ([place] 3+4=7, 0/3 LN, +SMS, +BNI) PSA now detectable, given + surgical margin and pT3a disease, most likely this is early evidence of local recurrence. Discussed early salvage RT vs continued observation. Decipher shows low risk genomics and MRI with no visible local recurrence. 1) Prostate Cancer. - biochemical recurrence - discussed salvage RT - if RT, would refer to Dr Oliver in [place] - if opts for RT, would forgo [...] - rp prost [I] 2020 021 [email or web address] [facility], [address], [address], [place], [address], 1 12:56:05 PSA, serum or plasma 2021 022 [email or web address] Not available 10:43:00 PSA, serum or plasma 2021 022 [email or web address] [facility], [address], [place], [address], 2 16:11:40 PSA, serum or plasma 2022 023 [email or web address] [facility], [address], [place], [address], 10:43:51 Referral radiat ion oncolo gist referr misael boggs e RT, prosta te cancer 2022 023 carmen Oliver MD, [address] [place], [address], 08:02:25 Procedures None record ed. Surgeries None record ed. Imaging MRI, pelvis , w/wo contra st 2020 021 [email or web address] [facility], [address], [place], [address], 1 12:34:43 Medication Orders silden afil (pulmo [...] a PSA, Total <0.04 ng/mL Not Available [facility] [address], [place], [address], 01/03/2021 09:58:48 06/18/20 21 06/18/2021 PSA, serum or plasm a PSA, Total 0.07 ng/ml Not Available [facility] [address], [place], [address], 06/18/2021 10:33:11 10/09/19 22 10/08/2021 PSA, serum or plasm a PSA, Total 0.08 ng/mL Not Available [facility] [address], [place], [address], 10/08/2021 10:33:51 04/22/20 22 04/22/2022 PSA, serum or plasm a PSA 0.09ng /ml 0-4.0 Not Available [facility] [address], [place], [address], 04/22/2022 15:56:47 10/22/19 23 10/21/2022 PSA, serum or plasm a PSA 0.24 ng/ml 0-4.0 Not Available [facility] [address], [place], [address], 10/13/2022 16:04:49 10/08/19 22 09/30/2021 MRI, pelvi s, w/wo contr ast No observ ation record ed. [email or web address] [facility] [address], [place], [address], 10/07/2021 09:39:52 Result Notes None recorded. Problems Name Problem SNOMED Code Status Onset Date Resolution Date Notes Provider Name and Address Organization Details Recorded Time Malignant tumor of prostate 265441449 Active 2019 Otf mccoy MD, PHD [address] [place] [address],[address], [place], [address], [facility] 0 11:16:35 Erectile dysfunction 382925142 Active 2020 Otf mccoy MD, PHD [address] [place], [place] [address], [place], [address], [facility] 1 14:40:33 Problem Notes None recorded. Procedures Surgical History Date Name Laterality Status Provider Name and Address Organization Details Recorded Time 10/22/19 23 FOOD SERVICE ASSOCIATE/blood draw completed Danita Rain [facility] 10/21/2022 10:15:38 04/22/20 22 Blood Draw/FOOD SERVICE ASSOCIATE/PSA RESULTS completed Otf garcia MD, PHD [address] [place] [address],[place] [address], [place], [address], [facility] 04/22/2022 15:56:42 10/09/19 22 Blood Draw/FOOD SERVICE ASSOCIATE/PSA RESULTS completed Danita Rain [facility] 10/08/2021 10:42:51 06/18/20 21 Blood Draw/FOOD SERVICE ASSOCIATE/PSA RESULTS completed Otf garcia MD, PHD [address] [place] [address],[facility] [address], [place], [address], [facility] 06/18/2021 10:33:05 06/11/20 21 colonoscopy completed Otf garcia MD, PHD [address], [place], [address], [facility] 06/18/2021 10:32:20 01/04/20 21 Blood Draw/FOOD SERVICE ASSOCIATE/PSA RESULTS completed Amarilis Lopez [facility] 01/03/2021 10:31:19 09/12/19 21 Blood Draw/FOOD SERVICE ASSOCIATE/PSA RESULTS completed Kingston Nobles [facility] 09/18/2020 10:47:18 07/18/19 21 Prostatectomy completed Elmo Alexander [facility] 07/31/2020 14:05:56 04/29/20 20 Prostate Biopsy Procedure completed Emmett Samuel MD [address], [address], [facility] 04/29/2020 17:27:15 Imaging Results Imaging Date Name Status LastModified by Organiz ation Details LastModified Time 09/30/2021 MRI, pelvis, w/wo contrast completed [email or web address] [facility] [address] [place], [address], 10/07/2021 09:39:52 Procedure Notes None recorded. Medical [...] Updated DateTime 04/22/2022 180.34 cm 27.9 kg/m2 11424.47 g Oft garcia MD, PHD [address] [place] [address], [phone] [place] [address] 04/22/2022 15:56:13 Date Recorded Body height Body mass index (BMI) Body weight Provider Name and Address Organization Details Last Updated DateTime 10/21/2022 180.34 cm 27.9 kg/m2 52110.47 g Danita Rain [facility] 10/21/2022 10:12:46 Date Recorded Body height Body mass index (BMI) Body weight Provider Name and Address Organization Details Last Updated DateTime 01/03/2021 180.34 cm 28.3 kg/m2 35780.25 g Otf garcia MD, PHD [address] [place] [address], [phone] [place] [address] Urolog 01/03/2021 10:13:09 Date Recorded Body height Body mass index (BMI) Body weight Provider Name and Address Organization Details Last Updated DateTime 06/18/2021 180.34 cm 28.3 kg/m2 52332.25 g Otf garcia MD, PHD [address] [place] [address], [phone] [place] [address] [facility]rolog 06/18/2021 10:31:49 Date Recorded Body height Body mass index (BMI) Body weight Provider Name and Address Organization Details Last Updated DateTime 10/08/2021 180.34 cm 28.3 kg/m2 49038.25 g Otf garcia MD, PHD [address] [place] [phone] [place] [address] [facility]rolog 10/08/2021 10:33:07 Social History Question Answer Notes LastModified by Organizat ion Details LastModified Time Tobacco Smoking Status Former Smoker Amarilis kim [facility] 05/22/2020 10:23:16 What Is Your Level Of Alcohol Consumption? Occasional [email or web address] Information not available 07/31/2020 What Is Your [...] Age of this Age Resolved Age Notes LastModified by Organization Details LastModified Time Father No current problems or disability [email or web address] Not available 05/22 10:23:08 Mother No current problems or disability mgneiting Not available 05/22 10:23:08 Medical History Condition Response Other N High Blood Pressure Y Kidney Stones N Lung Disease Y Depression N GERD/Acid Reflux N Sexually Transmitted Infection N Cancer Y High Cholesterol Y Diabetes N Bleeding Disorder N Heart Disease Y Immunizations Vaccine Type Date Status Provider Name and Address Organization Details Recorded Time Pneumococcal conjugate PCV 13 06/12/2019 completed Adriana Zayas [place] [facility] 07/09/2020 11:08:40 Past Encounters Encounter ID Performer Location Encounter Start Date Encounter Closed Date Diagnosis/Indication Diagnosis SNOMED-CT Code Diagnosis ICD10 Code [id number] Emmett Samuel MD [facility] [address] [place] [id number] 04/29/2020 16:28:59 05/06/2020 16:27:15 Prostate specific antigen above reference range 670610859 R97.20 [id number] Emmett Samuel MD [facility] [address] [place] [address] 04/29/2020 16:28:59 05/07/2020 03:52:51 [id number] Otf zabala MD, PHD [facility] [address] [place] [address] 05/22/2020 09:59:04 05/22/2020 13:27:44 Malignant tumor of prostate 080381596 C61 [id number] Otf zabala MD, PHD [facility] [address] [place] [id number] 07/31/2020 13:46:11 07/31/2020 16:30:36 Malignant tumor of prostate 752075764 C61 Erectile dysfunction 860 981746 F52.21 [id number] Amarilis Gneiting [facility] [address] [place] [address] 09/11/2020 11:16:07 09/12/2020 14:13:35 Carcinoma of prostate 978516597 C61 Malignant tumor of prostate 201526287 C61 Erectile dysfunction 860 933325 F52.21 [id number] Otf zabala MD, PHD [facility] [address] [place] [address] 01/03/2021 10:02:21 01/06/2021 13:20:32 Carcinoma of prostate 134032646 C61 Malignant tumor of prostate 175196290 C61 Erectile dysfunction 860 248705 F52.21 [id number] Otf zabala MD, PHD [facility] [address] [place], [place] [address] 06/18/2021 10:18:21 06/25/2021 12:23:30 Malignant tumor of prostate 641976817 C61 Carcinoma of prostate 25 5209753 C61 Erectile dysfunction 860 957647 F52.21 [id number] Otf zabala MD, PHD [facility] [address] [place] [address] 10/08/2021 10:20:08 10/09/2021 14:51:00 Malignant tumor of prostate 423363883 C61 Carcinoma of prostate 25 4693623 C61 Erectile dysfunction 860 019113 F52.21 [id number] Otf zabala MD, PHD [facility] [address] [facility] [address] [place] [address] 04/22/2022 15:49:52 04/24/2022 11:35:04 Malignant tumor of prostate 945861616 C61 Carcinoma of prostate 25 8082105 C61 Erectile dysfunction 860 206660 F52.21 [id number] Otf zabala MD, PHD [address] [place] [id number] 10/21/2022 09:51:15 10/24/2022 11:49:21 Malignant tumor of prostate 713269328 C61 Carcinoma of prostate 25 5851336 C61 Erectile dysfunction 860 241246 F52.21 Health Concerns Section Related Observation LastModified by Organization Detai ls LastModified Time None Recorded Concern Status LastModified by Organization Details LastModified Time None Recorded Advance Directives Directive None Recorded Payers Encounter Date Sequence Insurance Name Policy Number Policy Agrawal Covered Member ID Agrawal Member ID Guarantor Name 01/03/2021 1 [facility] [id number] Zia aMson [id number] Zia Mason 06/18/2021 1 [facility] [id number] Zia Mason [id number] Zia Mason 04/22/2022 1 [facility] [id number] Debbie Mcgee [id number] Zia Mason 10/21/2022 1 [facility] [id number] Debbie Mcgee [id number] Zia Mason Notes Date Note Type Note Provider Name and Address Organization Details Recorded Time 01/03/2021 text/html HPI Notes: 70M s /p RALP on 07/18/20 for [id number] ([place] 3+4=7, 0/3 LN, +SMS) Doing well. Normal BMs. Denies abdominal pain, N/V, f/c. No problems with incisions. Using 1 safety pad/day. Dry more often than not. Some leakage with cough. Good FOS. No hematuria. Getting erections adequate for penetration with 20 mg sildenafil. Sometimes without. PSA 12/12/19 12.7 09/11/20 <0.04 01/03/21 <0.04 UF: 2/5 Pre-op EF: 2 EF: 2 Otf Tinoco MD, PHD [address] [place] [address], [phone], [facility] 01/03/2021 10:59:49 06/18/2021 text/html HPI Notes: 70M s /p RALP on 07/18/20 for [id number] ([place] 3+4=7, 0/3 LN, +SMS) Doing well. Normal [...] 2/5 EF: 2/5 Otf Tinoco MD, PHD [address] [place] [address],[address], [address], [facility] 06/18/2021 11:09:53 10/08/2021 text/html HPI Notes: 70M s /p RALP on 07/18/20 for [id number] ([place] 3+4=7, 0/3 LN, +SMS) PSA detectable last [...] 2/5 EF: 2/5 Otf Tinoco MD, PHD [address] [place] [address], [phone], [facility] 10/08/2021 11:20:33 04/22/2022 text/html HPI Notes: 71M s /p RALP on 07/18/20 for [id number] ([place] 3+4=7, 0/3 LN, +SMS) PSA detectable. Decipher RP= 0.40-->Low risk MRI pelvis (09/30/21): small left sidewall seroma, no evidence local recurrence Using 1 safety pad/day. Dry more often than not. Some leakage with cough. Good FOS. No hematuria. Getting erections adequate for penetration with 20-40 mg sildenafil. Sometimes without. PSA 12/12/19 12.7 09/11/20 <0.04 01/03/21 <0.04 06/18/21 0.07 10/08/21 0.08 01/19/2022 0.21 ([place]) 04/22/22 0.09 UF: 2/5 Pre-op EF: 2/5 EF: 2/5 Otf Tinoco MD, PHD [address] [place] [address], [phone], [facility] 04/22/2022 16:19:41 10/21/2022 text/html HPI Notes: 71M s /p RALP on 07/18/20 for [id number] ([place] 3+4=7, 0/3 LN, +SMS) Having heart/lung [...] <0.04 06/18/21 0.07 10/08/21 0.08 01/19/2022 0.21 ([place]) 04/22/22 0.09 10/15/22 0.24 UF: 2/5 Pre-op EF: 2/5 EF: 2/5 Otf Tinoco MD, PHD [address] [facility], [place], [address], [facility] 10/21/2022 10:52:03
--- OUTSIDE RECORDS SUMMARY | 2024-04-26 08:48 | XMS_ITS | Referral Summary ---
Author Organization [facility] Address [address] [place] [address] Care Team Providers Care Cementer Hand Name Role Phone Unavailable Primary Care Provider Unavailabl e Source Comments Patient records contain information from all sites at [facility]. For routine questions regarding patient records, call [phone] during business hours, M-F 8:00 AM - 5:00 PM Central Time. Record requests for emergency care only can be directed to [phone] at any time.[facility] Encounters Date Type Department Care Team Description 04/19/2024 2:01 PM CDT - 04/23/2024 12:59 PM CDT Hospital Encounter Department of Radiation Oncology in [place] [id number] [place] [address] Pop Oliver M.D. Rising Prostate Specific Antigen Following Treatment For Malignant Cancer Of Prostate (Primary Dx) 04/17/2024 11:30 AM CDT Clinical Communication Virtual Review in [place], [place] [address] [place] [address] Blood Pressure 03/06/2024 7:05 AM CDT - 03/06/2024 11:59 PM CDT Hospital Encounter Department of Laboratory Medicine and Pathology, [facility], in [place], [place] [address] [place] [address] Dayana Arrieta APRN, C.N.P., D.N.P. Primary Malignant Neoplasm Of Prostate (HCC); Rising Prostate Specific Antigen Following Treatment For Malignant Cancer Of Prostate Discharge Disposition: Home or Self Care 02/16/2024 Orders Only Department of Radiation Oncology in [place], [place] [address] [place] [address] Francoise Fallon P.A.-C., M.S. from Last 3 Months Allergies No known active allergies Medications aspirin [address] tablet Take 81 mg by mouth daily. 09/01/19 Active atorvastatin (LIPITOR) 40 mg tablet Take 40 mg by mouth daily. 10/14/19 Active isosorbide mononitrate (IMDUR) 60 mg 24 hr tablet Take 60 mg by mouth daily. 10/29/19 Active lisinopril-hydr oCHLOROthiazide (PRINZIDE,ZESTO RETIC) 20-12.5 mg per tablet Take 2 tablets by mouth daily. 09/01/19 Active nitroglycerin (NITROSTAT) 0.[address] 0.4 mg under the tongue every 5 (five) minutes as needed for chest pain. 10/15/19 Active omeprazole (PriLOSEC) [address] capsule Take 20 mg by mouth daily. 09/01/19 Active predniSONE (DELTASONE) 10 mg tablet Take 10 mg by mouth daily. 10/24/19 Active tiotropium-olod ateroL (STIOLTO RESPIMAT) 2.5-2.5 mcg/actuation inhaler Inhale 2 puffs daily. 10/14/19 Active ezetimibe (ZETIA) 10 mg tablet Take 10 mg by mouth daily. Active calcium carbonate-vitam in D3 1,500 mg (600 mg calcium)-5 mcg (200 Unit) per tablet Take 2 tablets by mouth daily with breakfast. Active acetaminophen (TYLENOL) 325 mg tablet Take 325-650 mg by mouth as needed. 07/19/19 Active carvediloL (COREG) 6.25 mg tablet TAKE [...] tablet Take 1 tablet by mouth daily. 024 Discontinued amLODIPine (NORVASC) 5 mg tablet Take 5 mg by mouth every morning. 024 Discontinued budesonide (PULMICORT) 180 mcg/actuation inhaler Inhale 1 puff as needed. 024 Discontinued ipratropium/alb uterol sulfate (IPRATROPIUM-AL BUTEROL INHL) 06/29/20 22 024 Discontinued sennosides-docu sate sodium (SENOKOT-S) 8.6-50 mg [...] drink = 0.6 oz pur e alcohol) [facility] Utilities Answer Date Recorded In the past 12 months has [employer], [employer], oil, or water [employer] threatened to shut off services in your [...] your living situation today? 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 This test was developed and its performance characteristics determined by [facility] in a manner consistent with CLIA requirements. This test has not been cleared or approved by the U.S. Food and Drug Administration. Blood (Blood, Venous) 04/13/2024 11:05 AM CDT 04/15/2024 8:59 AM CDT Narrative Resulting Agency Comment Mailed In Specimen Dayana Arrieta APRN C.N.P., D.N.P. LAB BLOO D NON ADD-ON Final Result [facility] [place] [address] [place] [address] [facility] [address] [place] [address] [place] [address] * PSA (Prostate-Specific Antigen), Diagnostic (04/13/2024 11:05 [...] D.N.P. LAB BLOO D ADD-ON Final Result [facility] [address] [place] [address], [facility] [address] [place] [address] from Last 3 Months Insurance [facility]
--- OUTSIDE RECORDS SUMMARY | 2024-04-26 08:49 | XMS_ITS | Encounter Summary ---
Author Organization [facility] Address [address] [place] [address] Care Team Providers Care Design Release Engineer Name Role Phone Unavailable Primary Care Provider Unavailabl e Encounter Details Date Type Department Care Team (Late st Contact Info) Description 03/06/2024 7:05 AM CDT - 03/06/2024 11:59 PM CDT Hospital Encounter Department of Laboratory Medicine and Pathology, [facility] in [place], [place] [address] [place] [phone] Dayana Arrieta APRN, C.N.P., D.N.P. [address] [place] [phone] Primary Malignant Neoplasm Of Prostate (HCC); Rising Prostate Specific Antigen Following Treatment For Malignant Cancer Of Prostate Discharge Disposition: Home or Self Care Social History Tobacco Use Types Packs/Day Years Used Date Smoking Tobacco: Former Cigarettes 1 45 1 965 - 2010 Smokeless Tobacco: Never Alcohol Use Standard Drinks/Week Comments Yes 3 (1 standard drink = 0.6 oz pur e alcohol) [facility] Utilities Answer Date Recorded In the [...] your living situation today? 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 07/19/[address] tablet Take 81 [...] tablet Take 10 mg by mouth daily. ipratropium-albut Rosie (DUONEB) 0.5-2.5 mg/3 mL nebulizer solution 3 mL 3 (three) times a day. isosorbide mononitrate (IMDUR) 60 mg 24 hr tablet Take 60 mg by mouth daily. 10/28/2022 lisinopril-hydroC HLOROthiazide (PRINZIDE,ZESTORE TIC) 20-12.5 mg per tablet Take 2 tablets by mouth daily. 09/01/2022 nitroglycerin (NITROSTAT) 0.[address] 0.4 mg under the tongue every 5 (five) minutes as needed for chest pain. 10/14/2022 omeprazole (PriLOSEC) [address] capsule Take 20 mg by mouth daily. 09/01/2022 predniSONE (DELTASONE) 10 mg tablet Take 10 mg by mouth daily. 10/23/2022 tiotropium-olodat Rosie (STIOLTO RESPIMAT) 2.5-2.5 mcg/actuation inhaler Inhale 2 puffs daily. 10/13/2022 Trelegy Ellipta 200-62.5-25 mcg inhaler Inhale 1 puff daily. daily 07/19/2023 ALPRAZolam (XANAX) 0.5 mg tablet Take 0.5 mg by mouth daily. 03/30/2020 4 amLODIPine (NORVASC) 2.5 mg tablet Take 1 tablet by mouth daily. 4 amLODIPine (NORVASC) 5 mg tablet Take 5 mg by mouth every morning. 4 budesonide (PULMICORT) 180 mcg/actuation inhaler Inhale 1 puff as needed. 4 ipratropium/albut rosie sulfate (IPRATROPIUM-ALBU TEROL INHL) 06/29/2022 4 sennosides-docusa te sodium (SENOKOT-S) 8.6-50 mg per tablet Take 1 tablet by mouth 2 (two) times a day as needed. 07/19/2020 4 documented as of this encounter Plan of [...] - 950 ng/dL 04/16/2024 12:37 PM CDT [facility] Comment: ----ADDITIONAL INFORMATION---- Testing performed by Liquid Chromatography-Tandem Mass Spectrometry (LC-MS/MS). This test was developed and its performance characteristics determined by [facility] in a manner consistent with CLIA requirements. This test has not been cleared or approved by the U.S. Food and Drug Administration. Blood (Blood, Venous) 04/13/2024 11:05 AM CDT 04/15/2024 8:59 AM CDT Narrative Resulting Agency Comment Mailed In Specimen Dayana Arrieta APRN, C.N.P., D.N.P. LAB BLOO D NON ADD-ON Final Result [facility] [place] [address] [place] [address] [facility] [address] [place] [address] [place] [id number] * PSA (Prostate-Specific Antigen), Diagnostic (04/13/2024 11:05 [...] Agency Comment Mailed In Specimen Dayana Arrieta APRN, C.N.P., D.N.P. LAB BLOO D ADD-ON Final Result [facility] [address] [place] [address], [place] [facility] [address] [place] [address] documented in this encounter Visit Diagnoses Diagnosis Primary Malignant Neoplasm Of Prostate (HCC) Rising Prostate Specific Antigen Following Treatment For Malignant Cancer Of Prostate documented in this encounter
--- OUTSIDE RECORDS SUMMARY | 2024-04-26 08:49 | XMS_ITS ---
Author Organization [facility] Address [address] [place] [address] Care Team Providers Care Regional Environmental Manager Name Role Phone Unavailable Unavailable Unavailable Surgery Details Not on file Complications Check Surgery Details section. Procedure Estimated Blood Loss Check Surgery Details section. Procedure Findings Check Surgery Details section. Procedure Specimens Taken Check Surgery Details section.
--- OUTSIDE RECORDS SUMMARY | 2024-04-26 08:49 | XMS_ITS | Clinical Summary ---
Author Organization [facility] Address [place], [place] [address] Care Team Providers Care Wood Coater Name Role Phone Osvaldo Hall MD Primary [...] artery disease of n ative artery of [place] heart with stable angina pectoris 11/16/2022 Primary hypertension 11/16/2022 Mixed hyperlipidemia 11/16/2022 COPD (chronic obstructive pulmonary disease) 11/2022 ASCVD (arteriosclerotic cardiovascular disease) 10/14/2022 Overview (10/14/2022): CT coronary angiogram 09/15/22 - diffuse MVD with severe OM2 disease and a mRCA LPTA noted with left to right collaterals Encounters Date Type Department Care Team Description 02/21/2024 Refill [facility] [address] [place] [address] Blayne Iglesias MD Refill Request [...] Comments Blood Pressure 144/90 05/18/2023 9:04 AM CURTAIN CLEANER Pulse 85 05/18/2023 9:04 AM CURTAIN CLEANER Temperature 36.5 ??C (97.7 ??F) 12/16/2022 1 2:13 AM CDT Respiratory Rate 18 12/31/2022 1:00 PM CDT Oxygen Saturation 94% 05/18/2023 9:04 AM CURTAIN CLEANER Inhaled Oxygen Concentration - - Weight 105.4 kg (232 lb 6.4 oz) 05/18/2023 9:04 AM CURTAIN CLEANER Height 180.3 cm (5' 10.98) 05/18/2023 9:[address] Body Mass Index 32.43 05/18/2023 9:04 AM CURTAIN CLEANER Plan of Treatment Health Maintenance Due Date [...] Comments LIPID PANEL Routine 05/25/2023 9:34 AM CURTAIN CLEANER ASCVD (arteriosclerotic cardiovascular disease) US ABD AORTA SCREENING Routine 11/02/2022 8:10 AM CDT Screening for cardiovascular condition from Last 3 Months or Most Recently Relevant to Health Maintenance Results * (ABNORMAL) LIPID PANEL (05/25/2023 9:34 AM CURTAIN CLEANER) CHOLESTEROL,TOTAL 135 100 - 199 mg/dL 05/25/2023 4:48 PM CURTAIN CLEANER [facility] Comment: Cholesterol, Total Reference Ranges Desirable <200 mg/dL Borderline 200-239 mg/dL High >=240 mg/dL TRIGLYCERIDES 236(H) <150 mg/dL 05/25/2023 4:48 PM CURTAIN CLEANER [facility] HDL CHOLESTEROL 41 >40 mg/dL 4:48 PM CURTAIN CLEANER [facility] NON-HDL CHOLESTEROL 94 <145 mg/dl 05/25/2023 4:48 PM CURTAIN CLEANER [facility] CHOL/HDL RATIO 3.29 <4.50 05/25/2023 4:48 PM CURTAIN CLEANER [facility] LDL CHOLESTEROL 47 <=130 mg/dL 05/25/2023 4:48 PM CURTAIN CLEANER [facility] VLDL CHOLESTEROL 47(H) <=30 mg/dL 05/25/2023 4:48 PM CURTAIN CLEANER [facility] PROVIDER ORDERED STATUS RANDOM 05/25/2023 4:48 PM CURTAIN CLEANER [facility] Blood BLOOD SPECIMEN / Unknown Venipuncture / Unknown 05/25/2023 9:34 AM CURTAIN CLEANER 05/25/2023 9:34 AM CURTAIN CLEANER Blayne Iglesias MD CHEMISTRY [facility] [address] [place] [address], [place] * US ABD AORTA SCREENING (11/02/2022 8:10 AM CDT) Anatomical Region Laterality Modality Abdomen, AORTA Ultrasound 11/02/2022 7:48 AM CDT Narrative 11/02/2022 10:34 AM CDT VASCULAR ULTRASOUND REPORT ZIA MASON Accession#: ?? [id number] : ?1950 ?? Study Date: ?? 11/02/2022 7:48:28 AM Age: ?71 years ?? Tech: ? BVB Gender: M ?Referring MD: CITLALI AUSTIN Site: [facility] Study performed: ?Aorta Indication [...] Accreditation Commission (IAC/Vascular), www.intersocietal.org/vascular Report generated by Section 101. ??Final ?? Procedure Note Edwin Whitlock MD - 11/02/2022 VASCULAR ULTRASOUND REPORT ZIA MASON : 1950 Study Date: 11/02/2022 7:48:28 AM Age: 71 years Tech: MARLENE Gender: M Referring MD: CITLALI AUSTIN Site: [facility] Study performed: Aorta Indication [...] + +--------+-------+ +---------+ Edwin Whitlock MD. [employer] Electronically signed on 11/02/2022 10:34:34 AM This study was performed and interpreted by a service accredited by theIntersocietal Accreditation Commission (IAC/Vascular),www.intersocietal.org/vascular Report generated by Section 101. Final Citlali Austin NP from Last 3 [...] Code Status Discussion: Reviewed Preferences Care Teams Wood Coater Relationship Specialty Start Date End Date Osvaldo Hall MD [address] [place] [id number] PCP - General Family Practice 04/03/20
--- OUTSIDE RECORDS SUMMARY | 2024-04-26 08:49 | XMS_ITS | Encounter Summary ---
Author Organization [facility] Address [address] [place] [address] Care Team Providers Care Life Insurance Salesperson Name Role Phone Unavailable Primary Care Provider Unavailabl e Reason for Visit * Reason Onset Date Comments Blood Pressure 04/17/2024 Encounter Details Date Type Department Care Team (Latest Contact Info) Description 04/17/2024 11:30 AM CDT Clinical Communication Virtual Review in [place], [place] [address] [place] [address] Blood Pressure Social History Tobacco Use Types Packs/Day Years Used Date Smoking Tobacco: Former Cigarettes 1 45 1 965 - 2010 Smokeless Tobacco: Never Tobacco Cessation:Counseling Given: Not Answered Alcohol Use Standard Drinks/Week Comments Yes 3 (1 standard drink = 0.6 oz pur e alcohol) [facility] Utilities Answer Date Recorded In the past 12 months has [facility] [employer], gas, oil, or water [employer] threatened to shut off services in your [...] your living situation today? 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
--- OUTSIDE RECORDS SUMMARY | 2024-04-26 08:49 | XMS_ITS ---
Author Organization [facility] Address [address] [place] [address] Care Team Providers Care Heel Seater Name Role Phone Unavailable Primary Care Provider [...] Treated Prescribed Fraction Dose Prescribed Total Dose [id number] 04/14/2023 44 32 of 32 215 cGy 6,880 cGy Reference Point Last Treated On Elapsed Days Session Dose Total Dose [id number] 04/14/2023 44 215 cGy 6,880 cGy
--- OUTSIDE RECORDS SUMMARY | 2024-04-26 08:49 | XMS_ITS | Encounter Summary ---
Author Organization [facility] Address [address] [place] [address] Care Team Providers Care Claims Correspondence Clerk Name Role Phone Unavailable Primary Care Provider Unavailabl e Reason for Referral * Outpatient (Routine) - Authorized Specialty Diagnoses / Procedures Referred By Contac t Referred To Contact Radiation Oncology Francoise Fallon P.A.-C., M.S. [address] [place] [phone] Phone: tel: fax: Pop Oliver M.D. [address] [place] [phone] Phone: tel: fax: Referral ID Status Reason Start Date Expiration Date V isits Requested Visits Authorized [id number] Authorized 04/19/2024 10/19/2025 1 1 Scheduling Instructions PSA prior at [facility] * Outpatient (Routine) - Closed Specialty Diagnoses / Procedures Referred By Contac t Referred To Contact Radiation Oncology Dayana Arrieta APRN, C.N.P., D.N.P. [address] [place] [phone] Phone: tel: fax: Pop Oliver M.D. 200 [place] [address] Phone: tel: fax: Referral ID Status Reason Start Date Expiration Date Visits Re quested Visits Authorized [id number] Closed 10/19/2023 04/19/2025 1 1 Scheduling Instructions After PSA and testosterone completed via mail-in kit Reason for Visit * Outpatient (Routine) - Closed Specialty Diagnoses / Procedures Referred By Rocky t Referred To Contact Radiation Oncology Dayana Arrieta APRN C.N.PSahil, D.N.P. [address] [place] [phone] Phone: tel: fax: Pop Oliver M.D. 200 [place] [address] Phone: tel: fax: Referral ID Status Reason Start Date Expiration Date Visits Re quested Visits Authorized [id number] Closed 10/19/2023 04/19/2025 1 1 Encounter Details Date Type Department Care Team (Latest Contact Info) Description 04/19/2024 2:01 PM CDT - 04/23/2024 12:59 PM CDT Hospital Encounter Department of Radiation Oncology in [place], [place] [address] [place] [address] Pop Oliver M.D. [address] [place] [phone] Rising Prostate Specific Antigen Following Treatment For Malignant Cancer Of Prostate (Primary Dx) Social History Tobacco Use Types Packs/Day Years Used Date Smoking Tobacco: Former Cigarettes 1 45 1 965 - 2009 Smokeless Tobacco: Never Alcohol Use Standard Drinks/Week Comments Yes 3 (1 standard drink = 0.6 oz pur e alcohol) [facility] Utilities Answer Date Recorded In the past 12 months has th e [employer], gas, oil, or water [employer] threatened to shut off services in your [...] living situation today? 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 07/19/2020 Airs Disposable Nebulizer misc USE DIRECTED FOR COPD 03/28/2024 ALPRAZolam (Xanax) 1 mg tablet Take 1 mg by mouth at bedtime. 04/10/[address] tablet Take 81 [...] tablet TAKE 75 MG ORALLY EVERY DAY Comp-Air Nebulizer Compressor device USE DIRECTED FOR COPD 03/28/2024 ezetimibe (ZETIA) 10 mg tablet Take 10 mg by mouth daily. ipratropium-albut Serge (DUONEB) 0.5-2.5 mg/3 mL nebulizer solution 3 [...] 10 mg by mouth daily. 10/23/2022 tiotropium-olodat Serge (STIOLTO RESPIMAT) 2.5-2.5 mcg/actuation inhaler Inhale 2 puffs daily. 10/13/2022 Trelegy Ellipta 200-62.5-25 mcg inhaler Inhale 1 puff daily. daily 07/19/2023 documented as of this encounter Progress Notes * Francoise Fallon P.A.-C., M.S. - 04/19/2024 2:30 PM CDT SUBJECTIVE DIAGNOSIS 1. Rising Prostate Specific Antigen Following Treatment For Malignant Cancer Of Prostate SUPERVISED BY: Pop Oliver M.D. ([phone]) HISTORY OF PRESENT ILLNESS Mr. Zia Mason is a 73-year-old male with a rising PSA following prostatectomy. He completed salvage radiation therapy to the prostate bed on April 14, 2023. His oncologic history is as follows: Oncology History Primary Malignant Neoplasm Of Prostate (HCC) 12/12/2019 Other PSA 12.7 04/30/2020 Biopsy/Pathology Final diagnosis: A. Left prostate biopsy -adenocarcinoma of the prostate -Aulander score 3+4=7 -involving 10-15% of the length [...] (1) D: Prostate, radical prostatectomy - Adenocarcinoma, Aki's grade 3/4 with extension to resection margin in left apex, left base and left posterior prostatic lobe (see description) Synoptic Report: SPECIMEN Procedure: - Radical prostatectomy TUMOR Histologic Type: - Acinar adenocarcinoma Histologic Grade Grade Group and Aulander Score: - Grade group 2 (Aulander Score 3 + 4 = 7) Percentage [...] Total dose of 6880 cGy in 32 fractions. Radiation Therapy Treatment Details (03/01/2023 - 04/14/2023) Site: Prostate bed Technique: IMRT Goal: Curative Planned Treatment Start Date: 03/01/2023 03/01/2023 - 06/2023 Biological/Targeted/Hormone Therapy 03/01/2023: Bicalutamide 50 mg daily for 21 days and leuprolide 7.5 mg at [facility]. 03/29/2023: Leuprolide 22.5 mg injection at [facility] with no further ADT planned. 10/11/2023 Other 10/11/2023: PSA <0.10 ng/mL. Testosterone total <7 ng/dL 01/17/2024: PSA <0.10 ng/mL 04/13/2024: PSA <0.10 ng/mL. Testosterone total 145 ng/dL. INTERVAL HISTORY: The patient was seen and examined today with Dr. Oliver. The patient reports fatigue rated 3/10 in severity. He reports disrupted sleep due to left shoulderdiscomfort. He is scheduled for left shoulder replacement surgery next Wednesday. He also reports that his in February, which has understandably been difficult for him. Since his , he has noticed an occasional weaker urinary stream and subsequent difficulty empting his bladder. He estimates that this occurs 3/10 times he urinates. He feels that he empties his bladder completely the remainder of the times. He denies urinary incontinence, dysuria, or hematuria. He has nocturia x 1. He reports regular bowel movements. He denies rectal bleeding. Aside from his left shoulder he denies new or persistent bone pain. PATIENT COMPLETED QUESTIONNAIRES: I-PSS I-PSS Urinary Symptoms Score: 4 I-PSS Quality of Life Score: 2 IIEF-15 Erectile Function:230 Orgasmic Function:0/10 Sexual Desire:2/10 [place] Satisfaction: 0/15 Overall satisfaction:4/10 Total Score:8/75 REVIEW OF SYSTEMS Review of systems was negative except as documented above. PATIENT REPORTED SYMPTOM SCREEN: FATIGUE (Scale: 0 = no fatigue; 10 = worst fatigue you can imagine): 3 PAIN (Scale: 0 = no pain; 10 = worst pain you can imagine): 3 OVERALL QUALITY OF LIFE (Scale: 0 = as bad as can be; 10 = as good as can be): 3 OBJECTIVE BP 127/90 (BP Location: Right arm, Patient Position: Sitting, Cuff Size: Regular) Pulse 73 Temp36.3 ??C (Temporal) Wt 96.6 kg PHYSICAL EXAMINATION General: Alert and oriented, in no apparent distress. ASSESSMENT / PLAN [...] 2022 and December 15, 2022 #6 ADT initiated with a leuprolide 7.5 mg (1 month) injection on March 01, 2023; final leuprolide 22.5 mg (3 month) injection on March 29, 2023 for a total of 4 months #7 Salvage radiation therapy to the prostate bed initiated on March 01, 2023; completed on 2022 #8 Scant hematuria noted on March 22, 2023 The patient is doing well overall following radiation therapy, now one year from treatment completion. We reviewed his recent PSA result of less than 0.10 ng/mL. We also reviewed his recent testosterone result of 145 ng/dL. We discussed the anticipated time frame of testosterone recovery following ADT. The patient reports an occasional weak urinary stream and difficulty emptying his bladder as his only symptom at this time. The change in urination started after his and I offered my condolences. The patient is not currently following with a Urologist. Dr. Oliver offered referral to a Urologist; however, the patient declined at this time. The patient will contact us if he experiences worsening urinary symptoms or if would like a referral placed in the future. We discussed the recommendation for continued PSA monitoring following salvage radiation therapy. We will order for PSA lab draws to be done every 6 months until 5 years from treatment completion. The patient would like the lab draws to be done at [facility]. The patient will be contacted with the lab results when available by our care team. Since the patient's testosterone level remainslower than normal range, we will also order for a repeat testosterone level to be done in 6 months.We will then plan on ordering for a return visit to be scheduled here in April 2028, which will be 5 years from treatment completion, with PSA lab work completed prior to the visit. The patient will contact us with questions or concerns. He verbally expressed his understanding of the plan. EDUCATION: Ready to learn, no apparent learning barriers were identified; learning preferences include listening. Explained diagnosis and treatment plan; patient expressed understanding of the content. I personally spent 23 minutes in care of the patient today. Time includes both non face to face andface to face patient care. Signed by: Francoise Fallon P.A.-C., M.S. 04/19/2024 2:50 PM CDT [facility] [address] [place] [address] Cosigned by Pop Oliver M.D. at 04/23/2024 12:58 PM CDT Associated attestation - Pop Oliver M.D. - 04/23/2024 12:58 PM CDT I saw and evaluated the patient and participated in the wilde portions of the service. I reviewed thedocumentation of Francoise Fallon P.A.-C. and agree with the findings and plan. Mr. Zia Mason is a 73-year-old male with a rising PSA following prostatectomy. He completed salvage radiation therapy to the prostate bed on April 14, 2023. He also received 4 months of ADT. He returns in 1 year follow up. His PSA is <0.10 ng/mL. Testosterone total 145 ng/dL. His bowel and bladder function are good. His Debbie in February. I offered my condolences. The patient appears well on exam. The patient is doing well now 1 year out from treatment completion. We will continue to check PSA every 6 months and contact him with results. He agreed to contact us with any concerns. We will see him back in April 2028. He verbalized satisfaction with this plan. I have spent 7 minutes caring for this patient including [id number] and uvy-mkiu-ki-face time. Signed by: Pop Oliver M.D. 04/23/24 12:58 PM CDT [facility] [place] documented in this encounter Miscellaneous Notes * Addendum Note - Teresa Brady C.N.ASahil - 04/19/2024 2:30 PM CDTEncounter addended by: Teresa Brady C.NSahilASahil on: 04/24/2024 9:00 AM Actions taken: Letter saved documented in this encounter Plan of Treatment Scheduled Orders Name Type Priority Associated Diagnoses Orde r Schedule PSA (Prostate-Specific Antigen), Diagnostic Lab Routine Rising Prostate Specific Antigen Following Treatment For Malignant Cancer Of Prostate Expected: 10/18/2024 (Approximate), Expires: 04/19/2025 Testosterone, Total by Mass Spectrometry, Serum Lab Routine Rising Prostate Specific Antigen Following Treatment For Malignant Cancer Of Prostate Expected: 10/18/2024, Expires: 07/20/2025 PSA (Prostate-Specific Antigen), Diagnostic Lab Routine Rising Prostate Specific Antigen Following Treatment For Malignant Cancer Of Prostate Expected: 04/19/2025 (Approximate), Expires: 07/13/2025 PSA (Prostate-Specific Antigen), Diagnostic Lab Routine Rising Prostate Specific Antigen Following Treatment For Malignant Cancer Of Prostate Expected: 10/18/2025 (Approximate), Expires: 03/20/2026 PSA (Prostate-Specific Antigen), Diagnostic Lab Routine Rising Prostate Specific Antigen Following Treatment For Malignant Cancer Of Prostate Expected: 04/19/2026 (Approximate), Expires: 06/28/2026 PSA (Prostate-Specific Antigen), Diagnostic Lab Routine Rising Prostate Specific Antigen Following Treatment For Malignant Cancer Of Prostate Expected: 10/19/2026, Expires: 01/14/2027 PSA (Prostate-Specific Antigen), Diagnostic Lab Routine Rising Prostate Specific Antigen Following Treatment For Malignant Cancer Of Prostate Expected: 04/20/2027, Expires: 08/02/2027 PSA (Prostate-Specific Antigen), Diagnostic Lab Routine Rising Prostate Specific Antigen Following Treatment For Malignant Cancer Of Prostate Expected: 04/19/2028, Expires: 07/17/2028 PSA (Prostate-Specific Antigen), Diagnostic Lab Routine Rising Prostate Specific Antigen Following Treatment For Malignant Cancer Of Prostate Expected: 10/19/2027, Expires: 02/18/2028 Scheduled Referrals Name Type Priority Associated Diagnoses Order Schedule Radiation Oncology office visit (clinic) Outpatient Referral Routine Once for 1 Occurrences starting 04/19/2024 until 04/19/2024 Radiation Oncology office visit (clinic) Outpatient Referral Routine Expected: (Approximate), Expires: 05/28/2028 documented as of this encounter Visit Diagnoses Diagnosis Rising Prostate Specific Antigen Following Treatment For Malignant Cancer Of Prostate- Primary documented in this encounter
--- OUTSIDE RECORDS SUMMARY | 2024-04-26 08:49 | XMS_ITS | Clinical Summary ---
Author Organization [facility] Address [address] [place] [address]. [place] [address] Care Team Providers Care Smoking Pipe Coater Name Role Phone Osvaldo Hall MD [...] Medical History Relation Comments Heart Disease Father [place] age 60's Hypertension Father Heart Disease Mother [place] age 60's Hypertension Mother Cancer No family [...] Comments Blood Pressure 126/75 07/19/2020 3:10 PM CLOUD SOFTWARE ENGINEER Pulse 79 07/19/2020 3:10 PM CLOUD SOFTWARE ENGINEER Temperature 36.2 ??C (97.2 ??F) 07/19/2020 3:10 PM CS T Respiratory Rate 16 07/19/2020 4:50 PM CLOUD SOFTWARE ENGINEER Oxygen Saturation 93% 07/19/2020 3:10 PM CLOUD SOFTWARE ENGINEER Inhaled Oxygen Concentration - - Weight 92.1 kg (203 lb) 07/18/2020 10:31 AM CLOUD SOFTWARE ENGINEER Height 180.3 cm (5' 11) 07/18/2020 10:31 AM CLOUD SOFTWARE ENGINEER Body Mass Index 28.31 07/18/2020 10:31 AM CLOUD SOFTWARE ENGINEER Plan of Treatment Not on file Advance Directives For more information, please contact: [phone] * Full Code (Latest Code Status on File) Date Activated Date Inactivated Comments 07/18/2020 5:59 PM 07/19/2020 7:37 PM All basic and advanced life-sustaining interventions are performed as appropriate Question Answer Comments Code status determined by: Unable to dis cuss and no AD/POLST on file; continue PREVIOUSLY ORDERED code status Care Teams Smoking Pipe Coater Relationship Specialty Start Date End Date Osvaldo Hall MD PCP - General Family Medicine 07/12/20
--- OUTSIDE RECORDS SUMMARY | 2024-04-26 08:49 | XMS_ITS | Encounter Summary ---
Author Organization [facility] Address [address] [place] [address] Care Team Providers Care Filleter Name Role Phone Unavailable Primary Care Provider Unavailabl e Encounter Details Date Type Department Care Team (Late st Contact Info) Description 02/16/2024 Orders Only Department of Radiation Oncology in [place], [place] [address] [place] [phone] Francoise Fallon P.A.-C., M.S. [address] [place] [phone] Social History Tobacco Use Types Packs/Day Years Used Date Smoking Tobacco: Former Cigarettes 1 45 1 965 - 2009 Smokeless Tobacco: Never Alcohol Use Standard Drinks/Week Comments Yes 3 (1 standard drink = 0.6 oz pur e alcohol) [facility] Utilities Answer Date Recorded In the past 12 months has [employer], gas, oil, or water [employer] threatened to shut off services in your [...] your living situation today? 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
--- OUTSIDE RECORDS SUMMARY | 2024-04-26 08:49 | XMS_ITS | Referral Summary ---
Author Organization [facility] Address [address] [place] [address]. [place] [address] Care Team Providers Care Cotton Acreage Measurer Name Role Phone Osvaldo Hall MD Primary [...] Comments Blood Pressure 126/75 07/19/2020 3:10 PM TOLL BOOTH OPERATOR Pulse 79 07/19/2020 3:10 PM TOLL BOOTH OPERATOR Temperature 36.2 ??C (97.2 ??F) 07/19/2020 3:10 PM CS T Respiratory Rate 16 07/19/2020 4:50 PM TOLL BOOTH OPERATOR Oxygen Saturation 93% 07/19/2020 3:10 PM TOLL BOOTH OPERATOR Inhaled Oxygen Concentration - - Weight 92.1 kg (203 lb) 07/18/2020 10:31 AM TOLL BOOTH OPERATOR Height 180.3 cm (5' 11) 07/18/2020 10:31 AM TOLL BOOTH OPERATOR Body Mass Index 28.31 07/18/2020 10:31 AM TOLL BOOTH OPERATOR Plan of Treatment Not on file Advance Directives For more information, please contact: [phone] * Full Code (Latest Code Status on File) Date Activated Date Inactivated Comments 07/18/2020 5:59 PM 07/19/2020 7:37 PM All basic and advanced life-sustaining interventions are performed as appropriate Question Answer Comments Code status determined by: Unable to dis cuss and no AD/POLST on file; continue PREVIOUSLY ORDERED code status Care Teams Cotton Acreage Measurer Relationship Specialty Start Date End Date Osvaldo Hall MD PCP - General Family Medicine 07/12/20
[2024-04-26] MEDS: ACETAMINOPHEN 500 MG TABLET 1000 MG PO ×3 (08:55→22:01)
[2024-04-26] MEDS: OXYCODONE (CR) 10 MG TAB.ER.12H PO (08:55)
[2024-04-26] MEDS: SODIUM CHLORIDE 0.9 % (FLUSH) 10 ML SYRINGE IVF (09:00)
--- NOTE | 2024-04-26 09:01 | W.PM.H&PU ---
History & Physical Update History & Physical Update H&P Reviewed and patient assessed: No changes noted
--- NOTE | 2024-04-26 09:02 | CRLHL7_ITS ---
For Patients: As a result of the Cures Act, medical imaging exams and procedure reports are released immediately into your electronic medical record. You may view this report before your referring provider. If you have questions, please contact your health care provider. Indication: Postop left shoulder replacement. Technique: Two views of the left shoulder. Comparison: Left shoulder radiograph 03/01/2024. Findings/Impression: Non cemented reverse total shoulder arthroplasty has been placed since the previous exam. Alignment is nearly anatomic. No other retained radiopaque metallic surgical foreign body is identified. There are postoperative changes within the left shoulder soft tissues. Dictated by Mirza Chew MD @ 04/30/2024 7:18:27 PM (Electronically Signed)
[2024-04-26] MEDS: MIDAZOLAM HCL 1 MG/ML inj IVP (09:40)
[2024-04-26] MEDS: fentaNYL 100 MCG/2 ML inj IVP (09:40)
[2024-04-26] MEDS: 0.9 % SODIUM CHLORIDE 1000 ml 1,000 ML 100 ML IV (09:49)
--- NOTE | 2024-04-26 09:56 | W.PM.NB ---
Nerve Block Nerve Block Time Seen by Provider: 09:44 Date Seen: 04/26/24 Type of block requested by surgeon for post-operative analgesia: supraclavicular Side: left Time out performed: Yes Verification of patient name: Yes Verification of date of : Yes Site marking: site marked Name of person performing procedure: Giuseppe Continuous monitoring Was continuous monitoring of O2 sat, B/P, cardiac nurse practitioner, recorded every 15 minutes?: Yes Procedure Checklist: sterile prep, needles and gloves Ultrasound guided. Images saved: Yes Medications given in 5ml increments after negative aspiration: Ropivicaine %: 0.5 mL: 20 Needle gauge: 22 Precedex (mcg): 25 Patient tolerated procedure well: Yes Block Charges Block Charge (with Pro Fee): Brachial Plexus Use of Ultrasound Machine for Block: Yes- US Guidance/pain block
--- NOTE | 2024-04-26 09:56 | W.ANESCHARGE ---
Anesthesia Charges Start Date/Time Anesthesia Start Date: 04/26/24 Anesthesia Start Time: 10:00 Stop Date/Time Anesthesia Stop Date: 04/26/24 Anesthesia Stop Time: 12:45 Summary Extremes of Age - Over 70 or under 1: MDA
[2024-04-26] MEDS: TRANEXAMIC ACID 100 MG/ML INJ 1000 MG IV (10:09)
[2024-04-26] MEDS: CEFAZOLIN 2 GM in 0.9 % SODIUM CHLORIDE Mini-bag 100 ML IVPB ×3 (10:09→23:39)
--- NOTE | 2024-04-26 10:54 | SUR.OPER ---
PATIENT QUESTIONS ANSWERED SATISFACTORILY PREOPERATIVELY. PATIENT BROUGHT TO OR #3 PER CART FOLLOWING THE BLOCK. Patient positioned supine on OR #3 bed for the intubation.? Perioperative team wrapped the right arm in a neutral position on the pt. abdomen with the drawsheet. Left arm elevated on an IV pole in a padded strap. Final approval of positioning by surgeon.
[2024-04-26] MEDS: EPINEPHrine 1 MG in SODIUM CHLORIDE IRRIG SOLUTION 3,000 ML 3001 MG IRRIGATION (11:50)
--- NOTE | 2024-04-26 12:07 | PM.ORPRC ---
Procedure Note Date of procedure: 04/26/24 Procedure: PREOPERATIVE DIAGNOSIS: 1. Left shoulder irrepairable rotator cuff tear POSTOPERATIVE DIAGNOSIS: 1. Left shoulder irrepairable rotator cuff tear 2. Left long head of the biceps tendinopathy and tenosynovitis PROCEDURE: 1. Left reverse shoulder arthroplasty. 2. Left long head of biceps open tenodesis SURGEON: Kareem Chadwick MD. DIRECTOR BUILDING: Sudhakar BARRETT - Of note, a skilled funeral assistant was critical for this case to aid in patient positioning, tissue retraction, limb manipulation/positioning, retraction for glenoid exposure, which was challenging, awareness and protection of critical structures, and closure. ANESTHESIA: General plus supraclavicular block EBL: 150 mL IMPLANTS: DJ0 surgical Altivate humeral stem size 12 standard shell, short with P2 porous coating vitamin E neutral poly small socket insert RSP glenoid base plate P2 porous coating with 4 perimeter locking screws 32 neutral glenosphere with retaining screw COMPLICATIONS: None evident INDICATIONS: The patient is a pleasant 73-year-old male who has experienced severe left shoulder pain and difficulty with use. Workup included imaging which revealed be repairable rotator cuff tear with atrophy of the supraspinatus. Physical exam was consistent with associated pain. Given the deformity, the dysfunction, and the pain, and failure of nonoperative management, recommendation was made for surgery. DESCRIPTION OF PROCEDURE: Following a thorough discussion of risks, benefits, and alternatives, consent was obtained and the left shoulder was marked. The patient was brought to the operating room and placed supine on the operating table. Induction of anesthesia was undertaken. 2 g IV Ancef and 1 g tranexamic acid was administered within 1 hr of incision preoperatively. Appropriate time-out was performed identifying proper patient, site, and procedure. The operative extremity was prepped and draped in the appropriate sterile fashion using ChloraPrep after the patient was positioned in the lazy beach chair position with head in neutral alignment and all bony prominences well padded. A longitudinal incision was made for deltopectoral approach. Deltoid was retracted laterally. Cephalic vein was identified and retracted laterally as well. Vein was spared/protected throughout the case. The clavipectoral fascia was identified and divided longitudinally staying lateral to the conjoined tendon / coracoid. The conjoined tendon was protected with a blunt Hohmann. The long head of the biceps tendon was identified and the bicipital sheath released. The upper 1/4 of the pectoralis major was also released from its insertion. The long head of the biceps was tenodesed to the pectoralis major tendon. The remaining proximal tendon tissue was excised. The rotator cuff was inspected and found to have good integrity with the subscapularis but fair integrity with a supraspinatus], and a decision for a reverse shoulder arthroplasty was confirmed. The long head of biceps, of note, was significant flattened, attenuated, with abundant tenosynovitis. A subscapularis cuff of tissue was left via tenotomy for later repair with the remaining subscapularis released in a subperiosteal fashion with the Bovie. This was tagged for later repair. The 3 sisters were cauterized. The upper subscapularis was released from the capsule with a curved Jackson scissors towards the glenoid. The inferior subscapularis was divided from the capsular tissue on its caudal surface with particular caution for the axillary nerve. This was palpated anterior to the subscapularis both prior to and near the finish of the case. Inferior humeral head osteophytes were excised with caution taken throughout the case with regards to the axillary nerve. The humerus was dislocated, and humeral head cut completed. Then a protector plate was applied. We turned our attention to the glenoid. The humerus was retracted posteriorly. The subscap was protected anteriorly and the labrum/long head biceps origin was excised circumferentially. The capsule was released along the anterior and inferior portions of the glenoid cautiously with a Lynn elevator being careful not to penetrate deep. The glenoid had appropriate exposure, and was prepared with the cannulated system with a target of approximately 5-10? of inferior tilt and neutral anteversion (patient had 9 ? of retroversion initially). Utilizing the match Point 3D printed guide, the guide pin was placed. The 3D printed jig removed and after placing the guide pin, the tap was placed followed by the glenoid reaming. The real base plate was opened, and inserted, and excellent compression/purchase was achieved with the central screw. Peripheral screws were then drilled, measured, and placed. The glenosphere was then placed consistent with the preoperative plan utilizing the above noted glenosphere. After securing the glenosphere with the locking, torque limited screw, attention was turned back to the humerus. A canal finder was placed followed by various reamers by hand. The real humeral stem was then opened and inserted with excellent metaphyseal fit and stability. Trial poly was placed and the shoulder reduced. Excellent reduction and stability achieved with appropriate tension on the conjoined tendon. At this stage, trial implants were removed, and the real implants inserted and the shoulder reduced. A 3 minute Betadine soak was performed followed by a thorough irrigation with normal saline. Subscapularis was repaired with #1 PDS to the cuff of tissue on the lesser tuberosity. Excellent reapproximation of tissue achieved. Hemostasis was found to be appropriate. The deltopectoral interval was reapproximated with 0 Vicryl, subcutaneous and subcuticular closure was then performed with number 2-0 Vicryl and 4-0 Monocryl, respectively. A skilled funeral assistant was critical for this case to aid in patient positioning, tissue retraction, limb manipulation/positioning, retraction for glenoid exposure, which was challenging, awareness and protection of critical structures, and closure. PLAN: 1. Sling at all times for the operative upper extremity. 2. AROM of elbow, forearm, wrist, and digits as tolerated. 3. PT/OT consults for education and assistance. 4. Social consult for discharge planning. 5. 23 hr perioperative antibiotics. 6. Early ambulation, and SCDs for DVT prophylaxis. 7. Admit to the hospital for the above 8. Analgesics p.r.n.
--- NOTE | 2024-04-26 12:44 | W.ANESCHARGE ---
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
[2024-04-26] MEDS: LACTATED RINGERS 1000 ML 1,000 ML 75 ML IV (13:43)
[2024-04-26] MEDS: HYDROmorphone 0.5 mg/0.5 ml inj IVP (14:11)
--- NOTE | 2024-04-26 14:18 | PM.IMCN1 ---
Date of Consult Patient: [facility] Patient Consult date: 04/26/24 Requesting Physician: Orthopedics Primary Care Provider: Osvaldo Hall MD Consult Narrative Reason for consult: Medical management Narrative: Zia Mason is a 73 year old male past medical history significant for hypertension, hyperlipidemia, ASCVD, history of coronary artery stent placement, GERD, COPD, anxiety, history of malignant neoplasm of prostate s/p robot assisted laparoscopic radical prostatectomy is POD#0 s/p left reverse shoulder arthroplasty, left long head of biceps open tenodesis with Dr. Chadwick. Reports feeling pretty good. Pain is currently adequately managed. Denies headache or dizziness. Denies chest pain or shortness of breath. Denies nausea. At this time has only had ice chips. As for his COPD, used his home inhalers this morning prior to surgery. Takes 10 mg prednisone daily for maintenance. Uses nebulizers daily. There have been no perioperative complications or nursing concerns reported. Estimated total blood loss documented as 150 ml. Updated and reviewed the active medical problems, past medical history, past surgical history, social history, allergies and medications in our electronic EMR. Review of Systems Narrative: REVIEW OF SYSTEMS: Complete review of systems performed and negative unless otherwise stated in HPI or below. [facility] Medical History Insomnia ?G47.00 - Insomnia, unspecified (ICD-10) Health care directive on file ?Z78.9 - Other specified health status (ICD-10) Primary hypertension ?I10 - Essential (primary) hypertension (ICD-10) Mixed hyperlipidemia ?E78.2 - Mixed hyperlipidemia (ICD-10) ASCVD (arteriosclerotic cardiovascular disease) ?I25.10 - Atherosclerotic heart disease of [place] coronary artery without angina pectoris (ICD-10) Malignant neoplasm of prostate ?C61 - Malignant neoplasm of prostate (ICD-10) Health care directive on file (04/24/21) ?Z78.9 - Other specified health status (ICD-10) Gastroesophageal reflux disease ?K21.9 - Gastro-esophageal reflux disease without esophagitis (ICD-10) Erectile dysfunction ?N52.9 - Male erectile dysfunction, unspecified (ICD-10) Chronic obstructive pulmonary disease ?J44.9 - Chronic obstructive pulmonary disease, unspecified (ICD-10) Anxiety ?F41.9 - Anxiety disorder, unspecified (ICD-10) Surgical History History of coronary artery stent placement ?Z95.5 - Presence of coronary angioplasty implant and graft (ICD-10) Status post laparoscopic cholecystectomy (2011) ?Z90.49 - Acquired absence of other specified parts of digestive tract (ICD-10) History of robot-assisted laparoscopic radical prostatectomy (2019) ?Z90.79 - Acquired absence of other genital organ(s) (ICD-10) History of mandibular surgery (1994) ?Z98.890 - Other specified postprocedural states (ICD-10) History of inguinal hernia repair ?Z98.890 - Other specified postprocedural states (ICD-10) ?Z87.19 - Personal history of other diseases of the digestive system (ICD-10) History of excision of testicular mass ?Z98.890 - Other specified postprocedural states (ICD-10) ?Z87.438 - Personal history of other diseases of male genital organs (ICD-10) Family History Father Heart disease Mother Heart disease Brother Prostate cancer Social History Narrative: , 2 kids, retired, non-smoker, social EtOH What is your current living situation?: I presently have a place to live Problems where you live: no known problems In the past 12 months, utilities in danger of being shut off: no In past 12 months, lack of transportation kept you from medical appts, meetings, work, or getting things needed for daily living: no In the past 12 mos, have been you worried that your food would run out before you had money to buy more?: never true In the past 12 mos, the food you bought just didn't last and you didn't have money to buy more?: never true Smoking Status: Never smoker Do you use any of these nicotine containing products: None Second hand tobacco smoke exposure: No How often do you have a drink containing alcohol: never How many standard drinks containing alcohol do you have on a typical day: 3 or 4 AUDIT-C Alcohol total score: 1 Non-prescribed substance use: denies use How often does anyone, including family, friends and others, physically hurt you: never How often does anyone, including family, friends and others, insult or talk down to you: never How often does anyone, including family, friends and others, threaten you with harm: never How often does anyone, including family, friends and others, scream or curse at you: never Little interest or pleasure in doing things: not at all Feeling down, depressed, or hopeless: not at all Meds Home Medications and Allergies Home Medications ?Medication ?Instructions ?Recorded ?Confirmed ?Type nitroglycerin 0.4 mg sublingual 0.4 mg sublingual Q5M PRN 10/22/22 04/26/24 History tablet aspirin 81 mg tablet,delayed 81 mg PO DAILY 03/02/23 04/26/24 History release calcium & D3 See Rx Instructions PO .COMPLEX 08/30/23 04/26/24 History prednisone 10 mg tablet 10 mg PO DAILY 03/01/24 04/26/24 History alprazolam 1 mg tablet 1 mg PO HS 04/26/24 04/26/24 History clopidogrel 75 mg tablet 75 mg PO DAILY 04/26/24 04/26/24 History fluticasone fur. 200 mcg-umeclid 1 inh inhalation DAILY 04/26/24 04/26/24 History 62.5 mcg-vilant 25 mcg inhalat.powder (Trelegy Ellipta) lisinopril 20 2 tab PO DAILY 04/26/24 04/26/24 History mg-hydrochlorothiazide 12.5 mg tablet omeprazole 20 mg capsule,delayed 20 mg PO DAILY 04/26/24 04/26/24 History release tiotropium 2.5 mcg-olodaterol 2.5 2 puff inhalation DAILY 04/26/24 04/26/24 History mcg/actuation mist for inhalation (Stiolto Respimat) Allergies Allergy/AdvReac Type Severity Reaction Status Date / Time No Known Drug Allergies Allergy Verified 04/26/24 09:08 Exam Narrative: Exam Narrative: PHYSICAL EXAM General: Pleasant, conversant, NAD HEENT: Normocephalic, atraumatic, sclera white, EOMI, oral mucosa moist Cardiovascular: RRR, S1S2. No pitting edema Pulmonary: CTA bilaterally without rhonchi, rales, expiratory wheezes. No dyspnea Abdominal: Soft, nondistended, NTTP Neurological: Alert, answering questions appropriately, cranial nerves intact, no focal findings Extremities: No gross joint deformity or swelling. Postoperative dressing in place, dry. Neurovascularly intact Skin: Warm, dry. Const: Vital Signs, click to edit/add: Vital Signs - 24 hr 04/26/24 09:10 04/26/24 09:40 04/26/24 09:45 Temperature 97.9 F Pulse Rate 96 67 60 Respiratory Rate 16 16 16 Blood Pressure 147/86 H 165/108 H 156/107 H Pulse Oximetry 98 99 97 Oxygen Delivery Me thod Room Air Nasal Cannula Nasal Cannula Oxygen Flow Rate 3 3 04/26/24 12:43 04/26/24 12:50 04/26/24 12:55 Temperature 96.8 F L Pulse Rate 68 73 74 Respiratory Rate 14 12 16 Blood Pressure 109/67 104/72 90/70 Pulse Oximetry 98 92 92 Oxygen Delivery Me thod Room Air Oxygen Flow Rate 04/26/24 13:00 04/26/24 13:05 04/26/24 13:10 Temperature 96.8 F L Pulse Rate 76 68 72 Respiratory Rate 15 12 12 Blood Pressure 101/52 L 96/66 99/71 Pulse Oximetry 94 93 93 Oxygen Delivery Me thod Oxygen Flow Rate Assessment and Plan Assessment and plan (1) Rotator cuff tear, left: Problem comment: Massive rotator cuff tear involving the supraspinatus, infraspinatus, and subscapularis distal tendons, please see description above. Moderate to advanced muscle belly atrophy POD# 0 s/p left reverse shoulder arthroplasty, left long head of biceps open tenodesis with Dr. Chadwick -perioperative management including pain management and anticoagulation per Orthopedic surgery. Will resume home ASA and plavix tomorrow, 04/27/24 -encourage postoperative pulmonary hygiene given history COPD -PT OT consults -plan to discharge home with spouse tomorrow Status: Acute (2) Primary hypertension: Problem comment: Mild acceptable hypotension postoperatively, continue to monitor Resume home medications tomorrow morning Status: Acute (3) Mixed hyperlipidemia: Problem comment: Continue statin Status: Acute (4) ASCVD (arteriosclerotic cardiovascular disease): Problem comment: S/p coronary artery stent placement Resume home ASA and plavix tomorrow, 04/27/24 Status: Acute (5) Chronic obstructive pulmonary disease: Problem comment: Good pulmonary hygiene postoperatively, incentive spirometry, continue home inhalers, nebs prn Takes prednisone 10mg daily as maintenance. Resume following discharge Status: Acute (6) Gastroesophageal reflux disease: Problem comment: Continue PPI Status: Acute (7) Anxiety: Problem comment: Home meds include 1 mg alprazolam at bedtime. Would hold this for now given perioperative medications which can be sedating Status: Acute Total Time Spent Total Time Spent: Total time spent caring for the patient today was 60 minutes. This includes time spent for the visit reviewing the chart, time spent during the visit, time spent after the visit and documentation and planning in coordination of care.
[2024-04-26] MEDS: ATORVASTATIN CALCIUM 40 MG TABLET PO (18:39)
[2024-04-26] MEDS: SENNOSIDES 1 TAB TABLET 2 TAB PO (20:36)
[2024-04-26] MEDS: ALBUTEROL SULFATE 2.5 MG/3 ML VIAL.NEB NEB (20:37)
--- NOTE | 2024-04-26 23:01 | PC.NURSE ---
Shift note: The pt has been pleasant and cooperative; denied chest pain and short of breath; Spo2 has been in the 90s in RA. The left shoulder surgical dressing has been C/D/I; Denied numbness or tingling to the left arm. Sling has been applied to the left arm; the left arm has been elevated on the 2 pillows; Active ice applied to the shoulder site; the pt has been reporting minimal pain to the site. Urinating without any issues .
[2024-04-27 02:54] VITALS: BP 154/85; PULSE 70; RESP 20; TEMP 36; O2SAT 94
[2024-04-27] MEDS: OXYCODONE 5 MG TABLET PO ×4 (02:57→11:32)
[2024-04-27] MEDS: ACETAMINOPHEN 500 MG TABLET 1000 MG PO ×2 (04:20→10:24)
[2024-04-27 06:17] LABS: Hematocrit 40.2 % (37.0-53.0); Hemoglobin* 13.6 gm/dL (13.5-17.5); Mean Corpuscular HGB Conc 34 gm/dL (32-36); Mean Corpuscular Hemoglobin 31 pg (26-34); Mean Corpuscular Volume 91 fL (80-100); Platelet Count* 193 K/uL (140-440); White Blood Count* 10.45 K/uL (4.50-11.00)
[2024-04-27] MEDS: OMEPRAZOLE 20 MG CAPSULE DR PO (06:21)
--- NOTE | 2024-04-27 06:28 | PC.NURSE ---
End of shift [id number]: A&O pleasant and cooperative. VSS. Rating pain 3-4/10. see eMAR for intervention. Dressing to shoulder c/d/i. +CMS. Sling in place. tolerating diet. denies n/v and dizziness/lightheadedness. up with SBA to bathroom. tolerates well. SL. voiding adequate amounts. using call light appropriately.
[2024-04-27 06:43] LABS: Slide Review Reflex No; Sodium* 133 mmol/L (135-149)
[2024-04-27 06:44] LABS: Potassium* 3.5 mmol/L (3.6-5.1)
[2024-04-27 06:47] LABS: Blood Urea Nitrogen* 16 mg/dL (7-30); Creatinine* 0.7 mg/dL (0.5-1.5); Est. Creatinine Clearance* 72.16; Estimated Glomerular Filt Rate 99 ml/min
[2024-04-27] MEDS: CEFAZOLIN 2 GM in 0.9 % SODIUM CHLORIDE Mini-bag 100 ML IVPB (08:15)
[2024-04-27 08:16] VITALS: BP 139/81; PULSE 62; RESP 16; TEMP 36.2; O2SAT 94
[2024-04-27] MEDS: ISOSORBIDE MONONITRATE ER 30 MG TAB 60 MG PO (08:33)
[2024-04-27] MEDS: hydroCHLOROthiazide 25 MG TABLET PO (08:33)
[2024-04-27] MEDS: EZETIMIBE 10 MG TABLET PO (08:33)
[2024-04-27] MEDS: lisinopriL 20 MG TABLET 40 MG PO (08:33)
[2024-04-27] MEDS: SENNOSIDES 1 TAB TABLET 2 TAB PO (08:33)
[2024-04-27] MEDS: carvediloL 6.25 MG TABLET PO (08:33)
--- NOTE | 2024-04-27 11:00 | PM.ORPN ---
Subjective Subjective Date Seen: 04/27/24 Principal diagnosis: Status postop day 1 left reverse total shoulder arthroplasty Interval history: Patient reports doing okay. Aching pain through the left shoulder since the block wore off last night No acute events over night. Pain managed with scheduled and PRN medications, ice. DVT prophylaxis: SCDs, walking. Due to history of cardiac stents, he is also on Plavix and 81 mg aspirin daily which she restarted this morning. Denies fevers, chills, aches, N/V, CP, SOB/EDGAR, or lightheadedness. Ortho Exam Narrative Exam Narrative: -Patient appears comfortable in recliner; no apparent acute distress -Alert and oriented times 3 -Operative shoulder swollen; soft, supple tissues; no obvious erythema. Ecchymosis lateral shoulder/deltoid. Warmth appropriate -Surgical dressing clean, dry, intact; no obvious drainage, no erythematous streaking peripheral to the bandage -Bilateral calves soft and supple; no significant swelling, edema, tenderness, erythema, discoloration, warmth, or palpable cords -2+ radial pulse, intact dermatomes and myotomes distally (5/5 strength) Const Vital Signs, click to edit/add: Vital Signs - 24 hr 04/26/24 12:43 04/26/24 12:50 04/26/24 12:55 Temperature 96.8 F L Pulse Rate 68 73 74 Pulse Rate [Pulse Oximeter] Respiratory Rate 14 12 16 Blood Pressure 109/67 104/72 90/70 Blood Pressure [Right Arm] Pulse Oximetry 98 92 92 Oxygen Delivery Method Room Air Oxygen Flow Rate 04/26/24 13:00 04/26/24 13:05 04/26/24 13:10 Temperature 96.8 F L Pulse Rate 76 68 72 Pulse Rate [Pulse Oximeter] Respiratory Rate 15 12 12 Blood Pressure 101/52 L 96/66 99/71 Blood Pressure [Right Arm] Pulse Oximetry 94 93 93 Oxygen Delivery Method Oxygen Flow Rate 04/26/24 13:23 04/26/24 13:30 04/26/24 13:45 Temperature 96.8 F L 96.3 F L 96 F L Pulse Rate 64 59 L 64 Pulse Rate [Pulse Oximeter] Respiratory Rate 18 18 18 Blood Pressure 109/68 119/65 95/73 Blood Pressure [Right Arm] Pulse Oximetry 87 L 98 96 Oxygen Delivery Method Room Air Room Air Room Air Oxygen Flow Rate 2 1 04/26/24 14:00 04/26/24 14:15 04/26/24 14:30 Temperature 96.0 F L Pulse Rate 63 61 65 Pulse Rate [Pulse Oximeter] Respiratory Rate 18 18 18 Blood Pressure 102/71 121/86 130/93 H Blood Pressure [Right Arm] Pulse Oximetry 96 95 95 Oxygen Delivery Method Room Air Room Air Room Air Oxygen Flow Rate 1 2 2 04/26/24 15:00 04/26/24 16:00 04/26/24 17:36 Temperature 95.9 F L 96.9 F L Pulse Rate 60 58 L Pulse Rate [Pulse Oximeter] Respiratory Rate 18 18 18 Blood Pressure 116/80 143/75 H Blood Pressure [Right Arm] Pulse Oximetry 95 95 97 Oxygen Delivery Method Room Air Room Air Nasal Cannula Oxygen Flow Rate 1 1 1 04/26/24 18:00 04/26/24 19:00 04/26/24 23:31 Temperature 97.5 F L 97.0 F L Pulse Rate 59 L 67 Pulse Rate [Pulse Oximeter] 64 Respiratory Rate 18 18 20 Blood Pressure 140/86 H 128/91 H Blood Pressure [Right Arm] 142/74 H Pulse Oximetry 96 95 94 Oxygen Delivery Method Nasal Cannula Room Air Room Air Oxygen Flow Rate 1 04/26/24 23:38 04/27/24 02:54 04/27/24 08:16 Temperature 96.8 F L 97.1 F L Pulse Rate Pulse Rate [Pulse Oximeter] 70 62 Respiratory Rate 20 20 16 Blood Pressure Blood Pressure [Right Arm] 154/85 H 139/81 Pulse Oximetry 94 94 94 Oxygen Delivery Method Room Air Room Air Room Air Oxygen Flow Rate 04/27/24 08:16 04/27/24 08:16 Temperature Pulse Rate Pulse Rate [Pulse Oximeter] 62 Respiratory Rate 16 16 Blood Pressure Blood Pressure [Right Arm] Pulse Oximetry 94 Oxygen Delivery Method Room Air Oxygen Flow Rate Assessment and Plan Assessment and plan (1) Rotator cuff tear, left: Problem details: Massive rotator cuff tear involving the supraspinatus, infraspinatus, and subscapularis distal tendons, please see description above. Moderate to advanced muscle belly atrophy POD# 1 s/p left reverse shoulder arthroplasty, left long head of biceps open tenodesis with Dr. Chadwick -perioperative management including pain management and anticoagulation per Orthopedic surgery. Will resume home ASA and plavix 04/27/2024 -encourage postoperative pulmonary hygiene given history COPD -PT OT consults -plan to discharge home with daughter's today, 04/27/2024 Status: Acute (2) Primary hypertension: Problem details: Mild acceptable hypotension postoperatively, continue to monitor Resume home medications tomorrow morning Status: Acute (3) Mixed hyperlipidemia: Problem details: Continue statin Status: Acute (4) ASCVD (arteriosclerotic cardiovascular disease): Problem details: S/p coronary artery stent placement Resume home ASA and plavix tomorrow, 04/27/24 Status: Acute (5) Chronic obstructive pulmonary disease: Problem details: Good pulmonary hygiene postoperatively, incentive spirometry, continue home inhalers, nebs prn Takes prednisone 10mg daily as maintenance. Resume following discharge Status: Acute (6) Gastroesophageal reflux disease: Problem details: Continue PPI Status: Acute (7) Anxiety: Problem details: Home meds include 1 mg alprazolam at bedtime. Would hold this for now given perioperative medications which can be sedating Status: Acute Plan - Complete 23 hour perioperative antibiotics. - PT/OT consult for education and assistance. - Social work consult for discharge planning - Prescribed analgesics as needed - DVT prophylaxis: Home medication of Plavix and aspirin which restarted today, 04/27/2024, walking, and SCDs - Anticipation is for discharge to home with daughters, 04/27/2024 if the patient remains medically stable, pain is controlled, and they are safe with mobilization.
--- NOTE | 2024-04-27 11:07 | PC.SOCIAL ---
Discharge planning: printed circuit board reworker and social work general internist and physician leader met with pt and daughters to discuss discharge plan. He has no concern about going home and lives in a one-story house. Two daughters flew in from [id number] to stay with pt while he recovers. printed circuit board reworker informed pt that he could reach out if he has any concerns once he gets home or needs more services.
--- NOTE | 2024-04-27 12:16 | PC.NURSE ---
End of Shift: Patient pleasant and cooperative. Patient vitally stable, lungs clear, BS WNL, IV removed, catheter intact. Patient independent in room, urinating well, and tolerating regular diet. Patient rates pain at most 4/10, 5 mg of oxy given x2. Left shoulder dressing C/D/I, active ice used. Patient signed belongings sheet and discharge form, all questions answered. Patient left the floor by wheelchair to home at 1138.
== END 2024-04-27 11:38 | disposition home or self-care (01) ==
LOC: OR 08:46 → MEDSURG 08:49
PROVIDERS: PCP Family Medicine; Visit Provider Orthopaedic Surgery Sports Medicine
PROC: 0RRJ0JZ Replacement of Right Shoulder Joint with Synthetic Substitute, Open Approach (ICD-10-PCS; CPT 23472; principal; 2024-04-26 10:00)
DX: M75.122 Complete rotator cuff tear or rupture of left shoulder, not specified as traumatic (principal); M75.22 Bicipital tendinitis, left shoulder; G89.18 Other acute postprocedural pain; I10 Essential (primary) hypertension; I25.10 Atherosclerotic heart disease of native coronary artery without angina pectoris; K21.9 Gastro-esophageal reflux disease without esophagitis; J44.9 Chronic obstructive pulmonary disease, unspecified; F41.9 Anxiety disorder, unspecified; E78.2 Mixed hyperlipidemia
CPT/HCPCS: 23472; 23430; 01638; 36415; 64415; 73030; 76942; 82565; 84132; 84295; 84520; 85027; 94640; 97110; 97165; 97535; 99100; A9270; C1713; C1776; J0171; J0330; J0690; J1100; J1171; J2250; J2371; J2405; J2704; J2795; J3010; J3490; J7030; J7120; L3670

== ENCOUNTER 2024-07-20 11:15 | Outpatient (RCR) | payer MEDICARE, BC, SELFPAY ==
--- NOTE | 2024-04-18 14:49 | OT.OPGNE2 ---
OT Outpatient General/Neuro Eval OT Outpatient General/Neuro Eval* Start: 04/18/24 14:00 Freq: Status: Active Protocol: Document 04/18/24 14:05 SMW (Rec: 04/18/24 14:46 SMW [id number]) E-signed By Chary Mckee OT OT Outpatient Evaluation Details Type Type Eval Complexity Low Insurance Information Insurance Information Insurance Information Medicare B Outpatient History/Precautions Current Condition Referring Provider Dr. Chadwick Medical Diagnoses osteoarthritis of left shoulder. Medical/Functional History Medical History Reviewed Yes Prior Level of Function/Mobility Patient lives alone in own home. Recently Prior Medical History Prior Medical History arthritis of left acromioclavicular joint rotator cuff tear htn Social History Type of Dwelling Rambler Home Number of Floors (Floors) 1 Number of Stairs to Enter (Stairs) 0 Lives With: Alone Physical Barriers in Home Environment Level, No Step Employment Status Retired Patient Subjective Subjective Patient Subjective I will have help at home for about a week. Both of my daughters will be flying into help me. Pain Assessment Pain Pain No Cognitive Assessments Performed Oriented Patient oriented Person,Place,Time,Situation Balance Assessment Comments Balance Comments No recent falls. Assessment Assessment Assessment The patient is a 73 year old male referred to outpatient OT for a LTSA pre-op. Surgery is scheduled for 04/26/24. The patient lives alone in own rambler home. He is recently . Both of his daughter' s will be flying in to assist him for ~ 5 days. He also has neighbors who will assist after daughter's leave and will be able to drive him to his outpatient appointments. Today, he was educated on post op exercises as well as hospital progression prior to discharge. He was also educated on one handed ADL techniques, icing/polar care, sling management. He asked excellent questions which were answered to patient's satisfaction. Occupational Therapy Treatment Plan - OP Goals Goals Within one visit, the patient will.. 1. be educated on sling management, one handed ADL techniques. goal met. 2. be able to verbalize and demonstrate post op exercises. goal met. Treatment Plan Treatment Plan Self-Care/Home Management Certification Certification Statement I Certify That: Therapy Services Provided, Therapy Plan Established, Therapy Plan Reviewed Certification Information Clinic ID # [id number] Initial Certification Date 10/08/24 Provider Signature Required Yes Provider Signature Shows Agreement With POC & Medical Necessity Physician NPI Number Write NPI# Here Physician Comment/Change Comment or Changes Physician Signature & Date Requested Please Sign/Date Here
--- NOTE | 2024-05-08 15:25 | PT.OPEX ---
PT [place] [facility] PT [facility] Outpatient Eval Start: 05/08/24 12:58 Freq: Status: Active Protocol: Document 05/08/24 12:59 TERI (Rec: 05/08/24 15:23 TERI [id number]) E-signed By Wilfred Lira DPT Physical Therapy Outpatient Evaluation Insurance Information Recert Due Date 08/06/24 Insurance Name [employer] Medical Diagnosis s/r reverse L TSA DOS 04/26/24 Treating Diagnosis L shoulder pain muscle weakness Referring MD Kareem Chadwick Subjective Subjective Lorenzo comes into clinic ~ 2 weeks post L RTSA. Overall is feeling pretty good only having any issue with things seems to be with sleeping but is easier with icing. Also after his follow up last week they stated he has some increased swelling along the elbow but nothing to be concerned about. Before the surgery he was helping his late often which he feels could be a reason for his overuse in the arm leading to the surgery. Pain Comments 12/19 Current Work Status Retired Precautions Treatment Precautions/Contraindications Sling until 6 weeks postop visit, come out for elbow ROM, pendulums, bathing, and during sedentary activities. PT starting now for PROM ( Wednesday05/08/2024) AAROM at 4 -6 weeks postop. Objective Other/Pertinent Objective SHOULDER AROM on R , PROM on L Flexion: [id number] increased shrugging L 80 degrees Abduction: [id number] degrees L 70 degrees Internal Rotation: R T10-T11 External Rotation: R60 L 15 degrees NECK/SHOULDER MMT: deferred standard testing WNL on R JOINT MOBILITY/PALPATION increases swelling posterior elbow T Assessment Assessment/Impression POST-OP Patient presents with signs and symptoms consistent with diagnosis of L Reverse TSA , s /p ~2 week post operative. Rehab potential is good. Woods impairments include: decreased ROM and strength of the extremity, poor balance and compensatory gait patterning, pain/limitations with functional activities such as lifting reaching carrying sleeping. Skilled PT is required to address these woods impairments and to provide and progress with an appropriate home exercise program. Plan of Care Rehabilitation Potential Good Physical Therapy Goals GOALS Pt will be independent with HEP within 12 weeks to allow for independence and continued improvement past formal therapy Patient will demonstrate/ report ability to sleep with losing <1 hours of sleep being interrupted by shoulder pain. 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 within 12 weeks Coordination/Communication With Referral Source Treatment Plan/Direct Interventions Joint Mobilization,Manual Therapy,Neuromuscular Re-ed, Therapeutic Activities, Therapeutic Exercises Frequency/Duration 1-2 visits a week for 12 weeks Patient Will Be Discharged From Therapy Completion of LTG(s), Independent w/HEP, Independently Progressing Evaluation Billing Untimed Code Treatment Minutes 24 Complexity Low Certification Information Initial Certification Date 05/08/24 Ending Certification Date 08/06/24 Provider Signature Required Yes Provider Signature Shows Agreement With POC & Medical Necessity Physician NPI Number Write NPI# Here Physician Comment/Change : Physician Signature & Date Requested Please Sign/Date Here
== END 2024-09-07 11:28 | disposition home or self-care (01) ==
PROVIDERS: PCP Family Medicine; Visit Provider Orthopaedic Surgery Sports Medicine
DX: M75.102 Unspecified rotator cuff tear or rupture of left shoulder, not specified as traumatic (principal); M19.012 Primary osteoarthritis, left shoulder; Z96.612 Presence of left artificial shoulder joint; Z51.89 Encounter for other specified aftercare
CPT/HCPCS: 97110; 97112; 97140; 97161; 97165; 97535

== ENCOUNTER 2024-09-15 09:47 | Outpatient (CLI) | payer MEDICARE, BC, SELFPAY | END 2024-09-15 09:48 | disposition home or self-care (01) | PROVIDERS: PCP Family Medicine; Visit Provider Family Medicine | DX: E78.2 Mixed hyperlipidemia (principal); I10 Essential (primary) hypertension; Z85.46 Personal history of malignant neoplasm of prostate; Z12.5 Encounter for screening for malignant neoplasm of prostate | CPT/HCPCS: 80048; 80061; 84153; 84403; 84460 ==

== ENCOUNTER 2024-10-07 11:33 | Emergency (ER) | payer MEDICARE, BC, SELFPAY ==
[2024-10-07] VITALS (35 sets, daily range): BP systolic 110–170; BP diastolic 76–114; PULSE 87–102; RESP 9–40; TEMP 36.4; O2SAT 89–95; BMI 29.7
--- OUTSIDE RECORDS SUMMARY | 2024-10-07 11:35 | XMS_ITS | Clinical Summary ---
Author Organization [facility] Address [address] [place] [address] Care Team Providers Care Principal Technical Writer Name Role Phone Unavailable Primary Care Provider Unavailabl e Source Comments Patient records contain information from all sites at [facility]. For routine questions regarding patient records, call [phone] during business hours, M-F 8:00 AM - 5:00 PM Central Time. Record requests for emergency care only can be directed to [phone] at any time.[facility] Allergies No known active allergies Medications aspirin [address] tablet Take 81 mg by mouth daily. 3 Active atorvastatin (LIPITOR) 40 mg tablet Take 40 mg by mouth daily. 3 Active isosorbide mononitrate (IMDUR) 60 mg 24 hr tablet Take 60 mg by mouth daily. 3 Active lisinopril-hydro CHLOROthiazide (PRINZIDE,ZESTOR ETIC) 20-12.5 mg per tablet Take 2 tablets by mouth daily. 3 Active nitroglycerin (NITROSTAT) 0.[address] 0.4 mg under the tongue every 5 (five) minutes as needed for chest pain. 3 Active omeprazole (PriLOSEC) [address] capsule Take 20 mg by mouth daily. 3 Active predniSONE (DELTASONE) 10 mg tablet Take 10 mg by mouth daily. 3 Active tiotropium-oloda teroL (STIOLTO RESPIMAT) 2.5-2.5 mcg/actuation inhaler Inhale 2 puffs daily. 3 Active ezetimibe (ZETIA) 10 mg tablet Take 10 mg by mouth daily. Active calcium carbonate-vitami n D3 1,500 mg (600 mg calcium)-5 mcg (200 Unit) per tablet Take 2 tablets by mouth daily with breakfast. Active acetaminophen (TYLENOL) 325 mg tablet Take 325-650 mg by mouth as needed. 1 Active carvediloL (COREG) 6.25 mg tablet TAKE 1 TABLET (6.25 MG) BY MOUTH TWO TIMES DAILY WITH MEALS. THIS MEDICATION REPLACES METOPROLOL. Active clopidogreL (PLAVIX) 75 mg tablet TAKE 75 MG ORALLY EVERY DAY Active Trelegy Ellipta 200-62.5-25 mcg inhaler Inhale 1 puff daily. daily 4 Active ipratropium-albu teroL (DUONEB) 0.5-2.5 mg/3 mL nebulizer solution 3 mL 3 (three) times a day. Active Comp-Air Nebulizer Compressor device USE DIRECTED FOR COPD 4 Active ALPRAZolam (Xanax) 1 mg tablet Take 1 mg by mouth at bedtime. 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 Gender Identity Male 10/19/2023 2:16 PM CDT Sexual Orientation Straight 10/19/2023 2: 16 PM CDT Last Filed Vital Signs Vital Sign Reading Time Taken Comments Blood Pressure 127/90 04/19/2024 2:23 PM CDT Pulse 73 04/19/2024 2:23 PM CDT Temperature 36.3 C (97.3 F) 04/19/2024 2:23 PM CDT Respiratory Rate - - Oxygen Saturation - - Inhaled Oxygen Concentration - - Weight 96.6 kg (212 lb 15.4 oz) 04/19/2024 2:23 PM CDT Height - - Body Mass Index - - Plan of Treatment Health Maintenance Due Date Last Done Comments Abdominal Aortic Aneurysm (AAA) Screen 1952 CT Colonography 1950 Cologuard 1950 FIT 1950 Hepatitis C Screening 1950 RSV vaccine - (32-36 weeks) or 60+ years (1 - Risk 60-74 years 1-dose series) 2012 DTaP,Tdap,and Td Vaccines (2 - Td or Tdap) 08/09/2022 08/09/2012, 07/07/2006 Creatinine Level (Kidney Function Test) 12/17/2023 12/16/2022, 12/15/2022, 12/01/2022, Additional history exists Potassium Level 12/17/2023 12/16/2022, 06/0 12/2022, 12/01/2022, Additional history exists Sodium Level 12/17/2023 12/16/2022, 06/0 12/2022, 12/01/2022, Additional history exists COVID-19 Vaccine ( season) 2024 04/09/2023, 05/08/2022, 11/14/2021, Additional history exists Influenza Vaccine (#1) 2024 , 04/20/2022, 07/22/2021, Additional history exists Depression Screening (Annual PHQ-2) 07/12/2024 Fall Risk Screen (Annual) 07/12/2024 Fasting Glucose for Diabetes Screening 12/16/2025 12/16/2022, 12/15/2022, 12/01/2022, Additional history exists Colonoscopy 06/10/2031 06/10/2021 Colorectal Cancer Screening 06/10/2031 Zoster Vaccines Completed 11/27/2020, 08/2020, 02/04/2015 Lung Cancer Screening Discontinued 09/30/2022 Pneumococcal vaccine (50+ years) Completed 03/24/2023, 06/12/2019, 12/27/2018 HPV Vaccines Aged Out No longer eligi ble based on patient's age to complete this topic IPV Vaccines Aged Out No longer eligi ble based on patient's age to complete this topic Insurance [facility] [place] [id number] [facility] Member Subscriber Plan / Payer (Ef fective 2021-Present) Name:ZIA FIGUEROA Relation to Subscriber:Spouse Name:DONNELLSHALA Date of :1964 (Home) Address: [address] [place] [address] [place] [id number] Payer ID:Not on file Type:PPO Address: [address] [place] [id number]
--- OUTSIDE RECORDS SUMMARY | 2024-10-07 11:35 | XMS_ITS ---
Author Organization [facility] Address [address] [place] [address] Care Team Providers Care Book Publisher Name Role Phone Unavailable Primary Care Provider Unavailabl e Active Problems Problem Noted Date Diagnosed Date Rising Prostate Specific Ant igen Following Treatment For Malignant Cancer Of Prostate 10/23/2022 Primary Malignant Neoplasm Of Prostate 0 Cancer Staging:Pathologic stage from 07/18/2020:Stage IIIB(pT3a, pN0, cM0, PSA: 12.7, Grade Group: 2) - Unsigned Current Treatment and Therapy Plans No current plan information found. Past Treatment and Therapy Plans Hem/Onc Therapy Plan 1 Plan Name [...] Therapy Complete Dayana Arrieta APRN, C.N.P., D.N.P. Past Radiation Episodes * IMRT: Prostate bedOverview* First Treatment Date Last Treatment Date Treatment Site Technique Goal Episode Provider 03/01/2023 04/14/2023 Prostate bed IMRT Curative * Linked Problems Primary Malignant Neoplasm O f Prostate Treatment Courses* Course 1xProstate 03/01/2023 - 04/14/2023 Treatment Period Fraction Dose Fractions Total Dose Plans Planned [id number] 03/01/2023 - 04/14/2023 215 cGy 32 / 32 6 ,880 cGy Reference Points Delivered [id number] 03/01/2023 - 04/14/2023 6,880 cGy
--- OUTSIDE RECORDS SUMMARY | 2024-10-07 11:35 | XMS_ITS | Clinical Summary ---
Author Organization [facility] Address [address] [place] [id number] Care Team Providers Care Information Technology Assistant Name Role Phone Osvaldo Hall MD Primary Care Provider + Allergies No known active allergies Medications omeprazole (PRILOSEC) 20 mg Delayed-Release capsule Take 1 Capsule (20 mg) by mouth once daily before a meal. 0 09/01/19 23 Active albuterol HFA (PRO-AIR; VENTOLIN; PROVENTIL) 90 mcg/actuation inhaler Inhale 2 Puffs by mouth 4 times daily if needed. 0 09/01/19 23 Active tiotropium-olodat Serge (Stiolto Respimat) 2.5-2.5 mcg/actuation inhaler Inhale 2 Puffs by mouth once daily. 4 g 10/14/19 23 Active atorvastatin (LIPITOR) 40 mg tabletIndications :Hyperlipidemia, unspecified hyperlipidemia type Take 1 Tablet (40 mg) by mouth at bedtime. 90 Tablet 3 10/14/19 23 Active nitroglycerin (NITROSTAT) 0.4 mg sublingual tabletIndications :ASCVD (arteriosclerotic cardiovascular disease) Place 1 Tablet (0.4 mg) under the tongue every 5 minutes if needed for Chest Pain. 25 Tablet 1 10/15/19 23 Active ALPRAZolam (XANAX) 1 mg tablet Take 1 mg by mouth at bedtime. 10/20/19 23 Active albuterol-ipratro pium (DUONEB) (2.5-0.5 mg) in 3 mL NEBULIZATION solution Inhale 3 mL via a nebulizer every 6 hours if needed. 11/04/19 23 Active isosorbide mononitrate (IMDUR) 60 mg extended release tablet 24 hour Take 60 mg by mouth once daily. Active predniSONE (DELTASONE) 10 mg tablet Take 1 Tablet (10 mg) by mouth once daily with a meal. 0 12/02/19 Active ezetimibe (Zetia) 10 mg tabletIndications :ASCVD (arteriosclerotic cardiovascular disease) Take 1 Tablet (10 mg) by mouth once daily. 90 Tablet 3 12/03/19 Active clopidogreL (PLAVIX) 75 mg tabletIndications :ASCVD (arteriosclerotic cardiovascular disease) Take 1 Tablet (75 mg) by mouth once daily. 90 Tablet 4 3 10:40 AM CDT 12/17/19 Active lisinopril-hydroc hlorothiazide 20-12.5 mg tablet (PRINZIDE) Take 2 Tablets by mouth once daily. 0 05/18/20 Active carvediloL (Coreg) 6.25 mg tabletIndications :ASCVD (arteriosclerotic cardiovascular disease) Take 1 Tablet (6.25 mg) by mouth two times daily with meals. This medication replaces Metoprolol. 180 Tablet 3 05/18/20 Active Trelegy Ellipta 200-62.5-25 mcg inhalerIndication s:Chronic obstructive pulmonary disease, unspecified COPD type (HC) INHALE ONE PUFF BY MOUTH EVERY DAY, AT THE SAME TIME EACH DAY 60 Each 11 09/08/19 Active aspirin (ECOTRIN) 81 mg enteric coated tabletIndications :Dyspnea on exertion TAKE 1 TABLET (81 MG) BY MOUTH ONCE DAILY WITH A MEAL. 90 Tablet 09/26/19 25 Active aspirin (ECOTRIN) 81 mg enteric coated tabletIndications :Dyspnea on exertion TAKE 1 TABLET (81 MG) BY MOUTH ONCE DAILY WITH A MEAL. 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 Gender Identity Not on file Sexual Orientation Not on file Obstetrics History Last Filed Vital Signs Vital Sign Reading Time Taken Comments Blood Pressure 144/90 05/18/2023 9:04 AM ROD CUP FILLER Pulse 85 05/18/2023 9:04 AM ROD CUP FILLER Temperature 36.5 C (97.7 F) 12/16/2022 12:13 AM CDT Respiratory Rate 18 12/31/2022 1:00 PM CDT Oxygen Saturation 94% 05/18/2023 9:04 AM ROD CUP FILLER Inhaled Oxygen Concentration - - Weight 105.4 kg (232 lb 6.4 oz) 05/18/2023 9:04 AM ROD CUP FILLER Height 180.3 cm (5' 10.98) 05/18/2023 9:[address] Body Mass Index 32.43 05/18/2023 9:04 AM ROD CUP FILLER Plan of Treatment Upcoming Encounters Date Type Department Care Team (Late st Contact Info) Description 10/09/2024 3:00 PM CDT Ancillary Procedure [facility] [place] [facility] [address] [facility] [place] [address] 02/14/2025 10:00 AM CDT Office Visit [facility] [place] [address] [facility] [address] [place] [phone] Bal Bosch MD [address] [facility] [address] [place] [phone] Health Maintenance Due Date Last Done Comments Tdap 11/10/1961 Hepatitis C screening for ag e 18-79 1970 Pneumococcal series for age 50+ (1 of 2 - PCV) 11/10/1971 Tetanus booster 1972 Colonoscopy through age 75 1997 Zoster (shingles) series for age 50+ (1 of 2) 2002 RSV vaccine for adults or (1 - Risk 60-74 years 1-dose series) 2012 COVID-19 vaccine series ( season) 2024 04/09/2023, 05/08/2022, 11/14/2021, Additional history exists Influenza Vaccine (#1) 2024 Depression screening for age 12+ 03/26/2024 03/26/2023, 12/31/2022, 11/16/2022 BMI (ht and wt on same day) for age 18+ 05/18/2024 05/18/2023, 12/01/2022, 10/28/2022, Additional history exists Lipids for age 45-75 05/25/2028 05/25/2023, 12/01/2022, 10/13/2022, Additional history exists Procedures Procedure Name Priority Date/Time Associated Diagnosis Comments LIPID PANEL Routine 05/25/2023 9:34 AM ROD CUP FILLER ASCVD (arteriosclerotic cardiovascular disease) from Last 3 Months or Most Recently Relevant to Health Maintenance Results * (ABNORMAL) LIPID PANEL (05/25/2023 9:34 AM ROD CUP FILLER) CHOLESTEROL,TOTAL 135 100 - 199 mg/dL 05/25/2023 4:48 PM ROD CUP FILLER [facility] Comment: Cholesterol, Total Reference Ranges Desirable <200 mg/dL Borderline 200-239 mg/dL High >=240 mg/dL TRIGLYCERIDES 236(H) <150 mg/dL 05/25/2023 4:48 PM ROD CUP FILLER [facility] HDL CHOLESTEROL 41 >40 mg/dL 4:48 PM ROD CUP FILLER [facility] NON-HDL CHOLESTEROL 94 <145 mg/dl 05/25/2023 4:48 PM ROD CUP FILLER [facility] CHOL/HDL RATIO 3.29 <4.50 05/25/2023 4:48 PM ROD CUP FILLER [facility] LDL CHOLESTEROL 47 <=130 mg/dL 05/25/2023 4:48 PM ROD CUP FILLER [facility] VLDL CHOLESTEROL 47(H) <=30 mg/dL 05/25/2023 4:48 PM ROD CUP FILLER [facility] PROVIDER ORDERED STATUS RANDOM 05/25/2023 4:48 PM ROD CUP FILLER [facility] Blood BLOOD SPECIMEN / Unknown Venipuncture / Unknown 05/25/2023 9:34 AM ROD CUP FILLER 05/25/2023 9:34 AM ROD CUP FILLER us Blayne Iglesias MD CHEMISTRY Final R esult [facility] [address] [place] [id number], from Last 3 Months or Most Recently Relevant to Health Maintenance Insurance MEDICARE PART A [place] ONLY [place] A [place] ONLY Advance Directives * Full Code (Latest Code [...] Code Status Discussion: Reviewed Preferences Care Teams Information Technology Assistant Relationship Specialty Start Date End Date Osvaldo Hall MD [address] [place] [address] PCP - General Family Practice 04/03/20
--- OUTSIDE RECORDS SUMMARY | 2024-10-07 11:35 | XMS_ITS | Data Portability ---
Author Organization [place] [facility] Address [address] [place] [address] Care Team Providers Care Land Leases And Rentals Manager Name Role Phone SHAWN ZAMORANO Primary Care Provider [phone] Assessment Encounter Date Assessment Date Assessment LastModified by Organization Details LastModified Time 01/03/2021 01/03/2021 70M s/p RALP on 07/18/20 for pT3a N0R1 ([place] 3+4=7, 0/3 LN, +SMS, +BNI) Reviewed PSA, discussed risk of recurrence and need for ongoing PSA follow-up. 1. Prostate Cancer. EMANUEL. - f/u 6 months with PSA 2) Stress urinary incontinence, minimal - [place] 3) ED - sildenafil PRN [email or web address] Not available 01/03/2021 10:59:41 06/18/2021 06/18/2021 70M s/p RALP on 07/18/20 for pT3a N0R1 ([place] 3+4=7, 0/3 LN, +SMS, +BNI) PSA now [...] 10/08/2021 70M s/p RALP on 07/18/20 for pT3a N0R1 ([place] 3+4=7, 0/3 LN, +SMS, +BNI) PSA now [...] RT, would refer to Dr Oliver in [place] 2) Stress urinary incontinence, minimal - [place] 3) ED - sildenafil PRN, refill [email or web address] Not available 10/08/2021 11:20:19 04/22/2022 04/22/2022 71M s/p RALP on 07/18/20 for pT3a N0R1 ([place] 3+4=7, 0/3 LN, +SMS, +BNI) PSA now [...] RT, would refer to Dr Oliver in [place] 2) Stress urinary incontinence, minimal - [place] 3) ED - sildenafil PRN, refill [email or web address] Not available 04/22/2022 16:19:03 10/21/2022 10/21/2022 71M s/p RALP on 07/18/20 for pT3a N0R1 ([place] 3+4=7, 0/3 LN, +SMS, +BNI) [...] RT, would refer to Dr Oliver in [place] - if opts for RT, would forgo [...] 023 [email or web address] [facility], [address], [place], [address], 10:43:51 PSA, serum or plasma 2021 022 [email or web address] [facility], [address], [place], [address], 16:11:40 PSA, serum or plasma 2021 022 [email or web address] Not available 10:43:00 PSA, serum or plasma 2020 021 [email or web address] Not available 10:48:13 unlist ed lab - deciph er - rp prost [I] 2020 021 [email or web address] [facility], [address], [place], [address], 1 12:56:05 PSA, serum or plasma 2020 021 [email or web address] Not available 10:31:30 Referral radiat ion oncolo gist referr misael marrero RT, prosta te cancer 2022 023 carmen Oliver MD, [address] [place], [address], 3 08:02:25 Procedures None record ed. Surgeries None record ed. Imaging MRI, pelvis , w/wo contra st 2020 021 [email or web address] [facility], [address], [place], [address], 1 12:34:43 Medication Orders silden afil (pulmo nary hypert ension ) 20 mg tablet 2020 021 [email or web address] Not available 3 10:14:37 Patient TargetsNo targets recorded. Patient InstructionsNo instructions recorded. Reason for Referral salvage RT, prostate cancer Referring Physician: Otf Tyalor, Urology, Encounter Date: 10/21/2022 Results Created Date Observation Date Name Description Value Unit Range Abnormal Flag Note LastModifiedBy Organization Detail LastModifiedTime 01/04/20 21 01/03/2021 PSA, serum or plasm a PSA, Total <0.04 ng/mL Not Available [facility] [address], [place], [address], 01/03/2021 09:58:48 06/18/20 21 06/18/2021 PSA, serum or plasm a PSA, Total 0.07 ng/ml Not Available [facility] [address], [place], [address], 06/18/2021 10:33:11 10/09/19 22 10/08/2021 PSA, serum or plasm a PSA, Total 0.08 ng/mL Not Available [facility] [address], [place], [address], 10/08/2021 10:33:51 04/22/20 22 04/22/2022 PSA, serum or plasm a PSA 0.09ng /ml 0-4.0 Not Available [facility] [address], [place], [address], 04/22/2022 15:56:47 10/22/19 23 10/21/2022 PSA, serum or plasm a PSA 0.24 ng/ml 0-4.0 Not Available [facility] [address], [place], [address], 10/13/2022 16:04:49 10/08/19 22 09/30/2021 MRI, pelvi s, w/wo contr ast No observ ation record ed. [email or web address] [facility] [address], [place], [address], 10/07/2021 09:39:52 Result Notes None recorded. Problems Name Problem SNOMED Code Status Onset Date Resolution Date Notes Provider Name and Address Organization Details Recorded Time Malignant tumor of prostate 988693634 Active 2019 Otf mccoy MD, PHD [address] [place] [address],[address], [place], [address], [facility] 0 11:16:35 Erectile dysfunction 970479074 Active 2020 Otf mccoy MD, PHD [address] [place], [place] [address], [place], [address], [facility] 14:40:33 Problem Notes None recorded. Procedures Surgical History Date Name Laterality Status Provider Name and Address Organization Details Recorded Time 10/22/19 23 TAIL TRIMMER/blood draw completed Danita Rain [facility] 10/21/2022 10:15:38 04/22/20 22 Blood Draw/TAIL TRIMMER/PSA RESULTS completed Otf garcia MD, PHD [address] [place] [address],[place] [address], [place], [address], [facility] 04/22/2022 15:56:42 10/09/19 22 Blood Draw/TAIL TRIMMER/PSA RESULTS completed Danita Rain [facility] 10/08/2021 10:42:51 06/18/20 21 Blood Draw/TAIL TRIMMER/PSA RESULTS completed Otf garcia MD, PHD [address] [place] [address],[facility] [address], [place], [address], [facility] 06/18/2021 10:33:05 06/11/20 21 colonoscopy completed Otf garcia MD, PHD [address], [place], [address], [facility] 06/18/2021 10:32:20 01/04/20 21 Blood Draw/TAIL TRIMMER/PSA RESULTS completed Amarilis Lopez [facility] 01/03/2021 10:31:19 09/12/19 21 Blood Draw/TAIL TRIMMER/PSA RESULTS completed Kingston Nobles [facility] 09/18/2020 10:47:18 07/18/19 21 Prostatectomy completed Elmo Alexander [facility] 07/31/2020 14:05:56 04/29/20 20 Prostate Biopsy Procedure completed Emmett Samuel MD [address], [place], [address], [facility] 04/29/2020 17:27:15 Imaging Results Imaging Date Name Status LastModified by Organiz ation Details LastModified Time 09/30/2021 MRI, pelvis, w/wo contrast completed [email or web address] [facility] [address] [place], [address], 10/07/2021 09:39:52 Procedure Notes None recorded. Medical [...] Updated DateTime 04/22/2022 180.34 cm 27.9 kg/m2 34972.47 g Otf garcia MD, PHD [address] [place] [address], [phone] [place] [address] 04/22/2022 15:56:13 Date Recorded Body height Body mass index (BMI) Body weight Provider Name and Address Organization Details Last Updated DateTime 10/21/2022 180.34 cm 27.9 kg/m2 26316.47 g Danita Rain [facility] 10/21/2022 10:12:46 Date Recorded Body height Body mass index (BMI) Body weight Provider Name and Address Organization Details Last Updated DateTime 01/03/2021 180.34 cm 28.3 kg/m2 08809.25 g Otf garcia MD, PHD [address] [place] [address], [phone] [place] [address] [facility]rolog 01/03/2021 10:13:09 Date Recorded Body height Body mass index (BMI) Body weight Provider Name and Address Organization Details Last Updated DateTime 06/18/2021 180.34 cm 28.3 kg/m2 87733.25 g Otf garcia MD, PHD [address] [place] [address], [phone] [place] [address] [facility]rolog 06/18/2021 10:31:49 Date Recorded Body height Body mass index (BMI) Body weight Provider Name and Address Organization Details Last Updated DateTime 10/08/2021 180.34 cm 28.3 kg/m2 54679.25 g Otf garcia MD, PHD [address] [place] [address] 10/08/2021 10:33:07 Social History Question Answer Notes LastModified by Organizat ion Details LastModified Time Tobacco Smoking Status Former [facility] 05/22/2020 10:23:16 What Is Your Level Of Alcohol Consumption? Occasional [email or web address] Information not available 07/31/2020 What Is Your [...] available 05/22 10:23:08 Medical History Condition Response Diabetes N Sexually Transmitted Infection N Bleeding Disorder N Other N High Blood Pressure Y Kidney Stones N Cancer Y Depression N Lung Disease Y High Cholesterol Y GERD/Acid Reflux N Heart Disease Y Immunizations Vaccine Type Date Status Note Provider Nam e and Address Organization Details Recorded Time Pneumococcal conjugate PCV 13 9 completed [facility] [facility] 07/09/2020 11:08:40 Past Encounters Encounter ID Performer Location Encounter Start Date Encounter Closed Date Diagnosis/Indication Diagnosis SNOMED-CT Code Diagnosis ICD10 Code Diagnosis Note [id number] Emmett Samuel MD [facility] [address] [place] [id number] 04/29/2020 16:28:59 05/06/2020 16:27:15 Prostate specific antigen above reference range 335701660 R97.20 - Now s/p TRUS Bx - Will follow up to review pathology and talk next steps [id number] Emmett Samuel MD [facility] [place] [id number] 04/29/2020 16:28:59 05/07/2020 03:52:51 [id number] Otf zabala MD, PHD [facility] [address] [place] [id number] 05/22/2020 09:59:04 05/22/2020 13:27:44 Malignant tumor of prostate 944876846 C61 [id number] Otf zabala MD, PHD [facility] [address] [place] [id number] 07/31/2020 13:46:11 07/31/2020 16:30:36 Malignant tumor of prostate 662150535 C61 Erectile dysfunction 860 666144 F52.21 [id number] [facility] [address] [place] [id number] 09/11/2020 11:16:07 09/12/2020 14:13:35 Carcinoma of prostate 894862733 C61 Malignant tumor of prostate 943663377 C61 Erectile dysfunction 860 977098 F52.21 [id number] Otf zabala MD, PHD [facility] [address] [place] [id number] 01/03/2021 10:02:21 01/06/2021 13:20:32 Carcinoma of prostate 823760883 C61 Malignant tumor of prostate 351819306 C61 Erectile dysfunction 860 357401 F52.21 [id number] Otf zabala MD, PHD [facility] [address] [place] [id number] 06/18/2021 10:18:21 06/25/2021 12:23:30 Malignant tumor of prostate 174800719 C61 Carcinoma of prostate 25 5515406 C61 Erectile dysfunction 860 676037 F52.21 [id number] Otf zabala MD, PHD [facility] [address] [place] [id number] 10/08/2021 10:20:08 10/09/2021 14:51:00 Malignant tumor of prostate 821790037 C61 Carcinoma of prostate 25 3922099 C61 Erectile dysfunction 860 586954 F52.21 [id number] Otf zabala MD, PHD [facility] [address] [place] [id number] 04/22/2022 15:49:52 04/24/2022 11:35:04 Malignant tumor of prostate 641933783 C61 Carcinoma of prostate 25 6501911 C61 Erectile dysfunction 860 271352 F52.21 [id number] Otf zabala MD, PHD [address] [place] [id number] 10/21/2022 09:51:15 10/24/2022 11:49:21 Malignant tumor of prostate 253096503 C61 Carcinoma of prostate 25 9406334 C61 Erectile dysfunction 860 445995 F52.21 Health Concerns Section Related Observation LastModified by Organization Detai ls LastModified Time None Recorded Concern Status LastModified by Organization Details LastModified Time None Recorded Advance Directives Directive None Recorded Payers Encounter Date Sequence Insurance Name Policy Number Policy Agrawal Covered Member ID Agrawal Member ID Guarantor Name 01/03/2021 1 [facility] [id number] Zia Mason [id number] Zia Mason 06/18/2021 1 [facility] [id number] Zia Mason [id number] Zia Mason 04/22/2022 1 [facility] [id number] Debbie Mcgee [id number] Zia Mason 10/21/2022 1 [facility] [id number] Debbie Mcgee [id number] Zia Mason Notes Date Note Type Note Provider Name and Address Organization Details Recorded Time 01/03/2021 text/html 70M s/p RALP on 07/18/20 for [id number] ([place] 3+4=7, 0/3 LN, +SMS) Doing well. Normal BMs. Denies abdominal pain, N/V, f/c. No problems with incisions. Using 1 safety pad/day. Dry more often than not. Some leakage with cough. Good FOS. No hematuria. Getting erections adequate for penetration with 20 mg sildenafil. Sometimes without. PSA6/08/31 12.73/09/29 <0.046/ <0.04 UF: 25Pre-op EF: 25EF: 2 Otf Tinoco MD, PHD [address] [place] [address], [address], [facility] 01/03/2021 10:59:49 06/18/2021 text/html 70M s/p RALP on 07/18/20 for [id number] ([place] 3+4=7, 0/3 LN, +SMS) Doing well. Normal BMs. Denies abdominal pain, N/V, f/c. No problems with incisions. Using 1 safety pad/day. Dry more often than not. Some leakage with cough. Good FOS. No hematuria. Getting erections adequate for penetration with 20-40 mg sildenafil. Sometimes without. PSA6/08/31 12.73/09/29 <0.046/ <0.0412/03/01 0.07 UF: 2/5Pre-op EF: 25EF: 25 Otf Tinoco MD, PHD [address] [place], [place] [address], [place], [address], [facility] 06/18/2021 11:09:53 10/08/2021 text/html 70M s/p RALP on 07/18/20 for [id number] ([place] 3+4=7, 0/3 LN, +SMS) PSA detectable last visit. Here to review MRI and Decipher RP. Decipher RP= 0.40-->Low risk MRI pelvis (09/30/21): small left sidewall seroma, no evidence local recurrence Using 1 safety pad/day. Dry more often than not. Some leakage with cough. Good FOS. No hematuria. Getting erections adequate for penetration with 20-40 mg sildenafil. Sometimes without. PSA6/08/31 12.73/09/29 <0.046/ <0.0412/03/01 0.073 0.08 UF: 25Pre-op EF: 5EF: 2 Otf Tinoco MD, PHD [address] [place] [address], [phone], [facility] 10/08/2021 11:20:33 04/22/2022 text/html 71M s/p RALP on 07/18/20 for [id number] ([place] 3+4=7, 0/3 LN, +SMS) PSA detectable. Decipher RP= 0.40-->Low risk MRI pelvis (09/30/21): small left sidewall seroma, no evidence local recurrence Using 1 safety pad/day. Dry more often than not. Some leakage with cough. Good FOS. No hematuria. Getting erections adequate for penetration with 20-40 mg sildenafil. Sometimes without. PSA6/08/31 12.73/09/29 <0.046/ <0.0412 0.073 0.087/05/2022 0.21 ([place]) 0.09 UF: 2/5Pre-op EF: 25EF: 25 Otf Tinoco MD, PHD [address] [place] [address],[address], [address], [facility] 04/22/2022 16:19:41 10/21/2022 text/html 71M s/p RALP on 07/18/20 for [id number] ([place] 3+4=7, 0/3 LN, +SMS) Having heart/lung issues. May need stent/cabg. PSA detectable. Decipher RP= 0.40-->Low risk MRI pelvis (09/30/21): small left sidewall seroma, no evidence local recurrence Using 1 safety pad/day. Dry more often than not. Some leakage with cough. Good FOS. No hematuria. Getting erections adequate for penetration with 20-40 mg sildenafil. Sometimes without. PSA6/08/31 12.73/09/29 <0.046/ <0.0412/03/01 0.073/ 0.087/05/2022 0.21 ([place]) 0.094/01/01 0.24 UF: 2/5Pre-op EF: 2/5EF: 2/5 Otf Tinoco MD, PHD [address] [facility] [facility] [address], [place], [address], [facility] 10/21/2022 10:52:03
--- OUTSIDE RECORDS SUMMARY | 2024-10-07 11:35 | XMS_ITS | Clinical Summary ---
Author Organization [facility] Address [address] [place] [address]. [place] [address] Care Team Providers Care Cigar Packer And Sorter Name Role Phone Osvaldo Hall MD Primary Care Provider Allergies Active Allergy Reactions Criticality Noted Date Comments No Known Drug Allergy 11/16/2000 Medications ALPRAZolam (XANAX) 0.5 MG tablet Take 0.5 mg by mouth At Bedtime Active budesonide (PULMICORT FLEXHALER) 180 MCG/ACT inhaler Inhale into the lungs 2 times daily as needed Active atorvastatin (LIPITOR) 20 MG tablet Take 20 mg by mouth every evening Active amLODIPine (NORVASC) 5 MG tablet Take 5 mg by mouth every morning Active lisinopril-hydr ochlorothiazide (ZESTORETIC) 20-25 MG tablet Take 1 tablet by mouth every morning Active acetaminophen (TYLENOL) 325 MG tabletIndicatio ns:Prostate cancer (H) Take 1-2 tablets (325-650 mg) by mouth every 6 hours 0 1 Active oxyCODONE (ROXICODONE) 5 MG tabletIndicatio ns:Prostate cancer (H) Take 1-2 tablets (5-10 mg) by mouth every 4 hours as needed for moderate to severe pain 12 tablet 1 Active senna-docusate (SENOKOT-S/JOSE COLACE) 8.6-50 MG tabletIndicatio ns:Prostate cancer (H) Take 1 tablet by mouth 2 times daily as needed for constipation 30 tablet 1 1 Active Active Problems Problem Noted Date Diagnosed Date Prostate cancer 07/18/2020 Tobacco use disorder 11/16/2000 Essential hypertension, benign Family History Medical History Relation Comments Heart Disease Father PR age 60's Hypertension Father Heart Disease Mother PR age 60's Hypertension Mother Cancer No family [...] at Not on file Legal Sex Male 2:59 AM PATIENT SERVICE COORDINATOR Gender Identity Not on file Sexual Orientation Not on file 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 Not on file Not on file Last Filed Vital Signs Vital Sign Reading Time Taken Comments Blood Pressure 126/75 07/19/2020 3:10 PM PATIENT SERVICE COORDINATOR Pulse 79 07/19/2020 3:10 PM PATIENT SERVICE COORDINATOR Temperature 36.2 C (97.2 F) 07/19/2020 3:10 PM PATIENT SERVICE COORDINATOR Respiratory Rate 16 07/19/2020 4:50 PM PATIENT SERVICE COORDINATOR Oxygen Saturation 93% 07/19/2020 3:10 PM PATIENT SERVICE COORDINATOR Inhaled Oxygen Concentration - - Weight 92.1 kg (203 lb) 07/18/2020 10:31 AM PATIENT SERVICE COORDINATOR Height 180.3 cm (5' 11) 07/18/2020 10:31 AM PATIENT SERVICE COORDINATOR Body Mass Index 28.31 07/18/2020 10:31 AM PATIENT SERVICE COORDINATOR Plan of Treatment Not on file Insurance [facility] [employer] [facility] Advance Directives For more information, please contact: [phone] * Full Code (Latest Code Status on File) Date Activated Date Inactivated Comments 07/18/2020 5:59 PM 07/19/2020 7:37 PM All basic and advanced life-sustaining interventions are performed as appropriate Question Answer Comments Code status determined by: Unable to dis cuss and no AD/POLST on file; continue PREVIOUSLY ORDERED code status Care Teams Cigar Packer And Sorter Relationship Specialty Start Date End Date Osvaldo Hall MD PCP - General Family Medicine 07/12/20
--- NOTE | 2024-10-07 11:50 | CRLHL7_ITS ---
For Patients: As a result of the Cures Act, medical imaging exams and procedure reports are released immediately into your electronic medical record. You may view this report before your referring provider. If you have questions, please contact your health care provider. INDICATION: Shortness of breath, chronic obstructive pulmonary disease TECHNIQUE: Chest radiograph 2 views on 3 films COMPARISON: 10/02/2024 FINDINGS: Mediastinum: A coronary artery stent is noted. The heart silhouette is normal in size and morphology. Lung: Bilateral pulmonary hyperinflation and lucency is noted. No sign of pleural effusion seen. No pneumothorax is identified. Bone and Soft tissue: Left reverse shoulder arthroplasty is partially visualized. IMPRESSION: 1. Bilateral pulmonary hyperinflation and lucency is noted. This is suggestive of severe, stable pulmonary emphysema. Dictated by Adryan Arambula MD @ 10/07/2024 12:35:00 PM Dictated by: Adryan Arambula MD @ 10/07/2024 12:35:04 (Electronically Signed)
--- NOTE | 2024-10-07 12:12 | ED.GENADULT ---
HPI - General Adult General Chief complaint: Shortness of Breath/Dyspnea Stated complaint: chest cold/pains Time Seen by Provider: 10/07/24 11:36 Source: patient Mode of arrival: ambulatory Limitations: no limitations History of Present Illness HPI narrative: 73-year-old male coming in today complaining of shortness of breath going on for approximately 1 week. He was seen in the clinic on the and at that time was prescribed Levaquin 500 mg daily for 7 days and prednisone was started at 10 mg b.i.d. for 5 days, a day later patient called stating that he was feeling more short of breath and prednisone was increased to 40 mg daily. He is continuing his Trelegy, Stiolto and DuoNebs. He does use oxygen p.r.n. at home. He feels that this is not helping either. Two days ago he developed chest pressure central, substernal radiating to the left chest wall. Pain that comes and goes. He denies fevers or chills. No nausea or vomiting. Shortness of breath is significant with minimal exertion and in the last 2 days seems worse than a week ago. Past medical history significant for cardiovascular disease status post stenting, COPD, hypertension, hyperlipidemia, history of prostate cancer. Related Data Home Medications ?Medication ?Instructions ?Recorded ?Confirmed nitroglycerin 0.4 mg sublingual 0.4 mg sublingual Q5M PRN 10/22/22 10/02/24 tablet aspirin 81 mg tablet,delayed 81 mg PO DAILY 03/02/23 10/02/24 release Previous Rx's ?Medication ?Instructions ?Recorded nebulizer and compressor #1 ea 12/08/22 atorvastatin 40 mg tablet 40 mg PO DAILY #90 tabs 09/15/24 carvedilol 6.25 mg tablet 6.25 mg PO BID #180 tabs 09/15/24 clopidogrel 75 mg tablet 75 mg PO DAILY #90 tabs 09/15/24 ezetimibe 10 mg tablet 10 mg PO DAILY #90 tabs 09/15/24 fluticasone fur. 200 mcg-umeclid 1 inh inhalation DAILY #60 ea 09/15/24 62.5 mcg-vilant 25 mcg inhalat.powder (Trelegy Ellipta) ipratropium 0.5 mg-albuterol 3 mg 3 ml inhalation QID #360 mL 09/15/24 (2.5 mg base)/3 mL nebulization soln isosorbide mononitrate 60 mg 60 mg PO QAM #90 tabs 09/15/24 tablet,extended release 24 hr lisinopril 20 2 tab PO DAILY #180 tabs 09/15/24 mg-hydrochlorothiazide 12.5 mg tablet nebulizer accessories (Adult #1 ea 09/15/24 Aerosol Mask) omeprazole 20 mg capsule,delayed 20 mg PO DAILY #90 caps 09/15/24 release prednisone 10 mg tablet 10 mg PO DAILY #90 tabs 09/15/24 tiotropium 2.5 mcg-olodaterol 2.5 2 puff inhalation DAILY #4 grams 09/15/24 mcg/actuation mist for inhalation (Stiolto Respimat) levofloxacin 500 mg tablet 500 mg PO QDAY #7 tabs 10/02/24 Allergies Allergy/AdvReac Type Severity Reaction Status Date / Time No Known Drug Allergies Allergy Verified 10/07/24 11:42 Review of Systems Status of ROS: Reports: 10 or more systems reviewed and unremarkable except as noted in History and below [facility] Medical History Weakness of left shoulder ?R29.898 - Other symptoms and signs involving the musculoskeletal system (ICD-10) Insomnia ?G47.00 - Insomnia, unspecified (ICD-10) Health care directive on file ?Z78.9 - Other specified health status (ICD-10) Primary hypertension ?I10 - Essential (primary) hypertension (ICD-10) Mixed hyperlipidemia ?E78.2 - Mixed hyperlipidemia (ICD-10) ASCVD (arteriosclerotic cardiovascular disease) ?I25.10 - Atherosclerotic heart disease of [place] coronary artery without angina pectoris (ICD-10) Malignant neoplasm of prostate ?C61 - Malignant neoplasm of prostate (ICD-10) Health care directive on file (04/24/21) ?Z78.9 - Other specified health status (ICD-10) Gastroesophageal reflux disease ?K21.9 - Gastro-esophageal reflux disease without esophagitis (ICD-10) Erectile dysfunction ?N52.9 - Male erectile dysfunction, unspecified (ICD-10) Chronic obstructive pulmonary disease ?J44.9 - Chronic obstructive pulmonary disease, unspecified (ICD-10) Anxiety ?F41.9 - Anxiety disorder, unspecified (ICD-10) Surgical History 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) ?Z96.619 - Presence of unspecified artificial shoulder joint (ICD-10) History of coronary artery stent placement ?Z95.5 - Presence of coronary angioplasty implant and graft (ICD-10) Status post laparoscopic cholecystectomy (2011) ?Z90.49 - Acquired absence of other specified parts of digestive tract (ICD-10) History of robot-assisted laparoscopic radical prostatectomy (2019) ?Z90.79 - Acquired absence of other genital organ(s) (ICD-10) History of mandibular surgery (1994) ?Z98.890 - Other specified postprocedural states (ICD-10) History of inguinal hernia repair ?Z98.890 - Other specified postprocedural states (ICD-10) ?Z87.19 - Personal history of other diseases of the digestive system (ICD-10) History of excision of testicular mass ?Z98.890 - Other specified postprocedural states (ICD-10) ?Z87.438 - Personal history of other diseases of male genital organs (ICD-10) Family History Father Heart disease Mother Heart disease Brother Prostate cancer Brother Melanoma Social History Narrative: , 2 kids, retired, non-smoker (Quit 2008), social EtOH What is your current living situation?: I presently have a place to live Problems where you live: no known problems In the past 12 months, utilities in danger of being shut off: no In past 12 months, lack of transportation kept you from medical appts, meetings, work, or getting things needed for daily living: no In the past 12 mos, have been you worried that your food would run out before you had money to buy more?: never true In the past 12 mos, the food you bought just didn't last and you didn't have money to buy more?: never true Smoking Status: Former smoker What tobacco products do you use: cigarettes Smoking quit date/years: >15 years ago Do you use any of these nicotine containing products: None Second hand tobacco smoke exposure: No How often do you have a drink containing alcohol: 2-3 times a week AUDIT-C Alcohol total score: 3 Non-prescribed substance use: denies use How often does anyone, including family, friends and others, physically hurt you: never How often does anyone, including family, friends and others, insult or talk down to you: never How often does anyone, including family, friends and others, threaten you with harm: never How often does anyone, including family, friends and others, scream or curse at you: never Exam Narrative: Exam Narrative: Well-nourished well-developed patient, mildly tachypneic. Alert and oriented. Answers questions appropriately. Mood and affect are appropriate. Thoughts are goal oriented and rational. No tangential or magical thinking noted. Cannot complete a sentence without catching his breath. HEENT: Normocephalic atraumatic. Pupils are equally round reactive to light. Extraocular muscles are intact. Conjunctivae are moist without any icterus noted. Moist mucous membranes. Posterior pharynx is normal. Neck is supple. Cardiovascular: Heart is regular rate and rhythm S1 and S2 are present without any murmurs. Heart sounds are distant. Lungs: Greatly diminished bilaterally without any obvious wheezing. Abdomen: Soft and nontender nondistended with normal bowel sounds. Extremities: Bilateral lower extremities show 2+ pitting edema. Skin: Well perfused . Const: Vital Signs, click to edit/add: Vital Signs - 24 hr 10/07/24 11:36 10/07/24 12:49 10/07/24 12:55 Temperature 97.6 F Pulse Rate 97 Pulse Rate [Right Pulse Oximeter] 93 Respiratory Rate 20 22 Blood Pressure Blood Pressure [Ri ght Upper Arm] 144/89 H Pulse Oximetry 89 91 92 Oxygen Delivery Me thod Room Air 10/07/24 13:00 10/07/24 13:02 10/07/24 13:15 Temperature Pulse Rate 98 102 H 102 H Pulse Rate [Right Pulse Oximeter] Respiratory Rate 15 26 H 15 Blood Pressure 148/98 H Blood Pressure [Ri ght Upper Arm] Pulse Oximetry 94 94 92 Oxygen Delivery Me thod Room Air 10/07/24 13:17 10/07/24 13:30 10/07/24 13:31 Temperature Pulse Rate 101 H 98 98 Pulse Rate [Right Pulse Oximeter] Respiratory Rate 15 15 25 H Blood Pressure 149/109 H 146/104 H Blood Pressure [Ri ght Upper Arm] Pulse Oximetry 93 92 92 Oxygen Delivery Me thod Room Air Room Air 10/07/24 13:45 10/07/24 13:46 10/07/24 14:00 Temperature Pulse Rate 98 97 96 Pulse Rate [Right Pulse Oximeter] Respiratory Rate 23 12 14 Blood Pressure 140/112 H Blood Pressure [Ri ght Upper Arm] Pulse Oximetry 93 93 93 Oxygen Delivery Me thod Room Air 10/07/24 14:01 10/07/24 14:15 10/07/24 14:16 Temperature Pulse Rate 93 90 92 Pulse Rate [Right Pulse Oximeter] Respiratory Rate 14 12 17 Blood Pressure 127/92 H 139/99 H Blood Pressure [Ri ght Upper Arm] Pulse Oximetry 93 95 94 Oxygen Delivery Me thod Room Air Room Air 10/07/24 14:30 10/07/24 14:31 10/07/24 14:33 Temperature Pulse Rate 91 91 89 Pulse Rate [Right Pulse Oximeter] Respiratory Rate 21 18 17 Blood Pressure 170/101 H 152/91 H Blood Pressure [Ri ght Upper Arm] Pulse Oximetry 90 91 93 Oxygen Delivery Me thod Room Air Room Air 10/07/24 14:36 10/07/24 14:41 10/07/24 14:45 Temperature Pulse Rate 95 99 94 Pulse Rate [Right Pulse Oximeter] Respiratory Rate 18 21 11 L Blood Pressure 136/92 H 125/77 Blood Pressure [Ri ght Upper Arm] Pulse Oximetry 93 91 91 Oxygen Delivery Me thod Room Air Room Air Room Air 10/07/24 14:46 10/07/24 14:51 10/07/24 14:56 Temperature Pulse Rate 97 94 96 Pulse Rate [Right Pulse Oximeter] Respiratory Rate 24 19 27 H Blood Pressure 110/96 H 138/76 148/102 H Blood Pressure [Ri ght Upper Arm] Pulse Oximetry 91 92 94 Oxygen Delivery Me thod Room Air Room Air Room Air 10/07/24 15:00 10/07/24 15:01 10/07/24 15:06 Temperature Pulse Rate 93 95 87 Pulse Rate [Right Pulse Oximeter] Respiratory Rate 40 H 27 H 17 Blood Pressure 149/95 H 158/98 H Blood Pressure [Ri ght Upper Arm] Pulse Oximetry 92 92 92 Oxygen Delivery Me thod Room Air Room Air Course Course ED Course: EKG, read by me, shows T-wave inversions in leads 2 3 AVF, V3, V4, V5 and V6. It looks like potentially some T-wave depression in leads 2, 3 and AVF as well. This is significant change from a previous EKG we have on file. His point of care troponin is elevated 0.18. At this point patient is given chewable aspirin and heparin is started. I also gave him a dose of 2 mg morphine. [facility] is contacted and customs guard is paged. CBC unremarkable. D-dimer minimally elevated at 0.58. Sodium 134, potassium 4.2. Cor 94. BUN 33, creatinine 0.9. LFTs normal. Troponin 0.18. CRP 1.9. BNP 1840. Patient was pain-free after morphine and felt significantly better. Repeat EKG at the 2 hour olga was unchanged. Repeat troponin 0.19. Vital Signs Vital signs: Initial Vital Signs Temperature 97.6 F 10/07/24 11:36 Temperature Source Oral 10/07/24 11:36 Pulse Rate 93 10/07/24 11:36 Respiratory Rate 20 10/07/24 11:36 Blood Pressure 144/89 H 10/07/24 11:36 Blood Pressure Mean 107 H 10/07/24 11:36 Blood Pressure Position Sitting 10/07/24 11:36 Pulse Oximetry 89 10/07/24 11:36 Oxygen Delivery Method Room Air 10/07/24 11:36 Vital Signs Temperature 97.6 F 10/07/24 11:36 Pulse Rate 93 10/07/24 11:36 Respiratory Rate 20 10/07/24 11:36 Blood Pressure 144/89 H 10/07/24 11:36 Pulse Oximetry 89 10/07/24 11:36 Oxygen Delivery Method Room Air 10/07/24 11:36 Temperature 97.6 F 10/07/24 11:36 Pulse Rate 87 10/07/24 15:06 Respiratory Rate 17 10/07/24 15:06 Blood Pressure 158/98 H 10/07/24 15:06 Pulse Oximetry 92 10/07/24 15:06 Oxygen Delivery Method Room Air 10/07/24 15:06 Medications Administered Medications: Generic Name Dose Route Start Last Admin Trade Name Freq PRN Reason Stop Dose Admin Heparin Sodium/Dextrose 25,000 unit in 500 mls @ 20 mls/hr 10/07/24 12:45 10/07/24 12:59 Heparin IV 1,000 unit/hr .Q24H KIMO 20 mls/hr Administration Protocol Per Protocol Morphine Sulfate 2 mg 10/07/24 14:13 10/07/24 14:58 Morphine 2 Mg/Ml Inj IVP 2 mg Q2H PRN Administration Nitroglycerin 0.4 mg 10/07/24 14:14 10/07/24 14:32 Nitroglycerin 0.4 Mg Tab.Subl SUBLINGUAL 0.4 mg Q5M PRN Administration Discontinued Medications Generic Name Dose Route Start Last Admin Trade Name Freq PRN Reason Stop Dose Admin Albuterol/Ipratropium 1 neb 10/07/24 11:50 10/07/24 12:36 Iprat-Albut 0.5-2.5 Mg/3 Ml Neb IH 10/07/24 11:51 1 neb ONCE ONE Administration Aspirin 324 mg 10/07/24 12:32 10/07/24 12:42 Aspirin 81 Mg Tab.Chew PO 10/07/24 12:33 324 mg ONCE ONE Administration Heparin Sodium (Porcine) 4,000 unit 10/07/24 12:34 10/07/24 12:50 Heparin 5,000 Unit/0.5 Ml Inj IVP 10/07/24 12:35 4,000 unit ONCE ONE Administration Morphine Sulfate 2 mg 10/07/24 12:32 10/07/24 12:43 Morphine 2 Mg/Ml Inj IVP 10/07/24 12:33 2 mg ONCE ONE Administration Medical Decision Making MDM Narrative Medical decision making narrative: 73-year-old male, non ST elevation [place]. Transfer to [facility]. Lab Data Lab results reviewed: Yes I reviewed the patient's lab results Labs: Lab Results 10/07/24 10/07/24 10/07/24 Range/Units 11:50 12:00 14:08 WBC 9.75 (4.50-11.00) K/uL RBC 5.50 (4.30-5.90) m/uL Hgb 16.7 (13.5-17.5) gm/dL Hct 48.8 (37.0-53.0) % MCV 89 (80-100) fL MCH 30 (26-34) pg MCHC 34 (32-36) gm/dL RDW Coeff of Balta 14.3 (11.5-15.5) % Plt Count 267 (140-440) K/uL Neut % (Auto) 85.9 H (42.0-72.0) % Lymph % (Auto) 8.7 L (20-44) % [place] % (Auto) 4.2 (0.0-11.0) % Eos % (Auto) 0.0 (0.0-7.0) % Baso % (Auto) 0.0 (0.0-3.0) % Neut # (Auto) 8.40 H (1.7-7.0) K/uL Lymph # (Auto) 0.80 L (0.90-2.90) K/uL [place] # (Auto) 0.40 (0.00-0.90) K/UL Eos # (Auto) 0.00 (0.00-0.50) K/uL Baso # (Auto) 0.00 (0.00-0.30) K/uL Abs Immat Gran (auto) 0.12 (0.00-0.30) K/uL Imm/Tot Granulo (auto) 1.2 % INR 0.99 (0.91-1.10) APTT 23 (23-33) Seconds D-Dimer Quant (PE/DVT) 0.58 H (0.00-0.50) ug/ml VBG pH 7.430 (7.32-7.43) VBG pCO2 48 (40-50) mmHG VBG pO2 44.3 (25-47) mmHG VBG HCO3 32 H (21-28) mmol/L Sodium 134 L (135-149) mmol/L Potassium 4.2 (3.6-5.1) mmol/L Chloride 94 L (96-114) mmol/L Carbon Dioxide 30 (20-32) mmol/L Anion Gap 10 (7-15) mEq/L BUN 33 H (7-30) mg/dL Creatinine 0.9 (0.5-1.5) mg/dL Estimated Creat Clear 72.16 Estimated GFR 91 ml/min Glucose 111 (60-115) mg/dL Lactate 1.6 (0.5-1.9) mmol/L Calcium 9.3 (8.4-10.6) mg/dL Magnesium 2.3 (1.5-2.6) mg/dL Troponin I 0.18 H* 0.19 H* (0.01-0.04) ng/mL C-Reactive Protein 1.9 H (0.5-1.0) mg/dL NT-Pro-B Natriuret Pep 1840 pg/mL SARS-CoV-2 (PCR) Negative SARS-CoV-2 (Negative) Influenza Type A (PCR) Negative PCR FLU A (Negative) Influenza Type B (PCR) Negative PCR FLU B (Negative) RSV (PCR) Negative PCR RSV (Negative) POC Troponin I 0.18 H (0.01-0.04) ng/ml Imaging Data Chest x-ray: Attestation: I have reviewed the pertinent imaging results. Radiologist's impression: TECHNIQUE: Chest radiograph 2 views on 3 films COMPARISON: 10/02/2024 FINDINGS: Mediastinum: A coronary artery stent is noted. The heart silhouette is normal in size and morphology. Lung: Bilateral pulmonary hyperinflation and lucency is noted. No sign of pleural effusion seen. No pneumothorax is identified. Bone and Soft tissue: Left reverse shoulder arthroplasty is partially visualized. IMPRESSION: 1. Bilateral pulmonary hyperinflation and lucency is noted. This is suggestive of severe, stable pulmonary emphysema. ECG Data Attestation: I personally reviewed and interpreted this ECG as follows: Critical Care Time Critical Care Time Total Critical Care Time in Minutes: 60 Discharge Plan Discharge Clinical Impression: Non-ST elevation [place] (NSTEMI) Patient Disposition: Xfer Other Discharge Location: [facility] Condition: Stable Prescriptions: No Action (DME) Adult Aerosol Mask Misc See Rx Instructions .Route Qty: 1 0RF Rx Instructions: Mask for use with nebulizer atorvastatin 40 mg tablet 40 mg PO DAILY Qty: 90 3RF carvedilol 6.25 mg tablet 6.25 mg PO BID Qty: 180 3RF clopidogrel 75 mg tablet 75 mg PO DAILY Qty: 90 3RF ezetimibe 10 mg tablet 10 mg PO DAILY Qty: 90 3RF Trelegy Ellipta 200-62.5-25 mcg blister with device 1 inh inhalation DAILY Qty: 60 5RF ipratropium-albuterol 0.5 mg-3 mg(2.5 mg base)/3 mL solution for nebulization 3 ml inhalation QID Qty: 360 5RF isosorbide mononitrate 60 mg tablet extended release 24 hr 60 mg PO QAM Qty: 90 3RF lisinopril-hydrochlorothiazide 20-12.5 mg tablet 2 tab PO DAILY Qty: 180 3RF Stiolto Respimat 2.5-2.5 mcg/actuation mist 2 puff inhalation DAILY Qty: 4 12RF prednisone 10 mg tablet 10 mg PO DAILY Qty: 90 3RF omeprazole 20 mg capsule,delayed release(DR/EC) 20 mg PO DAILY Qty: 90 3RF nitroglycerin 0.4 mg tablet, sublingual 0.4 mg sublingual Q5M PRN aspirin 81 mg tablet,delayed release (DR/EC) 81 mg PO DAILY levofloxacin 500 mg tablet 500 mg PO QDAY Qty: 7 0RF (DME) nebulizer and compressor Device See Rx Instructions .Route Qty: 1 0RF Rx Instructions: As directed Stand Alone Forms: [facility] Info Instructions
[2024-10-07 12:14] LABS: HCO3 VBG 32 mmol/L (21-28); Lactate* 1.6 mmol/L (0.5-1.9); PCO2 VBG 48 mmHG (40-50); PO2 VBG 44.3 mmHG (25-47)
[2024-10-07 12:18] LABS: Hematocrit 48.8 % (37.0-53.0); Hemoglobin* 16.7 gm/dL (13.5-17.5); Immature Granulocytes Abs Auto 0.12 K/uL (0.00-0.30); Immature Granulocytes Pct Auto 1.2 %; Lymphocytes Percent Auto 8.7 % (20-44); Mean Corpuscular HGB Conc 34 gm/dL (32-36); Mean Corpuscular Hemoglobin 30 pg (26-34); Mean Corpuscular Volume 89 fL (80-100); Monocytes Percent Auto 4.2 % (0.0-11.0); Neutrophils Percent Auto 85.9 % (42.0-72.0); Platelet Count* 267 K/uL (140-440); RDW Coefficient of Variation % 14.3 % (11.5-15.5); White Blood Count* 9.75 K/uL (4.50-11.00)
[2024-10-07 12:23] LABS: Slide Review Reflex No
[2024-10-07 12:31] LABS: Troponin, Point-of-Care* 0.18 ng/ml (0.01-0.04)
--- OUTSIDE RECORDS SUMMARY | 2024-10-07 12:32 | XMS_ITS ---
Author Organization [facility] Address [address] [place] [address] Care Team Providers Care Nascar Racer Name Role Phone Unavailable Primary Care Provider [...] Fraction Dose Fractions Total Dose Plans Planned [id number] 03/01/2023 - 04/14/2023 215 cGy 32 / 32 6 ,880 cGy Reference Points Delivered [id number] 03/01/2023 - 04/14/2023 6,880 cGy
--- OUTSIDE RECORDS SUMMARY | 2024-10-07 12:32 | XMS_ITS | Clinical Summary ---
Author Organization [facility] Address [address] [place] [address] Care Team Providers Care Supervisor Metal [employer]ricating Name Role Phone Unavailable Primary Care Provider Unavailabl e Source Comments Patient records contain information from all sites at [facility]. For routine questions regarding patient records, call [phone] during business hours, M-F 8:00 AM - 5:00 PM Central Time. 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
--- OUTSIDE RECORDS SUMMARY | 2024-10-07 12:32 | XMS_ITS | Clinical Summary ---
Author Organization [facility] Address [address] [place] [address]. 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 Not on file Not on file Last Filed Vital Signs Vital Sign Reading Time Taken Comments Blood Pressure 126/75 07/19/2020 3:10 PM MACHINIST HELPER MARINE Pulse 79 07/19/2020 3:10 PM MACHINIST HELPER MARINE Temperature 36.2 C (97.2 F) 07/19/2020 3:10 PM MACHINIST HELPER MARINE Respiratory Rate 16 07/19/2020 4:50 PM MACHINIST HELPER MARINE Oxygen Saturation 93% 07/19/2020 3:10 PM MACHINIST HELPER MARINE Inhaled Oxygen Concentration - - Weight 92.1 kg (203 lb) 07/18/2020 10:31 AM MACHINIST HELPER MARINE Height 180.3 cm (5' 11) 07/18/2020 10:31 AM MACHINIST HELPER MARINE Body Mass Index 28.31 07/18/2020 10:31 AM MACHINIST HELPER MARINE Plan of Treatment Not on file [facility] Advance Directives For more information, please contact: [phone] * Full Code (Latest Code Status on File) Date Activated Date Inactivated Comments 07/18/2020 5:59 PM 07/19/2020 7:37 PM All basic and advanced life-sustaining interventions are performed as appropriate Question Answer Comments Code status determined by: Unable to dis cuss and no AD/POLST on file; continue PREVIOUSLY ORDERED code status Care Teams Quality Control Lab Technician Relationship Specialty Start Date End Date Osvaldo Hall MD PCP - General Family Medicine 07/12/20
--- OUTSIDE RECORDS SUMMARY | 2024-10-07 12:32 | XMS_ITS | Clinical Summary ---
Author Organization [facility] Address [address] [place] [id number] Care Team Providers Care Color Repairer Name Role Phone Osvaldo Hall MD Primary [...] artery disease of n ative artery of [place] heart with stable angina pectoris 11/16/2022 Primary hypertension 11/16/2022 Mixed hyperlipidemia 11/16/2022 COPD (chronic obstructive pulmonary disease) 11/2022 ASCVD (arteriosclerotic cardiovascular disease) 10/14/2022 Overview (10/14/2022): CT coronary angiogram 09/15/22 - diffuse MVD with severe OM2 disease and a mRCA FINAL ARMATURE TESTER noted with left to right collaterals Encounters Date Type Department Care Team Description 09/23/2024 Refill [facility] Ace [address] [place] [place] [address] Blayne Iglesias MD Refill Request (Aspirin) 09/04/2024 Refill [facility] [place] [address] [place] [phone] [...] on file Legal Sex Male 5:27 AM [employer] Gender Identity Not on file Sexual Orientation Not on file Obstetrics History Last Filed Vital Signs Vital Sign Reading Time Taken Comments Blood Pressure 144/90 05/18/2023 9:04 AM [employer] Pulse 85 05/18/2023 9:04 AM [employer] Temperature 36.5 C (97.7 F) 12/16/2022 12:13 AM CDT Respiratory Rate 18 12/31/2022 1:00 PM CDT Oxygen Saturation 94% 05/18/2023 9:04 AM [employer] Inhaled Oxygen Concentration - - Weight 105.4 kg (232 lb 6.4 oz) 05/18/2023 9:04 AM [employer] Height 180.3 cm (5' 10.98) 05/18/2023 9:[address] Body Mass Index 32.43 05/18/2023 9:04 AM [employer] Plan of Treatment Upcoming Encounters Date Type Department Care Team (Late st Contact Info) Description 10/09/2024 3:00 PM CDT Ancillary Procedure [facility] [place] [facility] [address] [place] [address] 02/14/2025 10:00 AM CDT Office Visit [facility] [place] [address] [facility] [address] [place] [phone] Bal Bosch MD [address] [facility] [address] [place] [place] [address] Health Maintenance Due Date Last Done Comments [...] Comments LIPID PANEL Routine 05/25/2023 9:34 AM [employer] ASCVD (arteriosclerotic cardiovascular disease) from Last 3 Months or Most Recently Relevant to Health Maintenance Results * (ABNORMAL) LIPID PANEL (05/25/2023 9:34 AM [employer]) CHOLESTEROL,TOTAL 135 100 - 199 mg/dL 05/25/2023 4:48 PM [employer] [facility] Comment: Cholesterol, Total Reference Ranges Desirable <200 mg/dL Borderline 200-239 mg/dL High >=240 mg/dL TRIGLYCERIDES 236(H) <150 mg/dL 05/25/2023 4:48 PM [employer] [facility] HDL CHOLESTEROL 41 >40 mg/dL 4:48 PM [employer] [facility] NON-HDL CHOLESTEROL 94 <145 mg/dl 05/25/2023 4:48 PM [employer] [facility] CHOL/HDL RATIO 3.29 <4.50 05/25/2023 4:48 PM [employer] [facility] LDL CHOLESTEROL 47 <=130 mg/dL 05/25/2023 4:48 PM [employer] [facility] VLDL CHOLESTEROL 47(H) <=30 mg/dL 05/25/2023 4:48 PM [employer] [facility] PROVIDER ORDERED STATUS RANDOM 05/25/2023 4:48 PM [employer] [facility] Blood BLOOD SPECIMEN / Unknown Venipuncture / Unknown 05/25/2023 9:34 AM [employer] 05/25/2023 9:34 AM [employer] us Blayne Iglesias MD CHEMISTRY Final R esult [facility] [address] [place] [id number], from Last 3 Months or Most Recently [...] Code Status Discussion: Reviewed Preferences Care Teams Color Repairer Relationship Specialty Start Date End Date Osvaldo Hall MD [address] [place] [address] PCP - General Family Practice 04/03/20
[2024-10-07 12:36] LABS: Chloride* 94 mmol/L (96-114); Potassium* 4.2 mmol/L (3.6-5.1); Sodium* 134 mmol/L (135-149)
[2024-10-07] MEDS: IPRAT-ALBUT 0.5-2.5 MG/3 ML NEB 1 NEB IH (12:36)
[2024-10-07 12:39] LABS: Blood Urea Nitrogen* 33 mg/dL (7-30); Creatinine* 0.9 mg/dL (0.5-1.5); Est. Creatinine Clearance* 72.16; Estimated Glomerular Filt Rate 91 ml/min
[2024-10-07 12:40] LABS: Anion Gap 10 mEq/L (7-15); Calcium* 9.3 mg/dL (8.4-10.6); Carbon Dioxide* 30 mmol/L (20-32); Glucose* 111 mg/dL (60-115); Magnesium* 2.3 mg/dL (1.5-2.6)
[2024-10-07 12:42] LABS: C Reactive Protein* 1.9 mg/dL (0.5-1.0); D Dimer Quantitative* 0.58 ug/ml (0.00-0.50)
[2024-10-07] MEDS: ASPIRIN 81 MG TAB.CHEW 324 MG PO (12:42)
[2024-10-07] MEDS: MORPHINE 2 MG/ML inj IVP ×2 (12:43→14:58)
[2024-10-07 12:45] LABS: INR 0.99 (0.91-1.10); Prothrombin Time 13.9 Seconds
[2024-10-07 12:46] LABS: Partial Thromboplastin Time* 23 Seconds (23-33)
[2024-10-07] MEDS: HEPARIN 5,000 UNIT/0.5 ML INJ 4000 UNIT IVP (12:50)
[2024-10-07 12:52] LABS: PCR FLU A Negative PCR FLU A (Negative); PCR FLU B Negative PCR FLU B (Negative); PCR RSV Negative PCR RSV (Negative); SARS PCR* Negative SARS-CoV-2 (Negative)
[2024-10-07 12:54] LABS: NT Pro B Type NatriureticPept* 1840 pg/mL; Troponin I* 0.18 ng/mL (0.01-0.04)
[2024-10-07] MEDS: HEPARIN 25,000 UNIT/500 ML BAG 20 UNIT IV (12:59)
[2024-10-07] MEDS: NITROGLYCERIN 0.4 MG TAB.SUBL SUBLINGUAL (14:32)
[2024-10-07 14:46] LABS: Troponin I* 0.19 ng/mL (0.01-0.04)
--- NOTE | 2024-10-07 14:55 | ED.NURSE ---
Report given to [place] LAURA.
== END 2024-10-07 16:47 | disposition other institution (70) ==
PROVIDERS: Emergency Provider Family Medicine; PCP Family Medicine
DX: I21.4 Non-ST elevation (NSTEMI) myocardial infarction (principal); J43.8 Other emphysema
CPT/HCPCS: 36415; 71046; 80048; 82803; 83605; 83735; 83880; 84484; 85025; 85379; 85610; 85730; 86140; 87631; 93005; 94761; 96374; 96376; 99285; 99291; A9270; J1644; J2270

== ENCOUNTER 2024-10-07 16:25 | Outpatient (CLI) | payer MEDICARE, BC, SELFPAY | END 2024-10-07 16:26 | disposition home or self-care (01) | LOC: AMB 10-09 10:33 | PROVIDERS: PCP Family Medicine; Visit Provider Family Medicine | DX: I21.4 Non-ST elevation (NSTEMI) myocardial infarction (principal) | CPT/HCPCS: A0425; A0434 ==

== ENCOUNTER 2024-10-27 09:53 | Emergency (ER) | payer MEDICARE, BC, SELFPAY ==
--- OUTSIDE RECORDS SUMMARY | 2024-10-27 09:56 | XMS_ITS | Clinical Summary ---
Author Organization [facility] Address [address] [place] [id number] Care Team Providers Care Studio Operations Engineer In Charge Name Role Phone Osvaldo Hall MD Primary Care Provider + Allergies No known active allergies Medications omeprazole (PRILOSEC) 20 mg Delayed-Release capsule Take 1 Capsule (20 mg) by mouth once daily before a meal. 0 023 Active albuterol HFA (PRO-AIR; VENTOLIN; PROVENTIL) 90 mcg/actuation inhaler Inhale 2 Puffs by mouth 4 times daily if needed. 0 023 Active tiotropium-olodat Serge (Stiolto Respimat) 2.5-2.5 mcg/actuation inhaler Inhale 2 Puffs by mouth once daily. 4 g 023 Active nitroglycerin (NITROSTAT) 0.4 mg sublingual tabletIndications :ASCVD (arteriosclerotic cardiovascular disease) Place 1 Tablet (0.4 mg) under the tongue every 5 minutes if needed for Chest Pain. 25 Tablet 1 023 Active albuterol-ipratro pium (DUONEB) (2.5-0.5 mg) in 3 mL NEBULIZATION solution Inhale 3 mL via a nebulizer every 6 hours if needed. 023 Active ezetimibe (Zetia) 10 mg tabletIndications :ASCVD (arteriosclerotic cardiovascular disease) Take 1 Tablet (10 mg) by mouth once daily. 90 Tablet 3 023 Active clopidogreL (PLAVIX) 75 mg tabletIndications :ASCVD (arteriosclerotic cardiovascular disease) Take 1 Tablet (75 mg) by mouth once daily. 90 Tablet 4 12/17/19 23 10:40 AM CDT 023 Active lisinopril-hydroc hlorothiazide 20-12.5 mg tablet (PRINZIDE) Take 2 Tablets by mouth once daily. 0 023 Active carvediloL (Coreg) 6.25 mg tabletIndications :ASCVD (arteriosclerotic cardiovascular disease) Take 1 Tablet (6.25 mg) by mouth two times daily with meals. This medication replaces Metoprolol. 180 Tablet 3 023 Active Trelegy Ellipta 200-62.5-25 mcg inhalerIndication s:Chronic obstructive pulmonary disease, unspecified COPD type (HC) INHALE ONE PUFF BY MOUTH EVERY DAY, AT THE SAME TIME EACH DAY 60 Each 025 Active aspirin (ECOTRIN) 81 mg enteric coated tabletIndications :Dyspnea on exertion TAKE 1 TABLET (81 MG) BY MOUTH ONCE DAILY WITH A MEAL. 90 Tablet 025 Active acetaminophen 500 mg tablet Take 1,000 mg by mouth every 6 hours if needed. Max acetaminophen dose: 4000mg in 24 hrs. Active sennosides-docusa te (Senna with Docusate Sodium) (8.6-50 mg) tablet Take 1-2 Tablets by mouth 2 times daily if needed for Constipation. Active isosorbide mononitrate 30 mg extended release tablet 24 HourIndications:N STEMI (non-ST elevated myocardial infarction) (HC) Take 3 Tablets (90 mg) by mouth once daily. 30 Tablet 10/15/19 25 1:21 PM CDT 025 Active atorvastatin 80 mg tabletIndications :NSTEMI (non-ST elevated myocardial infarction) (HC) Take 1 Tablet (80 mg) by mouth at bedtime. 30 Tablet 10/15/19 25 1:21 PM CDT 025 Active cholecalciferol (Vitamin D3) 2,000 unit tabletIndications :Vitamin D deficiency Take 1 Tablet (2,000 units) by mouth once daily. 30 Tablet 10/15/19 3:42 PM CDT 025 Active morphine CONCENTRATE 20 mg/mL (100 mg/5 mL) oral solutionIndicatio ns:Chronic obstructive pulmonary disease with acute exacerbation (HC) Take 0.25 to 0.5 mL (5-10 mg) by mouth every 4 hours if needed for Pain (Shortness of breath/anxiety) . 10 mL 10/15/19 3:42 PM CDT 025 Active guaiFENesin 100 mg/5 mL liquidIndications :Chronic obstructive pulmonary disease with acute exacerbation (HC) Take 5 mL (100 mg) by mouth every 4 hours if needed for Expectoration. 118 mL 10/15/19 3:42 PM CDT 025 Active azithromycin 500 mg tabletIndications :PROPHYLAXIS Take 1 tablet (500 mg) by mouth every Wednesday, Wednesday, and Wednesday's. 30 Tablet 10/15/19 3:42 PM CDT 025 Active atorvastatin (LIPITOR) 40 mg tabletIndications :Hyperlipidemia, unspecified hyperlipidemia type Take 1 Tablet (40 mg) by mouth at bedtime. 90 Tablet 3 023 2024 Discontinued(* IP Discontinued) ALPRAZolam (XANAX) 1 mg tablet Take 1 mg by mouth at bedtime. 023 2024 Discontinued(P harmacist change per medication history (E-cancel not sent)) isosorbide mononitrate (IMDUR) 60 mg extended release tablet 24 hour Take 60 mg by mouth once daily. 2024 Discontinued(* IP Discontinued) predniSONE (DELTASONE) 10 mg tablet Take 1 Tablet (10 mg) by mouth once daily with a meal. 0 023 2024 Discontinued(P harmacist change per medication history (E-cancel not sent)) predniSONE 10 mg tablet Take 40 mg by mouth once daily for 1 week. Then take 30 mg by mouth once daily for 1 week. Then take 20 mg by mouth once daily for 1 week. Then take 10 mg by mouth once daily. 2024 Discontinued(* IP Discontinued) predniSONE 10 mg tabletIndications :Chronic obstructive pulmonary disease with acute exacerbation (HC) Take 4 Tablets (40 mg) by mouth once daily with a meal for 2 days, THEN 3 Tablets (30 mg) once daily with a meal for 3 days, THEN 2 Tablets (20 mg) once daily with a meal for 3 days, THEN 1 Tablet (10 mg) once daily with a meal for 3 days. 26 Tablet 10/15/19 25 3:42 PM CDT 025 2024 azithromycin 250 mg tabletIndications :PROPHYLAXIS Take 500 mg (2 tabs) by mouth on day 1, then 250 mg (1 tab) daily for days 2-5. 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 Encounters Date Type Department Care Team Description 10/14/2024 Orders Only [address] [address] Manuel Rea DO <No scans attached> 10/13/[address] [address] Debbie Costello PA Follow Up 10/07/2024 5:25 PM CDT - 10/14/2024 4:30 PM CDT Hospital Encounter [address] [address] s, U Hospitalist [facility] Dannielle Martinez MBBS O'Neil, Luke Jeffrey, MD [place], Alan Jason, MD Maki, Mackenzie, MD NSTEMI (non-ST elevated myocardial infarction) (HC) (Primary Dx); Hyperlipidemia, unspecified hyperlipidemia type; Chronic obstructive pulmonary disease with acute exacerbation (HC); Vitamin D deficiency Discharge Disposition: Home Self Care 10/07/2024 Travel 09/23/2024 Refill [facility] Sharyn Ace [address] [place] [address] Blayne Iglesias MD Refill Request (Aspirin) 09/04/2024 Refill [facility] [place] [address] [place] [phone] Bal Bosch MD Refill Request (Trelegy Ellipta) from Last 3 Months Social History Tobacco Use Types Packs/Day Years Used Date Smoking Tobacco: Former Cigarettes 1 45 1 965 - 2009 Smokeless Tobacco: Never Tobacco Cessation:Counseling Given: Not Answered Alcohol Use Standard Drinks/Week Comments Yes 3 (1 standard drink = 0.6 oz pur e alcohol) PHQ-2 Answer Date Recorded PHQ-2 TOTAL SCORE 0 03/29/2023 Social Connections Answer Date Recorded Do you often feel lonely or isolated from those around you? 0 10/07/2024 Financial Resource Strain Answer Date R ecorded Difficulty of Paying Living Expenses 3 10/07/2024 Difficulty of Paying Living Expenses Not on file 10/07/2024 Food Insecurity Answer Date Recorded Do you worry your food will run out before you are able to buy more? 1 10/07/2024 Transportation Needs Answer Date Record ed Does lack of transportation keep you from medica l appointments? 1 10/07/2024 Does lack of transportation keep you from work, meetings or getting things that you need? 1 10/07/2024 Housing Stability Answer Date Recorded What is your housing situation today? 1 10/07/2024 Interpersonal Safety Answer Date Record ed Are you being hit, kicked, p ushed or yelled at (see row info)? No 10/07/2024 Interpersonal Safety Abuse 12 - 18 Not on file 10/07/2024 Interpersonal Safety Ambulatory Vulnerability No t on file 10/07/2024 Utilities Answer Date Recorded Do you have trouble paying f or utilities (for example, heat, electricity, water, phone)? 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 Gender Identity Not on file Sexual Orientation Not on file Obstetrics History Last Filed Vital Signs Vital Sign Reading Time Taken Comments Blood Pressure 124/69 10/14/2024 7:46 AM CDT Pulse 85 10/14/2024 7:46 AM CDT Temperature 36.3 C (97.3 F) 10/14/2024 7:46 AM CDT Respiratory Rate 18 10/14/2024 7:46 AM CDT Oxygen Saturation 96% 10/14/2024 1:21 PM CDT Inhaled Oxygen Concentration - - Weight 90.7 kg (200 lb) 10/14/2024 6:00 AM CDT Height 180.3 cm (5' 10.98) 10/11/2024 7:00 AM C DT Body Mass Index 27.91 10/11/2024 7:00 AM CDT Plan of Treatment Upcoming Encounters Date Type Department Care Team (Late st Contact Info) Description 11/21/2024 9:30 AM CDT Office Visit [facility] [address] [place] [address] [address] [place] [address] Blayne Iglesias MD [address] [facility] [address] [place] [address] 02/14/2025 10:00 AM CDT Office Visit [facility] [place] [address] [place] [phone] Bal Bosch MD [address] [facility] [address] [address] Health Maintenance Due Date Last Done Comments Tdap 11/10/1963 Hepatitis C screening for ag e 18-79 1970 Pneumococcal series for age 50+ (1 of 2 - PCV) 11/10/1971 Tetanus booster 1972 Colonoscopy through age 75 1997 Zoster (shingles) series for age 50+ (1 of 2) 2002 RSV vaccine for adults or (1 - Risk 60-74 years 1-dose series) 2012 Depression screening for age 12+ 03/26/2024 03/26/2023, 12/31/2022, 11/16/2022 BMI (ht and wt on same day) for age 18+ 05/18/2024 05/18/2023, 12/01/2022, 10/28/2022, Additional history exists COVID-19 vaccine series ( season) 2024 04/05/2024, 09/22/2023, 04/09/2023, Additional history exists Influenza Vaccine (Season Ended) 2025 Lipids for age 45-75 10/07/2029 10/07/2024, 05/25/2023, 12/01/2022, Additional history exists AAA screening age 65-74 Completed 11/02/2022 Procedures Procedure Name Priority Date/Time Associated Diagnosis Comments SCAN CORRESP-EKG RESULTS 10/16/2024 2:48 PM CDT POTASSIUM SCOTT 10/14/2024 8:07 AM CDT MAGNESIUM SCOTT 10/14/2024 8:07 AM CDT SCAN-CARDIAC STRIP 10/14/2024 7: 10 AM CDT SCAN-CARDIAC STRIP 10/14/2024 12 :31 AM CDT SCAN-CARDIAC STRIP 10/13/2024 6: 09 PM CDT SCAN-CARDIAC STRIP 10/13/2024 8: 34 AM CDT CREATININE Early AM 10/13/2024 5:48 AM CDT POTASSIUM Early AM 10/13/2024 5:48 AM CDT MAGNESIUM Early AM 10/13/2024 5:48 AM CDT SCAN-CARDIAC STRIP 10/13/2024 12 :45 AM CDT SCAN-CARDIAC STRIP 10/12/2024 7: 45 PM CDT SCAN-CARDIAC STRIP 10/12/2024 4: 42 PM CDT XR CHEST 1 VIEW PORTABLE Routine 10/12/2024 9:45 AM CDT SCAN-CARDIAC STRIP 10/12/2024 8: 55 AM CDT BASIC METABOLIC PANEL SCOTT 10/12/2024 6:43 AM CDT POTASSIUM Early AM 10/12/2024 6:43 AM CDT MAGNESIUM Early AM 10/12/2024 5:51 AM CDT HEMOGLOBIN Early AM 10/12/2024 5:51 AM CDT PLATELET COUNT Early AM 10/12/2024 5:51 AM CDT SCAN-CARDIAC STRIP 10/12/2024 12 :49 AM CDT SCAN-CARDIAC STRIP 10/11/2024 4: 01 PM CDT SCAN-CARDIAC STRIP 10/11/2024 8: 38 AM CDT MAGNESIUM Early AM 10/11/2024 5:23 AM CDT HEMOGLOBIN Early AM 10/11/2024 5:23 AM CDT PLATELET COUNT Early AM 10/11/2024 5:23 AM CDT SCAN-CARDIAC STRIP 10/11/2024 12 :20 AM CDT SCAN-CARDIAC STRIP 10/10/2024 7: 56 PM CDT POTASSIUM Timed 10/10/2024 5:44 PM CDT SCAN-CARDIAC STRIP 10/10/2024 4: 24 PM CDT POTASSIUM Timed 10/10/2024 11:40 AM CDT SCAN-CARDIAC STRIP 10/10/2024 8: 06 AM CDT EKG 12 LEAD STAT 10/10/2024 5:38 AM CDT POTASSIUM Early AM 10/10/2024 5:22 AM CDT MAGNESIUM Early AM 10/10/2024 5:22 AM CDT HEMOGLOBIN Early AM 10/10/2024 5:22 AM CDT PLATELET COUNT Early AM 10/10/2024 5:22 AM CDT SCAN-CARDIAC STRIP 10/09/2024 9: 48 PM CDT APTT Timed 10/09/2024 3:51 PM CDT SCAN CORRESP-EKG RESULTS 10/09/2024 2:58 PM CDT HCHG ACTIVATED CLOTTING TM CV Timed 10/09/2024 12:21 PM CDT CVL CORONARY ANGIOGRAM POSS PCI Routine 10/09/2024 11:43 AM CDT SCAN CORRESP-IMAGING 10/09/2024 9:26 AM CDT APTT Timed 10/09/2024 8:21 AM CDT MAGNESIUM Early AM 10/09/2024 8:21 AM CDT BASIC METABOLIC PANEL Early AM 10/09/2024 8:21 AM CDT CBC W PLT NO DIFF Early AM 10/09/2024 8:2 1 AM CDT SCAN-CARDIAC STRIP 10/09/2024 7: 26 AM CDT APTT Timed 10/09/2024 1:23 AM CDT SCAN-CARDIAC STRIP 10/09/2024 12 :24 AM CDT SCAN-CARDIAC STRIP 10/08/2024 8: 41 PM CDT MAGNESIUM Timed 10/08/2024 6:29 PM CDT POTASSIUM Timed 10/08/2024 6:29 PM CDT APTT Timed 10/08/2024 6:[address] CHEST PE STUDY Routine 10/08/2024 6:2 1 PM CDT SCAN-CARDIAC STRIP 10/08/2024 5: 17 PM CDT ECHO TTE COMPLETE W CONTRAST Routine 10/08/2024 3:48 PM CDT XR CHEST 1 VIEW PORTABLE Routine 10/08/2024 12:25 PM CDT TROPONIN T (HS) ONE TIME SCOTT 10/08/2024 10:43 AM CDT PRO-BNP Today 10/08/2024 10:43 AM CDT APTT Timed 10/08/2024 10:43 AM CDT EKG 12 LEAD Routine 10/08/2024 8:40 AM CDT SCAN-CARDIAC STRIP 10/08/2024 7: 34 AM CDT HEMOGLOBIN Early AM 10/08/2024 3:28 AM CDT PLATELET COUNT Early AM 10/08/2024 3:28 AM CDT APTT Timed 10/08/2024 3:28 AM CDT SCAN-CARDIAC STRIP 10/08/2024 12 :26 AM CDT TROPONIN T (HS) ONE TIME Today 10/07/2024 9:01 PM CDT SCAN-CARDIAC STRIP 10/07/2024 7: 51 PM CDT SCAN-CARDIAC STRIP 10/07/2024 7: 51 PM CDT EKG 12 LEAD STAT 10/07/2024 6:30 PM CDT SCAN-CARDIAC STRIP 10/07/2024 6: 13 PM CDT VITAMIN D 25 (DEFICIENCY) SCOTT 10/07/2024 6:07 PM CDT CBC WITH AUTO DIFFERENTIAL SCOTT 10/07/2024 6:07 PM CDT CBC WITH AUTO DIFFERENTIAL SCOTT 10/07/2024 6:07 PM CDT TROPONIN T (HS) ONE TIME STAT 10/07/2024 6:07 PM CDT HEMOGLOBIN A1C Today 10/07/2024 6:07 PM CDT LIPID PANEL Today 10/07/2024 6:07 PM CDT BASIC METABOLIC PANEL Today 10/07/2024 6:07 PM CDT APTT SCOTT 10/07/2024 6:07 PM CDT PROTIME-INR SCOTT 10/07/2024 6:07 PM CDT US ABD AORTA SCREENING Routine 11/02/2022 8:10 AM CDT Screening for cardiovascular condition from Last 3 Months or Most Recently Relevant to Health Maintenance Results * SCAN CORRESP-EKG RESULTS (10/16/2024 2:48 PM CDT) Only the most recent of2 resultswithin the time period is included. Narrative 10/16/2024 2:48 PM CDT Ordered by an unspecified provider. Other Clinical Staff OTHER Final Resul t * POTASSIUM (10/14/2024 8:07 AM CDT) Only the most recent of7 resultswithin the time period is included. POTASSIUM 4.4 3.5 - 5.1 mmol/L 10/14/2024 9:14 AM CDT [facility] Blood BLOOD SPECIMEN / Unknown Butterfly / Unknown 10/14/2024 8:07 AM CDT 10/14/2024 8:48 AM CDT Beatriz Feldman MD CHEMISTRY Final Result [facility] SENDOUT [place]IP [id number] [address] [place] [address] * MAGNESIUM (10/14/2024 8:07 AM CDT) Only the most recent of7 resultswithin the time period is included. Pathologist [facility] MAGNESIUM 2.3 1.6 - 2.4 mg/dL 10/14/2024 9:14 AM CDT [facility] Blood BLOOD SPECIMEN / Unknown Butterfly / Unknown 10/14/2024 8:07 AM CDT 10/14/2024 8:48 AM CDT us Beatriz Feldman MD CHEMISTRY Final Result [facility] SENDOUT INTERNAL ZIP [phone] [place] [address] * SCAN-CARDIAC STRIP (10/14/2024 7:10 AM CDT) us Scanner OTHER Final Result * SCAN-CARDIAC STRIP (10/14/2024 12:31 AM CDT) us Scanner OTHER Final Result * SCAN-CARDIAC STRIP (10/13/2024 6:09 PM CDT) us Scanner OTHER Final Result * SCAN-CARDIAC STRIP (10/13/2024 8:34 AM CDT) us Scanner OTHER Final Result * (ABNORMAL) CREATININE (10/13/2024 5:48 AM CDT) Pathologist [facility] eGFR 90(L) >90 mL/min/1.7 3m2 10/13/2024 6:35 AM CDT [facility] Comment:As of 2021, eG FR is calculated by the CKD-EPI creatinine equation without race adjustment. eGFR can be influenced by muscle mass, exercise, and diet. The reported eGFR is an estimation only and is only applicable if the renal function is stable. CREATININE 0.91 0.70 - 1.20 mg/dL 10/13/2024 6:35 AM CDT [facility] Blood BLOOD SPECIMEN / Unknown Venipuncture / Unknown 10/13/2024 5:48 AM CDT 10/13/2024 6:05 AM CDT us Faraz Schwartz MD CHEMISTRY Final Re sult [facility] SENDOUT [place] ZIP [phone] [place] [address] * SCAN-CARDIAC STRIP (10/13/2024 12:45 AM CDT) us Scanner OTHER Final Result * SCAN-CARDIAC STRIP (10/12/2024 7:45 PM CDT) us Scanner OTHER Final Result * SCAN-CARDIAC STRIP (10/12/2024 4:42 PM CDT) us Scanner OTHER Final Result * XR CHEST 1 VIEW PORTABLE (10/12/2024 9:45 AM CDT) Only the most recent of2 resultswithin the time period is included. Anatomical Region Laterality Modality HEART, THORAX, CHEST Computed Ra diography 10/12/2024 9:45 AM CDT Impressions 10/12/2024 10:55 AM CDT Hyperinflation. Aortic calcification. Chest otherwise negative and not significantly changed compared to prior. Narrative 10/12/2024 10:55 AM CDT For Patients: As a result of the Cures Act, medical imaging exams and procedure reports are released immediately into your electronic medical record. You may view this report before your referring provider. If you have questions, please contact your health care provider. EXAM: XR CHEST 1 VIEW PORTABLE LOCATION: [facility] DATE: 10/12/2024 INDICATION: Eval Lung Infiltrate COMPARISON: CT and CXR 10/08/2024. Procedure Note Glynn Dang MD - 10/12/2024 For Patients: As a result of the Cures Act, medical imagingexams and procedure reports are released immediately into your electronicmedical record. You may view this report before your referring provider.If you have questions, please contact your health care provider. EXAM: XR CHEST 1 VIEW PORTABLE LOCATION: [facility] DATE: 10/12/2024 INDICATION: Eval Lung Infiltrate COMPARISON: CT and CXR 10/08/2024. IMPRESSION: Hyperinflation. Aortic calcification. Chest otherwise negative and notsignificantly changed compared to prior. us Debbie [facility] Final Resu lt * SCAN-CARDIAC STRIP (10/12/2024 8:55 AM CDT) us Scanner OTHER Final Result * (ABNORMAL) BASIC METABOLIC PANEL (10/12/2024 6:43 AM CDT) Only the most recent of3 resultswithin the time period is included. SODIUM 137 136 - 145 mmol/L 10/12/2024 9:22 AM [facility] POTASSIUM 5.1 3.5 - 5.1 mmol/L 10/12/2024 9:22 AM [facility] CHLORIDE 94(L) 98 - 107 mmol/L 10/12/2024 9:22 AM [facility] CO2,TOTAL 36(H) 22 - 29 mmol/L 10/12/2024 9:22 AM [facility] ANION GAP 7 5 - 18 10/12/2024 9:22 AM [facility] GLUCOSE 132(H) 70 - 99 mg/dL 10/12/2024 9:22 AM [facility] CALCIUM 9.8 8.8 - 10.4 mg/dL 10/12/2024 9:22 AM [facility] Comment: Reference ranges for this test were updated on 05/16/2024 to reflect our healthy population more accurately. Reference range changes are not retroactively applied to results, but previous results using the same methodology can be interpreted in the context of the new reference range. BUN 29(H) 8 - 23 mg/dL 10/12/2024 9:22 AM [facility] CREATININE 0.94 0.70 - 1.20 mg/dL 10/12/2024 9:22 AM [facility] BUN/CREAT RATIO 31(H) 10 - 20 9:22 AM [facility] eGFR 87(L) >90 mL/min/1. 73m2 10/12/2024 9:22 AM CDT [facility] Comment:As of 2021, eG FR is calculated by the CKD-EPI creatinine equation without race adjustment. eGFR can be influenced by muscle mass, exercise, and diet. The reported eGFR is an estimation only and is only applicable if the renal function is stable. Blood BLOOD SPECIMEN / Unknown Venipuncture / Unknown 10/12/2024 6:43 AM CDT 10/12/2024 6:46 AM CDT Debbie [facility] Final Resu lt Performing Organization Address [facility]/ZIP Co de Phone Number [facility] SENDOUT INTERNAL ZIP [phone] [place] [phone] * PLATELET COUNT (10/12/2024 5:51 AM CDT) Only the most recent of4 resultswithin the time period is included. PLATELET COUNT 289 140 - 440 thou/cu mm 10/12/2024 6:06 AM CDT [facility] MPV 8.5 6.5 - 11.0 fL 10/12/2024 6:06 AM CDT [facility] Blood BLOOD SPECIMEN / Unknown Venipuncture / Unknown 10/12/2024 5:51 AM CDT 10/12/2024 5:55 AM CDT Narrative [facility] - 10/12/2024 6:06 AM CDT Every morning while on IV heparin. Necessary every morning while on IV heparin. Dannielle ALBS HEMATOLOGY Final Result Performing Organization Address City/[facility]/ZIP Co de Phone Number [facility] SENDOUT INTERNAL ZIP [phone] [place] [phone] * HEMOGLOBIN (10/12/2024 5:51 AM CDT) Only the most recent of4 resultswithin the time period is included. HEMOGLOBIN 14.6 13.5 - 17.5 g/dL 10/12/2024 6:06 AM CDT [facility] MCV 89 80 - 100 fL 10/12/2024 6:06 AM CDT [facility] Blood BLOOD SPECIMEN / Unknown Venipuncture / Unknown 10/12/2024 5:51 AM CDT 10/12/2024 5:55 AM CDT Narrative [facility] - 10/12/2024 6:06 AM CDT Every morning while on IV heparin. Necessary every morning while on IV heparin. us Dannielle VALDOVINOS HEMATOLOGY Final Result [facility] SENDOUT INTERNAL ZIP [id number] [address] [place] [address] * SCAN-CARDIAC STRIP (10/12/2024 12:49 AM CDT) us Scanner OTHER Final Result * SCAN-CARDIAC STRIP (10/11/2024 4:01 PM CDT) us Scanner OTHER Final Result * SCAN-CARDIAC STRIP (10/11/2024 8:38 AM CDT) us Scanner OTHER Final Result * SCAN-CARDIAC STRIP (10/11/2024 12:20 AM CDT) us Scanner OTHER Final Result * SCAN-CARDIAC STRIP (10/10/2024 7:56 PM CDT) us Scanner OTHER Final Result * SCAN-CARDIAC STRIP (10/10/2024 4:24 PM CDT) us Scanner OTHER Final Result * SCAN-CARDIAC STRIP (10/10/2024 8:06 AM CDT) us Scanner OTHER Final Result * EKG 12 Lead - PRN (10/10/2024 5:38 AM CDT) Only the most recent of3 resultswithin the time period is included. Interpretation Normal sinus rhythm ST & T wave abnormality, consider inferior ischemia ST & T wave abnormality, consider anterolateral ischemia Abnormal ECG When compared with ECG of 08-Oct-2024 08:40, Criteria for Septal infarct are no longer Present T wave inversion less evident in Inferior leads T wave inversion less evident in Lateral leads QT has shortened BEYOND NOW Ventricular Rate 90 BPM BEYOND NOW Atrial Rate 90 BPM BEYOND NOW P-R Interval 182 ms BEYOND NOW QRS Duration 92 ms BEYOND NOW QT 364 ms BEYOND NOW QTc 445 ms BEYOND NOW P [place] 78 degrees BEYOND NOW R [place] 0 degrees BEYOND NOW T [place] 251 degrees BEYOND NOW 10/10/2024 5:38 AM CDT 10/10/2024 9:17 AM CDT us Dannielle VALDOVINOS EKG ORD Final Result BEYOND NOW [place], [place] * SCAN-CARDIAC STRIP (10/09/2024 9:48 PM CDT) us Scanner OTHER Final Result * (ABNORMAL) APTT (10/09/2024 3:51 PM CDT) Only the most recent of7 resultswithin the time period is included. APTT 184(HH) 25 - 36 sec 10/09/2024 4:25 PM CDT [facility] Blood BLOOD SPECIMEN / Unknown Venipuncture / Unknown 10/09/2024 3:51 PM CDT 10/09/2024 3:56 PM CDT Narrative [facility] - 10/09/2024 4:25 PM CDT Therapeutic Range: 59-89 seconds us Guilherme Robles RN HEMATOLOGY Final Result [facility] SENDOUT INTERNAL ZIP [phone] [place] [phone] * (ABNORMAL) ACTIVATED CLOTTING TIME [id number] ACT (10/09/2024 12:21 PM CDT) ACTIVATED CLOTTING TIME, POCT 536(H) 74 - 125 sec 10/09/2024 2:20 PM CDT [facility] Blood BLOOD SPECIMEN / Unknown 10/09/2024 12:21 PM CDT 10/09/2024 2:20 PM CDT us Faraz Schwartz MD HEMATOLOGY Final Re sult [facility] SENDOUT [place] [address] [id number] [place] [address] * CVL CORONARY ANGIOGRAM POSS PCI (10/09/2024 11:43 AM CDT) Anatomical Region Laterality Modality Other 10/09/2024 11:4 3 AM CDT Narrative Transcriptions Kayla Boggs MD - 10/09/2024 12:51 PM CDT [facility] Cardiac Catheterization Report Name: RUTHANN FIGUEROA Event Date: 10/09/2024 11:43 Jammieian ID #: [id number] JET #: [id number] Diagnostic Physician: KAYLA BOGGS [facility] Referring Physician: Date: 1950 Gender: Male Age: 73 Summary/Conclusions * Using ultrasound guidance and a percutaneous technique, the right radialartery was accessed. Ultrasound was used to confirm vessel patency,localizing needle into the lumen of the vessel. An image was saved for themedical record. * Right dominant coronary artery system * The left main artery has minimal disease. * 60% stenosis in the mid LAD. This is an eccentric calcified lesion. * The previously deployed stent in the mid circumflex artery into the OMis widely patent. At distal stent edge there is a 40% lesion. Distal tothis, a narrowing is noted at a hinge point of the vessel. This is patentin diastole. * Mild restenosis of the right coronary artery stents that extend into thePL. A very discrete slit like lesion noted in mid vessel. Two views wouldsuggest only mild restenosis. There are collaterals from the left systemto the distal PDA. * The LVEDP is within normal limits at 15mmHg * Post adenosine FFR measured in LAD was 0.86. This does not reachsignificance for revascularization. * Diagnostic IVUS was used to assess the mid RCA artery * Mild restenosis of RCA stents. NO occlusive disease. * RCA stents well apposed. These were placed in 2022. RECOMMENDATIONS & PLAN * Medical Rx - Aspirin: 81 mg daily * Plavix Indefinitely * Optimize risk factors and medications. Nothing to explain resting pain.Troponins elevated but flat. LVF normal despite pain. The LAD lesion doesnot reach significance nor does the RCA instent restenotic lesion.. Consent & [place] Protocol The risks, benefits, and alternatives of the procedure were discussed withthe patient and written informed consent was obtained. [place] protocol was followed. TIME OUT conducted just prior tostarting procedure confirmed patient identity, site/side, procedure,patient position, and availability of correct equipment and implants (ifapplicable). Staff Name Title KAYLA BOGGS Diagnostic Portable Machine Cutter Brandon, Arnulfo RN Nurse Doug, Mark RTR Scrub Tyron, Palmira CVT Scrub Bella Limh CVT Monitor Marita Fox RTR Etl Informatica Developer Ettl, Oral RN Nurse Brandon, Arnulfo RN Nurse Procedures ? US Guided Access ? LHC, Cor Angio ? Intravascular Ultrasound, Proximal RCA {L1} ? Intravascular Ultrasound, Mid LAD {L2} ? Fractional Flow [place], Mid LAD {L1} Diagnostic Findings * Left Anterior Descending ? 50% stenosis in the Mid LAD. * Right Coronary Artery ? 10% stenosis in the Proximal RCA. ? 40% stenosis in the Mid RCA. ? 10% stenosis in the Mid RCA. Lesion Information Lesion # Vessel Segment Lesion Length Lesion Details Proximal RCA Mid RCA Mid RCA Mid LAD Hemodynamics State: Baseline Pressures (mmHg) Site Systolic Diastolic End Diastolic A Wave V Wave Mean LV LV 104 5 15 LV 101 7 15 AO 91 42 54 Procedure Details Estimated Blood Loss: < 30 ml Specimen Collected: None Level of Sedation Achieved: Mild Procedure Start: :43 Procedure End: :43 Procedure Time: 60 min Fluoroscopy Time: 11.5 min Cumulative Air Kerma: 349 mGy DAP: 43035 mGy/cm2 Contrast: Omnipaque, 108 ml Physiologic Data Weight: 90.3 kg BSA: 2.08 m2 Vascular Access Time Access Sheath Size 11:43 Percutaneous Puncture to Rt Radial Artery Complications ? No Complications Medications Ordered and Administered Start Time Stop Time Medication Dose Units Route Ordered By Given By 11:26 Fentanyl 50 mcg IV Kayla Boggs Sam RN 11:26 Versed (midazolam) 1 mg IV Kayla Boggs Sam RN 11:35 Fentanyl 25 mcg IV Kayla Boggs Justin RN 11:36 Versed (midazolam) 1 mg IV Kayla Boggs Justin RN 11:40 Lidocaine 1% 2 ml Subcut Kayla Boggs Brian D 11:41 Nitroglycerin 100 mcg IA Kayla Boggs Brian D 11:41 Nicardipine 100 mcg IA Kayla Boggs Brian D 11:43 Heparin 5000 units IV Kayla Boggs Justin RN 11:55 Heparin 4000 units IV Kayla Boggs Justin RN 11:55 Fentanyl 25 mcg IV Kayla Boggs Justin RN 11:55 Versed (midazolam) 0.5 mg IV Kayla Boggs Justin RN 12:15 Fentanyl 25 mcg IV Kayla Boggs Sam RN 12:15 Versed (midazolam) 0.5 mg IV Kayla Boggs Sam RN 12:29 12:32 Adenosine 140 mcg per kg per min IV Kayla Boggs Sam RN The medications listed above were verbally ordered by me and read back tome as documented above. Refer to the procedure log report for additional case details. electronically signed on 10/09/2024 12:51:46 PM with status of Final Kayla Boggs MD [address], [place] [address] [place] [address] (p) [phone]) us Rita BAPTISTE CV IMAGING Edited Resu lt - Final * SCAN CORRESP-IMAGING (10/09/2024 9:26 AM CDT) Anatomical Region Laterality Modality Other Narrative 10/09/2024 9:26 AM CDT Ordered by an unspecified provider. us Other Clinical Staff OTHER Final Resul t * CBC with Platelets no Differential (10/09/2024 8:21 AM CDT) WHITE BLOOD COUNT 7.8 4.5 - 11.0 thou/cu mm 10/09/2024 8:30 AM T [facility] RED BLOOD COUNT 5.12 4.30 - 5.90 mil/cu mm 10/09/2024 8:30 AM T [facility] HEMOGLOBIN 15.9 13.5 - 17.5 g/dL 10/09/2024 8:30 AM T [facility] HEMATOCRIT 44.8 37.0 - 53.0 % 10/09/2024 8:30 AM T [facility] MCV 88 80 - 100 fL 10/09/2024 8:30 AM T [facility] MCH 31.1 26.0 - 34.0 pg 10/09/2024 8:30 AM T [facility] MCHC 35.5 32.0 - 36.0 g/dL 10/09/2024 8:30 AM T [facility] RDW 14.4 11.5 - 15.5 % 10/09/2024 8:30 AM T [facility] PLATELET COUNT 255 140 - 440 thou/cu mm 10/09/2024 8:30 AM [facility] MPV 8.4 6.5 - 11.0 fL 10/09/2024 8:30 AM T [facility] NRBC 0.0 % 10/09/2024 8:30 AM T [facility] ABS NRBC 0.0 thou /cu mm 10/09/2024 8:30 AM [facility] Blood BLOOD SPECIMEN / Unknown Venipuncture / Unknown 10/09/2024 8:21 AM CDT 10/09/2024 8:25 AM CDT us Rita BAPTISTE HEMATOLOGY Final Resul t [facility] SENDOUT [place] [id number] [address] [place] [address] * SCAN-CARDIAC STRIP (10/09/2024 7:26 AM CDT) us Scanner OTHER Final Result * SCAN-CARDIAC STRIP (10/09/2024 12:24 AM CDT) us Scanner OTHER Final Result * SCAN-CARDIAC STRIP (10/08/2024 8:41 PM CDT) us Scanner OTHER Final Result * CT CHEST PE STUDY (10/08/2024 6:21 PM CDT) Anatomical Region Laterality Modality CHEST, THORAX, HEART Computed To mography 10/08/2024 6:21 PM CDT Impressions 10/08/2024 6:57 PM CDT 1. No pulmonary embolism to the subsegmental level. 2. Age-indeterminate superior endplate compression deformity of L2. Correlate with point tenderness. 3. Mild emphysema. Narrative 10/08/2024 6:57 PM CDT For Patients: As a result of the Cures Act, medical imaging exams and procedure reports are released immediately into your electronic medical record. You may view this report before your referring provider. If you have questions, please contact your health care provider. EXAM: CT CHEST PE STUDY LOCATION: [facility] MEDICAL IMAGING DATE: 10/08/2024 INDICATION: Pulmonary embolism (PE) suspected, high prob COMPARISON: 09/30/2022 TECHNIQUE: CT chest pulmonary angiogram during arterial phase injection of IV contrast. Multiplanar reformats and MIP reconstructions were performed. Dose reduction techniques were used. CONTRAST: Omnipaque [id number] FINDINGS: ANGIOGRAM CHEST: Normal caliber pulmonary trunk. No pulmonary embolism to the subsegmental level. LUNGS AND PLEURA: Scattered airway secretions. Mild emphysema. Scattered atelectasis. No actionable nodules. No pleural effusion or pneumothorax. MEDIASTINUM/AXILLAE: No pathologically enlarged thoracic lymph nodes. Unremarkable thyroid. Normal caliber thoracic aorta. Normal heart size. No pericardial effusion. CORONARY ARTERY CALCIFICATION: Previous intervention (stents or CABG). UPPER ABDOMEN: No significant finding. MUSCULOSKELETAL: Age-indeterminate superior endplate compression deformity of L2. Procedure Note Vineet Escalona MD - 10/08/2024 For Patients: As a result of the Cures Act, medical imagingexams and procedure reports are released immediately into your electronicmedical record. You may view this report before your referring provider.If you have questions, please contact your health care provider. EXAM: CT CHEST PE STUDY LOCATION: [facility] MEDICAL [facility]AG[facility] DATE: 10/08/2024 INDICATION: Pulmonary embolism (PE) suspected, high prob COMPARISON: 09/30/2022 TECHNIQUE: CT chest pulmonary angiogram during arterial phase injection ofIV contrast. Multiplanar reformats and MIP reconstructions were performed.Dose reduction techniques were used. CONTRAST: Omnipaque [id number] FINDINGS: ANGIOGRAM CHEST: Normal caliber pulmonary trunk. No pulmonary embolism tothe subsegmental level. LUNGS AND PLEURA: Scattered airway secretions. Mild emphysema. Scatteredatelectasis. No actionable nodules. No pleural effusion or pneumothorax. MEDIASTINUM/AXILLAE: No pathologically enlarged thoracic lymph nodes.Unremarkable thyroid. Normal caliber thoracic aorta. Normal heart size. Nopericardial effusion. CORONARY ARTERY CALCIFICATION: Previous intervention (stents or CABG). UPPER ABDOMEN: No significant finding. MUSCULOSKELETAL: Age-indeterminate superior endplate compression deformityof L2. IMPRESSION: 1. No pulmonary embolism to the subsegmental level. 2. Age-indeterminate superior endplate compression deformity of L2.Correlate with point tenderness. 3. Mild emphysema. us Vineet Mehta MD CT Final Resul t * SCAN-CARDIAC STRIP (10/08/2024 5:17 PM CDT) us Scanner OTHER Final Result * ECHO TTE COMPLETE W CONTRAST (10/08/2024 3:48 PM CDT) EJECTION FRACTION 60-65% PROSOLV Anatomical Region Laterality Modality Ultrasound 10/08/2024 2:49 PM CDT Narrative 10/08/2024 4:21 PM CDT [address] [address] Main: [email or web address] Transthoracic Echo Report RUTHANN FIGUEROA Natanael ID: [id number] Age: 73 : 1950 Ordering Provider: RITA PETER Exam Date: 10/08/2024 14:49 Gender: M Pulmonary Specialist: MARCOS Height: 70 in BSA: 2.09 m BP: 116 / 78 Weight: 201 lbs BMI: 28.8 kg/m HR: 75 Location: Inpatient (Portable) Rhythm: Normal Sinus Rhythm Procedure Components: 2D imaging with contrast, Color Doppler, Spectral Doppler Indications: Chest Pain Technical Quality: Very technically difficult study Contrast: Definity Constrast Dose (ml): 0.3 [facility]#: [id number] Final Conclusion Previous Study: 10/13/2022 1. Technically challenging study with limited acoustic windows. 2. Normal left ventricular size and systolic function. Estimated left ventricular ejection fraction 60 to 65%. Cannot comment on the presence of regional wall motion abnormalities given the technically challenging nature of the study. 3. Right ventricle not well-visualized. 4. No hemodynamically significant valve disease (caveat is that cardiac valves were not well-visualized). 5. No significant change in left ventricular systolic function when compared to the prior echocardiogram from 10/13/2022. Estimated EF: 60-65% FINDINGS Left Ventricle Normal left ventricular size and systolic function. Estimated left ventricular ejection fraction 60 to 65%.regional wall motion abnormalities cannot be assessed due to suboptimal endocardial border definition. Diastolic Function Indeterminate left ventricular diastolic function. Right Ventricle Right ventricle not well-visualized. Left Atrium Visually normal left atrial size. Right Atrium Visually normal right atrial size. Atrial Septum Atrial septum not well-visualized. Aortic Valve Aortic valve not well-visualized. No significant aortic valve regurgitation. Mitral Valve Mitral valve not well-visualized. No significant mitral valve regurgitation. Tricuspid Valve Tricuspid valve is not well-visualized. No obvious significant tricuspid valve regurgitation. Pulmonic Valve Pulmonary valve not well-visualized. Pericardium No significant pericardial effusion Aorta Ascending aorta was not well-visualized. Inferior Vena Cava Inferior vena cava was not well visualized. MEASUREMENTS (Male / Female) Normal Values 2D MEASUREMENTS AND LV FUNCTION RV Diastolic Basal Diameter 3.3 cm DIASTOLOGY Mitral E Point Velocity 0.462 m/sec 0.70 - 1.02 m/sec Mitral A Point Velocity 0.545 m/sec 0.06 - 1.06 m/sec Mitral E to A Ratio 0.848 1.1 - 2.1 MV Deceleration Time 246 msec 167 - 231 msec LV E' Lateral Velocity 0.0412 m/sec Mitral E to LV E' Lateral Ratio 11.2 LV E' Septal Velocity 0.0392 m/sec Mitral E to LV E' Septal Ratio 11.8 AORTIC VALVE AV Peak Velocity 1.07 m/sec < 2.0 m/sec AV Peak Gradient 4.58 mmHg AV Mean Gradient 2 mmHg AV Velocity Time Integral 16.5 cm LVOT Peak Velocity 0.842 m/sec LVOT Velocity Time Integral 12.3 cm AV Dimensionless Index 0.745 MITRAL VALVE MV Pressure Half Time 72 msec MV Area PHT 3.06 cm HCM DATA LVOT VINNY (r) 2.84 mmHg Vineet Mehta MD [facility] Accredited Site (Electronically Signed) Final Date: 08 October 2024 16:21 ICD-10 Codes: 786.9 Procedure Note Vineet Mehta MD - 10/08/2024 [place] [address] Main: [email or web address] Transthoracic Echo Report RUTHANN FIGUEROA Jammiekarina ID: [id number] Age: 73 : 1950 Ordering Provider:RITA PETER Exam Date: 10/08/2024 14:49 Gender: M Pulmonary Specialist: MARCOS Height: 70 in BSA: 2.09 m BP: 116 / 78 Weight: 201 lbs BMI: 28.8 kg/m HR: 75 Location: Inpatient (Portable) Rhythm: Normal Sinus Rhythm Procedure Components: 2D imaging with contrast, Color Doppler, SpectralDoppler Indications: Chest Pain Technical Quality: Very technically difficult study Contrast: Definity Constrast Dose (ml): 0.3 [facility]#: [id number] Final Conclusion Previous Study: 10/13/2022 1. Technically challenging study with limited acoustic windows. 2. Normal left ventricular size and systolic function. Estimated leftventricular ejection fraction 60 to 65%. Cannot comment on the presence of regional wall motion abnormalities given the technicallychallenging nature of the study. 3. Right ventricle not well-visualized. 4. No hemodynamically significant valve disease (caveat is that cardiacvalves were not well-visualized). 5. No significant change in left ventricular systolic function whencompared to the prior echocardiogram from 10/13/2022. Estimated EF: 60-65% FINDINGS Left Ventricle Normal left ventricular size and systolic function.Estimated left ventricular ejection fraction 60 to 65%.regional wall motion abnormalities cannot be assessed due to suboptimalendocardial border definition. Diastolic Function Indeterminate left ventricular diastolic function. Right Ventricle Right ventricle not well-visualized. Left Atrium Visually normal left atrial size. Right Atrium Visually normal right atrial size. Atrial Septum Atrial septum not well-visualized. Aortic Valve Aortic valve not well-visualized. No significant aorticvalve regurgitation. Mitral Valve Mitral valve not well-visualized. No significant mitralvalve regurgitation. Tricuspid Valve Tricuspid valve is not well-visualized. No obvioussignificant tricuspid valve regurgitation. Pulmonic Valve Pulmonary valve not well-visualized. Pericardium No significant pericardial effusion Aorta Ascending aorta was not well-visualized. Inferior Vena Cava Inferior vena cava was not well visualized. MEASUREMENTS (Male / Female) Normal Values 2D MEASUREMENTS AND LV FUNCTION RV Diastolic Basal Diameter 3.3 cm DIASTOLOGY Mitral E Point Velocity 0.462 m/sec 0.70 - 1.02m/sec Mitral A Point Velocity 0.545 m/sec 0.06 - 1.06m/sec Mitral E to A Ratio 0.848 1.1 - 2.1 MV Deceleration Time 246 msec 167 - 231 msec LV E' Lateral Velocity 0.0412 m/sec Mitral E to LV E' Lateral Ratio 11.2 LV E' Septal Velocity 0.0392 m/sec Mitral E to LV E' Septal Ratio 11.8 AORTIC VALVE AV Peak Velocity 1.07 m/sec < 2.0 m/sec AV Peak Gradient 4.58 mmHg AV Mean Gradient 2 mmHg AV Velocity Time Integral 16.5 cm LVOT Peak Velocity 0.842 m/sec LVOT Velocity Time Integral 12.3 cm AV Dimensionless Index 0.745 MITRAL VALVE MV Pressure Half Time 72 msec MV Area PHT 3.06 cm HCM DATA LVOT VINNY (r) 2.84 mmHg Vineet Mehta MD [facility] Accredited Site (Electronically Signed) Final Date: 08 October 2024 16:21 ICD-10 Codes: 786.9 us Rita BAPTISTE ECHO ORD Final Resul t * (ABNORMAL) TROPONIN T (HS) ONE TIME (10/08/2024 10:43 AM CDT) Only the most recent of3 resultswithin the time period is included. TROPONIN T HS 69(H) 6-15 ng/L ng/L 10/08/2024 11:36 AM T [facility] Blood BLOOD SPECIMEN / Unknown Venipuncture / Unknown 10/08/2024 10:43 AM CDT 10/08/2024 11:02 AM CDT [facility] - 10/08/2024 11:36 AM CDT hs-cTnT (Elecsys Troponin T Gen 5) concentration (s) above the sex-specific 99th percentile (16 ng/L or greater for males or 11 ng/L or greater for females) are indicative of myocardial injury. If initial hs-cTnT <=100 ng/L at presentation, a 0h/2h ABSOLUTE (ng/L) delta change (rising or falling) of >=10 ng/L suggests a significant change, whereas a 0h/2h delta change <=3 ng/L suggests no significant change. If initial hs-cTnT >100 ng/L at presentation, a 0h/2h/ RELATIVE (percent, %) delta change of 20% is suggested to distinguish patients with acute vs. chronic myocardial injury. There are multiple etiologies that can cause hs-cTnT increases above the 99th percentile (myocardial injury) other than acute myocardial infarction. Clinical context and careful clinical evaluation are critical for diagnosis and risk-stratification. The diagnosis of acute myocardial infarction requires a rising and/or falling pattern in hs-cTnT concentrations with at least one value above the sex-specific 99th percentile PLUS at least one of the following clinical criteria: ischemic symptoms, new or presumed new significant ST-T wave changes or new LBBB, development of pathological Q waves, imaging evidence of new loss of viable myocardium or new regional wall motion abnormality, or identification of intracoronary atherothrombosis or an acute angiographic culprit on coronary angiography. In appropriate low-risk patients with a non-ischemic electrocardiogram without active chest pain with a symptom onset >3-hours without recurrence, a single initial hs-cTnT<6 ng/L identifies patient with a very low risk in emergency department patient population. Mark Silva MD CHEMISTRY Final Res ult Performing Organization Address City/State/[facility] Co de Phone Number [facility] SENDOUT [place] [address] [phone] [place] [address] * (ABNORMAL) PRO-BNP (10/08/2024 10:43 AM CDT) PRO-BNP 896(H) <125 pg/mL 10/08/2024 11:36 AM CDT [facility] Blood BLOOD SPECIMEN / Unknown Venipuncture / Unknown 10/08/2024 10:43 AM CDT 10/08/2024 11:02 AM CDT Narrative [facility] - 10/08/2024 11:36 AM CDT The following cut-points have been suggested for the use of proBNP for the diagnostic evaluation of heart failure (HF) in patient with acute dyspnea. Patients with eGFR >= 60 Diagnosis (rule in CHF) <50 Years Old 450 pg/mL 50 - 75 Years Old 900 pg/mL >75 Years Old 1800 pg/mL Exclusion (rule out CHF) Age Independent 300 pg/mL A cutoff of 1200 pg/mL for patients with an eGFR <60 yields a diagnostic sensitivity of 89% and specificity of 72% for acute congestive heart failure. us Rita BAPTISTE SEND OUTS Final Resul t Performing Organization Address [facility]/ZIP Co de Phone Number [facility] SENDOUT [place] [address] [phone] [place] [address] * SCAN-CARDIAC STRIP (10/08/2024 7:34 AM CDT) us Scanner OTHER Final Result * SCAN-CARDIAC STRIP (10/08/2024 12:26 AM CDT) us Scanner OTHER Final Result * SCAN-CARDIAC STRIP (10/07/2024 7:51 PM CDT) us Scanner OTHER Final Result * SCAN-CARDIAC STRIP (10/07/2024 7:51 PM CDT) us Scanner OTHER Final Result * SCAN-CARDIAC STRIP (10/07/2024 6:13 PM CDT) us Scanner OTHER Final Result * (ABNORMAL) CBC WITH AUTO DIFFERENTIAL (10/07/2024 6:07 PM CDT) WHITE BLOOD COUNT 11.0 4.5 - 11.0 thou/cu mm 10/07/2024 6:28 PM CDT [facility] RED BLOOD COUNT 5.26 4.30 - 5.90 mil/cu mm 10/07/2024 6:28 PM CDT [facility] HEMOGLOBIN 16.2 13.5 - 17.5 g/dL 10/07/2024 6:28 PM CDT [facility] HEMATOCRIT 46.0 37.0 - 53.0 % 10/07/2024 6:28 PM CDT [facility] MCV 88 80 - 100 fL 10/07/2024 6:28 PM CDT [facility] MCH 30.8 26.0 - 34.0 pg 10/07/2024 6:28 PM CDT [facility] MCHC 35.2 32.0 - 36.0 g/dL 10/07/2024 6:28 PM CDT [facility] RDW 14.6 11.5 - 15.5 % 10/07/2024 6:28 PM CDT [facility] PLATELET COUNT 279 140 - 440 thou/cu mm 10/07/2024 6:28 PM CDT [facility] MPV 8.0 6.5 - 11.0 fL 10/07/2024 6:28 PM CDT [facility] NRBC 0.0 % 10/07/2024 6:28 PM CDT [facility] ABS NRBC 0.0 thou /cu mm 10/07/2024 6:28 PM CDT [facility] % NEUT 81.0 % 10/07/2024 6:28 PM CDT [facility] % LYMPH 9.3 % 10/07/2024 6:28 PM CDT [facility] % MONO 8.1 % 10/07/2024 6:28 PM CDT [facility] % EOS 0.0 % 10/07/2024 6:28 PM CDT [facility] % BASO 0.3 % 10/07/2024 6:28 PM CDT [facility] % IMMATURE GRAN (METAS,MYELOS,IA OS) 1.3 % 10/07/2024 6:28 PM CDT [facility] ABSOLUTE NEUTROPHILS 8.9(H) 1.7 - 7.0 thou/cu mm 10/07/2024 6:28 PM CDT [facility] ABSOLUTE LYMPHOCYTES 1.0 0.9 - 2.9 thou/cu mm 10/07/2024 6:28 PM CDT [facility] ABSOLUTE MONOCYTES 0.9(H) <0.9 thou/cu mm 10/07/2024 6:28 PM CDT [facility] ABSOLUTE EOSINOPHILS 0.0 <0.5 thou/cu mm 10/07/2024 6:28 PM CDT [facility] ABSOLUTE BASOPHILS 0.0 <0.3 thou/cu mm 10/07/2024 6:28 PM CDT [facility] ABSOLUTE IMMATURE GRANULOCYTES(MET ,MYELOS,PROS) 0.1 <0.3 thou/cu mm 10/07/2024 6:28 PM CDT [facility] Blood BLOOD SPECIMEN / Unknown Venipuncture / Unknown 10/07/2024 6:07 PM CDT 10/07/2024 6:25 PM CDT Dannielle VALDOVINOS HEMATOLOGY Final Result [facility] SENDOUT [place] [address]IP [phone] [place] [address] * (ABNORMAL) Hemoglobin A1C Screening - in AM (10/07/2024 6:07 PM CDT) HEMOGLOBIN A1C SCREENING 6.7(H) <=6.4 % 10/09/2024 7:38 AM CDT [facility] Blood BLOOD SPECIMEN / Unknown Venipuncture / Unknown 10/07/2024 6:07 PM CDT 10/07/2024 6:25 PM CDT Narrative [facility] - 10/09/2024 7:38 AM CDT (<5.7%) Normal (5.7% to 6.4%) Indicates prediabetes (>=6.5%) Confirms diabetes Falsely low levels may be seen with: Recent Transfusion, Recent Significant Blood Loss, Hemolytic Diseases, or Falsely elevated levels may be seen with: Untreated Anemias, Splenectomy Dannielle VALDOVINOS CHEMISTRY Final Result [facility] SENDOUT INTERNAL [facility] [id number] [place] [id number] * VITAMIN D 25 (DEFICIENCY) (10/07/2024 6:07 PM CDT) VITAMIN D TOTAL 27.8 20.0 - 80.0 ng/mL 10/08/2024 2:46 AM CDT [facility] Blood BLOOD SPECIMEN / Unknown Venipuncture / Unknown 10/07/2024 6:07 PM CDT 10/07/2024 6:25 PM CDT Narrative [facility] - 10/08/2024 2:46 AM CDT Vitamin D Status Deficiency: <20 ng/mL Insufficiency: 20-29 ng/mL Sufficiency: 30-80 ng/mL Possible Toxicity: >80 ng/mL Based on [place] [employer] recommendations Biotin supplements may cause clinically significant interference for this test assay. If interference is suspected, it is strongly recommended that biotin is discontinued for at least one week prior to retesting. Dannielle VALDOVINOS SEND OUTS Final Result [facility] [address] [place], [place] [id number] [place] [address] * (ABNORMAL) PROTIME-INR (10/07/2024 6:07 PM CDT) INR 1.2 <1.3 10/07/2024 7:11 PM CDT [facility] PROTIME 13.6(H) 10.6 - 12.4 sec 10/07/2024 7:11 PM T [facility] Blood BLOOD SPECIMEN / Unknown Venipuncture / Unknown 10/07/2024 6:07 PM CDT 10/07/2024 6:25 PM CDT [facility] - 10/07/2024 7:11 PM CDT Therapeutic Range 2.0-3.0 for most anticoagulated patients 2.5-3.5 or 4.0 for high risk patients The INR is only used for patients on stable oral anticoagulant therapy. It makes no significant contribution to the diagnosis or treatment of patients whose Protime is prolonged for other reasons. INR results are increased when heparin levels exceed 1.0 U/mL, which corresponds to an aPTT >125 seconds if the patient is on UFH. Dannielle VALDOVINOS HEMATOLOGY Final Result [facility] SENDOUT INTERNAL ZIP [address] [place] [address] * (ABNORMAL) Lipid Panel - In AM (10/07/2024 6:07 PM CDT) [facility] CHOLESTEROL,TOTAL 145 100 - 199 mg/dL 10/07/2024 6:50 PM [facility] Comment: Cholesterol, Total Reference Ranges Desirable <200 mg/dL Borderline 200-239 mg/dL High >=240 mg/dL TRIGLYCERIDES 133 <150 mg/dL 10/07/2024 6:50 PM [facility] HDL CHOLESTEROL 30(L) >40 mg/dL 6:50 PM [facility] NON-HDL CHOLESTEROL 115 <145 mg/dl 10/07/2024 6:50 PM [facility] CHOL/HDL RATIO 4.83(H) <4.50 10/07/2024 6:50 PM [facility] LDL CHOLESTEROL 88 <=130 mg/dL 10/07/2024 6:50 PM [facility] VLDL CHOLESTEROL 27 <=30 mg/dL 10/07/2024 6:50 PM [facility] PROVIDER ORDERED STATUS RANDOM 10/07/2024 6:50 PM CDT [facility] Blood BLOOD SPECIMEN / Unknown Venipuncture / Unknown 10/07/2024 6:07 PM CDT 10/07/2024 6:25 PM CDT us Victor [place] Carlos Dumont Arianna Michelle VALDOVINOS CHEMISTRY Final Result [facility] SENDOUT [place]NAL [place] [address] [address] [place] [address] * US ABD AORTA SCREENING (11/02/2022 8:10 AM CDT) Anatomical Region Laterality Modality Abdomen, AORTA Ultrasound 11/02/2022 7:48 AM CDT Narrative 11/02/2022 10:34 AM CDT VASCULAR ULTRASOUND REPORT RUTHANN FIGUEROA : 1950 Study Date: 11/02/2022 7:48:28 AM Age: 71 years Tech: BVB Gender: M Referring MD: PING AUSTIN Site: [facility] Study performed: Aorta Indication for study: [...] biphasic + +--------+-------+ +---------+ Edwin Whitlock MD. [employer] Electronically signed on 11/02/2022 10:34:34 AM This study was performed and interpreted by a service accredited by the Intersocietal Accreditation Commission (IAC/Vascular), www.intersocietal.org/vascular Report generated by [employer]. Final Procedure Note Edwin Whitlock MD - 11/02/2022 VASCULAR ULTRASOUND REPORT RUTHANN FIGUEROA : 1950 Study Date: 11/02/2022 7:48:28 AM Age: 71 years Tech: MARLENE Gender: M Referring MD: PING AUSTIN Site: [facility] Study performed: Aorta Indication for study: [...] + +--------+-------+ +---------+ Edwin Whitlock MD. [employer] Electronically signed on 11/02/2022 10:34:34 AM This study was performed and interpreted by a service accredited by theIntersocietal Accreditation Commission (IAC/Vascular),www.intersocietal.org/vascular Report generated by [employer]. Final us Ping Austin NP Final Result from Last 3 Months or Most Recently Relevant to Health Maintenance Insurance MEDICARE PART A [place] ONLY BL[place] A [place] ONLY Advance Directives * Full Code (Latest Code Status on File) Date Activated Date Inactivated Comments 10/07/2024 5:56 PM 10/14/2024 6:54 PM Question Answer Comments Code Status Discussion: Reviewed Preferences * Full Code Date Activated Date Inactivated Comments 12/15/2022 3:35 [...] Code Status Discussion: Reviewed Preferences Care Teams Studio Operations Engineer In Charge Relationship Specialty Start Date End Date Osvaldo Hall MD [address] [place] [id number] PCP - General Family Practice 04/03/20
--- OUTSIDE RECORDS SUMMARY | 2024-10-27 09:56 | XMS_ITS | Clinical Summary ---
Author Organization [facility] Address [address] [place] [address] Care Team Providers Care Maintenance Worker House Trailer Name Role Phone Unavailable Primary Care Provider Unavailabl e Source Comments Patient records contain information from all sites at [facility]. For routine questions regarding patient records, call [phone] during business hours, M-F 8:00 AM - 5:00 PM Central Time. Record requests for emergency care only can be directed to [phone] at any time.[facility] Allergies No known active allergies Medications aspirin [...] 0.6 oz pur e alcohol) [facility] Utilities Answer Date Recorded In the [...] your living situation today? I [facility] a [facility] place to live 10/19/2023 Sex and Gender Information Value Date Recorded Sex Assigned at Male 10/19/2023 2:16 PM CDT Legal Sex Male 7:19 AM REHAB TECH Gender Identity Male 10/19/2023 2:16 PM CDT [...] 08/09/2022 08/09/2012, 07/07/2006 COVID-19 Vaccine ( season) 2024 04/09/2023, 05/08/2022, 11/14/2021, Additional history exists Influenza Vaccine (#1) 2024 , 04/20/2022, 07/22/2021, Additional history exists Depression Screening (Annual PHQ-2) 07/12/2024 Fall Risk Screen (Annual) 07/12/2024 Creatinine Level (Kidney Function Test) 10/12/2025 10/12/2024, 10/09/2024, 10/07/2024, Additional history exists Potassium Level 10/12/2025 10/12/2024, 09/2024, 10/10/2024, Additional history exists Sodium Level 10/12/2025 10/12/2024, 09/11, 10/07/2024, Additional history exists Fasting Glucose for Diabetes Screening 10/13/2027 10/12/2024, 10/09/2024, 10/07/2024, Additional history exists Colonoscopy 06/11/2031 06/11/2021, 06/10/2021 Colorectal Cancer Screening 06/11/2031 Zoster Vaccines Completed 11/27/2020, 08/2020, 02/04/2015 Lung Cancer Screening Discontinued 09/30/2022 Pneumococcal vaccine (50+ years) Completed 03/24/2023, 06/12/2019, 12/27/2018 HPV Vaccines Aged Out No longer eligi ble based on patient's age to complete this topic IPV Vaccines Aged Out No longer eligi ble based on patient's age to complete this topic Insurance [facility]
--- OUTSIDE RECORDS SUMMARY | 2024-10-27 09:56 | XMS_ITS | Data Portability ---
Author Organization [place] [facility] Address [address] [place] [address] Care Team Providers Care Principal Technical Specialist Name Role Phone SHAWN ZAMORANO Primary Care [...] s/p RALP on 07/18/20 for pT3a N0R1 (Clifton 3+4=7, 0/3 LN, +SMS, +BNI) PSA now [...] s/p RALP on 07/18/20 for pT3a N0R1 (Clif[place] 3+4=7, 0/3 LN, +SMS, +BNI) PSA now [...] RT, would refer to Dr Oliver in [place] 2) Stress urinary incontinence, minimal - Kegels 3) ED - sildenafil PRN, refill [email or web address] Not available 10/08/2021 11:20:19 04/22/2022 04/22/2022 71M s/p RALP on 07/18/20 for pT3a N0R1 (Clifton 3+4=7, 0/3 LN, +SMS, +BNI) PSA now [...] RT, would refer to Dr Oliver in [place] 2) Stress urinary incontinence, minimal - Kegels [...] RT, would refer to Dr Oliver in [place] - if opts for RT, would forgo [...] 023 [email or web address] [facility], [address], [place], [address], 10:43:51 PSA, serum or plasma 2021 022 [email or web address] [facility], [address], [place], [address], 16:11:40 PSA, serum or plasma 2021 022 [email or web address] Not available 10:43:00 PSA, serum or plasma 2020 021 [email or web address] Not available 10:48:13 unlist ed lab - deciph er - rp prost [I] 2020 021 [email or web address] [facility], [address], [place], [address], 1 12:56:05 PSA, serum or plasma 2020 021 [email or web address] Not available 10:31:30 Referral radiat ion oncolo gist referr misael marrero RT, prosta te cancer 2022 023 carmen Oliver MD, [address] [place], [address], 3 08:02:25 Procedures None record ed. Surgeries None record ed. Imaging MRI, pelvis , w/wo contra st 2020 021 [email or web address] [facility], [address], [place], [address], 1 12:34:43 Medication Orders silden afil (pulmo nary hypert ension ) 20 mg tablet 2020 021 [email or web address] Not available 3 10:14:37 Patient TargetsNo targets recorded. Patient InstructionsNo instructions recorded. Reason for Referral salvage RT, prostate cancer Referring Physician: Otf Tinoco, Urology, Encounter Date: 10/21/2022 Results Created Date Observation Date Name Description Value Unit Range Abnormal Flag Note LastModifiedBy Organization Detail LastModifiedTime 01/04/20 21 01/03/2021 PSA, serum or plasm a PSA, Total <0.04 ng/mL Not Available [facility] [address], [place], [address], 01/03/2021 09:58:48 06/18/20 21 06/18/2021 PSA, serum or plasm a PSA, Total 0.07 ng/ml Not Available [facility] [address], [place], [address], 06/18/2021 10:33:11 10/09/19 22 10/08/2021 PSA, serum or plasm a PSA, Total 0.08 ng/mL Not Available [facility] [address], [place], [address], 10/08/2021 10:33:51 04/22/20 22 04/22/2022 PSA, serum or plasm a PSA 0.09ng /ml 0-4.0 Not Available [facility] [address], [place], [address], 04/22/2022 15:56:47 10/22/19 23 10/21/2022 PSA, serum or plasm a PSA 0.24 ng/ml 0-4.0 Not Available [facility] [address], [place], [address], 10/13/2022 16:04:49 10/08/19 22 09/30/2021 MRI, pelvi s, w/wo contr ast No observ ation record ed. [email or web address] [facility] [address], [place], [address], 10/07/2021 09:39:52 Result Notes None recorded. Problems Name Problem SNOMED Code Status Onset Date Resolution Date Notes Provider Name and Address Organization Details Recorded Time Malignant tumor of prostate 734842598 Active 2019 Otf mccoy MD, PHD [address] [place] [address],[address], [place], [address], [facility] 0 11:16:35 Erectile dysfunction 108979868 Active 2020 Otf mccoy MD, PHD [address] [place] [address],[address], [place], [address], [facility] 14:40:33 Problem Notes None recorded. Procedures Surgical History Date Name Laterality Status Provider Name and Address Organization Details Recorded Time 10/22/19 23 VETERINARY MICROBIOLOGIST/blood draw completed Danita Rain [facility] 10/21/2022 10:15:38 04/22/20 22 Blood Draw/VETERINARY MICROBIOLOGIST/PSA RESULTS completed Otf garcia MD, PHD [address] [place] [address],[address], [address], [facility] 04/22/2022 15:56:42 10/09/19 22 Blood Draw/VETERINARY MICROBIOLOGIST/PSA RESULTS completed Danita Rain [facility] 10/08/2021 10:42:51 06/18/20 21 Blood Draw/VETERINARY MICROBIOLOGIST/PSA RESULTS completed Otf garcia MD, PHD [address] [place] [address],[address], [place], [address], [facility] 06/18/2021 10:33:05 06/11/20 21 colonoscopy completed Otf garcia MD, PHD [address], [place], [address], [facility] 06/18/2021 10:32:20 01/04/20 21 Blood Draw/VETERINARY MICROBIOLOGIST/PSA RESULTS completed Amarilis Lopez [facility] 01/03/2021 10:31:19 09/12/19 21 Blood Draw/VETERINARY MICROBIOLOGIST/PSA RESULTS completed Kingston Nobles [facility] 09/18/2020 10:47:18 07/18/19 21 Prostatectomy completed Elmo Alexander [facility] 07/31/2020 14:05:56 04/29/20 20 Prostate Biopsy Procedure completed Emmett Samuel MD [address], [place], [address], [facility] 04/29/2020 17:27:15 Imaging Results Imaging Date Name Status LastModified by Organiz ation Details LastModified Time 09/30/2021 MRI, pelvis, w/wo contrast completed [email or web address] [facility] [address] [place], [address], 10/07/2021 09:39:52 Procedure Notes None recorded. Medical [...] Not Available Not Available Fluzone High-Dose Quad 2019- (PF) 240 mcg/0.7 mL IM syringe active Not Available Not Available N ot Available Vitals Date Recorded Body height Body mass index (BMI) Body weight Provider Name and Address Organization Details Last Updated DateTime 04/22/2022 180.34 cm 27.9 kg/m2 38804.47 g Otf garcia MD, PHD [address] [place] [address], [phone] [place] [address] 04/22/2022 15:56:13 Date Recorded Body height Body mass index (BMI) Body weight Provider Name and Address Organization Details Last Updated DateTime 10/21/2022 180.34 cm 27.9 kg/m2 55625.47 g Danita Rain [facility] 10/21/2022 10:12:46 Date Recorded Body height Body mass index (BMI) Body weight Provider Name and Address Organization Details Last Updated DateTime 01/03/2021 180.34 cm 28.3 kg/m2 33593.25 g Otf garcia MD, PHD [address] [place] [address], [phone] [place] [address] 01/03/2021 10:13:09 Date Recorded Body height Body mass index (BMI) Body weight Provider Name and Address Organization Details Last Updated DateTime 06/18/2021 180.34 cm 28.3 kg/m2 32778.25 g Otf garcia MD, PHD [address] [place] [phone] [place] [address] Urolog 06/18/2021 10:31:49 Date Recorded Body height Body mass index (BMI) Body weight Provider Name and Address Organization Details Last Updated DateTime 10/08/2021 180.34 cm 28.3 kg/m2 64135.25 g Otf garcia MD, PHD [address] [place] [address] 10/08/2021 10:33:07 Social History Question Answer Notes LastModified by Organizat ion Details LastModified Time Tobacco Smoking Status Former Smoker [facility] 05/22/2020 10:23:16 What Is Your Level Of Alcohol Consumption? Occasional [email or web address] Information not available 07/31/2020 What Is Your [...] available 05/22 10:23:08 Medical History Condition Response Sexually Transmitted Infection N Diabetes N Other N Bleeding Disorder N High Blood Pressure Y Kidney Stones N High Cholesterol Y GERD/Acid Reflux N Heart Disease Y Cancer Y Depression N Lung Disease Y Immunizations Vaccine Type Date Status Note Provider Nam e and Address Organization Details Recorded Time Pneumococcal conjugate PCV 13 9 completed HERNANDEZ Xiong [facility] 07/09/2020 11:08:40 Past Encounters Encounter ID Performer Location Encounter Start Date Encounter Closed Date Diagnosis/Indication Diagnosis SNOMED-CT Code Diagnosis ICD10 Code Diagnosis Note [id number] Emmett Samuel MD [facility] [address] [place] [id number] 04/29/2020 16:28:59 05/06/2020 16:27:15 Prostate specific antigen above reference range 360593621 R97.20 - Now s/p TRUS Bx - Will follow up to review pathology and talk next steps [id number] Emmett Samuel MD [facility] [address] [place] [id number] 04/29/2020 16:28:59 05/07/2020 03:52:51 [id number] Otf zabala MD, PHD [facility] [address] [place] [id number] 05/22/2020 09:59:04 05/22/2020 13:27:44 Malignant tumor of prostate 051777476 C61 [id number] Otf zabala MD, PHD [facility] [address] [place] [id number] 07/31/2020 13:46:11 07/31/2020 16:30:36 Malignant tumor of prostate 368552669 C61 Erectile dysfunction 860 674879 F52.21 [id number] [facility] [address] [place] [id number] 09/11/2020 11:16:07 09/12/2020 14:13:35 Carcinoma of prostate 692888368 C61 Malignant tumor of prostate 899246759 C61 Erectile dysfunction 860 353984 F52.21 [id number] Otf zabala MD, PHD [facility] [address] [facility] [address] [place] [id number] 01/03/2021 10:02:21 01/06/2021 13:20:32 Carcinoma of prostate 513419870 C61 Malignant tumor of prostate 376425805 C61 Erectile dysfunction 860 325263 F52.21 [id number] Otf zabala MD, PHD [facility] [address] [facility] [address] [place] [id number] 06/18/2021 10:18:21 06/25/2021 12:23:30 Malignant tumor of prostate 029830617 C61 Carcinoma of prostate 25 4182729 C61 Erectile dysfunction 860 068677 F52.21 [id number] Otf zabala MD, PHD [facility] [address] [facility] [address] [place] [id number] 10/08/2021 10:20:08 10/09/2021 14:51:00 Malignant tumor of prostate 256390505 C61 Carcinoma of prostate 25 0060535 C61 Erectile dysfunction 860 410944 F52.21 [id number] Otf zabala MD, PHD [facility] [address] [facility] [address] [place] [id number] 04/22/2022 15:49:52 04/24/2022 11:35:04 Malignant tumor of prostate 364479484 C61 Carcinoma of prostate 25 3428632 C61 Erectile dysfunction 860 768501 F52.21 [id number] Otf zabala MD, PHD [address] [place] [id number] 10/21/2022 09:51:15 10/24/2022 11:49:21 Malignant tumor of prostate 835262015 C61 Carcinoma of prostate 25 1660150 C61 Erectile dysfunction 860 539643 F52.21 Health Concerns Section Related Observation LastModified by Organization Detai ls LastModified Time None Recorded Concern Status LastModified by Organization Details LastModified Time None Recorded Advance Directives Directive None Recorded Payers Encounter Date Sequence Insurance Name Policy Number Policy Agrawal Covered Member ID Agrawal Member ID Guarantor Name 01/03/2021 1 [facility] [id number] Zia Mason [id number] Zia Mason 06/18/2021 1 [facility] [id number] Zia Mason [id number] Zia Mason 04/22/2022 1 [facility] [id number] Debbie Mcgee [id number] Zia Mason 10/21/2022 1 [facility] [id number] Debbie Mcgee [id number] Zia Mason Notes Date Note Type Note Provider Name and Address Organization Details Recorded Time 01/03/2021 text/html 70M s/p RALP on 07/18/20 for [id number] (Aki 3+4=7, 0/3 LN, +SMS) Doing well. Normal BMs. Denies abdominal pain, N/V, f/c. No problems with incisions. Using 1 safety pad/day. Dry more often than not. Some leakage with cough. Good FOS. No hematuria. Getting erections adequate for penetration with 20 mg sildenafil. Sometimes without. PSA6/08/31 12.73/09/29 <0.046/ <0.04 UF: 2/5Pre-op EF: 25EF: 2 Otf Tinoco MD, PHD [address] [place] [address],[address], [address], [facility] 01/03/2021 10:59:49 06/18/2021 text/html 70M s/p RALP on 07/18/20 for [id number] (Clif[place] 3+4=7, 0/3 LN, +SMS) Doing well. Normal BMs. Denies abdominal pain, N/V, f/c. No problems with incisions. Using 1 safety pad/day. Dry more often than not. Some leakage with cough. Good FOS. No hematuria. Getting erections adequate for penetration with 20-40 mg sildenafil. Sometimes without. PSA6/08/31 12.73/09/29 <0.046/ <0.0412/03/01 0.07 UF: 2/5Pre-op EF: 25EF: 25 Otf Tinoco MD, PHD [address] [place] [address],[address], [phone], [facility] 06/18/2021 11:09:53 10/08/2021 text/html 70M s/p RALP on 07/18/20 for [id number] (Aki 3+4=7, 0/3 LN, +SMS) PSA detectable [...] EF: 5EF: 2 Otf Tinoco MD, PHD [address] [place] [address], [phone], [facility] 10/08/2021 11:20:33 04/22/2022 text/html 71M s/p RALP on 07/18/20 for [id number] (Aki 3+4=7, 0/3 LN, +SMS) PSA detectable. Decipher RP= 0.40-->Low risk MRI pelvis (09/30/21): small left sidewall seroma, no evidence local recurrence Using 1 safety pad/day. Dry more often than not. Some leakage with cough. Good FOS. No hematuria. Getting erections adequate for penetration with 20-40 mg sildenafil. Sometimes without. PSA6/08/31 12.73/09/29 <0.046/ <0.0412/03/01 0.073 0.087/05/2022 0.21 ([place]) 0.09 UF: 2/5Pre-op EF: 25EF: 25 Otf Tinoco MD, PHD [address] [place] [address],[address], [address], [facility] 04/22/2022 16:19:41 10/21/2022 text/html 71M s/p RALP on 07/18/20 for [id number] (Clif[place] 3+4=7, 0/3 LN, +SMS) Having heart/lung issues. May need stent/cabg. PSA detectable. Decipher RP= 0.40-->Low risk MRI pelvis (09/30/21): small left sidewall seroma, no evidence local recurrence Using 1 safety pad/day. Dry more often than not. Some leakage with cough. Good FOS. No hematuria. Getting erections adequate for penetration with 20-40 mg sildenafil. Sometimes without. PSA6/08/31 12.73/09/29 <0.046/ <0.0412/03/01 0.073/ 0.087/05/2022 0.21 ([place]) 0.094/01/01 0.24 UF: 2/5Pre-op EF: 2/5EF: 2/5 Otf Tinoco MD, PHD [address], [place], [address], [facility] 10/21/2022 10:52:03
--- OUTSIDE RECORDS SUMMARY | 2024-10-27 09:56 | XMS_ITS ---
Author Organization [facility] Address [address] [place] [address] Care Team Providers Care Dredge Mechanic Name Role Phone Unavailable Primary Care [...] Fraction Dose Fractions Total Dose Plans Planned [id number] 03/01/2023 - 04/14/2023 215 cGy 32 / 32 6 ,880 cGy Reference Points Delivered [id number] 03/01/2023 - 04/14/2023 6,880 cGy
--- OUTSIDE RECORDS SUMMARY | 2024-10-27 09:56 | XMS_ITS | Clinical Summary ---
Author Organization [facility] Address [address] [place] [address]. 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 Not on file Not on file Last Filed Vital Signs Vital Sign Reading Time Taken Comments Blood Pressure 126/75 07/19/2020 3:10 PM WRITER PRODUCER Pulse 79 07/19/2020 3:10 PM WRITER PRODUCER Temperature 36.2 C (97.2 F) 07/19/2020 3:10 PM WRITER PRODUCER Respiratory Rate 16 07/19/2020 4:50 PM WRITER PRODUCER Oxygen Saturation 93% 07/19/2020 3:10 PM WRITER PRODUCER Inhaled Oxygen Concentration - - Weight 92.1 kg (203 lb) 07/18/2020 10:31 AM WRITER PRODUCER Height 180.3 cm (5' 11) 07/18/2020 10:31 AM WRITER PRODUCER Body Mass Index 28.31 07/18/2020 10:31 AM WRITER PRODUCER Plan of Treatment Not on file Insurance [facility] Advance Directives For more information, please contact: [phone] * Full Code (Latest Code Status on File) Date Activated Date Inactivated Comments 07/18/2020 5:59 PM 07/19/2020 7:37 PM All basic and advanced life-sustaining interventions are performed as appropriate Question Answer Comments Code status determined by: Unable to dis cuss and no AD/POLST on file; continue PREVIOUSLY ORDERED code status Care Teams Firebrick Layer Relationship Specialty Start Date End Date Osvaldo Hall MD PCP - General Family Medicine 07/12/20
--- NOTE | 2024-10-27 09:59 | ED.GENADULT ---
HPI - General Adult General Chief complaint: Extremity Pain/Injury, Lower Stated complaint: both feet problem Time Seen by Provider: 10/27/24 09:59 History of Present Illness HPI narrative: Patient reports bilateral edema in both feet that he is being treated for and he does report that swelling has gone down. He notes that this AM he went to bathroom and noticed that both feet were bleeding. Notes that this is not the first time. Also reports new rash perhaps. He is unable to view the bottom of his feet so is unsure. Has made an appointment for podiatry. 73-year-old man presenting to the emergency department with concern of new rash on his bilateral feet and ankles. It made appointment with Podiatry as he has been having increasing discomfort with bleeding from his feet this morning as well. They are sore. Areas of this rash or sore. Does struggle with some lower extremity edema chronically. Does have a history of tinea pedis. 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 Is currently anticoagulated with Plavix. Related Data Home Medications ?Medication ?Instructions ?Recorded ?Confirmed nitroglycerin 0.4 mg sublingual 0.4 mg sublingual Q5M PRN 10/22/22 10/19/24 tablet aspirin 81 mg tablet,delayed 81 mg PO DAILY 03/02/23 10/19/24 release acetaminophen 500 mg tablet 1,000 mg PO Q6H PRN 10/19/24 10/19/24 albuterol sulfate 90 mcg/actuation 2 puff inhalation Q6H PRN 10/19/24 10/19/24 aerosol inhaler atorvastatin 80 mg tablet 80 mg PO QHS 10/19/24 10/19/24 azithromycin 500 mg tablet 500 mg PO QMWF 10/19/24 10/19/24 cholecalciferol (vitamin D3) 50 50 mcg PO QDAY 10/19/24 10/19/24 mcg (2,000 unit) tablet guaifenesin 100 mg/5 mL oral 100 mg PO Q4H PRN 10/19/24 10/19/24 liquid (Adult Tussin Chest Congestion) isosorbide mononitrate 30 mg 90 mg PO QDAY 10/19/24 10/19/24 tablet,extended release 24 hr sennosides 8.6 mg-docusate sodium 1 - 2 tab-cap PO BID PRN 10/19/24 10/19/24 50 mg tablet (Senna with Docusate Sodium) Previous Rx's ?Medication ?Instructions ?Recorded nebulizer and compressor #1 ea 12/08/22 carvedilol 6.25 mg tablet 6.25 mg PO BID #180 tabs 09/15/24 clopidogrel 75 mg tablet 75 mg PO DAILY #90 tabs 09/15/24 ezetimibe 10 mg tablet 10 mg PO DAILY #90 tabs 09/15/24 fluticasone fur. 200 mcg-umeclid 1 inh inhalation DAILY #60 ea 09/15/24 62.5 mcg-vilant 25 mcg inhalat.powder (Trelegy Ellipta) ipratropium 0.5 mg-albuterol 3 mg 3 ml inhalation QID #360 mL 09/15/24 (2.5 mg base)/3 mL nebulization soln lisinopril 20 2 tab PO DAILY #180 tabs 09/15/24 mg-hydrochlorothiazide 12.5 mg tablet nebulizer accessories (Adult #1 ea 09/15/24 Aerosol Mask) omeprazole 20 mg capsule,delayed 20 mg PO DAILY #90 caps 09/15/24 release prednisone 10 mg tablet 10 mg PO DAILY #90 tabs 09/15/24 tiotropium 2.5 mcg-olodaterol 2.5 2 puff inhalation DAILY #4 grams 09/15/24 mcg/actuation mist for inhalation (Stiolto Respimat) furosemide 20 mg tablet 20 mg PO QDAY #7 tabs 10/19/24 morphine 15 mg tablet,extended 15 mg PO Q12H #60 tabs 10/24/24 release (MS Contin) clotrimazole-betamethasone 1 1 applic topical BID #45 grams 10/25/24 %-0.05 % topical cream cephalexin 500 mg capsule 500 mg PO TID 8 days #24 caps 10/27/24 terbinafine HCl 1 % topical cream 1 applic topical BID #15 grams 10/27/24 (Athlete's Foot (terbinafine)) terbinafine HCl 250 mg tablet 250 mg PO DAILY #15 tabs 10/27/24 Allergies Allergy/AdvReac Type Severity Reaction Status Date / Time No Known Drug Allergies Allergy Verified 10/27/24 10:03 Review of Systems Status of ROS: Reports: 6 or more systems reviewed and unremarkable except as noted in History and below [facility] Medical History Weakness of left shoulder ?R29.898 - Other symptoms and signs involving the musculoskeletal system (ICD-10) Insomnia ?G47.00 - Insomnia, unspecified (ICD-10) Health care directive on file ?Z78.9 - Other specified health status (ICD-10) Primary hypertension ?I10 - Essential (primary) hypertension (ICD-10) Mixed hyperlipidemia ?E78.2 - Mixed hyperlipidemia (ICD-10) ASCVD (arteriosclerotic cardiovascular disease) ?I25.10 - Atherosclerotic heart disease of nome coronary artery without angina pectoris (ICD-10) Malignant neoplasm of prostate ?C61 - Malignant neoplasm of prostate (ICD-10) Health care directive on file (04/24/21) ?Z78.9 - Other specified health status (ICD-10) Gastroesophageal reflux disease ?K21.9 - Gastro-esophageal reflux disease without esophagitis (ICD-10) Erectile dysfunction ?N52.9 - Male erectile dysfunction, unspecified (ICD-10) Chronic obstructive pulmonary disease ?J44.9 - Chronic obstructive pulmonary disease, unspecified (ICD-10) Anxiety ?F41.9 - Anxiety disorder, unspecified (ICD-10) Surgical History 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) ?Z96.619 - Presence of unspecified artificial shoulder joint (ICD-10) History of coronary artery stent placement ?Z95.5 - Presence of coronary angioplasty implant and graft (ICD-10) Status post laparoscopic cholecystectomy (2011) ?Z90.49 - Acquired absence of other specified parts of digestive tract (ICD-10) History of robot-assisted laparoscopic radical prostatectomy (2019) ?Z90.79 - Acquired absence of other genital organ(s) (ICD-10) History of mandibular surgery (1994) ?Z98.890 - Other specified postprocedural states (ICD-10) History of inguinal hernia repair ?Z98.890 - Other specified postprocedural states (ICD-10) ?Z87.19 - Personal history of other diseases of the digestive system (ICD-10) History of excision of testicular mass ?Z98.890 - Other specified postprocedural states (ICD-10) ?Z87.438 - Personal history of other diseases of male genital organs (ICD-10) Family History Father Heart disease Mother Heart disease Brother Prostate cancer Brother Melanoma Social History Narrative: , 2 kids, retired, non-smoker (Quit 2008), social EtOH What is your current living situation?: I presently have a place to live Problems where you live: no known problems In the past 12 months, utilities in danger of being shut off: no In past 12 months, lack of transportation kept you from medical appts, meetings, work, or getting things needed for daily living: no In the past 12 mos, have been you worried that your food would run out before you had money to buy more?: never true In the past 12 mos, the food you bought just didn't last and you didn't have money to buy more?: never true Smoking Status: Former smoker What tobacco products do you use: cigarettes Smoking quit date/years: >15 years ago Do you use any of these nicotine containing products: None Second hand tobacco smoke exposure: No How often do you have a drink containing alcohol: 2-3 times a week AUDIT-C Alcohol total score: 3 Non-prescribed substance use: denies use How often does anyone, including family, friends and others, physically hurt you: never How often does anyone, including family, friends and others, insult or talk down to you: never How often does anyone, including family, friends and others, threaten you with harm: never How often does anyone, including family, friends and others, scream or curse at you: never Exam Narrative: Exam Narrative: Accompanied here by his brother. Pleasant. Good energy. Intradermal bruising noted on his forearms. Examination of lower extremities with dry feet and areas of calluses. There are some deep fissures in both heels another under the right great toe. Advancing irregular erythematous rash over bilateral ankles and lower extremities. Tender to palpation whether some mild erythema not cellulitic and a medial both ankles. Generally with mild pitting edema. There appears to be some whitish subcutaneous dots/pustules at the advancing edges of this rash. Mild inflammation between the 4th and 5th toes bilaterally but not marked. There are some dried scabs probably where his toes have cut his medial ankles. No active bleeding. Const: Vital Signs, click to edit/add: Vital Signs - 24 hr 10/27/24 10:03 Temperature 97.1 F L Pulse Rate [Pulse Oximeter] 73 Respiratory Rate 18 Blood Pressure [Ri ght Upper Arm] 104/70 Pulse Oximetry 95 Oxygen Delivery Me thod Room Air Documenting provider has reviewed patient's vital signs: yes Course Vital Signs Vital signs: Initial Vital Signs Temperature 97.1 F L 10/27/24 10:03 Temperature Source Temporal Artery Scan 10/27/24 10:03 Pulse Rate 73 10/27/24 10:03 Respiratory Rate 18 10/27/24 10:03 Blood Pressure 104/70 10/27/24 10:03 Blood Pressure Mean 81 10/27/24 10:03 Pulse Oximetry 95 10/27/24 10:03 Oxygen Delivery Method Room Air 10/27/24 10:03 Vital Signs Temperature 97.1 F L 10/27/24 10:03 Pulse Rate 73 10/27/24 10:03 Respiratory Rate 18 10/27/24 10:03 Blood Pressure 104/70 10/27/24 10:03 Pulse Oximetry 95 10/27/24 10:03 Oxygen Delivery Method Room Air 10/27/24 10:03 Temperature 97.1 F L 10/27/24 10:03 Pulse Rate 73 10/27/24 10:03 Respiratory Rate 18 10/27/24 10:03 Blood Pressure 104/70 10/27/24 10:03 Pulse Oximetry 95 10/27/24 10:03 Oxygen Delivery Method Room Air 10/27/24 10:03 Medical Decision Making MDM Narrative Medical decision making narrative: Does not appear to be frankly cellulitic. I wonder if there might be some fungal infection here. Might be a good idea still to offer bacterial coverage. He has already made an appointment with [facility]. I will reach out to them for advanced care. In did discuss with Dr. helm at [facility]. He also has concerns that there is more aggressive tinea pedis spread. And also consider secondary bacterial coverage. Will also check some labs which will be pending on discharge. These can serve as baseline for follow-up. As discussed. Concerned that this is advancing tinea pedis, fungal infection that may have started between your toes. It may be prudent also to start antibiotic for secondary bacterial infection. I am sending in prescriptions of both antifungal and antibiotic for you Labs will be pending here for baseline. I will call you if there is anything concerning about them. It might be a good idea also to use a topical antifungal. Prescription has been sent in here as well. At this point follow-up as scheduled with Podiatry. They may call you to be seen sooner or if you are rapidly worsening, try to be seen sooner there or here. Medical Records Medical records reviewed: Yes I reviewed the patient's medical records Lab Data Lab results reviewed: Yes I reviewed the patient's lab results Lab results narrative: Called and left message recommending recheck in a couple of weeks. Labs: Lab Results 10/27/24 Range/Units 11:44 WBC 13.43 H (4.50-11.00) K/uL RBC 4.57 (4.30-5.90) m/uL Hgb 14.0 (13.5-17.5) gm/dL Hct 41.2 (37.0-53.0) % MCV 90 (80-100) fL MCH 31 (26-34) pg MCHC 34 (32-36) gm/dL RDW Coeff of Balta 14.7 (11.5-15.5) % Plt Count 185 (140-440) K/uL Neut % (Auto) 87.6 H (42.0-72.0) % Lymph % (Auto) 6.2 L (20-44) % [place] % (Auto) 4.8 (0.0-11.0) % Eos % (Auto) 0.5 (0.0-7.0) % Baso % (Auto) 0.1 (0.0-3.0) % Neut # (Auto) 11.80 H (1.7-7.0) K/uL Lymph # (Auto) 0.80 L (0.90-2.90) K/uL [place] # (Auto) 0.60 (0.00-0.90) K/UL Eos # (Auto) 0.10 (0.00-0.50) K/uL Baso # (Auto) 0.00 (0.00-0.30) K/uL Abs Immat Gran (auto) 0.10 (0.00-0.30) K/uL Imm/Tot Granulo (auto) 0.8 % Sodium 136 (135-149) mmol/L Potassium 3.9 (3.6-5.1) mmol/L Chloride 95 L (96-114) mmol/L Carbon Dioxide 37 H (20-32) mmol/L Anion Gap 4 L (7-15) mEq/L BUN 52 H (7-30) mg/dL Creatinine 1.0 (0.5-1.5) mg/dL Estimated Creat Clear 72.16 Estimated GFR 80 ml/min Glucose 119 H (60-115) mg/dL Calcium 9.5 (8.4-10.6) mg/dL Total Bilirubin 1.6 H (0.1-1.5) mg/dL Direct Bilirubin 0.1 (0.0-0.5) mg/dL AST 53 H (12-35) U/L ALT 128 H (4-50) U/L Alkaline Phosphatase 77 (40-150) U/L Total Protein 6.0 (6.0-8.3) g/dL Albumin 3.6 (3.3-5.0) g/dL Discharge Plan Discharge Clinical Impression: Tinea pedis, Peripheral edema Patient Disposition: Home w/ Parent or Adult Condition: Stable Additional Instructions: As discussed. Concerned that this is advancing tinea pedis, fungal infection that may have started between your toes. It may be prudent also to start antibiotic for secondary bacterial infection. I am sending in prescriptions of both antifungal and antibiotic for you Labs will be pending here for baseline. I will call you if there is anything concerning about them. It might be a good idea also to use a topical antifungal. Prescription has been sent in here as well. At this point follow-up as scheduled with Podiatry. They may call you to be seen sooner or if you are rapidly worsening, try to be seen sooner there or here. Prescriptions: New terbinafine HCl 250 mg tablet 250 mg PO DAILY Qty: 15 0RF cephalexin 500 mg capsule 500 mg PO TID 8 Days Qty: 24 0RF terbinafine HCl [Athlete's Foot (terbinafine)] 1 % cream 1 applic topical BID Qty: 15 1RF No Action (DME) Adult Aerosol Mask Misc See Rx Instructions .Route Qty: 1 0RF Rx Instructions: Mask for use with nebulizer carvedilol 6.25 mg tablet 6.25 mg PO BID Qty: 180 3RF clopidogrel 75 mg tablet 75 mg PO DAILY Qty: 90 3RF ezetimibe 10 mg tablet 10 mg PO DAILY Qty: 90 3RF Trelegy Ellipta 200-62.5-25 mcg blister with device 1 inh inhalation DAILY Qty: 60 5RF ipratropium-albuterol 0.5 mg-3 mg(2.5 mg base)/3 mL solution for nebulization 3 ml inhalation QID Qty: 360 5RF lisinopril-hydrochlorothiazide 20-12.5 mg tablet 2 tab PO DAILY Qty: 180 3RF Stiolto Respimat 2.5-2.5 mcg/actuation mist 2 puff inhalation DAILY Qty: 4 12RF prednisone 10 mg tablet 10 mg PO DAILY Qty: 90 3RF omeprazole 20 mg capsule,delayed release(DR/EC) 20 mg PO DAILY Qty: 90 3RF nitroglycerin 0.4 mg tablet, sublingual 0.4 mg sublingual Q5M PRN aspirin 81 mg tablet,delayed release (DR/EC) 81 mg PO DAILY guaifenesin [Adult Tussin Chest Congestion] 100 mg/5 mL liquid 100 mg PO Q4H PRN azithromycin 500 mg tablet 500 mg PO QMWF cholecalciferol (vitamin D3) 50 mcg (2,000 unit) tablet 50 mcg PO QDAY atorvastatin 80 mg tablet 80 mg PO QHS isosorbide mononitrate 30 mg tablet extended release 24 hr 90 mg PO QDAY acetaminophen 500 mg tablet 1,000 mg PO Q6H PRN albuterol sulfate 90 mcg/actuation HFA aerosol inhaler 2 puff inhalation Q6H PRN sennosides-docusate sodium [Senna with Docusate Sodium] 8.6-50 mg tablet 1 - 2 tab-cap PO BID PRN furosemide 20 mg tablet 20 mg PO QDAY Qty: 7 0RF (DME) nebulizer and compressor Device See Rx Instructions .Route Qty: 1 0RF Rx Instructions: As directed morphine [MS Contin] 15 mg tablet extended release 15 mg PO Q12H Qty: 60 0RF clotrimazole-betamethasone 1-0.05 % cream 1 applic topical BID Qty: 45 1RF Follow Up/Referrals: Osvaldo Hall MD [Primary Care Provider] - Stand Alone Forms: MyHealth Info Instructions
[2024-10-27 10:03] VITALS: BP 104/70; PULSE 73; RESP 18; TEMP 36.2; O2SAT 95; BMI 28.6
--- OUTSIDE RECORDS SUMMARY | 2024-10-27 10:38 | XMS_ITS ---
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
--- OUTSIDE RECORDS SUMMARY | 2024-10-27 10:38 | XMS_ITS | Clinical Summary ---
Author Organization [facility] Address [address] [place] [address] Care Team Providers Care Clinical Systems Educator Name Role Phone Osvaldo Hall MD Primary [...] artery disease of n ative artery of [place] heart with stable angina pectoris 11/16/2022 Primary hypertension 11/16/2022 Mixed hyperlipidemia 11/16/2022 COPD (chronic obstructive pulmonary disease) 11/2022 ASCVD (arteriosclerotic cardiovascular disease) 10/14/2022 Overview (10/14/2022): CT coronary angiogram 09/15/22 - diffuse MVD with severe OM2 disease and a mRCA INSEAM TRIMMER noted with left to right collaterals Encounters Date Type Department Care Team Description 10/14/2024 Orders Only [address] [address] Manuel Rea DO <No scans attached> 10/13/[address] [address] Debbie Costello PA Follow Up 10/07/2024 5:25 PM CDT - 10/14/2024 4:30 PM CDT Hospital Encounter [address] [address] s, U Hospitalist [facility] Dannielle Martinez MBBS O'Neil, Luke Jeffrey, MD [place], Alan Jason, MD Maki, Mackenzie, MD NSTEMI (non-ST elevated myocardial infarction) (HC) (Primary Dx); Hyperlipidemia, unspecified hyperlipidemia type; Chronic obstructive pulmonary disease with acute exacerbation (HC); Vitamin D deficiency Discharge Disposition: Home Self Care 10/07/2024 Travel 09/23/2024 Refill [facility] Sharyn Ace [address] [facility] [address] [place] [address] Blayne Iglesias MD Refill Request (Aspirin) 09/04/2024 Refill [facility] [place]ta [address] [place] [place] [phone] Bal [...] on file 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 [address] [place] [address] 02/14/2025 10:00 AM CDT Office Visit [facility] Marialuisa [address] [place] [phone] Bal Bosch MD [address] [facility] [address] [address] Health Maintenance Due Date Last Done Comments [...] - 5.1 mmol/L 10/14/2024 9:14 AM CDT [facility] Blood BLOOD SPECIMEN / Unknown Butterfly / Unknown 10/14/2024 8:07 AM CDT 10/14/2024 8:48 AM CDT Beatriz Feldman MD CHEMISTRY Final Result [facility] SENDOUT [place]IP [address] [address] [place] [address] * MAGNESIUM (10/14/2024 8:07 AM CDT) Only the most recent of7 resultswithin the time period is included. Pathologist [facility] MAGNESIUM 2.3 1.6 - 2.4 mg/dL 10/14/2024 9:14 AM CDT [facility] Blood BLOOD SPECIMEN / Unknown Butterfly / Unknown 10/14/2024 8:07 AM CDT 10/14/2024 8:48 AM CDT us Beatriz Feldman MD CHEMISTRY Final Result [facility] SENDOUT [place] [address] [address] [place] [address] * SCAN-CARDIAC STRIP (10/14/2024 7:10 AM CDT) us Scanner OTHER Final Result * SCAN-CARDIAC STRIP (10/14/2024 12:31 AM CDT) us Scanner OTHER Final Result * SCAN-CARDIAC STRIP (10/13/2024 6:09 PM CDT) us Scanner OTHER Final Result * SCAN-CARDIAC STRIP (10/13/2024 8:34 AM CDT) us Scanner OTHER Final Result * (ABNORMAL) CREATININE (10/13/2024 5:48 AM CDT) Pathologist [facility] eGFR 90(L) >90 mL/min/1.7 3m2 10/13/2024 6:35 AM CDT [facility] Comment:As of 2021, eG FR is calculated by the CKD-EPI creatinine equation without race adjustment. eGFR can be influenced by muscle mass, exercise, and diet. The reported eGFR is an estimation only and is only applicable if the renal function is stable. CREATININE 0.91 0.70 - 1.20 mg/dL 10/13/2024 6:35 AM CDT [facility] Blood BLOOD SPECIMEN / Unknown Venipuncture / Unknown 10/13/2024 5:48 AM CDT 10/13/2024 6:05 AM CDT us Faraz Schwartz MD CHEMISTRY Final Re sult [facility] SENDOUT [place] [address] [address] [place] [address] * SCAN-CARDIAC STRIP (10/13/2024 12:45 AM CDT) [...] EXAM: XR CHEST 1 VIEW PORTABLE [facility]: 10/12/2024 INDICATION: Eval Lung [...] EXAM: XR CHEST 1 VIEW PORTABLE [facility]: 10/12/2024 INDICATION: Eval Lung [...] 136 - 145 mmol/L 10/12/2024 9:22 AM [facility] POTASSIUM 5.1 3.5 - 5.1 mmol/L 10/12/2024 9:22 AM [facility] CHLORIDE 94(L) 98 - 107 mmol/L 10/12/2024 9:22 AM [facility] CO2,TOTAL 36(H) 22 - 29 mmol/L 10/12/2024 9:22 AM [facility] ANION GAP 7 5 - 18 10/12/2024 9:22 AM [facility] GLUCOSE 132(H) 70 - 99 mg/dL 10/12/2024 9:22 AM [facility] CALCIUM 9.8 8.8 - 10.4 mg/dL 10/12/2024 9:22 AM [facility] Comment: Reference ranges for this test were updated on 05/16/2024 to reflect our healthy population more accurately. Reference range changes are not retroactively applied to results, but previous results using the same methodology can be interpreted in the context of the new reference range. BUN 29(H) 8 - 23 mg/dL 10/12/2024 9:22 AM [facility] CREATININE 0.94 0.70 - 1.20 mg/dL 10/12/2024 9:22 AM [facility] BUN/CREAT RATIO 31(H) 10 - 20 9:22 AM [facility] eGFR 87(L) >90 mL/min/1. 73m2 10/12/2024 9:22 AM CDT [facility] Comment:As of 2021, eG FR [...] CHEMISTRY Final Resu lt Performing Organization Address [facility]/ZIP Co de Phone Number [facility] SENDOUT INTERNAL ZIP [phone] [place] [address] * PLATELET COUNT (10/12/2024 5:51 AM CDT) Only the most recent of4 resultswithin the time period is included. PLATELET COUNT 289 140 - 440 thou/cu mm 10/12/2024 6:06 AM CDT [facility] MPV 8.5 6.5 - 11.0 fL 10/12/2024 6:06 AM CDT [facility] Blood BLOOD SPECIMEN / Unknown Venipuncture / Unknown 10/12/2024 5:51 AM CDT 10/12/2024 5:55 AM CDT Narrative [facility] - 10/12/2024 6:06 AM CDT Every morning while on IV heparin. Necessary every morning while on IV heparin. Dannielle ALBS HEMATOLOGY Final Result Performing Organization Address City/[facility]/ZIP Co de Phone Number [facility] SENDOUT INTERNAL ZIP [address] [place] [address] * HEMOGLOBIN (10/12/2024 5:51 AM CDT) Only the most recent of4 resultswithin the time period is included. HEMOGLOBIN 14.6 13.5 - 17.5 g/dL 10/12/2024 6:06 AM CDT [facility] MCV 89 80 - 100 fL 10/12/2024 6:06 AM CDT [facility] Blood BLOOD SPECIMEN / Unknown Venipuncture / Unknown 10/12/2024 5:51 AM CDT 10/12/2024 5:55 AM CDT Narrative [facility] - 10/12/2024 6:06 AM CDT Every morning while on IV heparin. Necessary every morning while on IV heparin. us Dannielle VALDOVINOS HEMATOLOGY Final Result [facility] SENDOUT [place]NAL ZIP [phone] [place] [address] * SCAN-CARDIAC STRIP (10/12/2024 12:49 AM CDT) [...] NOW QTc 445 ms BEYOND NOW P Slayton 78 degrees BEYOND NOW R Slayton 0 degrees BEYOND NOW T Slayton 251 degrees BEYOND NOW 10/10/2024 5:38 AM CDT 10/10/2024 9:17 AM CDT us Dannielle VALDOVINOS EKG ORD Final Result [place] NOW [place], [place] * SCAN-CARDIAC STRIP (10/09/2024 9:48 PM CDT) us Scanner OTHER Final Result * (ABNORMAL) APTT (10/09/2024 3:51 PM CDT) Only the most recent of7 resultswithin the time period is included. APTT 184(HH) 25 - 36 sec 10/09/2024 4:25 PM CDT [facility] Blood BLOOD SPECIMEN / Unknown Venipuncture / Unknown 10/09/2024 3:51 PM CDT 10/09/2024 3:56 PM CDT Narrative [facility] - 10/09/2024 4:25 PM CDT Therapeutic Range: 59-89 seconds us Guilherme Robles RN HEMATOLOGY Final Result [facility] SENDOUT INTERNAL ZIP [address] [place] [address] * (ABNORMAL) ACTIVATED CLOTTING TIME [id number] ACT (10/09/2024 12:21 PM CDT) ACTIVATED CLOTTING TIME, POCT 536(H) 74 - 125 sec 10/09/2024 2:20 PM CDT [facility] Blood BLOOD SPECIMEN / Unknown 10/09/2024 12:21 PM CDT 10/09/2024 2:20 PM CDT us Faraz Schwartz MD HEMATOLOGY Final Re sult [facility] SENDOUT [place] [address] [address] [place] [address] * CVL CORONARY ANGIOGRAM POSS PCI (10/09/2024 11:43 AM CDT) Anatomical Region Laterality Modality Other 10/09/2024 11:4 3 AM CDT Narrative Transcriptions Kayla Boggs MD - 10/09/2024 12:51 PM CDT [facility] Cardiac Catheterization Report Name: RUTHANN FIGUEROA Event Date: 10/09/2024 11:43 Jammieian ID #: [id number] JET #: [id number] Diagnostic Physician: KAYLA BOGGS [facility] Referring Physician: Date: 1950 Gender: [...] the RCA instent restenotic lesion.. Consent & Avalon Protocol The risks, benefits, and alternatives of the procedure were discussed withthe patient and written informed consent was obtained. Avalon protocol was followed. TIME OUT conducted just prior tostarting procedure confirmed patient identity, site/side, procedure,patient position, and availability of correct equipment and implants (ifapplicable). Staff Name Title KAYLA BOGGS Diagnostic Hoe Worker Brandon, Arnulfo RN Nurse Doug, Mark RTR Scrub Tyron, Palmira CVT Scrub Bella Limh CVT Monitor Marita Fox RTR Fountain Pen Nibs Inspector Ettl, Oral RN Nurse Brandon, Arnulfo RN Nurse Procedures ? US Guided Access ? LHC, Cor Angio ? Intravascular Ultrasound, Proximal RCA {L1} ? Intravascular Ultrasound, Mid LAD {L2} ? Fractional Flow Tunnelton, Mid LAD {L1} Diagnostic Findings * Left [...] min Cumulative Air Kerma: 349 mGy DAP: 61437 mGy/cm2 Contrast: Omnipaque, 108 ml Physiologic Data [...] with status of Final Kayla Boggs MD [address], [place] [address] [place] [address] (p) [phone](f) us Rita BAPTISTE CV IMAGING Edited Resu lt - Final * SCAN CORRESP-IMAGING (10/09/2024 9:26 AM CDT) Anatomical Region Laterality Modality Other Narrative 10/09/2024 9:26 AM CDT Ordered by an unspecified provider. us Other Clinical Staff OTHER Final Resul t * CBC with Platelets no Differential (10/09/2024 8:21 AM CDT) WHITE BLOOD COUNT 7.8 4.5 - 11.0 thou/cu mm 10/09/2024 8:30 AM T [facility] RED BLOOD COUNT 5.12 4.30 - 5.90 mil/cu mm 10/09/2024 8:30 AM T [facility] HEMOGLOBIN 15.9 13.5 - 17.5 g/dL 10/09/2024 8:30 AM T [facility] HEMATOCRIT 44.8 37.0 - 53.0 % 10/09/2024 8:30 AM T [facility] MCV 88 80 - 100 fL 10/09/2024 8:30 AM T [facility] MCH 31.1 26.0 - 34.0 pg 10/09/2024 8:30 AM T [facility] MCHC 35.5 32.0 - 36.0 g/dL 10/09/2024 8:30 AM T [facility] RDW 14.4 11.5 - 15.5 % 10/09/2024 8:30 AM T [facility] PLATELET COUNT 255 140 - 440 thou/cu mm 10/09/2024 8:30 AM [facility] MPV 8.4 6.5 - 11.0 fL 10/09/2024 8:30 AM T [facility] NRBC 0.0 % 10/09/2024 8:30 AM T [facility] ABS NRBC 0.0 thou /cu mm 10/09/2024 8:30 AM [facility] Blood BLOOD SPECIMEN / Unknown Venipuncture / Unknown 10/09/2024 8:21 AM CDT 10/09/2024 8:25 AM CDT us Rita BAPTISTE HEMATOLOGY Final Resul t [facility] SENDOUT INTERNAL ZIP [address] [address] [place] [address] * SCAN-CARDIAC STRIP (10/09/2024 7:26 AM CDT) [...] provider. EXAM: CT CHEST PE STUDY [facility]: 10/08/2024 INDICATION: Pulmonary embolism [...] provider. EXAM: CT CHEST PE STUDY [facility]: 10/08/2024 INDICATION: Pulmonary embolism [...] PM CDT Narrative 10/08/2024 4:21 PM CDT [address] [address] Main: [email or web address] Transthoracic Echo Report RUTHANN FIGUEROA Natanael ID: [id number] Age: 73 : 1950 Ordering Provider: RITA PETER Exam Date: 10/08/2024 14:49 Gender: M Block Trader: MARCOS Height: 70 in BSA: 2.09 m BP: 116 / 78 Weight: 201 lbs BMI: 28.8 kg/m HR: 75 Location: Inpatient (Portable) Rhythm: Normal Sinus Rhythm Procedure Components: 2D imaging with contrast, Color Doppler, Spectral Doppler Indications: Chest Pain Technical Quality: Very technically difficult study Contrast: Definity Constrast Dose (ml): 0.3 [facility]#: [id number] Final Conclusion Previous Study: 10/13/2022 1. Technically [...] VINNY (r) 2.84 mmHg Vineet Mehta MD [facility] Accredited Site (Electronically Signed) Final Date: 08 October 2024 16:21 ICD-10 Codes: 786.9 Procedure Note Vineet Mehta MD - 10/08/2024 [place] [address] Main: [email or web address] Transthoracic Echo Report RUTHANN FIGUEROA Jammiekarina ID: [id number] Age: 73 : 1950 Ordering Provider:RITA PETER Exam Date: 10/08/2024 14:49 Gender: M Block Trader: MARCOS Height: 70 in BSA: 2.09 m BP: 116 / 78 Weight: 201 lbs BMI: 28.8 kg/m HR: 75 Location: Inpatient (Portable) Rhythm: Normal Sinus Rhythm Procedure Components: 2D imaging with contrast, Color Doppler, SpectralDoppler Indications: Chest Pain Technical Quality: Very technically difficult study Contrast: Definity Constrast Dose (ml): 0.3 [facility]#: [id number] Final Conclusion Previous Study: 10/13/2022 1. Technically [...] VINNY (r) 2.84 mmHg Vineet Mehta MD [facility] Accredited Site (Electronically Signed) Final Date: 08 October 2024 16:21 ICD-10 Codes: 786.9 us Rita BAPTISTE ECHO ORD Final Resul t * (ABNORMAL) TROPONIN T (HS) ONE TIME (10/08/2024 10:43 AM CDT) Only the most recent of3 resultswithin the time period is included. TROPONIN T HS 69(H) 6-15 ng/L ng/L 10/08/2024 11:36 AM T [facility] Blood BLOOD SPECIMEN / Unknown Venipuncture / Unknown 10/08/2024 10:43 AM CDT 10/08/2024 11:02 AM CDT [facility] - 10/08/2024 11:36 AM CDT [id number] [...] CHEMISTRY Final Res ult Performing Organization Address City/State/[facility] Co de Phone Number [facility] SENDOUT INTERNAL ZIP [address] [address] [place] [address] * (ABNORMAL) PRO-BNP (10/08/2024 10:43 AM CDT) PRO-BNP 896(H) <125 pg/mL 10/08/2024 11:36 AM CDT [facility] Blood BLOOD SPECIMEN / Unknown Venipuncture / Unknown 10/08/2024 10:43 AM CDT 10/08/2024 11:02 AM CDT Narrative [facility] - 10/08/2024 11:36 AM CDT [...] OUTS Final Resul t Performing Organization Address [facility]/ZIP Co de Phone Number [facility] SENDOUT INTERNAL ZIP [address] [address] [place] [address] * SCAN-CARDIAC STRIP (10/08/2024 7:34 AM CDT) [...] 11.0 thou/cu mm 10/07/2024 6:28 PM CDT [facility] RED BLOOD COUNT 5.26 4.30 - 5.90 mil/cu mm 10/07/2024 6:28 PM CDT [facility] HEMOGLOBIN 16.2 13.5 - 17.5 g/dL 10/07/2024 6:28 PM CDT [facility] HEMATOCRIT 46.0 37.0 - 53.0 % 10/07/2024 6:28 PM CDT [facility] MCV 88 80 - 100 fL 10/07/2024 6:28 PM CDT [facility] MCH 30.8 26.0 - 34.0 pg 10/07/2024 6:28 PM CDT [facility] MCHC 35.2 32.0 - 36.0 g/dL 10/07/2024 6:28 PM CDT [facility] RDW 14.6 11.5 - 15.5 % 10/07/2024 6:28 PM CDT [facility] PLATELET COUNT 279 140 - 440 thou/cu mm 10/07/2024 6:28 PM CDT [facility] MPV 8.0 6.5 - 11.0 fL 10/07/2024 6:28 PM CDT [facility] NRBC 0.0 % 10/07/2024 6:28 PM CDT [facility] ABS NRBC 0.0 thou /cu mm 10/07/2024 6:28 PM CDT [facility] % NEUT 81.0 % 10/07/2024 6:28 PM CDT [facility] % LYMPH 9.3 % 10/07/2024 6:28 PM CDT [facility] % MONO 8.1 % 10/07/2024 6:28 PM CDT [facility] % EOS 0.0 % 10/07/2024 6:28 PM CDT [facility] % BASO 0.3 % 10/07/2024 6:28 PM CDT [facility] % IMMATURE GRAN (METAS,MYELOS,AL OS) 1.3 % 10/07/2024 6:28 PM CDT [facility] ABSOLUTE NEUTROPHILS 8.9(H) 1.7 - 7.0 thou/cu mm 10/07/2024 6:28 PM CDT [facility] ABSOLUTE LYMPHOCYTES 1.0 0.9 - 2.9 thou/cu mm 10/07/2024 6:28 PM CDT [facility] ABSOLUTE MONOCYTES 0.9(H) <0.9 thou/cu mm 10/07/2024 6:28 PM CDT [facility] ABSOLUTE EOSINOPHILS 0.0 <0.5 thou/cu mm 10/07/2024 6:28 PM CDT [facility] ABSOLUTE BASOPHILS 0.0 <0.3 thou/cu mm 10/07/2024 6:28 PM CDT [facility] ABSOLUTE IMMATURE GRANULOCYTES(MET ,MYELOS,PROS) 0.1 <0.3 thou/cu mm 10/07/2024 6:28 PM CDT [facility] Blood BLOOD SPECIMEN / Unknown Venipuncture / Unknown 10/07/2024 6:07 PM CDT 10/07/2024 6:25 PM CDT Dannielle VALDOVINOS HEMATOLOGY Final Result [facility] SENDOUT [place]NAL ZIP [address] [address] [place] [address] * (ABNORMAL) Hemoglobin A1C Screening - in AM (10/07/2024 6:07 PM CDT) HEMOGLOBIN A1C SCREENING 6.7(H) <=6.4 % 10/09/2024 7:38 AM CDT [facility] Blood BLOOD SPECIMEN / Unknown Venipuncture / Unknown 10/07/2024 6:07 PM CDT 10/07/2024 6:25 PM CDT Narrative [facility] - 10/09/2024 7:38 AM CDT (<5.7%) Normal (5.7% to 6.4%) Indicates prediabetes (>=6.5%) Confirms diabetes Falsely low levels may be seen with: Recent Transfusion, Recent Significant Blood Loss, Hemolytic Diseases, or Falsely elevated levels may be seen with: Untreated Anemias, Splenectomy Dannielle VALDOVINOS CHEMISTRY Final Result [facility] SENDOUT INTERNAL [facility] [id number] [place] [address] * VITAMIN D 25 (DEFICIENCY) (10/07/2024 6:07 PM CDT) VITAMIN D TOTAL 27.8 20.0 - 80.0 ng/mL 10/08/2024 2:46 AM CDT [facility] Blood BLOOD SPECIMEN / Unknown Venipuncture / Unknown 10/07/2024 6:07 PM CDT 10/07/2024 6:25 PM CDT Narrative [facility] - 10/08/2024 2:46 AM CDT Vitamin D Status Deficiency: <20 ng/mL Insufficiency: 20-29 ng/mL Sufficiency: 30-80 ng/mL Possible Toxicity: >80 ng/mL Based on [place] of Medicine recommendations Biotin supplements may cause clinically significant interference for this test assay. If interference is suspected, it is strongly recommended that biotin is discontinued for at least one week prior to retesting. Dannielle VALDOVINOS SEND OUTS Final Result [facility] [address] [place], [place] [id number] [place] [address] * (ABNORMAL) PROTIME-INR (10/07/2024 6:07 PM CDT) INR 1.2 <1.3 10/07/2024 7:11 PM CDT [facility] PROTIME 13.6(H) 10.6 - 12.4 sec 10/07/2024 7:11 PM T [facility] Blood BLOOD SPECIMEN / Unknown Venipuncture / Unknown 10/07/2024 6:07 PM CDT 10/07/2024 6:25 PM CDT [facility] - 10/07/2024 7:11 PM CDT Therapeutic [...] on UFH. Dannielle VALDOVINOS HEMATOLOGY Final Result [facility] SENDOUT INTERNAL ZIP [address] [place] [address] * (ABNORMAL) Lipid Panel - In AM (10/07/2024 6:07 PM CDT) [facility] CHOLESTEROL,TOTAL 145 100 - 199 mg/dL 10/07/2024 6:50 PM [facility] Comment: Cholesterol, Total Reference Ranges Desirable <200 mg/dL Borderline 200-239 mg/dL High >=240 mg/dL TRIGLYCERIDES 133 <150 mg/dL 10/07/2024 6:50 PM [facility] HDL CHOLESTEROL 30(L) >40 mg/dL 6:50 PM [facility] NON-HDL CHOLESTEROL 115 <145 mg/dl 10/07/2024 6:50 PM [facility] CHOL/HDL RATIO 4.83(H) <4.50 10/07/2024 6:50 PM [facility] LDL CHOLESTEROL 88 <=130 mg/dL 10/07/2024 6:50 PM [facility] VLDL CHOLESTEROL 27 <=30 mg/dL 10/07/2024 6:50 PM [facility] PROVIDER ORDERED STATUS RANDOM 10/07/2024 6:50 PM CDT [facility] Blood BLOOD SPECIMEN / Unknown Venipuncture / Unknown 10/07/2024 6:07 PM CDT 10/07/2024 6:25 PM CDT us Victor Hugoclifton Carlos Dumont Arianna Michelle VALDOVINOS CHEMISTRY Final Result [facility] SENDOUT INTERNAL ZIP [address] [address] [place] [address] * US ABD AORTA SCREENING (11/02/2022 8:10 AM CDT) Anatomical Region Laterality Modality Abdomen, AORTA Ultrasound 11/02/2022 7:48 AM CDT Narrative 11/02/2022 10:34 AM CDT VASCULAR ULTRASOUND REPORT RUTHANN FIGUEROA : 1950 Study Date: 11/02/2022 7:48:28 AM Age: 71 years Tech: BVB Gender: M Referring MD: PING AUSTIN Site: [facility] Study performed: Aorta Indication for study: [...] biphasic + +--------+-------+ +---------+ Edwin Whitlock MD. [employer] Electronically signed on 11/02/2022 10:34:34 AM This study was performed and interpreted by a service accredited by the Intersocietal Accreditation Commission (IAC/Vascular), www.intersocietal.org/vascular Report generated by [employer]. Final Procedure Note Edwin Whitlock MD - 11/02/2022 VASCULAR ULTRASOUND REPORT RUTHANN FIGUEROA : 1950 Study Date: 11/02/2022 7:48:28 AM Age: 71 years Tech: MARLENE Gender: M Referring MD: PING AUSTIN Site: [facility] Study performed: Aorta Indication for study: [...] + +--------+-------+ +---------+ Edwin Whitlock MD. [employer] Electronically signed on 11/02/2022 10:34:34 AM This study was performed and interpreted by a service accredited by theIntersocietal Accreditation Commission (IAC/Vascular),www.intersocietal.org/vascular Report generated by [employer]. Final us Ping Austin NP Final Result [...] Code Status Discussion: Reviewed Preferences Care Teams Clinical Systems Educator Relationship Specialty Start Date End Date Osvaldo Hall MD [address] [place] [id number] PCP - General Family Practice 04/03/20
--- OUTSIDE RECORDS SUMMARY | 2024-10-27 10:38 | XMS_ITS | Clinical Summary ---
Author Organization [facility] Address [address] [place] [address]. 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 Not on file Not on file Last Filed Vital Signs Vital Sign Reading Time Taken Comments Blood Pressure 126/75 07/19/2020 3:10 PM CONFIDENTIAL INVESTIGATOR Pulse 79 07/19/2020 3:10 PM CONFIDENTIAL INVESTIGATOR Temperature 36.2 C (97.2 F) 07/19/2020 3:10 PM CONFIDENTIAL INVESTIGATOR Respiratory Rate 16 07/19/2020 4:50 PM CONFIDENTIAL INVESTIGATOR Oxygen Saturation 93% 07/19/2020 3:10 PM CONFIDENTIAL INVESTIGATOR Inhaled Oxygen Concentration - - Weight 92.1 kg (203 lb) 07/18/2020 10:31 AM CONFIDENTIAL INVESTIGATOR Height 180.3 cm (5' 11) 07/18/2020 10:31 AM CONFIDENTIAL INVESTIGATOR Body Mass Index 28.31 07/18/2020 10:31 AM CONFIDENTIAL INVESTIGATOR Plan of Treatment Not on file [facility] Advance Directives For more information, please contact: [phone] * Full Code (Latest Code Status on File) Date Activated Date Inactivated Comments 07/18/2020 5:59 PM 07/19/2020 7:37 PM All basic and advanced life-sustaining interventions are performed as appropriate Question Answer Comments Code status determined by: Unable to dis cuss and no AD/POLST on file; continue PREVIOUSLY ORDERED code status Care Teams Internal Audit Consultant Relationship Specialty Start Date End Date Osvaldo Hall MD PCP - General Family Medicine 07/12/20
--- OUTSIDE RECORDS SUMMARY | 2024-10-27 10:38 | XMS_ITS | Clinical Summary ---
Author Organization [facility] Address [address] [place] [address] Care Team Providers Care Family Resource Management Professor Name Role Phone Unavailable Primary Care Provider Unavailabl e Source Comments Patient records contain information from all sites at [facility]. For routine questions regarding patient records, call [phone] during business hours, M-F 8:00 AM - 5:00 PM Central Time. Record requests for emergency care only can be directed to [phone] at any time.[facility] Allergies No known active allergies Medications aspirin [...] = 0.6 oz pur e alcohol) [facility] Utilities Answer Date Recorded In the [...] your living situation today? I have a [facility] place to live 10/19/2023 Sex and Gender Information Value Date Recorded Sex Assigned at Male 10/19/2023 2:16 PM CDT Legal Sex Male 7:19 AM [employer]ENCE [employer] Gender Identity Male 10/19/2023 2:16 PM CDT [...] patient's age to complete this topic Insurance [facility]
[2024-10-27 11:54] LABS: Basophils Percent Auto 0.1 % (0.0-3.0); Eosinophils Percent Auto 0.5 % (0.0-7.0); Hematocrit 41.2 % (37.0-53.0); Immature Granulocytes Pct Auto 0.8 %; Lymphocytes Percent Auto 6.2 % (20-44); Mean Corpuscular HGB Conc 34 gm/dL (32-36); Mean Corpuscular Hemoglobin 31 pg (26-34); Mean Corpuscular Volume 90 fL (80-100); Monocytes Percent Auto 4.8 % (0.0-11.0); Neutrophils Percent Auto 87.6 % (42.0-72.0); Platelet Count* 185 K/uL (140-440); RDW Coefficient of Variation % 14.7 % (11.5-15.5); Red Blood Count 4.57 m/uL (4.30-5.90); White Blood Count* 13.43 K/uL (4.50-11.00)
[2024-10-27 12:03] LABS: Slide Review Reflex No
[2024-10-27 12:06] LABS: Albumin* 3.6 g/dL (3.3-5.0); Chloride* 95 mmol/L (96-114); Potassium* 3.9 mmol/L (3.6-5.1); Sodium* 136 mmol/L (135-149)
[2024-10-27 12:09] LABS: Alanine Aminotransferase* 128 U/L (4-50); Alkaline Phosphatase* 77 U/L (40-150); Anion Gap 4 mEq/L (7-15); Aspartate Amino Transferase* 53 U/L (12-35); Bilirubin Direct* 0.1 mg/dL (0.0-0.5); Bilirubin Total* 1.6 mg/dL (0.1-1.5); Blood Urea Nitrogen* 52 mg/dL (7-30); Carbon Dioxide* 37 mmol/L (20-32); Est. Creatinine Clearance* 72.16; Estimated Glomerular Filt Rate 80 ml/min
[2024-10-27 12:10] LABS: Calcium* 9.5 mg/dL (8.4-10.6); Glucose* 119 mg/dL (60-115)
== END 2024-10-27 11:59 | disposition home or self-care (01) ==
PROVIDERS: Emergency Provider Family Medicine; PCP Family Medicine
DX: B35.3 Tinea pedis (principal); R60.9 Edema, unspecified
CPT/HCPCS: 36415; 80048; 80076; 85025; 99283; 99284

== ENCOUNTER 2025-02-05 13:55 | Outpatient (CLI) | payer MEDICARE, BC, SELFPAY | END 2025-02-05 13:56 | disposition home or self-care (01) | PROVIDERS: PCP Family Medicine; Visit Provider Podiatrist | DX: B35.3 Tinea pedis (principal); Z79.899 Other long term (current) drug therapy | CPT/HCPCS: 82247; 84450; 84460 ==

== ENCOUNTER 2025-02-19 14:20 | Outpatient (CLI) | payer MEDICARE, BC, SELFPAY ==
[2025-02-19 14:34] LABS: ABG PCO2 41 mmHG (35-45); HCO3 ABG 28 mmol/L (21-28); Oxygen Saturation ABG 97 % (92-100); PO2 ABG 81.1 mmHG (80-105); TCO2 ABG 24 mmol/l (21-30)
--- NOTE | 2025-02-19 14:48 | RESP.RT ---
ABG done at R radial site, tolerated well, Results on RA, 7.439/41.1/81.1/27.8 Pressure held for 10 minutes after stick, placed gauze, tapped and wrapped with coban. Instructed pt to remove in 30 minutes.
== END 2025-02-19 14:21 | disposition home or self-care (01) ==
PROVIDERS: Internal Medicine; PCP Family Medicine; Visit Provider Physician Assistant
DX: J44.9 Chronic obstructive pulmonary disease, unspecified (principal)
CPT/HCPCS: 36600; 82803

== ENCOUNTER 2025-05-17 13:31 | Outpatient (CLI) | payer MEDICARE, BC, SELFPAY ==
[2025-05-17 17:36] LABS: PSA Diagnostic* < 0.06 ng/mL (0.10-4.00)
[2025-05-19 22:16] LABS: Testosterone, Adult Male 261 ng/dL (300-720)
== END 2025-05-17 13:32 | disposition home or self-care (01) ==
LOC: NPINS 13:32
PROVIDERS: PCP Family Medicine; Visit Provider Physician Assistant
DX: R97.21 Rising PSA following treatment for malignant neoplasm of prostate (principal)
CPT/HCPCS: 84153; 84403

== ENCOUNTER 2025-05-21 14:05 | Outpatient (CLI) | payer MEDICARE, BC, SELFPAY | END 2025-05-21 14:06 | disposition home or self-care (01) | PROVIDERS: PCP Family Medicine; Visit Provider Family Medicine | DX: Z01.818 Encounter for other preprocedural examination (principal); J44.9 Chronic obstructive pulmonary disease, unspecified | CPT/HCPCS: 80048; 85025 ==